=== PATIENT | male | born 1945 | race Caucasian/White ===

== ENCOUNTER 2017-07-04 10:14 | Outpatient (CLI) | payer MEDICARE, OTHER | END 2017-07-04 10:15 | disposition home or self-care (01) | LOC: SC 10:14 | PROVIDERS: ATTEND Internal Medicine Pulmonary Disease | DX: G47.33 Obstructive sleep apnea (adult) (pediatric) (principal) | CPT/HCPCS: 99213; G0463; 99212 ==

== ENCOUNTER 2018-06-18 09:43 | Outpatient (CLI) | payer MEDICARE, OTHER | END 2018-06-18 09:44 | disposition home or self-care (01) | LOC: SC 09:43 | PROVIDERS: ATTEND Nurse Practitioner Family | DX: G47.33 Obstructive sleep apnea (adult) (pediatric) (principal) | CPT/HCPCS: 99214; G0463; 99212 ==

== ENCOUNTER 2019-07-18 09:18 | Outpatient (CLI) | payer MEDICARE, OTHER ==
[2019-07-18 10:35] VITALS: BP 132/76
--- NOTE | 2019-07-18 10:35 | SLEEP CARE CONSULTATION ---
Information from patient questionnaire entered by Taylor Rodríguez. I have reviewed and concur with the information entered by Taylor Rodríguez. This document represents the service I personally performed and the decisions made by me, Sophie Bull, RN, MSN, SUPPLIER SPECIALIST. History of Present Illness Previous diagnosis: Severe, Obstructive Sleep Apnea-Hypopnea Syndrome AHI: 63.5 Reason for CPAP/BiPAP follow up: annual Equipment type: CPAP Equipment obtained from: [facility] (having difficulty getting supplies and would like to have a reminder system -) Mask style: Nasal (Wisp) Mask brand: Respironics Backup mask available: Yes Last cushion change: a month ago CPAP Compliance Data - Data Reviewed with Patient Average duration of nightly device use: 8.1 Compliance rate %: 100 (180 days) Current pressure setting (cmH2O): 8-16 Humidity settin Heated hose settin Average residual AHI: 3.1 Subjective Patient concerns: denies: aerophagia, mask discomfort, air blowing in eyes, mask leak noise, condensation in mask/hose, nasal congestion, dry mouth, nose, throat, epistaxis Observed to snore while using device: No Current pressure setting perceived as: comfortable On therapy, patient: reports: sleeping better, awakening more refreshed, being more awake and alert during the day, more rested overall. denies: drowsiness while driving Initial [place] Sleepiness Scale score: 6 Current [place] Sleepiness Scale score: 5 Allergies and Home Medications Known drug allergies: Yes Home medication list reviewed: Yes Allergy and home medication list: Aspirin EC 81mg tab one daily Losartan Potassium 100mg tab one daily in the morning Vitamin D 1000unit tab one daily Pravastatin Sodium 10mg tab one daily Bupropion 300mg tab one daily in the morning Mature Vitamin Tab one daily Review of Systems Review of systems same as previous: Yes Physical Exam Blood Pressure: 132/76 Cuff size: long Heart Rate: 67 O2 Saturation: 98 Height: 5 ft 9 in Weight: 282 lb 9.6 oz Weight change since last visit: lost 14 pounds Body Mass Index: 41.7 BMI Classification: Obesity Class 3 Impression and Plan 1. Obstructive Sleep Apnea-Hypopnea Syndrome, very severe, with good treatment compliance and good apnea control. On CPAP therapy, the patient has better sleep quality and is more rested overall. For supply concerns, he would like to have notification for when supplies come as before. Thus he was advised to contact [email or web address] to see what reminder system is available. I also gave him a supply replacement list and discussed rationale for replacement and answered questions. He asked about replacement of his device and it was determined it would be the end of next June. If continued supply problems he was notified that he could transfer to another DME. He had a lot questions about cleaning his equipment and cleaning devices. I gave him a handout about CPAP cleaning suggestions and discussed rationale. He was advised to do his research on cleaning devices to what he wants. I informed him that the device Rep stated there was no problem with using it. He has started to lose weight. I showed him how his blood pressure is lower than in past 2 visits and how his weight loss will reduce his blood pressure. His current weight is still morbidly obese which increases apnea risk and overal health risks. He is advised to continue to lose weight. If significant weight loss, his CPAP pressure requirements may need to be reduced so symptoms to report discusse. Patient's apnea severity and rationale for treatment to reduce apnea, improve sleep quality and reduce cardiovascular and cerebrovascular events was reviewed. I also reviewed the benefit of consistent device use of CPAP for his hypertension, depression/anxiety. * Continue autoCPAP pressure at 8-16 cmH2O * Contact [email or web address] re supply concerns * Notify me if snoring with mask or feeling that the pressure is too much or too little * Continue to lose weight * Return for follow up in 1 year , or sooner if concerns arise I spent 100% of this 35 minute visit face to face with the patient with greater than 50% of this was spent time counseling the patient and coordination of care.
== END 2019-07-18 09:19 | disposition home or self-care (01) ==
LOC: SC 09:18
PROVIDERS: ATTEND Nurse Practitioner Family
DX: G47.33 Obstructive sleep apnea (adult) (pediatric) (principal)
CPT/HCPCS: 99212; 99214

== ENCOUNTER 2020-07-30 10:32 | Outpatient (CLI) | payer MEDICARE, OTHER ==
--- NOTE | 2020-07-30 11:10 | SLEEP CARE CONSULTATION ---
Information from patient questionnaire entered by Romina Partida. I have reviewed and concur with the information entered by Romina Partida. This document represents the service I personally performed and the decisions made by , Julia Maravilla ARNP. History of Present Illness Service Date and Time: 07/30/2020 1032 Previous diagnosis: Severe, Obstructive Sleep Apnea-Hypopnea Syndrome AHI: 63.5 (in 2002) Reason for follow up: annual (last seen 06/2019) Equipment type: CPAP Equipment obtained from: [facility] (they are no longer able to provide supplies) Mask style: Nasal (Wisp) Mask brand: [employer] Backup mask available: Yes (old mask) Last cushion change: over a month Prior sleep studies: Yes Year and Where: 2002 [facility] and 2008 [facility] Sleep Care titration HPI additional information: BENNY WERNER was diagnosed to have severe, AHI 63.5, obstructive sleep apnea- hypopnea syndrome and returned today for CPAP therapy annual follow-up. CPAP Compliance Data - Data Reviewed with Patient Average duration of nightly device use: 8 h 18 min Compliance rate %: 100 Current pressure setting (cmH2O): 8-16 Humidity settin Heated hose settin Average residual AHI: 2.9 Average large leak: 1 min 7 sec Subjective Patient concerns: denies: aerophagia, mask discomfort, air blowing in eyes, mask leak noise, condensation in mask/hose, nasal congestion, dry mouth, nose, throat, epistaxis, other Observed to snore while using device: No Current pressure setting perceived as: comfortable On therapy, patient: reports: sleeping better, awakening more refreshed, being more awake and alert during the day, more rested overall. denies: drowsiness while driving Initial [place] Sleepiness Scale score: 6 (in 2008) Current [place] Sleepiness Scale score: 4 Allergies and Home Medications Drug allergies reviewed: Yes (NKDA) Home medication list reviewed: Yes (adding a HTN med (doesn't know name)) Review of Systems Review of systems same as previous: Yes (no changes) Physical Exam Heart Rate: 74 O2 Saturation: 97 Height: 5 ft 9 in Weight: 294 lb Body Mass Index: 43.4 BMI Classification: Morbidly Obese Impression and Plan 1. Obstructive Sleep Apnea-Hypopnea Syndrome, severe, with excellent treatment compliance and good apnea control. On CPAP therapy, the patient has better sleep quality and is more rested overall. Currently patients BMI is 43.4. Obesity increases the risk of apnea, CPAP pressure requirements and overall health risks especially cardiovascular and diabetes. Thus patient is advised to try to lose weight. Weight loss can be done with reducing portion size, reducing refined foods and balancing content with vegetables, fruit and whole grain foods. Patient was getting supplies at local DME but they no longer provide supplies for CPAP. Patient was informed that another DME can be used. I will have my financial aid coordinator inform of DME options. A DWO prescription will then be made. Patient advised to contact this office if further supply problems. He is also eligible for a new machine but would like to wait and consider options before ordering a new machine. Patient encouraged to discuss their weight loss goals with their PCP and consider a referral to a rotor pilot. Patient's apnea severity and rationale for treatment to reduce apnea, improve sleep quality and reduce cardiovascular and cerebrovascular events was reviewed. I also reviewed the benefit of consistent device use of CPAP for hypertension, depression and anxiety. * Continue auto CPAP pressure at 8-16 cmH2O * Transfer DME * Notify me if snoring with mask or feeling that the pressure is too much or too little * Attempt to lose weight * Call this office if any problems using CPAP * Return for follow up in 1-year, or sooner if concerns arise Counseling Topics: Spare mask, Weight loss health impact Visit Type: In Office Time Spent with Patient (minutes): 23 Provider Statement: I spent 100% of the Face to Face Visit with the patient with greater than 50% spent counseling the patient and coordination of care.
== END 2020-07-30 10:33 | disposition home or self-care (01) ==
LOC: SC 10:32
PROVIDERS: ATTEND Nurse Practitioner Family
DX: G47.33 Obstructive sleep apnea (adult) (pediatric) (principal); E66.01 Morbid (severe) obesity due to excess calories; Z68.41 Body mass index [BMI] 40.0-44.9, adult
CPT/HCPCS: 99213; G0463; 99212

== ENCOUNTER 2021-09-02 09:44 | Outpatient (CLI) | payer MEDICARE, OTHER ==
--- NOTE | 2021-09-02 10:34 | SLEEP CARE CONSULTATION ---
Information from patient questionnaire entered by Blanca Bronson MA. I have reviewed and concur with the information entered by Blanca Bronson MA. This document represents the service I personally performed and the decisions made by , Julia Maravilla ARNP. History of Present Illness Service Date and Time: 09/02/2021 0944 Previous diagnosis: Severe, Obstructive Sleep Apnea-Hypopnea Syndrome AHI: 63.5 (in 2002) Reason for follow up: annual Equipment type: CPAP Equipment obtained from: Other ([facility]; getting supplies) Mask style: Nasal (Eson 2) Backup mask available: Yes (old mask) Last cushion change: don't remember Prior sleep studies: Yes Year and Where: 2002 [place] [address] 2008 [facility] Sleep Care titration HPI additional information: BENNY WERNER was diagnosed to have severe, AHI 63.5, obstructive sleep apnea- hypopnea syndrome and returned today for CPAP therapy annual follow-up. Sleep Study - Results Prior sleep studies: Yes Year and Where: 2002 [place] [address] 2008 [facility] Sleep Care titration CPAP Compliance Data - Data Reviewed with Patient Average duration of nightly device use: 8 HOURS 18 MINUTES Compliance rate %: 100 Current pressure setting (cmH2O): 8-16 Humidity settin Heated hose settin Average residual AHI: 2.9 Average large leak: 1 MINUTE 7 SECONDS Subjective Patient concerns: denies: aerophagia, mask discomfort, air blowing in eyes, mask leak noise, condensation in mask/hose, nasal congestion, dry mouth, nose, throat, epistaxis, other Observed to snore while using device: No Current pressure setting perceived as: comfortable On therapy, patient: reports: sleeping better, awakening more refreshed, being more awake and alert during the day, more rested overall, other (can't sleep without it). denies: drowsiness while driving Initial [place] Sleepiness Scale score: 6 (in 2008) Current [place] Sleepiness Scale score: 8 (2020) Allergies and Home Medications Home medication list reviewed: Yes (Amlodipine 5 mg) Review of Systems Review of systems same as previous: No (carpal tunnel surgery; basal cell growth removed from face) Physical Exam Vital signs obtained and entered by: SHEEBA DE LEON Blood Pressure: 138/72 (RIGHT) Cuff size: wrist Heart Rate: 72 O2 Saturation: 96 (WITH MASK) Height: 5 ft 9 in Weight: 280 lb (WITH CLOTHES) Body Mass Index: 41.3 BMI Classification: Morbidly Obese Impression and Plan 1. Obstructive Sleep Apnea-Hypopnea Syndrome, severe, with excellent treatment compliance and good apnea control. On CPAP therapy, the patient has better sleep quality and is more rested overall. Patient has a REMstar from [employer] that he received in 2014. I informed the patient that [employer] has a recall on several devices like the patients machine. Patient denies any black particles seen in machine or hoses, any unusual odors coming from device. Patient has not experienced any physical symptoms such as upper airway irritation, headache, skin or eye irritation, asthma, nausea/vomiting, difficulty breathing or chest pain. If patient is not able to sleep due to waking up choking, gasping for air or other respiratory distress that they may decide to continue using it until it is either replaced or repaired. Since the patients current machine is at least 5 years old the patient is opting to update their device with a device that is not on the recall. Thus, the CPAP will be updated. A DWO prescription will be made. Compliance guidelines for new device and follow up discussed. Patient voiced understanding and agreement with plan. Patient's apnea severity and rationale for treatment to reduce apnea, improve sleep quality and reduce cardiovascular and cerebrovascular events was reviewed. I also reviewed the benefit of consistent device use of CPAP for hypertension, depression and anxiety. * Continue auto CPAP pressure at 8-16 cmH2O * Update device * Update supplies as needed * Notify me if snoring with mask or feeling that the pressure is too much or too little * Attempt to lose weight * Call this office if any problems using CPAP * Return for follow up one month after obtaining new device, or sooner if concerns arise Counseling Topics: Spare mask, Weight loss health impact Visit Type: In Office Time Spent with Patient (minutes): 24 Provider Statement: I spent 100% of the Face to Face Visit with the patient with greater than 50% spent counseling the patient and coordination of care.
[2021-09-02 10:35] VITALS: BP 138/72
== END 2021-09-02 09:45 | disposition home or self-care (01) ==
LOC: SC 09:44
PROVIDERS: ATTEND Nurse Practitioner Family
DX: G47.33 Obstructive sleep apnea (adult) (pediatric) (principal); E66.01 Morbid (severe) obesity due to excess calories; Z68.41 Body mass index [BMI] 40.0-44.9, adult
CPT/HCPCS: 99213; G0463; 99212

== ENCOUNTER 2021-12-07 09:18 | Outpatient (CLI) | payer MEDICARE, OTHER ==
--- NOTE | 2021-12-07 10:08 | SLEEP CARE CONSULTATION ---
Information from patient questionnaire entered by Blanca Bronson MA. I have reviewed and concur with the information entered by Blanca Bronson MA. This document represents the service I personally performed and the decisions made by , Julia Maravilla ARNP. History of Present Illness Service Date and Time: 12/07/2021 0918 Previous diagnosis: Severe, Obstructive Sleep Apnea-Hypopnea Syndrome AHI: 63.5 (in 2002) Reason for follow up: first compliance (JULIO CESAR MILLER, ), first compliance after device update Equipment type: CPAP Equipment obtained from: Other ([facility]; getting supplies) Mask style: Nasal (Eson 2) Backup mask available: Yes (old mask) Last cushion change: 1 month Prior sleep studies: Yes Year and Where: [place] and 2008 [facility] Sleep Care titration HPI additional information: BENNY WERNER was diagnosed to have severe, AHI 63.5, obstructive sleep apnea- hypopnea syndrome and returned today for CPAP therapy first compliance after device updated follow-up. Sleep Study - Results Prior sleep studies: Yes Year and Where: 2002 and 2008 [facility] Sleep Care titration CPAP Compliance Data - Data Reviewed with Patient Average duration of nightly device use: 8 hours 22 minutes Compliance rate %: 100 Current pressure setting (cmH2O): 8-16 Average residual AHI: 1.9 Central apnea: 0.1 Average large leak: 8.9 Subjective Patient concerns: denies: aerophagia, mask discomfort, air blowing in eyes, mask leak noise, condensation in mask/hose, nasal congestion, dry mouth, nose, throat, epistaxis Observed to snore while using device: No Current pressure setting perceived as: comfortable On therapy, patient: reports: sleeping better, awakening more refreshed, being more awake and alert during the day, more rested overall. denies: drowsiness while driving Initial [place] Sleepiness Scale score: 6 (in 2008) Current [place] Sleepiness Scale score: 8 (11/2021) Allergies and Home Medications Home medication list reviewed: Yes (no changes) Review of Systems Review of systems same as previous: Yes (no changes) Physical Exam Vital signs obtained and entered by: SHEEBA DE LEON Blood Pressure: 139/76 (right, pulse 73, resp 16, ) Cuff size: wrist Heart Rate: 71 O2 Saturation: 97 (cloth) Height: 5 ft 9 in Weight: 290 lb Body Mass Index: 42.8 BMI Classification: Morbidly Obese Impression and Plan 1. Obstructive Sleep Apnea-Hypopnea Syndrome, severe, with excellent treatment compliance and good apnea control. On CPAP therapy, the patient has better sleep quality and is more rested overall. Patient states that his new machine is working fine. He states when he turns it up sometimes it would continue to run like it is winding down for period of time. Other than that there is no other issues. Patient has significant improvement of his sleep apnea with current CPAP therapy. Patient's apnea severity and rationale for treatment to reduce apnea, improve sleep quality and reduce cardiovascular and cerebrovascular events was reviewed. I also reviewed the benefit of consistent device use of CPAP for hypertension, depression and anxiety. 2. Obesity, unspecified. Currently patients BMI is 42.8. Obesity increases the risk of apnea, CPAP pressure requirements and overall health risks especially cardiovascular and diabetes. Thus patient is advised to lose weight. Weight loss can be done with reducing portion size, reducing refined foods and balancing c ontent with vegetables, fruit and whole grain foods. In addition, patient encouraged to get regular exercise. Patient is trying to get his 10,000 steps in every day. He will even watch TV standing up in order to get his steps in. The patient's CPAP pressure range should accommodate some weight loss. Symptoms to report for additional pressure adjustment discussed. * Continue auto CPAP pressure at 8-16 cmH2O * Notify me if snoring with mask or feeling that the pressure is too much or too little * Attempt to lose weight * Call this office if any problems using CPAP * Return for follow up in 1 year, or sooner if concerns arise Counseling Topics: Spare mask, Weight loss health impact Visit Type: In Office Time Spent with Patient (minutes): 21 Provider Statement: I spent 100% of the Face to Face Visit with the patient with greater than 50% spent counseling the patient and coordination of care.
[2021-12-07 10:09] VITALS: BP 139/76
== END 2021-12-07 09:19 | disposition home or self-care (01) ==
LOC: SC 09:18
PROVIDERS: ATTEND Nurse Practitioner Family
DX: G47.33 Obstructive sleep apnea (adult) (pediatric) (principal); E66.01 Morbid (severe) obesity due to excess calories; Z68.41 Body mass index [BMI] 40.0-44.9, adult
CPT/HCPCS: 99213; G0463; 99212

== ENCOUNTER 2022-07-27 11:39 | Outpatient (CLI) | payer MEDICARE, OTHER ==
[2022-07-27 11:58] LABS: BASOPHILS % (AUTO) 0.7 %; EOSINOPHILS # (AUTO) 0.1 10^3/uL (0.0-0.7); EOSINOPHILS % (AUTO) 1.5 %; HGB - HEMOGLOBIN 13.1 g/dL (14.0-18.0); LYMPHOCYTES # (AUTO) 1.3 10^3/uL (1.5-3.5); LYMPHOCYTES % (AUTO) 32.3 %; MEAN CORPUSCULAR HEMOGLOBIN 31.1 pg (27.0-31.0); MEAN CORPUSCULAR HGB CONC 33.6 g/dL (32.0-36.0); MEAN CORPUSCULAR VOLUME 92.6 fL (80.0-94.0); MEAN PLATELET VOLUME 9.8 fL (7.4-11.4); MONOCYTES # (AUTO) 0.4 10^3/uL (0.0-1.0); MONOCYTES % (AUTO) 10.1 %; NEUTROPHILS # (AUTO) 2.2 10^3/uL (1.5-6.6); NEUTROPHILS % (AUTO) 55.2 %; PLT - PLATELET COUNT 177 10^3/uL (130-450); RED BLOOD COUNT 4.21 10^6/uL (4.70-6.10); RED CELL DISTRIBUTION WIDTH 12.9 % (12.0-15.0); WHITE BLOOD COUNT 4.1 x10^3/uL (4.8-10.8)
[2022-07-27 12:11] LABS: CREATININE,URINE 71.6 mg/dL; MICROALBUM/CREATININE RATIO,UR 4.2 ug/mg (<30.0); MICROALBUMIN,URINE 0.3 mg/dL (0-300.0)
[2022-07-27 12:15] LABS: ALBUMIN 4.3 g/dL (3.2-5.5); ALBUMIN/GLOBULIN RATIO 1.3 (1.0-2.2); ALKALINE PHOSPHATASE 68 IU/L (42-121); ALT ALANINE AMINOTRANSFERASE 39 IU/L (10-60); AST ASPARTATE AMINOTRANSFERASE 31 IU/L (10-42); BILIRUBIN,TOTAL 0.9 mg/dL (0.2-1.0); BUN - BLOOD UREA NITROGEN 20 mg/dL (6-20); CALCIUM 9.5 mg/dL (8.5-10.3); CARBON DIOXIDE - CO2 25 mmol/L (21-32); CHLORIDE 105 mmol/L (101-111); CHOL/HDL RATIO 4.8 (<5.0); CHOLESTEROL 237 mg/dL; GFR - MDRD 73 (>89); GLUCOSE 116 mg/dL (70-100); HDL CHOLESTEROL 49 mg/dL; LDL CHOLESTEROL,CALCULATED 139 mg/dL; LDL/HDL RATIO 2.8 (<3.6); POTASSIUM 3.9 mmol/L (3.5-5.0); SODIUM 140 mmol/L (135-145); TOTAL PROTEIN 7.6 g/dL (6.7-8.2); TRIGLYCERIDES 245 mg/dL; VLDL CHOLESTEROL 49 mg/dL
[2022-07-27 12:25] LABS: THYROID STIMULATING HORMONE 2.15 uIU/mL (0.34-5.60)
[2022-07-27 13:44] LABS: ESTIMATED AVERAGE GLUCOSE 140 mg/dL (70-100); HEMOGLOBIN A1c% 6.5 % (4.27-6.07)
== END 2022-07-27 11:40 | disposition home or self-care (01) ==
LOC: LAB 11:39
PROVIDERS: ATTEND Internal Medicine
DX: I10 Essential (primary) hypertension (principal); E78.5 Hyperlipidemia, unspecified; R73.01 Impaired fasting glucose; Z13.29 Encounter for screening for other suspected endocrine disorder; Z12.5 Encounter for screening for malignant neoplasm of prostate
CPT/HCPCS: 36415; 80053; 80061; 82043; 82570; 83036; 84443; 85025; G0103; 83721; 84153

== ENCOUNTER 2022-10-13 10:52 | Outpatient (CLI) | payer MEDICARE, OTHER ==
[2022-10-13 11:18] LABS: BASOPHILS % (AUTO) 0.9 %; EOSINOPHILS # (AUTO) 0.1 10^3/uL (0.0-0.7); EOSINOPHILS % (AUTO) 2.7 %; HCT - HEMATOCRIT 38.8 % (42.0-52.0); HGB - HEMOGLOBIN 13.1 g/dL (14.0-18.0); LYMPHOCYTES # (AUTO) 1.5 10^3/uL (1.5-3.5); LYMPHOCYTES % (AUTO) 34.7 %; MEAN CORPUSCULAR HEMOGLOBIN 31.3 pg (27.0-31.0); MEAN CORPUSCULAR HGB CONC 33.8 g/dL (32.0-36.0); MEAN CORPUSCULAR VOLUME 92.6 fL (80.0-94.0); MONOCYTES # (AUTO) 0.4 10^3/uL (0.0-1.0); MONOCYTES % (AUTO) 9.1 %; NEUTROPHILS # (AUTO) 2.3 10^3/uL (1.5-6.6); NEUTROPHILS % (AUTO) 52.4 %; PLT - PLATELET COUNT 177 10^3/uL (130-450); RED BLOOD COUNT 4.19 10^6/uL (4.70-6.10); RED CELL DISTRIBUTION WIDTH 13.1 % (12.0-15.0); WHITE BLOOD COUNT 4.4 x10^3/uL (4.8-10.8)
[2022-10-13 11:40] LABS: ALBUMIN 4.5 g/dL (3.2-5.5); ALBUMIN/GLOBULIN RATIO 1.3 (1.0-2.2); ALKALINE PHOSPHATASE 77 IU/L (42-121); ALT ALANINE AMINOTRANSFERASE 32 IU/L (10-60); AST ASPARTATE AMINOTRANSFERASE 27 IU/L (10-42); BUN - BLOOD UREA NITROGEN 31 mg/dL (6-20); CALCIUM 9.9 mg/dL (8.5-10.3); CARBON DIOXIDE - CO2 27 mmol/L (21-32); CHLORIDE 103 mmol/L (101-111); CHOLESTEROL 143 mg/dL; CREATININE 1.1 mg/dL (0.6-1.2); GFR - MDRD 65 (>89); GLUCOSE 113 mg/dL (70-100); HDL CHOLESTEROL 48 mg/dL; LDL CHOLESTEROL,CALCULATED 61 mg/dL; LDL/HDL RATIO 1.3 (<3.6); POTASSIUM 3.8 mmol/L (3.5-5.0); SODIUM 139 mmol/L (135-145); TRIGLYCERIDES 172 mg/dL; VLDL CHOLESTEROL 34 mg/dL
[2022-10-13 12:00] LABS: CRP - C-REACTIVE PROTEIN < 1.0 mg/dL (0-1.0); URIC ACID 5.4 mg/dL (2.6-7.2)
[2022-10-13 13:00] LABS: ESTIMATED AVERAGE GLUCOSE 134 mg/dL (70-100); HEMOGLOBIN A1c% 6.3 % (4.27-6.07)
== END 2022-10-13 10:53 | disposition home or self-care (01) ==
LOC: LAB 10:52
PROVIDERS: ATTEND Orthopaedic Surgery
DX: E11.9 Type 2 diabetes mellitus without complications (principal); E78.5 Hyperlipidemia, unspecified; M25.562 Pain in left knee
CPT/HCPCS: 36415; 80053; 80061; 83036; 83721; 84550; 85025; 85651; 86140

== ENCOUNTER 2023-01-11 11:18 | Outpatient (CLI) | payer MEDICARE, OTHER ==
[2023-01-11 11:52] VITALS: BP 122/60
--- NOTE | 2023-01-11 11:52 | SLEEP CARE CONSULTATION ---
Information from patient questionnaire entered by Elizabeth Hinds. I have reviewed and concur with the information entered by Elizabeth Hinds. This document represents the service I personally performed and the decisions made by me, Julia Maravilla ARNP. History of Present Illness Service Date and Time: 01/11/2023 1118 Previous diagnosis: Very Severe, Obstructive Sleep Apnea-Hypopnea Syndrome AHI: 63.5 (in 2002) Reason for follow up: annual (LAST SEEN 11/2021) Equipment type: CPAP (Suzan 3B; ICODE SD CARD NEEDED FOR DOWNLOAD AND PRESSURE CHANGES) Equipment obtained from: Other ([facility]; getting supplies) Mask style: Nasal (Eson 2) Backup mask available: Yes (old mask) Last cushion change: last week Prior sleep studies: Yes Year and Where: [place] and 2008 [facility] Sleep Care titration HPI additional information: BENNY WERNER was diagnosed to have very severe, AHI 63.5, obstructive sleep apnea- hypopnea syndrome and returned today for CPAP therapy annual follow-up. Sleep Study - Results Prior sleep studies: Yes Year and Where: [place] and 2008 [facility] Sleep Care titration CPAP Compliance Data - Data Reviewed with Patient Average duration of nightly device use: 8 hours 15 minutes Compliance rate %: 100 Current pressure setting (cmH2O): 8-16 Average residual AHI: 2.2 Central apnea: 0.1 Average large leak: 8.3 lpm Subjective Patient concerns: denies: aerophagia, mask discomfort, air blowing in eyes, mask leak noise, condensation in mask/hose, nasal congestion, dry mouth, nose, throat, epistaxis Observed to snore while using device: No Current pressure setting perceived as: comfortable On therapy, patient: reports: sleeping better, awakening more refreshed, being more awake and alert during the day, more rested overall. denies: drowsiness while driving Initial [place] Sleepiness Scale score: 6 (in 2008) Current [place] Sleepiness Scale score: 8 (01/11/23) Allergies and Home Medications Known drug allergies: No Drug allergies reviewed: Yes Home medication list reviewed: Yes (Trulicity) Review of Systems Review of systems same as previous: Yes (borderline diabetes) Physical Exam Vital signs obtained and entered by: ELIZABETH Cox MA Blood Pressure: 122/60 (LEFT ARM) Cuff size: regular Heart Rate: 81 O2 Saturation: 97 Height: 5 ft 9 in Weight: 295 lb 12.8 oz Body Mass Index: 43.7 BMI Classification: Morbidly Obese Impression and Plan 1. Obstructive Sleep Apnea-Hypopnea Syndrome, very severe, with good treatment compliance and good apnea control. On CPAP therapy, the patient has better sleep quality and is more rested overall. Patient has significant improvement of their sleep apnea and is satisfied with current CPAP therapy. He states he cannot sleep without his CPAP and intends to continue using it regularly. Patient denies problems with oral dryness, nasal congestion, epistaxis, skin irritation or aerophagia. Patient's apnea severity and rationale for treatment to reduce apnea, improve sleep quality and reduce cardiovascular and cerebrovascular events was reviewed. I also reviewed the benefit of consistent device use of CPAP for hypertension, depression and anxiety. 2. Overweight, unspecified. Currently patients BMI is 43.7. He states he did lose some weight when he was on vacation but then he gained it back. He cannot remember what he was doing to lose weight but is mindful that he needs to start trying to lose weight again. Obesity increases the risk of apnea, CPAP pressure requirements and overall health risks especially cardiovascular and diabetes. Thus patient is advised to lose weight. * Continue auto CPAP pressure at 8-16 cmH2O * Update supplies * Notify me if snoring with mask or feeling that the pressure is too much or too little * Attempt to lose weight * Call this office if any problems using CPAP * Return for follow up in 1 year, or sooner if concerns arise Counseling Topics: Spare mask, Weight loss health impact Visit Type: In Office Time Spent with Patient (minutes): 20 Provider Statement: I spent 100% of the Face to Face Visit with the patient with greater than 50% spent counseling the patient and coordination of care.
== END 2023-01-11 11:19 | disposition home or self-care (01) ==
LOC: SC 11:18
PROVIDERS: ATTEND Nurse Practitioner Family
DX: G47.33 Obstructive sleep apnea (adult) (pediatric) (principal); E66.01 Morbid (severe) obesity due to excess calories; Z68.41 Body mass index [BMI] 40.0-44.9, adult
CPT/HCPCS: 99213; G0463; 99212

== ENCOUNTER 2023-03-08 12:03 | Outpatient (CLI) | payer MEDICARE, OTHER ==
[2023-03-08 12:28] LABS: ALBUMIN 4.5 g/dL (3.2-5.5); ALBUMIN/GLOBULIN RATIO 1.3 (1.0-2.2); BILIRUBIN,TOTAL 0.7 mg/dL (0.2-1.0); CALCIUM 9.7 mg/dL (8.5-10.3); CREATININE 1.1 mg/dL (0.6-1.2); POTASSIUM 3.9 mmol/L (3.5-5.0); TOTAL PROTEIN 8.1 g/dL (6.7-8.2)
[2023-03-08 12:37] LABS: ESTIMATED AVERAGE GLUCOSE 131 mg/dL (70-100); HEMOGLOBIN A1c% 6.2 % (4.27-6.07)
== END 2023-03-08 12:04 | disposition home or self-care (01) ==
LOC: LAB 12:03
PROVIDERS: ATTEND Internal Medicine
DX: E11.9 Type 2 diabetes mellitus without complications (principal)
CPT/HCPCS: 36415; 80053; 83036

== ENCOUNTER 2023-07-26 11:20 | Outpatient (CLI) | payer MEDICARE, OTHER ==
[2023-07-26 11:38] LABS: BASOPHILS % (AUTO) 0.9 %; EOSINOPHILS # (AUTO) 0.1 10^3/uL (0.0-0.7); EOSINOPHILS % (AUTO) 2.6 %; HCT - HEMATOCRIT 38.7 % (42.0-52.0); HGB - HEMOGLOBIN 12.9 g/dL (14.0-18.0); LYMPHOCYTES # (AUTO) 1.5 10^3/uL (1.5-3.5); LYMPHOCYTES % (AUTO) 32.3 %; MEAN CORPUSCULAR HEMOGLOBIN 30.5 pg (27.0-31.0); MEAN CORPUSCULAR HGB CONC 33.3 g/dL (32.0-36.0); MEAN CORPUSCULAR VOLUME 91.5 fL (80.0-94.0); MEAN PLATELET VOLUME 9.7 fL (7.4-11.4); MONOCYTES # (AUTO) 0.5 10^3/uL (0.0-1.0); MONOCYTES % (AUTO) 9.6 %; NEUTROPHILS # (AUTO) 2.6 10^3/uL (1.5-6.6); NEUTROPHILS % (AUTO) 54.4 %; PLT - PLATELET COUNT 182 10^3/uL (130-450); RED BLOOD COUNT 4.23 10^6/uL (4.70-6.10); RED CELL DISTRIBUTION WIDTH 13.2 % (12.0-15.0); WHITE BLOOD COUNT 4.7 x10^3/uL (4.8-10.8)
[2023-07-26 11:55] LABS: ALBUMIN 4.7 g/dL (3.2-5.5); ALBUMIN/GLOBULIN RATIO 1.6 (1.0-2.2); ALKALINE PHOSPHATASE 81 IU/L (42-121); ALT ALANINE AMINOTRANSFERASE 31 IU/L (10-60); AST ASPARTATE AMINOTRANSFERASE 26 IU/L (10-42); BILIRUBIN,TOTAL 0.7 mg/dL (0.2-1.0); BUN - BLOOD UREA NITROGEN 17 mg/dL (6-20); CALCIUM 10.1 mg/dL (8.5-10.3); CARBON DIOXIDE - CO2 29 mmol/L (21-32); CHLORIDE 103 mmol/L (101-111); CHOL/HDL RATIO 2.8 (<5.0); CHOLESTEROL 128 mg/dL; CREATININE 1.1 mg/dL (0.6-1.3); GFR - MDRD 65 (>89); GLUCOSE 108 mg/dL (74-104); HDL CHOLESTEROL 46 mg/dL; LDL CHOLESTEROL,CALCULATED 50 mg/dL; LDL/HDL RATIO 1.1 (<3.6); POTASSIUM 3.8 mmol/L (3.5-4.5); SODIUM 138 mmol/L (135-145); TOTAL PROTEIN 7.7 g/dL (6.4-8.9); TRIGLYCERIDES 159 mg/dL (48-352); VLDL CHOLESTEROL 32 mg/dL
[2023-07-26 12:07] LABS: ESTIMATED AVERAGE GLUCOSE 137 mg/dL (70-100); HEMOGLOBIN A1c% 6.4 % (4.27-6.07)
[2023-07-26 13:47] LABS: CREATININE,URINE 103.6 mg/dL; MICROALBUM/CREATININE RATIO,UR 7.7 ug/mg (<30.0); MICROALBUMIN,URINE 0.8 mg/dL
== END 2023-07-26 11:21 | disposition home or self-care (01) ==
LOC: LAB 11:20
PROVIDERS: ATTEND Internal Medicine
DX: E11.9 Type 2 diabetes mellitus without complications (principal); E78.5 Hyperlipidemia, unspecified; N40.1 Benign prostatic hyperplasia with lower urinary tract symptoms
CPT/HCPCS: 36415; 80053; 80061; 82043; 82570; 83036; 83721; 84153; 85025

== ENCOUNTER 2023-07-27 10:03 | Outpatient (CLI) | payer MEDICARE, OTHER ==
[2023-07-27 10:21] LABS: BILIRUBIN,URINE NEGATIVE (NEGATIVE); GLUCOSE, URINE (UA) NEGATIVE (NEGATIVE); KETONES,URINE (UA) NEGATIVE (NEGATIVE); LEUKOCYTE ESTERASE, URINE NEGATIVE (NEGATIVE); NITRITE,URINE NEGATIVE (NEGATIVE); OCCULT BLOOD,URINE TRACE-INTA (NEGATIVE); PROTEIN,URINE NEGATIVE (NEGATIVE); UROBILINOGEN,URINE 0.2 (NORMAL) E.U./dL (NORMAL)
[2023-07-27 10:28] LABS: BACTERIA,URINE None Seen /HPF (None Seen); CLARITY,URINE c (CLEAR); RBC,URINE None Seen /HPF (0-5); SQUAMOUS EPITHELIAL CELL,UR NONE SEEN (<= Few); WBC,URINE 0-3 /HPF (0-3)
== END 2023-07-27 10:04 | disposition home or self-care (01) ==
LOC: LAB 10:03
PROVIDERS: ATTEND Internal Medicine
DX: R97.20 Elevated prostate specific antigen [PSA] (principal)
CPT/HCPCS: 36415; 81001; 84153; 84154; 87086

== ENCOUNTER 2023-09-13 10:47 | Outpatient (CLI) | payer MEDICARE, OTHER ==
[2023-09-13 11:15] LABS: CREATININE 1.1 mg/dL (0.6-1.3)
== END 2023-09-13 10:48 | disposition home or self-care (01) ==
LOC: LAB 10:47
PROVIDERS: ATTEND Urology
DX: R97.20 Elevated prostate specific antigen [PSA] (principal)
CPT/HCPCS: 36415; 82565

== ENCOUNTER 2023-09-13 10:59 | Outpatient (CLI) | payer MEDICARE, OTHER ==
--- NOTE | 2023-09-13 18:20 | XRAY Report ---
PROCEDURE: Ankle 3+V RT INDICATIONS: RIGHT ANKLE PAIN TECHNIQUE: 3 views of the ankle were acquired. COMPARISON: None. FINDINGS: Bones: No fracture or dislocation. Degenerative changes with incongruent mortise and lateral joint s pace narrowing Soft tissues: No tibiotalar joint effusion. Achilles tendon appears normal. IMPRESSION: Osteoarthritis of the right ankle with near complete loss of the joint space laterally. Reviewed by: Fuentes Brooks MD on 09/13/2023 6:19 PM PST Approved by: Fuetnes Brooks MD on 09/13/2023 6:19 PM PST Station ID: [id number]
== END 2023-09-13 11:00 | disposition home or self-care (01) ==
LOC: DI 10:59
PROVIDERS: ATTEND Internal Medicine
DX: M19.071 Primary osteoarthritis, right ankle and foot (principal); R97.20 Elevated prostate specific antigen [PSA]
CPT/HCPCS: 36415; 82565

== ENCOUNTER 2023-09-15 07:57 | Outpatient (CLI) | payer MEDICARE, OTHER ==
[~2023-09-15 07:57] MED LIST: GADOTERATE MEGLUMINE 10 MMOL/20 ML VIAL ONE; GADOTERATE MEGLUMINE 5 MMOL/10 ML VIAL ONE
[2023-09-15] MEDS ORDERED: GADOTERATE MEGLUMINE 10 MMOL/20 ML VIAL IVP ONE ×2 (09:32→10:00)
--- NOTE | 2023-09-15 13:16 | MRI Report ---
PROCEDURE: PELVIS W/WO INDICATIONS: ELEVATED PSA CONTRAST: CLARISCAN 29.8 ML TECHNIQUE: Coronal ultra fast SE, axial T1 FSE with fat saturation, 3-plane nonbreath-hold T2 FSE. After the ad ministration of contrast, dynamic axial, delayed axial and coronal ultra fast GE or 2-D spoiled GE wi th fat saturation through the pelvis. Optional diffusion weighted imaging and ADC may be performed. COMPARISON: None. FINDINGS: Image quality: Diffusion weighted and dynamic contrast enhanced images are diagnostic. Prostate: The gland measures roughly 5.1 x 5.8 x 5.0 cm for a volume of 77 cc. Gland morphology is ma rkedly abnormal. The signal is diffusely moderately T2 hypointense. The margins are irregular, indist inct, with a lobulated hyperintense material extending posterior left lateral into the fat planes and cranial into the base of the seminal vesicles bilaterally. The left neurovascular bundle is not seen , likely incorporated into mass. The right neurovascular bundle is closely associated with the prosta te mass at the gland apex. The left obturator muscle is atrophied, likely result of left hip arthroplasty. Abnormal tissue exten ding left lateral nearly contacts the remaining fibers of the left obturator, see series 5 image 16. Closer to the gland apex, there is definite contact with anterior bilateral pelvic sidewalls. Posteri wendy at the mid gland to base, there is microlobulated abnormal soft tissue which extends into the an terior perirectal fat and likely contacts the anterior rectal serosal surface., See series 5 image 15 . Enlarged left obturator nodes measure 0.8 cm and 1.1 cm, series 5 image 5 and 10 respectively. Left i nguinal lymph nodes are borderline. There is an enhancing bone lesion affecting the entire right pubic bone, one in the left posterior ac etabulum, and right superior acetabulum. There has been a left hip arthroplasty. The urinary bladder demonstrates fairly normal wall thickness. Distal ureters are nondistended. The v isible loops of bowel are otherwise normal. No free fluid in the pelvis. IMPRESSION: 1. Markedly abnormal prostate gland highly suggestive of locally advanced prostate carcinoma with lef t pelvic adenopathy and osseous metastases. Reviewed by: Lynda Carrillo MD on 09/15/2023 1:15 PM PST Approved by: Lynda Carrillo MD on 09/15/2023 1:15 PM PST Station ID: [id number]
== END 2023-09-15 07:58 | disposition home or self-care (01) ==
LOC: DI 07:57
PROVIDERS: ATTEND Urology
DX: R93.89 Abnormal findings on diagnostic imaging of other specified body structures (principal); R97.20 Elevated prostate specific antigen [PSA]; M89.9 Disorder of bone, unspecified; R59.0 Localized enlarged lymph nodes
CPT/HCPCS: 72197; A9575

== ENCOUNTER 2023-09-20 10:51 | Outpatient (CLI) | payer MEDICARE, OTHER | END 2023-09-20 10:52 | disposition home or self-care (01) | LOC: LAB 10:51 | PROVIDERS: ATTEND Urology | DX: R97.20 Elevated prostate specific antigen [PSA] (principal) | CPT/HCPCS: 36415; 84153 ==

== ENCOUNTER 2023-09-22 08:00 | Outpatient (CLI) | payer MEDICARE, OTHER | END 2023-09-22 23:59 | disposition home or self-care (01) | LOC: LAB 08:00 | PROVIDERS: ATTEND Urology | DX: R97.20 Elevated prostate specific antigen [PSA] (principal); R31.9 Hematuria, unspecified | CPT/HCPCS: 87086 ==

== ENCOUNTER 2023-11-02 12:43 | Outpatient (CLI) | payer MEDICARE, OTHER ==
--- NOTE | 2023-11-02 15:31 | XRAY Report ---
PROCEDURE: Chest 2V INDICATIONS: PERSISTENT COUGH TECHNIQUE: 2 views of the chest were acquired. COMPARISON: None. FINDINGS: Surgical changes and devices: None. Lungs and pleura: No pleural effusions or pneumothorax. Lungs are clear. Mediastinum: Mediastinal contours appear normal. Heart size is normal. Bones and chest wall: No suspicious bony lesions. Overlying soft tissues appear unremarkable. IMPRESSION: No acute cardiopulmonary process. Reviewed by: Myrna Malik MD on 11/02/2023 3:29 PM PST Approved by: Myrna Malik MD on 11/02/2023 3:29 PM [facility] Station ID: [id number]
== END 2023-11-02 12:44 | disposition home or self-care (01) ==
LOC: DI 12:43
PROVIDERS: ATTEND Internal Medicine
DX: R05.3 Chronic cough (principal); R04.2 Hemoptysis; Z85.46 Personal history of malignant neoplasm of prostate

== ENCOUNTER 2024-01-12 09:07 | Outpatient (CLI) | payer MEDICARE, OTHER ==
--- NOTE | 2024-01-12 09:44 | Sleep Patient Instructions ---
Sleep Center Visit Summary - Patient Visit Information Reason for Visit: Annual follow-up - Patient Instructions Additional Instructions: You will continue with CPAP therapy with pressure set at 8-16 cmH2O. A supply prescription will be updated with your DME. We encourage you to continue to try to lose weight. Please follow up with the sleep care office in 1 year. - Clinic Information Contact: [facility] [address] [place] [address] [email or web address] T: [phone]
--- NOTE | 2024-01-12 09:50 | SLEEP CARE CONSULTATION ---
Information from patient questionnaire entered by Elizabeth Hinds. I have reviewed and concur with the information entered by Elizabeth Hinds. This document represents the service I personally performed and the decisions made by , Julia Maravilla ARNP. History of Present Illness Service Date and Time: 01/12/2024 0907 Previous diagnosis: Very Severe, Obstructive Sleep Apnea-Hypopnea Syndrome AHI: 63.5 (in 2002) Reason for follow up: annual (LAST SEEN 12/2022) Equipment type: CPAP (Suzan II; ICODE SD CARD NEEDED FOR DOWNLOAD AND PRESSURE CHANGES) Equipment obtained from: Other ([facility]; getting supplies) Mask style: Nasal (Eson 2) Backup mask available: Yes Last cushion change: 1 month Prior sleep studies: Yes Year and Where: [address] [facility] titration HPI additional information: BENNY WERNER was diagnosed to have very severe, AHI 63.5, obstructive sleep apnea- hypopnea syndrome and returned today for CPAP therapy annual follow-up. Sleep Study - Results Prior sleep studies: Yes Year and Where: [address] [facility] titration CPAP Compliance Data - Data Reviewed with Patient Average duration of nightly device use: 8 hours 37 minutes Compliance rate %: 100 (184/184 days used) Current pressure setting (cmH2O): 8-16 Average residual AHI: 1.9 Central apnea: 0.1 Average large leak: 1 minute Subjective Patient concerns: denies: aerophagia, mask discomfort, air blowing in eyes, mask leak noise, condensation in mask/hose, nasal congestion, dry mouth, nose, throat, epistaxis Observed to snore while using device: No Current pressure setting perceived as: comfortable On therapy, patient: reports: sleeping better, awakening more refreshed, being more awake and alert during the day, more rested overall. denies: drowsiness while driving Initial [place] Sleepiness Scale score: 6 (in 2008) Current [place] Sleepiness Scale score: 8 Allergies and Home Medications Known drug allergies: No Drug allergies reviewed: Yes Home medication list reviewed: Yes (see list) Allergy and home medication list: Medications: abiraterone albuterol inhaler amlodipine amoxicillin, prn cholecalciferol flonase HCTZ Loratadine Ocuvite Lutein and zeaxanthin, prn Rosuvastatin Prednisone with abiraterone tamsulosin Jose Calcium MVT Fish oil Oxycodone, prn Tylenol Ex Strength, prn Review of Systems Review of systems same as previous: No (Stage IV Metastatic Prostate CA) Physical Exam Vital signs obtained and entered by: JULIA BHATTI Blood Pressure: 103/61 Cuff size: wrist (103/61) Heart Rate: 72 O2 Saturation: 98 Height: 5 ft 9 in Weight: 281 lb 9.6 oz Body Mass Index: 41.5 BMI Classification: Morbidly Obese Impression and Plan 1. Obstructive Sleep Apnea-Hypopnea Syndrome, very severe, with good treatment compliance and good apnea control. On CPAP therapy, the patient has better sleep quality and is more rested overall. Patient has been diagnosed with stage IV metastatic prostate cancer and just had his first round of chemotherapy. Patient has significant improvement of their sleep apnea and is satisfied with current CPAP therapy. Patient denies problems with oral dryness, nasal congestion, epistaxis, skin irritation or aerophagia. Patient's apnea severity and rationale for treatment to reduce apnea, improve sleep quality and reduce ca rdiovascular and cerebrovascular events was reviewed. I also reviewed the benefit of consistent device use of CPAP for hypertension, depression/anxiety. 2. Obesity, unspecified. Currently patients BMI is 41.5. Obesity increases the risk of apnea, CPAP pressure requirements and overall health risks especially cardiovascular and diabetes. Thus patient is advised to lose weight. * Continue auto CPAP pressure at 8-16 cmH2O * Update supply prescription * Notify me if snoring with mask or feeling that the pressure is too much or too little * Attempt to lose weight * Call this office if any problems using CPAP * Return for follow up in 12 months, or sooner if concerns arise Counseling Topics: Spare mask, Weight loss health impact Prescriptions: Device supplies Follow up with Sleep Care in: 1 year Visit Type: In Office Time Spent with Patient (minutes): 22 Provider Statement: I spent 100% of the Face to Face Visit with the patient with greater than 50% spent counseling the patient and coordination of care.
[2024-01-12 09:59] VITALS: BP 103/61; O2SAT 98
== END 2024-01-12 09:08 | disposition home or self-care (01) ==
LOC: SC 09:07
PROVIDERS: ATTEND Nurse Practitioner Family
DX: G47.33 Obstructive sleep apnea (adult) (pediatric) (principal); Z68.41 Body mass index [BMI] 40.0-44.9, adult; E66.01 Morbid (severe) obesity due to excess calories
CPT/HCPCS: 99213; G0463; 99212

== ENCOUNTER 2024-01-16 11:46 | Outpatient (CLI) | payer MEDICARE, OTHER ==
--- NOTE | 2024-01-16 12:15 | DEXA Report ---
PROCEDURE: Dexa Spine and/or Hip INDICATIONS: LNG TRM (CRNT)USE OF AGNT AFF ESTROG RECP ESTR TECHNIQUE: Dual energy x-ray absorptiometry (DXA) was performed on a [employer] System. Regions measur ed are the AP Spine, femoral neck, and if needed forearm. COMPARISON: None FINDINGS: Lumbar Spine: Bone Mineral Density: 1.84 g/cm/cm,T score: 5.1. Left Femoral Neck: Bone Mineral Density: 1.1 g/cm/cm, T score: 0.2. Left Hip: Bone Mineral Density: 1.15 g/cm/cm,T score: 0.3. (T score greater or equal to -1.0: NORMAL) (T score from -1.1 to -2.4: OSTEOPENIA) (T score less than or equal to -2.5 to: OSTEOPOROSIS) Impression: By WHO criteria, this patient has normal bone density. Patients with diagnosis of osteoporosis or osteopenia should have regular bone mineral density assess ment. For those eligible for Medicare, routine testing is allowed once every 2 years. Testing frequ ency can be increased for patients who have rapidly progressing disease or for those who are receivin g medical therapy to restore bone mass. Reviewed by: Codey Layne MD on 01/16/2024 12:13 PM PDT Approved by: Codey Layne MD on 01/16/2024 12:13 PM PDT Station ID: [id number]
== END 2024-01-16 11:47 | disposition home or self-care (01) ==
LOC: DI 11:46
PROVIDERS: ATTEND Urology
DX: C61 Malignant neoplasm of prostate (principal); Z79.818 Long term (current) use of other agents affecting estrogen receptors and estrogen levels

== ENCOUNTER 2024-11-16 10:04 | Inpatient (IN) ==
--- NOTE | 2024-11-16 10:46 | ED Physician Documentation ---
PD HPI MALE Stated complaint Stated Complaint: GEN WEAKNESS Chief complaint Chief Complaint: Fever History of Present Illness Timing - onset: Today and Last night Timing - duration: Days (1) Timing - details: Abrupt onset (The fevered weakness and nausea started just yesterday and increased overnight.) and Still present Associated symptoms: Abdominal pain; No Hematuria, Discharge or Indwelling cath eter (had maurer for a week post operatively, removed 2 days ago. 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.) Meds/Allgy Home Medications Ambulatory Orders Medication Instructions Recorded Confirmed albuterol sulfate 2.5 mg/3 mL See Rx Instructions .Route .COMPLEX 01/12/24 11/15/24 (0.083 %) solution for nebulization multivitamin See Rx Instructions .Route .COMPLEX 01/12/24 11/15/24 omega 7-vls-hyx-fish oil 300 See Rx Instructions .Route .COMPLEX 01/12/24 11/15/24 mg-1,000 mg capsule (Fish Oil) dulaglutide 3 mg/0.5 mL 3 mg (0.5 mL) subcut QWEEK #6.5 mL 07/09/24 11/15/24 subcutaneous pen injector (Trulicity) amlodipine 5 mg tablet 5 mg PO QDAY #90 tabs 08/13/24 11/15/24 hydrochlorothiazide 25 mg tablet 25 mg PO QAM #90 tabs 08/13/24 11/15/24 loratadine 10 mg tablet 10 mg PO QDAY #90 tabs 08/13/24 11/15/24 rosuvastatin 20 mg tablet 20 mg PO QDAY #90 tabs 08/13/24 11/15/24 sulfamethoxazole 800 1 tab PO BID #10 tabs 10/10/24 11/15/24 mg-trimethoprim 160 mg tablet abiraterone 250 mg tablet 250 mg PO QAM 10/11/24 11/15/24 albuterol sulfate 90 mcg/actuation 2 puff inhalation QID 10/11/24 11/15/24 aerosol inhaler (Ventolin HFA) fluorouracil 5 % topical cream 1 applic topical BID 10/11/24 11/15/24 fluticasone propionate 50 1 spray intranasal BID 10/11/24 11/15/24 mcg/actuation nasal spray,suspension leuprolide (3 month) 22.5 mg (3 22.5 mg subcut [id number] 10/11/24 11/15/24 month) subcutaneous syringe calcium carbonate 600 mg PO QDAY 10/14/24 11/15/24 cholecalciferol (vitamin D3) 25 25 mcg PO QDAY 10/14/24 11/15/24 mcg (1,000 unit) capsule metoprolol succinate 50 mg 50 mg PO DAILY #30 tabs 10/14/24 11/15/24 tablet,extended release 24 hr (Toprol XL) tamsulosin 0.4 mg capsule 0.4 mg PO HS 10/14/24 11/15/24 losartan 100 mg tablet 50 mg (1/2 x 100 mg) PO QDAY #90 10/16/24 11/15/24 tabs prednisone 5 mg tablet 5 mg PO BID #60 tabs 10/16/24 11/15/24 cephalexin 500 mg capsule 500 mg PO ONCE #1 cap 11/04/24 11/15/24 hydrocodone 5 mg-acetaminophen 325 1 tab PO Q4H PRN Pain #15 tabs 11/04/24 11/15/24 mg tablet phenazopyridine 200 mg tablet 200 mg PO TID PRN bladder 11/15/24 11/15/24 (Pyridium) irritation 5 days #15 tabs Allergies Allergies Allergy/AdvReac Type Severity Reaction Status Date / Time No Known Drug Allergies Allergy Verified 11/16/24 10:21 PFSH Active Problems All Active Problems (Updated 11/16/24 @ 14:26 by Jc Miller DNP) Septic shock (Acute) Status post transurethral resection of prostate (Acute) Transient hypotension (Acute) Generalized weakness (Acute) Fever (Acute) Sepsis (Acute) Small cell carcinoma (Acute) Ureteral obstruction, left (Acute) Type 2 diabetes mellitus (Acute) Prostate cancer metastatic to bone (Acute) Cancer, metastatic to lung (Acute) Androgen deprivation therapy (Acute) BPH w urinary obs/LUTS (Acute) Acute on chronic urinary retention (Acute) Paroxysmal supraventricular tachycardia (Acute) Essential hypertension (Acute) Severe obstructive sleep apnea (Acute) Coccyx contusion (Acute) Hyperuricemia (Acute) Morbid obesity (Acute) Allergic rhinitis (Acute) Pancolonic diverticulosis (Acute) Sun-damaged skin (Acute) Chronic rhinitis (Acute) Arthritis of right ankle (Acute) Metatarsalgia of both feet (Acute) Erectile dysfunction due to arterial insufficiency (Acute) Medical History Medical History (Updated 11/16/24 @ 14:26 by Jc Miller DNP) Metastatic malignant neoplasm to prostate History of PSVT (paroxysmal supraventricular tachycardia) Hx of diabetes mellitus Hx of sleep apnea History of high cholesterol Hx of essential hypertension Entrapment of right ulnar nerve Acquired spondylolisthesis L4-L5 Non-melanoma skin cancer Surgical History Surgical History (Updated 11/16/24 @ 12:35 by Curtis Stallings MD) Port-A-Cath in place 11/2023, right IJ Abnormal TRUS (transrectal ultrasound), prostate 09/2023, + adenocarcinoma H/O colonoscopy 11/2022, diverticulosis S/P carpal tunnel release 10/2020, right History of total left hip replacement 08/2016 H/O colonoscopy 11/2015, poor preparation, diverticulosis History of total bilateral knee replacement Right-10/2009 + Left-01/2010, left hardware is loose, Orthopedics recommending observation H/O vasectomy Family History Family History Father CAD (coronary artery disease) Congestive heart failure Mother Malignant neoplasm of throat Brother Bladder cancer COVID-19 virus infection Social History Social History Smoking Status: Never smoker Second hand tobacco smoke exposure: No Do you dip or chew tobacco?: No Do you vape?: No Living arrangement: At home Marital Status: Living Condition: With spouse/s.o. 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: Yes Service: Yes POLST Patient has POLST: No Exam Constitutional normal general appearance and average body habitus Neck/C-Spine supple and no meningeal signs Lymph no lymphadenopathy noted Respiratory breath sounds equal bilaterally and normal respiratory effort Cardiovascular normal heart rate noted and regular rhythm noted Gastrointestinal abdomen soft to palpation, tender to palpation (moderate), (LLQ) and (suprapubic) and nondistended Genitourinary no CVA tenderness (some to left flank) Extremities no tenderness and full ROM Psychiatry mental status grossly normal, orientation abnormal (disoriented to time), thought process normal, affect normal and psychomotor abnormality noted (slow) Skin skin color abnormal (pale) Results Vitals Vitals: Vital Signs - 24 hr 11/16/24 10:14 11/16/24 10:51 11/16/24 11:21 Temperature 39.6 C H Temperature Source Oral Pulse Rate 84 83 77 Respiratory Rate 20 20 21 Blood Pressure 92/44 L 101/53 L 107/52 L O2 Saturation 95 96 94 O2 Source Room air Room air Room air Pain Intensity 4 0 11/16/24 11:26 11/16/24 12:00 11/16/24 12:16 Temperature 39.9 C H Temperature Source Core Pulse Rate 87 Respiratory Rate 30 H Blood Pressure 90/59 L O2 Saturation 94 O2 Source Room air Pain Intensity 5 0 2 11/16/24 12:52 11/16/24 13:30 11/16/24 13:56 Temperature 38.8 C H 37.9 C Temperature Source Core Core Pulse Rate 79 75 Respiratory Rate 21 25 H Blood Pressure 89/46 L 105/47 L 88/36 L O2 Saturation 95 96 O2 Source Room air Room air Pain Intensity 11/16/24 13:59 Temperature 37.8 C Temperature Source Core Pulse Rate 72 Respiratory Rate 27 H Blood Pressure 94/27 L O2 Saturation 97 O2 Source Pain Intensity Oxygen O2 Source Room air Labs Labs: Laboratory Tests 11/16/24 11/16/24 11/16/24 10:48 11:54 11:54 WBC 11.6 H RBC 3.10 L Hgb 9.7 L Hct 29.1 L MCV 93.9 MCH 31.3 H MCHC 33.3 RDW 14.6 Plt Count 158 MPV 8.9 Neut # (Auto) 9.5 H Lymph # (Auto) 0.9 L [place] # (Auto) 0.8 Eos # (Auto) 0.1 Baso # (Auto) 0.1 Absolute Nucleated RBC 0.00 Nucleated RBC % 0.0 PT 16.8 H INR 1.6 H APTT 26.1 Sodium 134 L Potassium 2.6 L Chloride 99 L Carbon Dioxide 26 Anion Gap 9.0 BUN 24 H Creatinine 1.7 H Estimated GFR (MDRD) 39 L Glucose 163 H Lactic Acid 0.9 Calcium 9.0 Magnesium 2.0 Total Bilirubin 1.0 AST 34 ALT 15 Alkaline Phosphatase 79 Total Protein 5.7 L Albumin 3.6 Globulin 2.1 Albumin/Globulin Ratio 1.7 Lipase 25 Urine Color YELLOW Urine Clarity CLOUDY Urine pH 6.0 Ur Specific [place] 1.025 Urine Protein 100 H Urine Glucose (UA) NEGATIVE Urine Ketones NEGATIVE Urine Occult Blood LARGE H Urine Nitrite NEGATIVE Urine Bilirubin NEGATIVE Urine Urobilinogen 0.2 (NORMAL) Ur Leukocyte Esterase MODERATE H Urine RBC 11-25 H Urine WBC >25 H Ur Squamous Epith Cells NONE SEEN Urine Bacteria Rare Urine Casts 0-2 WBC Casts 11-25 Granular Casts Urine Mucus Few Strands Ur Microscopic Review INDICATED Urine Culture Comments INDICATED Nasal Adenovirus (PCR) Nasal B. parapertussis DNA (PCR) Nasal Coronavir 229E PCR Nasal Coronavir HKU1 PCR Nasal Coronavir NL63 PCR Nasal Coronavir OC43 PCR Nasal Enterovir/Rhinovir PCR Nasal Influenza B PCR Nasal Influenza A PCR Nasal Parainfluen 1 PCR Nasal Parainfluen 2 PCR Nasal Parainfluen 3 PCR Nasal Parainfluen 4 PCR Nasal RSV (PCR) Nasal B.pertussis DNA PCR Nasal C.pneumoniae (PCR) Ernie Human Metapneumo PCR Nasal M.pneumoniae (PCR) Nasal SARS-CoV-2 (PCR) 11/16/24 11:58 WBC RBC Hgb Hct MCV MCH MCHC RDW Plt Count MPV Neut # (Auto) Lymph # (Auto) [place] # (Auto) Eos # (Auto) Baso # (Auto) Absolute Nucleated RBC Nucleated RBC % PT INR APTT Sodium Potassium Chloride Carbon Dioxide Anion Gap BUN Creatinine Estimated GFR (MDRD) Glucose Lactic Acid Calcium Magnesium Total Bilirubin AST ALT Alkaline Phosphatase Total Protein Albumin Globulin Albumin/Globulin Ratio Lipase Urine Color Urine Clarity Urine pH Ur Specific [place] Urine Protein Urine Glucose (UA) Urine Ketones Urine Occult Blood Urine Nitrite Urine Bilirubin Urine Urobilinogen Ur Leukocyte Esterase Urine RBC Urine WBC Ur Squamous Epith Cells Urine Bacteria Urine Casts Urine Mucus Ur Microscopic Review Urine Culture Comments Nasal Adenovirus (PCR) NOT DETECTED Nasal B. parapertussis DNA (PCR) NOT DETECTED Nasal Coronavir 229E PCR NOT DETECTED Nasal Coronavir HKU1 PCR NOT DETECTED Nasal Coronavir NL63 PCR NOT DETECTED Nasal Coronavir OC43 PCR NOT DETECTED Nasal Enterovir/Rhinovir PCR NOT DETECTED Nasal Influenza B PCR NOT DETECTED Nasal Influenza A PCR NOT DETECTED Nasal Parainfluen 1 PCR NOT DETECTED Nasal Parainfluen 2 PCR NOT DETECTED Nasal Parainfluen 3 PCR NOT DETECTED Nasal Parainfluen 4 PCR NOT DETECTED Nasal RSV (PCR) NOT DETECTED Nasal B.pertussis DNA PCR NOT DETECTED Nasal C.pneumoniae (PCR) NOT DETECTED Ernie Human Metapneumo PCR NOT DETECTED Nasal M.pneumoniae (PCR) NOT DETECTED Nasal SARS-CoV-2 (PCR) NOT DETECTED PD Medical Decision Making ED course Complexity details: reviewed results, considered differential (Patient with fever, general weakness, moderately low blood pressure initially which responded to fluid boluses. Recent TURP and stent. Consideration of UTI, pyelo-, pneumonia, other abdominal process or simply flu.), d/w patient, d/w retail wireless sales consultant (I did talk with [place] Hameed neurologist. The stent appears to be draining well without any hydro nephrosis. The urinalysis actually does show some signs of infection but not significantly could be just reactive to the recent surgery. Lactate is negative. White count is elevated. ) and other (Discussed with the hospitalist who will see the patient for admission.) Reviewed Lab Results: The patient does have an elevated white count. He is somewhat anemic at 9.7 with a recent 10.4 perioperatively. His lactate is in the normal range. Respiratory viral panel is negative. Chest x-ray does not show any pneumonia. Urinalysis shows white cells and leukocytes but negative for nitrites. There is some bacteria. This may be recent active or responsive to the recent TURP stent and catheter and may not represent true infection but would still want to cover for it as no other obvious likely source. CT of this abdomen and pelvis was done and it showed the stent in place on the left side with no hydronephrosis so it appears to be draining appropriately. No signs of abscess or free fluid. No other acute infectious process noted. The patient was given IV fluids and had a initial response of his blood pressure to above 100 systolic. However it did go down into the 90s systolic again. Given her repeat 30 L normal saline and his blood pressures now 94/27. He is awake and conversant. The hospitalist is down to evaluate the patient and I defer judgment for pressors or not to their judgment. The patient to be given 2 g of Rocephin IV soon after initial assessment and blood cultures were obtained for most likely source being urinary tract. The patient is critically sick with relative hypotension somewhat responsive to fluids and sepsis markers of fever, leukocytosis, hypotension. Critical Care Time(min): 40 Comments: sepsis with hypotension. Monitor vitals. FLuid boluses. Time Includes: Direct patient care, Reassess patient, Document care and Coordinate care Data interpretation: Labs, Pulse ox and CXR Discharge Plan Discharge Patient Disposition: 66 [facility] DC/Xfer Condition: Stable Clinical Impression: Sepsis, Fever, Generalized weakness, Transient hypotension, Status post t ransurethral resection of prostate
[2024-11-16 10:57] LABS: BASOPHILS # (AUTO) 0.1 10^3/uL (0.0-0.1); BASOPHILS % (AUTO) 0.4 %; EOSINOPHILS # (AUTO) 0.1 10^3/uL (0.0-0.7); EOSINOPHILS % (AUTO) 1.1 %; HCT - HEMATOCRIT 29.1 % (42.0-52.0); HGB - HEMOGLOBIN 9.7 g/dL (14.0-18.0); LYMPHOCYTES # (AUTO) 0.9 10^3/uL (1.5-3.5); MEAN CORPUSCULAR HEMOGLOBIN 31.3 pg (27.0-31.0); MEAN CORPUSCULAR HGB CONC 33.3 g/dL (32.0-36.0); MEAN CORPUSCULAR VOLUME 93.9 fL (80.0-94.0); MEAN PLATELET VOLUME 8.9 fL (7.4-11.4); MONOCYTES # (AUTO) 0.8 10^3/uL (0.0-1.0); MONOCYTES % (AUTO) 7.2 %; NEUTROPHILS # (AUTO) 9.5 10^3/uL (1.5-6.6); NEUTROPHILS % (AUTO) 82.5 %; PLT - PLATELET COUNT 158 10^3/uL (130-450); RED CELL DISTRIBUTION WIDTH 14.6 % (12.0-15.0); WHITE BLOOD COUNT 11.6 x10^3/uL (4.8-10.8)
[2024-11-16 11:05] LABS: PARTIAL THROMBOPLASTIN TIME 26.1 secs (24.9-33.3)
[2024-11-16 11:09] LABS: INR 1.6 (0.8-1.2); PT - PROTHROMBIN TIME 16.8 secs (9.9-12.6)
--- NOTE | 2024-11-16 11:11 | XRAY Report ---
PROCEDURE: XR Chest 1V INDICATIONS: fever TECHNIQUE: One view of the chest was acquired. COMPARISON: 10/14/2023 FINDINGS: Surgical changes and devices: Right-sided Port-A-Cath Lungs and pleura: No pleural effusions or pneumothorax. Lungs are clear. Mediastinum: Mediastinal contours appear normal. Heart size is normal. Bones and chest wall: No suspicious bony lesions. Overlying soft tissues appear unremarkable. IMPRESSION: No acute cardiopulmonary findings Reviewed by: Román Chávez MD on 11/16/2024 10:09 AM [facility] Approved by: Román Chávez MD on 11/16/2024 10:09 AM [facility] Station ID: [id number]
[2024-11-16 11:16] LABS: ALBUMIN 3.6 g/dL (3.2-5.5); ALBUMIN/GLOBULIN RATIO 1.7 (1.0-2.2); CREATININE 1.7 mg/dL (0.6-1.3); POTASSIUM 2.6 mmol/L (3.5-4.5); TOTAL PROTEIN 5.7 g/dL (6.4-8.9)
[2024-11-16] MEDS: ACETAMINOPHEN 1,000 MG/100 ML 1,000 MG/100 ML BAG IV ONE ×2 (11:25→15:08)
[2024-11-16] MEDS: cefTRIAXone 2 GM VIAL IVP STA (11:26)
[2024-11-16] MEDS: KETOROLAC 15 MG/ML VIAL IVP STA ×2 (11:26→15:52)
[2024-11-16] MEDS: SODIUM CHLORIDE 0.9% 1,000 ML IV STA ×3 (11:27→13:20)
[2024-11-16 12:07] LABS: BILIRUBIN,URINE NEGATIVE (NEGATIVE); GLUCOSE, URINE (UA) NEGATIVE (NEGATIVE); KETONES,URINE (UA) NEGATIVE (NEGATIVE); LEUKOCYTE ESTERASE, URINE MODERATE (NEGATIVE); NITRITE,URINE NEGATIVE (NEGATIVE); OCCULT BLOOD,URINE LARGE (NEGATIVE); PROTEIN,URINE 100 mg/dL (NEGATIVE); UROBILINOGEN,URINE 0.2 (NORMAL) E.U./dL (NORMAL)
[2024-11-16 12:08] LABS: CLARITY,URINE CLOUDY (CLEAR)
[2024-11-16] MEDS: POTASSIUM CHLOR 10 MEQ/100 ML 10 MEQ/100 ML BAG IV SCH (12:18)
[2024-11-16] MEDS ORDERED: iohexoL-300 100 ML VIAL ONE (12:23)
[2024-11-16 12:25] LABS: WBC,URINE >25 /HPF (0-3)
[2024-11-16 12:26] LABS: BACTERIA,URINE Rare /HPF (None Seen); MUCUS,URINE Few Strands; SQUAMOUS EPITHELIAL CELL,UR NONE SEEN (<= Few)
[2024-11-16 12:53] LABS: B. PARAPERTUSSIS- RESP PCR PAN NOT DETECTED; B. PERTUSSIS- RESP PCR PANEL NOT DETECTED; C. PNEUMONIAE- RESP PCR PANEL NOT DETECTED; CORONAVIRUS 229E-RESP PCR NOT DETECTED; CORONAVIRUS HKU1-RESP PCR NOT DETECTED; CORONAVIRUS NL63-RESP PCR NOT DETECTED; CORONAVIRUS OC43-RESP PCR NOT DETECTED; HUMAN METAPNEUMOVIRUS NOT DETECTED; INFLUENZA A- RESP PCR PANEL NOT DETECTED; INFLUENZA B - RESP PCR PANEL NOT DETECTED; M. PNEUMONIAE- RESP PCR PANEL NOT DETECTED; PARAINFLUENZA VIRUS 1 NOT DETECTED; PARAINFLUENZA VIRUS 2 NOT DETECTED; PARAINFLUENZA VIRUS 4 NOT DETECTED; RHINOVIRUS/ENTEROVIRUS NOT DETECTED; RSV- RESP PCR PANEL NOT DETECTED; SARS-CoV-2 -RESP PCR PANEL NOT DETECTED
--- NOTE | 2024-11-16 13:57 | CT Report ---
PROCEDURE: CT Abdomen/Pelvis W INDICATIONS: fever, recent stent/TURP CONTRAST: Omni 300 100ml TECHNIQUE: After the administration of intravenous contrast, a CT scan of the abdomen and pelvis was performed. Images were recorded and evaluated at appropriate window settings. Reformats: coronal and sagittal. F or radiation dose reduction, the following was used: automated exposure control, adjustment of mA and /or kV according to patient size. COMPARISON: 09/21/2024 FINDINGS: Image quality: Diagnostic. Lower chest: Unremarkable. Liver: Multifocal hypodense mass lesions in the liver are new from prior exam consistent with metasta tic disease. Gallbladder: Biliary tree: No intrahepatic or extrahepatic dilation, accounting for age. Spleen: No splenomegaly. Pancreas: No pancreatic ductal dilation. Adrenals: No adrenal nodule. Kidneys and ureters: Left-sided ureteral stent. No hydronephrosis. Stomach, bowel and peritoneum: No gastric or small bowel dilation. No abnormal wall thickening. No pa thologic free fluid. Lymph nodes: No central or retroperitoneal adenopathy. Vessels: No infrarenal aortic aneurysm. Patent portal vein. PELVIS Reproductive organs: Unremarkable. Bladder: Taylor catheter. Decompressed bladder Pelvic lymph nodes: No pelvic adenopathy by size criteria. Bones: Multifocal sclerotic density is noted in the iliac wings, left sacrum, L3 spinous process, rig ht pubis and possible left rib Multilevel degenerative disc disease and arthropathy associated with s evere central stenosis L4-5. Left total hip arthroplasty Other: Bilateral inguinal hernias containing fat without bowel involvement IMPRESSION: Multifocal hypodense hepatic mass lesions probably reflect metastatic disease. Multifocal sclerotic osseous lesions appear stable from 01/06/2024. Consider follow-up bone scan. Left ureteral stent and Taylor catheter in place. Persistent left-sided perinephric stranding probably postoperative Reviewed by: Román Chávez MD on 11/16/2024 12:55 PM [place] Approved by: Román Chávez MD on 11/16/2024 12:55 PM AKST Station ID: [id number]
[2024-11-16] MEDS: iohexoL-300 100 ML VIAL IVP ONE (14:19)
--- NOTE | 2024-11-16 14:20 | HISTORY & PHYSICAL EXAMINATION ---
Chief Complaint Chief Complaint Chief Complaint: Generalized weakness and fall History of Present Illness Admitted From Admitted From:: Home with History Obtained From History obtained from: Patient interview History of Present Illness HPI Comment/Other: 79-year-old male with PMH significant for Skin cancer, metastatic malignant neoplasm of prostate, diabetes not on long-term insulin, sleep apnea, hypertension who presents to the ER after falling at home. A neighbor called EMS, and they helped him up and brought him into the ER. He had a visit with Dr. Hameed with urology on 11/15/2024, where he reported urinary frequency and concern for retention. His ureteral stent was still patent, and his bladder scan did not show significant retention. In the ER, CT abdomen/pelvis was performed which showed metastatic disease, stable bone lesions, probable postoperative perinephric stranding and left ureteral stent. He was noted to have a temperature as high as 39.9 in the ED as well as low blood pressure and a white blood cell count of 11.6, so hospitalist was contacted for admission. He also has a creatinine of 1.7, up from 1, Indicating a severe sepsis with endorgan damage Meds/Allgy Home Medications Ambulatory Orders Medication Instructions Recorded Confirmed albuterol sulfate 2.5 mg/3 mL See Rx Instructions .Route .COMPLEX 01/12/24 11/15/24 (0.083 %) solution for nebulization multivitamin See Rx Instructions .Route .COMPLEX 01/12/24 11/15/24 omega 6-[id number]-fish oil 300 See Rx Instructions .Route .COMPLEX 01/12/24 11/15/24 mg-1,000 mg capsule (Fish Oil) dulaglutide 3 mg/0.5 mL 3 mg (0.5 mL) subcut QWEEK #6.5 mL 07/09/24 11/15/24 [facility] amlodipine 5 mg tablet 5 mg PO QDAY #90 tabs 08/13/24 11/15/24 hydrochlorothiazide 25 mg tablet 25 mg PO QAM #90 tabs 08/13/24 11/15/24 loratadine 10 mg tablet 10 mg PO QDAY #90 tabs 08/13/24 11/15/24 rosuvastatin 20 mg tablet 20 mg PO QDAY #90 tabs 08/13/24 11/15/24 sulfamethoxazole 800 1 tab PO BID #10 tabs 01/23/25 02/28/25 mg-trimethoprim 160 mg tablet abiraterone 250 mg tablet 250 mg PO QAM 10/11/24 11/15/24 albuterol sulfate 90 mcg/actuation 2 puff inhalation QID 10/11/24 11/15/24 aerosol inhaler (Ventolin HFA) fluorouracil 5 % topical cream 1 applic topical BID 10/11/24 11/15/24 fluticasone propionate 50 1 spray intranasal BID 10/11/24 11/15/24 mcg/actuation nasal spray,suspension leuprolide (3 month) 22.5 mg (3 22.5 mg subcut [id number] 10/11/24 11/15/24 month) subcutaneous syringe calcium carbonate 600 mg PO QDAY 10/14/24 11/15/24 cholecalciferol (vitamin D3) 25 25 mcg PO QDAY 10/14/24 11/15/24 mcg (1,000 unit) capsule metoprolol succinate 50 mg 50 mg PO DAILY #30 tabs 10/14/24 11/15/24 tablet,extended release 24 hr (Toprol XL) tamsulosin 0.4 mg capsule 0.4 mg PO HS 10/14/24 11/15/24 losartan 100 mg tablet 50 mg (1/2 x 100 mg) PO QDAY #90 10/16/24 11/15/24 tabs prednisone 5 mg tablet 5 mg PO BID #60 tabs 10/16/24 11/15/24 cephalexin 500 mg capsule 500 mg PO ONCE #1 cap 11/04/24 11/15/24 hydrocodone 5 mg-acetaminophen 325 1 tab PO Q4H PRN Pain #15 tabs 11/04/24 11/15/24 mg tablet phenazopyridine 200 mg tablet 200 mg PO TID PRN bladder 11/15/24 11/15/24 (Pyridium) irritation 5 days #15 tabs Allergies Allergies Allergy/AdvReac Type Severity Reaction Status Date / Time No Known Drug Allergies Allergy Verified 11/16/24 10:21 PFSH Active Problems All Active Problems (Updated 11/16/24 @ 14:26 by Jc Miller DNP) Septic shock (Acute) Status post transurethral resection of prostate (Acute) Transient hypotension (Acute) Generalized weakness (Acute) Fever (Acute) Sepsis (Acute) Small cell carcinoma (Acute) Ureteral obstruction, left (Acute) Type 2 diabetes mellitus (Acute) Prostate cancer metastatic to bone (Acute) Cancer, metastatic to lung (Acute) Androgen deprivation therapy (Acute) BPH w urinary obs/LUTS (Acute) Acute on chronic urinary retention (Acute) Paroxysmal supraventricular tachycardia (Acute) Essential hypertension (Acute) Severe obstructive sleep apnea (Acute) Coccyx contusion (Acute) Hyperuricemia (Acute) Morbid obesity (Acute) Allergic rhinitis (Acute) Pancolonic diverticulosis (Acute) Sun-damaged skin (Acute) Chronic rhinitis (Acute) Arthritis of right ankle (Acute) Metatarsalgia of both feet (Acute) Erectile dysfunction due to arterial insufficiency (Acute) Medical History Medical History (Updated 11/16/24 @ 14:26 by Jc Miller DNP) Metastatic malignant neoplasm to prostate History of PSVT (paroxysmal supraventricular tachycardia) Hx of diabetes mellitus Hx of sleep apnea History of high cholesterol Hx of essential hypertension Entrapment of right ulnar nerve Acquired spondylolisthesis L4-L5 Non-melanoma skin cancer Surgical History Surgical History (Updated 11/16/24 @ 12:35 by Curtis Stallings MD) Port-A-Cath in place 11/2023, right IJ Abnormal TRUS (transrectal ultrasound), prostate 09/2023, + adenocarcinoma H/O colonoscopy 11/2022, diverticulosis S/P carpal tunnel release 10/2020, right History of total left hip replacement 08/2016 H/O colonoscopy 11/2015, poor preparation, diverticulosis History of total bilateral knee replacement Right-10/2009 + Left-01/2010, left hardware is loose, Orthopedics recommending observation H/O vasectomy Family History Family History Father CAD (coronary artery disease) Congestive heart failure Mother Malignant neoplasm of throat Brother Bladder cancer COVID-19 virus infection Social History Social History Smoking Status: Never smoker Second hand tobacco smoke exposure: No Do you dip or chew tobacco?: No Do you vape?: No Living arrangement: At home Marital Status: Living Condition: With spouse/s.o. 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: Yes Service: Yes POLST Patient has POLST: No Review of Systems Status of ROS: 10 or more systems reviewed and unremarkable except as noted in history and below Constitutional Reports: Fever and Chills Genitourinary Reports: Urinary frequency and Decreased urine ouput Neurological Reports: General weakness Exam Constitutional normal general appearance and no apparent distress HENMT normocephalic and head/scalp atraumatic Eyes PERRL Neck/C-Spine visual inspection normal Lymph no lymphadenopathy noted Chest inspection of chest normal Respiratory breath sounds equal bilaterally and normal respiratory effort Cardiovascular normal heart rate noted, regular rhythm noted and edema noted Gastrointestinal abdomen normal to inspection and tender to palpation (mild) Extremities normal to inspection Neurology GCS 15 Psychiatry oriented x3 Skin skin color normal Conclusion/Plan Problem List (1) Septic shock: Plan: Likely due to urinary source Urine culture from 10/06/2024 shows pansensitive Enterococcus Received 2 g Rocephin in the ER Given his continued fevers and low blood pressures, will empirically broaden coverage to include cefepime and vancomycin Received 3 L fluid bolus in the ER Ordered additional 500 cc LR bolus Blood pressure is still low refractory to these fluid boluses, indicating septic shock Sepsis is caused acute kidney injury, BMP daily I have ordered Levophed to keep MAP above 60 (2) Status post transurethral resection of prostate: Plan: Followed by Dr. [place] Hameed Taylor in place Also status post Ureteral stent, No CT evidence of blockage (3) Hx of diabetes mellitus: Plan: Does not appear to take insulin at home Home med list includes Trulicity SSI while inpatient Plan Admit inpatient ICU Full code He names his friend Jay is his surrogate decision maker as his has dementia Will follow-up with POLST form when he is more stable Lab Results Lab results reviewed: Yes 11/16/24 10:48 11/16/24 10:48 Core Measures Anticipated LOS I expect patient to be DC'd or transferred within 96 hours.: Yes DVT/VTE - Prophylaxis VTE/DVT Prophylaxis med ordered at admit?: Yes
[2024-11-16] MEDS: LACTATED RINGERS 500 ML IV ONE (14:37)
[2024-11-16] MEDS: NOREPINEPHRINE/0.9 % NS 8 MG/250 ML BAG IV SCH (14:40)
[2024-11-16] MEDS: POTASSIUM CHLORIDE 20 MEQ TABLET PO STA ×2 (14:59→15:08)
[2024-11-16] MEDS ORDERED: NOREPINEPHRINE IV SCH (15:00)
[2024-11-16] MEDS ORDERED: NS IV SCH (15:00)
[2024-11-16] MEDS ORDERED: ONDANSETRON ODT 4 MG TABLET TL PRN (15:06)
[2024-11-16] MEDS ORDERED: ONDANSETRON 4 MG/2 ML VIAL IVP PRN (15:06)
[2024-11-16] MEDS: CEFEPIME 2 GM in SODIUM CHLORIDE 0.9% MINIBAG 100 ML IV SCH (15:51)
[2024-11-16] MEDS: NS W/20 MEQ KCL 1,000 ML IV SCH (15:51)
[2024-11-16] MEDS: IBUPROFEN 600 MG TABLET PO PRN (15:54)
[2024-11-16] MEDS: FAMOTIDINE 20 MG/2 ML VIAL IVP SCH (16:39)
[2024-11-16] MEDS: HYDROCORTISONE SUCCINATE 100 MG/2 ML VIAL IVP SCH (16:39)
[2024-11-16] MEDS: VANCOMYCIN INJ 2 GM in SODIUM CHLORIDE 0.9% 500 ML IV ONE (16:40)
[2024-11-16] MEDS: SODIUM CHLORIDE FLUSH 0.9% 10 ML SYRINGE IVP SCH (16:40)
[2024-11-16 17:46] LABS: CALCIUM 7.3 mg/dL (8.5-10.3); CREATININE 1.6 mg/dL (0.6-1.3); MAGNESIUM 1.6 mg/dL (1.7-2.3); POTASSIUM 2.6 mmol/L (3.5-4.5)
[2024-11-16] MEDS: MAGNESIUM OXIDE 400 MG TABLET PO SCH (19:39)
[2024-11-16] MEDS: POTASSIUM CHLOR 20 MEQ/100 ML 20 MEQ/100 ML BAG IV SCH (20:34)
[2024-11-16] MEDS: MAGNESIUM SULFATE 2 GRAM 2 GM/50 ML BAG IV ONE (20:36)
[2024-11-17 02:08] LABS: MAGNESIUM 2.4 mg/dL (1.7-2.3); POTASSIUM 3.7 mmol/L (3.5-4.5)
[2024-11-17 04:38] LABS: BASOPHILS # (AUTO) 0.1 10^3/uL (0.0-0.1); BASOPHILS % (AUTO) 0.4 %; CALCIUM, IONIZED 1.16 mmol/L (1.09-1.30); EOSINOPHILS # (AUTO) 0.3 10^3/uL (0.0-0.7); EOSINOPHILS % (AUTO) 1.8 %; HGB - HEMOGLOBIN 9.6 g/dL (14.0-18.0); LYMPHOCYTES # (AUTO) 0.4 10^3/uL (1.5-3.5); LYMPHOCYTES % (AUTO) 2.6 %; MEAN CORPUSCULAR HEMOGLOBIN 30.4 pg (27.0-31.0); MEAN CORPUSCULAR VOLUME 94.9 fL (80.0-94.0); MEAN PLATELET VOLUME 9.2 fL (7.4-11.4); MONOCYTES # (AUTO) 0.4 10^3/uL (0.0-1.0); MONOCYTES % (AUTO) 3.1 %; NEUTROPHILS # (AUTO) 12.9 10^3/uL (1.5-6.6); NEUTROPHILS % (AUTO) 90.5 %; PLT - PLATELET COUNT 189 10^3/uL (130-450); RED BLOOD COUNT 3.16 10^6/uL (4.70-6.10); RED CELL DISTRIBUTION WIDTH 14.7 % (12.0-15.0); WHITE BLOOD COUNT 14.2 x10^3/uL (4.8-10.8)
[2024-11-17 04:52] LABS: CALCIUM 7.7 mg/dL (8.5-10.3); CREATININE 1.4 mg/dL (0.6-1.3); PHOSPHORUS 1.6 mg/dL (2.5-5.0); POTASSIUM 3.6 mmol/L (3.5-4.5)
[2024-11-17] MEDS: POTASSIUM PHOSPHATE 15 MMOL in SODIUM CHLORIDE 0.9% 250 ML IV ONE ×2 (07:59→17:18)
[2024-11-17] MEDS ORDERED: VANCOMYCIN INJ 1 GM, VANCOMYCIN INJ 250 MG in SODIUM CHLORIDE 0.9% 250 ML IV SCH (08:00)
[2024-11-17] MEDS: ENOXAPARIN 40 MG/0.4 ML SYRINGE SUBQ SCH (08:53)
--- NOTE | 2024-11-17 09:00 | CONSULTATION NOTE ---
Chief Complaint Chief Complaint Chief Complaint: fever History of Present Illness Admitted From Admitted From:: ER to ICU History Obtained From Records Reviewed: Hospital History obtained from: patient and hospital Exam Limitations: none History of Present Illness HPI Comment/Other: Jc is a 79-year-old male well-known to me with a history of widely metastatic prostate cancer I diagnosed about a year and a half ago this was adenocarcinoma. He has been followed with medical oncology since that time with excellent results with his most recent PSA being less than 0.1. However, more recently he has developed urinary issues including urinary retention. This prompted multiple void trials which failed. He ultimately underwent a TURP about 10 days ago. He is passed a voiding trial in the office however his pathology returned as small cell carcinoma. This in fact was also invading through his left ureteral orifice and I did resect this and unblock his kidney and placed a left ureteral stent. He was seen in the office on November 15 as a follow-up. He was emptying well with a PVR of 130 cc. Except for frequency and urgency of urination which was expected he otherwise was feeling okay Yesterday morning he felt much more weak and fatigued. He had a high fever at home at 39 C. He had difficulty standing up. An ambulance was called and he was sent to the ER. There he was found to have hypotension with a systolic of 92/44 with a temperature of 39.9. Urinalysis was grossly infected. Respiratory panel was negative. A catheter was replaced and he was started on broad-spectrum antibiotics. He was admitted to the ICU for further management. Since then he has done extremely well. He is Levophed medication has been slowly weaned down. He has been afebrile since 5 PM yesterday. He feels much better. He has been on empiric cefepime and vancomycin. He denies flank pain or irritation. Thankfully he does not mind the catheter right now He had a CT scan yesterday which I directly interpreted myself showing some inflammation of his left kidney with a left ureteral stent in excellent position. His CT scan also shows hepatic metastatic disease PFSH Active Problems All Active Problems Septic shock (Acute) Status post transurethral resection of prostate (Acute) Transient hypotension (Acute) Generalized weakness (Acute) Fever (Acute) Sepsis (Acute) Small cell carcinoma (Acute) Ureteral obstruction, left (Acute) Type 2 diabetes mellitus (Acute) Prostate cancer metastatic to bone (Acute) Cancer, metastatic to lung (Acute) Androgen deprivation therapy (Acute) BPH w urinary obs/LUTS (Acute) Acute on chronic urinary retention (Acute) Paroxysmal supraventricular tachycardia (Acute) Essential hypertension (Acute) Severe obstructive sleep apnea (Acute) Coccyx contusion (Acute) Hyperuricemia (Acute) Morbid obesity (Acute) Allergic rhinitis (Acute) Pancolonic diverticulosis (Acute) Sun-damaged skin (Acute) Chronic rhinitis (Acute) Arthritis of right ankle (Acute) Metatarsalgia of both feet (Acute) Erectile dysfunction due to arterial insufficiency (Acute) Medical History Medical History Metastatic malignant neoplasm to prostate History of PSVT (paroxysmal supraventricular tachycardia) Hx of diabetes mellitus Hx of sleep apnea History of high cholesterol Hx of essential hypertension Entrapment of right ulnar nerve Acquired spondylolisthesis L4-L5 Non-melanoma skin cancer Surgical History Surgical History Port-A-Cath in place 11/2023, right IJ Abnormal TRUS (transrectal ultrasound), prostate 09/2023, + adenocarcinoma H/O colonoscopy 11/2022, diverticulosis S/P carpal tunnel release 10/2020, right History of total left hip replacement 08/2016 H/O colonoscopy 11/2015, poor preparation, diverticulosis History of total bilateral knee replacement Right-10/2009 + Left-01/2010, left hardware is loose, Orthopedics recommending observation H/O vasectomy Family History Family History Father CAD (coronary artery disease) Congestive heart failure Mother Malignant neoplasm of throat Brother Bladder cancer COVID-19 virus infection Social History Social History Smoking Status: Never smoker Second hand tobacco smoke exposure: No Do you dip or chew tobacco?: No Do you vape?: No Living arrangement: At home Marital Status: Living Condition: With spouse/s.o. 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 [place] Retired: Yes Service: Yes POLST Patient has POLST: No Meds/Allgy Home Medications Ambulatory Orders Medication Instructions Recorded Confirmed albuterol sulfate 2.5 mg/3 mL See Rx Instructions .Route .COMPLEX 01/12/24 11/15/24 (0.083 %) solution for nebulization multivitamin See Rx Instructions .Route .COMPLEX 01/12/24 11/15/24 omega 9-eox-iwr-fish oil 300 See Rx Instructions .Route .COMPLEX 01/12/24 11/15/24 mg-1,000 mg capsule (Fish Oil) dulaglutide 3 mg/0.5 mL 3 mg (0.5 mL) subcut QWEEK #6.5 mL 07/09/24 11/15/24 subcutaneous pen injector (Trulicity) amlodipine 5 mg tablet 5 mg PO QDAY #90 tabs 08/13/24 11/15/24 hydrochlorothiazide 25 mg tablet 25 mg PO QAM #90 tabs 08/13/24 11/15/24 loratadine 10 mg tablet 10 mg PO QDAY #90 tabs 08/13/24 11/15/24 rosuvastatin 20 mg tablet 20 mg PO QDAY #90 tabs 08/13/24 11/15/24 sulfamethoxazole 800 1 tab PO BID #10 tabs 10/10/24 11/15/24 mg-trimethoprim 160 mg tablet abiraterone 250 mg tablet 250 mg PO QAM 10/11/24 11/15/24 albuterol sulfate 90 mcg/actuation 2 puff inhalation QID 10/11/24 11/15/24 aerosol inhaler (Ventolin HFA) fluorouracil 5 % topical cream 1 applic topical BID 10/11/24 11/15/24 fluticasone propionate 50 1 spray intranasal BID 10/11/24 11/15/24 mcg/actuation nasal spray,suspension leuprolide (3 month) 22.5 mg (3 22.5 mg subcut [id number] 10/11/24 11/15/24 month) subcutaneous syringe calcium carbonate 600 mg PO QDAY 10/14/24 11/15/24 cholecalciferol (vitamin D3) 25 25 mcg PO QDAY 10/14/24 11/15/24 mcg (1,000 unit) capsule metoprolol succinate 50 mg 50 mg PO DAILY #30 tabs 10/14/24 11/15/24 tablet,extended release 24 hr (Toprol XL) tamsulosin 0.4 mg capsule 0.4 mg PO HS 10/14/24 11/15/24 losartan 100 mg tablet 50 mg (1/2 x 100 mg) PO QDAY #90 10/16/24 11/15/24 tabs prednisone 5 mg tablet 5 mg PO BID #60 tabs 10/16/24 11/15/24 cephalexin 500 mg capsule 500 mg PO ONCE #1 cap 11/04/24 11/15/24 hydrocodone 5 mg-acetaminophen 325 1 tab PO Q4H PRN Pain #15 tabs 11/04/24 11/15/24 mg tablet phenazopyridine 200 mg tablet 200 mg PO TID PRN bladder 11/15/24 11/15/24 (Pyridium) irritation 5 days #15 tabs Allergies Allergies Allergy/AdvReac Type Severity Reaction Status Date / Time No Known Drug Allergies Allergy Verified 11/16/24 10:21 Results Lab Results 11/17/24 04:29 11/17/24 04:29 Other Lab Results: Lab Results x24hrs 11/17/24 11/17/24 11/16/24 Range/Units 04:29 01:53 17:25 WBC 14.2 H (4.8-10.8) x10^3/uL RBC 3.16 L (4.70-6.10) 10^6/uL Hgb 9.6 L (14.0-18.0) g/dL Hct 30.0 L (42.0-52.0) % MCV 94.9 H (80.0-94.0) fL MCH 30.4 (27.0-31.0) pg MCHC 32.0 (32.0-36.0) g/dL RDW 14.7 (12.0-15.0) % Plt Count 189 (130-450) 10^3/uL MPV 9.2 (7.4-11.4) fL Neut # (Auto) 12.9 H (1.5-6.6) 10^3/uL Lymph # (Auto) 0.4 L (1.5-3.5) 10^3/uL [place] # (Auto) 0.4 (0.0-1.0) 10^3/uL Eos # (Auto) 0.3 (0.0-0.7) 10^3/uL Baso # (Auto) 0.1 (0.0-0.1) 10^3/uL Absolute Nucleated RBC 0.00 x10^3/uL Nucleated RBC % 0.0 /100WBC PT (9.9-12.6) secs INR (0.8-1.2) APTT (24.9-33.3) secs VBG pH 7.400 (7.31-7.41) Ionized Calcium 1.16 (1.09-1.30) mmol/L Sodium 138 132 L (135-145) mmol/L Potassium 3.6 3.7 2.6 L (3.5-4.5) mmol/L Chloride 114 H 103 (101-111) mmol/L Carbon Dioxide 19 L 20 L (21-32) mmol/L Anion Gap 5.0 L 9.0 (6-13) BUN 20 24 H (6-20) mg/dL Creatinine 1.4 H 1.6 H (0.6-1.3) mg/dL Estimated GFR (MDRD) 49 L 42 L (>89) Glucose 309 H 138 H (74-104) mg/dL Lactic Acid (0.5-2.2) mmol/L Calcium 7.7 L 7.3 L (8.5-10.3) mg/dL Phosphorus 1.6 L (2.5-5.0) mg/dL Magnesium 2.4 H 1.6 L (1.7-2.3) mg/dL Total Bilirubin (0.2-1.0) mg/dL AST (10-42) IU/L ALT (10-60) IU/L Alkaline Phosphatase (42-121) IU/L Total Protein (6.4-8.9) g/dL Albumin (3.2-5.5) g/dL Globulin (2.1-4.2) g/dL Albumin/Globulin Ratio (1.0-2.2) Lipase (11-82) U/L Urine Color Urine Clarity (CLEAR) Urine pH (5.0-7.5) PH Ur Specific [place] (1.002-1.030) Urine Protein (NEGATIVE) mg/dL Urine Glucose (UA) (NEGATIVE) mg/dL Urine Ketones (NEGATIVE) mg/dL Urine Occult Blood (NEGATIVE) Urine Nitrite (NEGATIVE) Urine Bilirubin (NEGATIVE) Urine Urobilinogen (NORMAL) E.U./dL Ur Leukocyte Esterase (NEGATIVE) Urine RBC (0-5) /HPF Urine WBC (0-3) /HPF Ur Squamous Epith Cells (<= Few) Urine Bacteria (None Seen) /HPF Urine Casts /LPF Urine Mucus Ur Microscopic Review Urine Culture Comments Nasal Adenovirus (PCR) Nasal B. parapertussis DNA (PCR) Nasal Coronavir 229E PCR Nasal Coronavir HKU1 PCR Nasal Coronavir NL63 PCR Nasal Coronavir OC43 PCR Nasal Enterovir/Rhinovir PCR Nasal Influenza B PCR Nasal Influenza A PCR Nasal Parainfluen 1 PCR Nasal Parainfluen 2 PCR Nasal Parainfluen 3 PCR Nasal Parainfluen 4 PCR Nasal RSV (PCR) Nasal Screen MRSA (PCR) (NEGATIVE) Nasal B.pertussis DNA PCR Nasal C.pneumoniae (PCR) Ernie Human Metapneumo PCR Nasal M.pneumoniae (PCR) Nasal SARS-CoV-2 (PCR) 11/16/24 11/16/24 11/16/24 Range/Units 15:30 11:58 11:54 WBC (4.8-10.8) x10^3/uL RBC (4.70-6.10) 10^6/uL Hgb (14.0-18.0) g/dL Hct (42.0-52.0) % MCV (80.0-94.0) fL MCH (27.0-31.0) pg MCHC (32.0-36.0) g/dL RDW (12.0-15.0) % Plt Count (130-450) 10^3/uL MPV (7.4-11.4) fL Neut # (Auto) (1.5-6.6) 10^3/uL Lymph # (Auto) (1.5-3.5) 10^3/uL [place] # (Auto) (0.0-1.0) 10^3/uL Eos # (Auto) (0.0-0.7) 10^3/uL Baso # (Auto) (0.0-0.1) 10^3/uL Absolute Nucleated RBC x10^3/uL Nucleated RBC % /100WBC PT (9.9-12.6) secs INR (0.8-1.2) APTT (24.9-33.3) secs VBG pH (7.31-7.41) Ionized Calcium (1.09-1.30) mmol/L Sodium (135-145) mmol/L Potassium (3.5-4.5) mmol/L Chloride (101-111) mmol/L Carbon Dioxide (21-32) mmol/L Anion Gap (6-13) BUN (6-20) mg/dL Creatinine (0.6-1.3) mg/dL Estimated GFR (MDRD) (>89) Glucose (74-104) mg/dL Lactic Acid (0.5-2.2) mmol/L Calcium (8.5-10.3) mg/dL Phosphorus (2.5-5.0) mg/dL Magnesium (1.7-2.3) mg/dL Total Bilirubin (0.2-1.0) mg/dL AST (10-42) IU/L ALT (10-60) IU/L Alkaline Phosphatase (42-121) IU/L Total Protein (6.4-8.9) g/dL Albumin (3.2-5.5) g/dL Globulin (2.1-4.2) g/dL Albumin/Globulin Ratio (1.0-2.2) Lipase (11-82) U/L Urine Color Urine Clarity (CLEAR) Urine pH (5.0-7.5) PH Ur Specific [place] (1.002-1.030) Urine Protein (NEGATIVE) mg/dL Urine Glucose (UA) (NEGATIVE) mg/dL Urine Ketones (NEGATIVE) mg/dL Urine Occult Blood (NEGATIVE) Urine Nitrite (NEGATIVE) Urine Bilirubin (NEGATIVE) Urine Urobilinogen (NORMAL) E.U./dL Ur Leukocyte Esterase (NEGATIVE) Urine RBC (0-5) /HPF Urine WBC (0-3) /HPF Ur Squamous Epith Cells (<= Few) Urine Bacteria (None Seen) /HPF Urine Casts 11-25 Granular Casts /LPF Urine Mucus Few Strands Ur Microscopic Review INDICATED Urine Culture Comments INDICATED Nasal Adenovirus (PCR) NOT DETECTED Nasal B. parapertussis DNA (PCR) NOT DETECTED Nasal Coronavir 229E PCR NOT DETECTED Nasal Coronavir HKU1 PCR NOT DETECTED Nasal Coronavir NL63 PCR NOT DETECTED Nasal Coronavir OC43 PCR NOT DETECTED Nasal Enterovir/Rhinovir PCR NOT DETECTED Nasal Influenza B PCR NOT DETECTED Nasal Influenza A PCR NOT DETECTED Nasal Parainfluen 1 PCR NOT DETECTED Nasal Parainfluen 2 PCR NOT DETECTED Nasal Parainfluen 3 PCR NOT DETECTED Nasal Parainfluen 4 PCR NOT DETECTED Nasal RSV (PCR) NOT DETECTED Nasal Screen MRSA (PCR) NEGATIVE (NEGATIVE) Nasal B.pertussis DNA PCR NOT DETECTED Nasal C.pneumoniae (PCR) NOT DETECTED Ernie Human Metapneumo PCR NOT DETECTED Nasal M.pneumoniae (PCR) NOT DETECTED Nasal SARS-CoV-2 (PCR) NOT DETECTED 11/16/24 11/16/24 Range/Units 11:54 10:48 WBC 11.6 H (4.8-10.8) x10^3/uL RBC 3.10 L (4.70-6.10) 10^6/uL Hgb 9.7 L (14.0-18.0) g/dL Hct 29.1 L (42.0-52.0) % MCV 93.9 (80.0-94.0) fL MCH 31.3 H (27.0-31.0) pg MCHC 33.3 (32.0-36.0) g/dL RDW 14.6 (12.0-15.0) % Plt Count 158 (130-450) 10^3/uL MPV 8.9 (7.4-11.4) fL Neut # (Auto) 9.5 H (1.5-6.6) 10^3/uL Lymph # (Auto) 0.9 L (1.5-3.5) 10^3/uL Barry # (Auto) 0.8 (0.0-1.0) 10^3/uL Eos # (Auto) 0.1 (0.0-0.7) 10^3/uL Baso # (Auto) 0.1 (0.0-0.1) 10^3/uL Absolute Nucleated RBC 0.00 x10^3/uL Nucleated RBC % 0.0 /100WBC PT 16.8 H (9.9-12.6) secs INR 1.6 H (0.8-1.2) APTT 26.1 (24.9-33.3) secs VBG pH (7.31-7.41) Ionized Calcium (1.09-1.30) mmol/L Sodium 134 L (135-145) mmol/L Potassium 2.6 L (3.5-4.5) mmol/L Chloride 99 L (101-111) mmol/L Carbon Dioxide 26 (21-32) mmol/L Anion Gap 9.0 (6-13) BUN 24 H (6-20) mg/dL Creatinine 1.7 H (0.6-1.3) mg/dL Estimated GFR (MDRD) 39 L (>89) Glucose 163 H (74-104) mg/dL Lactic Acid 0.9 (0.5-2.2) mmol/L Calcium 9.0 (8.5-10.3) mg/dL Phosphorus (2.5-5.0) mg/dL Magnesium 2.0 (1.7-2.3) mg/dL Total Bilirubin 1.0 (0.2-1.0) mg/dL AST 34 (10-42) IU/L ALT 15 (10-60) IU/L Alkaline Phosphatase 79 (42-121) IU/L Total Protein 5.7 L (6.4-8.9) g/dL Albumin 3.6 (3.2-5.5) g/dL Globulin 2.1 (2.1-4.2) g/dL Albumin/Globulin Ratio 1.7 (1.0-2.2) Lipase 25 (11-82) U/L Urine Color YELLOW Urine Clarity CLOUDY (CLEAR) Urine pH 6.0 (5.0-7.5) PH Ur Specific [place] 1.025 (1.002-1.030) Urine Protein 100 H (NEGATIVE) mg/dL Urine Glucose (UA) NEGATIVE (NEGATIVE) mg/dL Urine Ketones NEGATIVE (NEGATIVE) mg/dL Urine Occult Blood LARGE H (NEGATIVE) Urine Nitrite NEGATIVE (NEGATIVE) Urine Bilirubin NEGATIVE (NEGATIVE) Urine Urobilinogen 0.2 (NORMAL) (NORMAL) E.U./dL Ur Leukocyte Esterase MODERATE H (NEGATIVE) Urine RBC 11-25 H (0-5) /HPF Urine WBC >25 H (0-3) /HPF Ur Squamous Epith Cells NONE SEEN (<= Few) Urine Bacteria Rare (None Seen) /HPF Urine Casts 0-2 WBC Casts /LPF Urine Mucus Ur Microscopic Review Urine Culture Comments Nasal Adenovirus (PCR) Nasal B. parapertussis DNA (PCR) Nasal Coronavir 229E PCR Nasal Coronavir HKU1 PCR Nasal Coronavir NL63 PCR Nasal Coronavir OC43 PCR Nasal Enterovir/Rhinovir PCR Nasal Influenza B PCR Nasal Influenza A PCR Nasal Parainfluen 1 PCR Nasal Parainfluen 2 PCR Nasal Parainfluen 3 PCR Nasal Parainfluen 4 PCR Nasal RSV (PCR) Nasal Screen MRSA (PCR) (NEGATIVE) Nasal B.pertussis DNA PCR Nasal C.pneumoniae (PCR) Ernie Human Metapneumo PCR Nasal M.pneumoniae (PCR) Nasal SARS-CoV-2 (PCR) Conclusion and Plan Diagnosis Diagnosis: Septic shock and bacteremia secondary likely to urinary source Plan Plan: We discussed his septic shock. This is likely related to a urinary source. He is doing very well in the ICU. I am very happy with his excellent care. I think his Maurer catheter should remain in place for now. Once he is up and ambulating a voiding trial can be performed. If he wants to keep the catheter in place this is also perfectly okay. As he is improving rapidly I do not think he will need further intervention from urology. However I will continue to monitor closely. He and I did discuss the possibility of a cystoscopy and stent exchange in the coming days to remove this as a nidus for infection He will likely require antibiotics at least through stent removal which is in 3 weeks time Patient states understanding and consents to the above plan Exam Exam NAD lying in bed maurer in place [facility]
[2024-11-17] MEDS: LACTATED RINGERS 1,000 ML IV SCH (12:12)
[2024-11-17] MEDS: INSULIN LISPRO 300 UNIT/3 ML PEN SUBQ SCH (12:13)
--- NOTE | 2024-11-17 12:26 | PHARMACY PROGRESS NOTE ---
Best Possible Medication History Admit Date and Time: 11/16/24 127883 Home Medications Medication Instructions Recorded Confirmed Type albuterol sulfate 2.5 mg/3 mL 2.5 mg inhalation Q4H PRN 01/12/24 11/17/24 History (0.083 %) solution for nebulization shortness of breath or wheezing multivitamin See Rx Instructions .Route .COMPLEX 01/12/24 11/17/24 History omega 2-wbh-gay-fish oil 300 See Rx Instructions .Route .COMPLEX 01/12/24 11/17/24 History mg-1,000 mg capsule (Fish Oil) dulaglutide 3 mg/0.5 mL 3 mg (0.5 mL) subcut QWEEK #6.5 mL 07/09/24 11/17/24 Rx subcutaneous pen injector (Trulicity) amlodipine 5 mg tablet 5 mg PO QDAY #90 tabs 08/13/24 11/17/24 Rx hydrochlorothiazide 25 mg tablet 25 mg PO QAM #90 tabs 08/13/24 11/17/24 Rx loratadine 10 mg tablet 10 mg PO QDAY #90 tabs 08/13/24 11/17/24 Rx rosuvastatin 20 mg tablet 20 mg PO QDAY #90 tabs 08/13/24 11/17/24 Rx abiraterone 250 mg tablet 250 mg PO QAM 10/11/24 11/17/24 History albuterol sulfate 90 mcg/actuation 2 puff inhalation QID PRN 10/11/24 11/17/24 History aerosol inhaler (Ventolin HFA) shortness of breath or wheezing fluticasone propionate 50 1 spray intranasal BID PRN allergy 10/11/24 11/17/24 History mcg/actuation nasal symptoms spray,suspension leuprolide (3 month) 22.5 mg (3 22.5 mg subcut [id number] 10/11/24 11/17/24 History month) subcutaneous syringe calcium carbonate 600 mg PO QDAY 10/14/24 11/17/24 History cholecalciferol (vitamin D3) 25 50 mcg PO QDAY 10/14/24 11/17/24 History mcg (1,000 unit) capsule metoprolol succinate 50 mg 50 mg PO DAILY #30 tabs 10/14/24 11/17/24 Rx tablet,extended release 24 hr (Toprol XL) tamsulosin 0.4 mg capsule 0.4 mg PO HS 10/14/24 11/17/24 History losartan 100 mg tablet 50 mg (1/2 x 100 mg) PO QDAY #90 10/16/24 11/17/24 Rx tabs prednisone 5 mg tablet 5 mg PO BID #60 tabs 10/16/24 11/17/24 Rx Processed by: Pharmacy Medications reviewed in ED?: No Medication History completed: Yes Patient Interview: Completed Secondary Source(s): Previous admit records [facility] Statement: As the person ultimately responsible for medication therapy, providers are able to order a medication from an existing home medication list in [facility] via the "Reconcile Routine" prior to Confirmation of that medication by manager decision support. Such practice is discouraged except when the physician, in their clinical judgment, deems that a medical need exists for a medication without regard to previous use.
--- NOTE | 2024-11-17 13:17 | PROVIDER PROGRESS NOTE ---
Subjective Prog Note Date Prog Note Date: 11/17/24 Subjective Pt reports feeling: Improved Current Medications Current Medications Current Medications: Current Medications Generic Name Dose Route Start Last Admin Trade Name Freq PRN Reason Stop Dose Admin Acetaminophen 650 mg 11/16/24 15:06 Acetaminophen 325 Mg Tablet PO Q4HR PRN Pain 1 to 4, or Fever Enoxaparin Sodium 40 mg 11/17/24 09:00 11/17/24 08:53 Enoxaparin 40 Mg/0.4 Ml Syringe SUBQ 40 mg DAILY MARY Administration Famotidine 20 mg 11/16/24 15:50 11/17/24 08:53 Famotidine 20 Mg/2 Ml Vial IVP 20 mg BID MARY Administration Norepinephrine/Sodium Chloride 8 mg in 250 mls @ 15 mls/hr 11/16/24 15:00 11/17/24 12:13 Levophed 8 Mg/250-0.9% Nacl IV 0 mcg/min .[id number] MARY 0 mls/hr Titration Protocol 8 MCG/MIN Cefepime HCl 2 gm/ Sodium 100 mls @ 200 mls/hr 11/16/24 14:50 11/17/24 09:40 Chloride IV Infused BID MARY Infusion Vancomycin HCl 1 gm/ 500 mls @ 250 mls/hr 11/17/24 17:00 Vancomycin HCl 500 mg/ Sodium IV Chloride Q24H MARY Lactated Ringer's 1,000 mls @ 125 mls/hr 11/17/24 11:00 11/17/24 12:12 Lr IV 11/18/24 02:59 125 mls/hr .Q8H MARY Administration Ibuprofen 600 mg 11/16/24 15:06 11/16/24 15:54 Ibuprofen 600 Mg Tablet PO 600 mg Q6HR PRN Administration Pain 1 to 4 Insulin Human Lispro 1 - 5 unit 11/17/24 12:00 11/17/24 12:13 Insulin Lispro 300 Unit/3 Ml Pen SUBQ 3 unit 0800,1200,1700,2100 MARY Administration Protocol Ondansetron HCl 4 mg 11/16/24 15:06 Ondansetron Odt 4 Mg Tablet TL Q6HR PRN Nausea / Vomiting Ondansetron HCl 4 mg 11/16/24 15:06 Ondansetron 4 Mg/2 Ml Vial IVP Q6HR PRN Nausea / Vomiting Sodium Chloride 10 ml 11/16/24 17:00 11/17/24 08:54 Sodium Chloride Flush 0.9% 10 Ml Syringe IVP 10 ml 0100,0900,1700 MARY Administration Sodium Chloride 10 ml 11/16/24 15:06 Sodium Chloride Flush 0.9% 10 Ml Syringe IVP PRN PRN NEEDED PER PROVIDER ORDERS Objective Vital Signs/Intake & Output Reviewed Vital Signs: Yes Vital Signs: Vital Signs x48h Temp Pulse Resp BP Pulse Ox 11/17/24 12:00 37.1 C 80 25 H 111/61 95 11/17/24 11:00 37.1 C 80 22 105/59 L 98 11/17/24 10:00 37.1 C 78 16 111/67 96 11/17/24 09:00 37 C 76 20 97/56 L 96 11/17/24 08:00 36.4 C L 79 22 112/74 98 11/17/24 07:00 36.2 C L 69 20 104/67 97 11/17/24 06:00 36.2 C L 66 18 121/70 95 Intake & Output: Intake & Output 11/14/24 11/15/24 11/16/24 11/17/24 23:59 23:59 23:59 23:59 Intake Total 6217 / 6217 1222 / 1222 Output Total 2135 / 2135 1910 / 1910 Balance 4082 / 4082 -688 / -688 Weight (kg) 116.5 kg 117 kg Objective General Appearance: positive No acute distress and Alert Eyes Bilateral: positive Normal inspection and PERRL ENT: positive ENT inspection nml Neck: positive Nml inspection Respiratory: positive Chest non-tender Cardiovascular: positive Regular rate & rhythm Abdomen: positive Non-tender Rectal: positive Non-tender Skin: positive Color nml Extremities: positive Non-tender Neurologic/Psychiatric: positive Oriented x3 Lab Results 11/17/24 04:29 11/17/24 13:53 Other Labs: Lab Results x24hrs 11/17/24 11/17/24 11/16/24 Range/Units 04:29 01:53 17:25 WBC 14.2 H (4.8-10.8) x10^3/uL RBC 3.16 L (4.70-6.10) 10^6/uL Hgb 9.6 L (14.0-18.0) g/dL Hct 30.0 L (42.0-52.0) % MCV 94.9 H (80.0-94.0) fL MCH 30.4 (27.0-31.0) pg MCHC 32.0 (32.0-36.0) g/dL RDW 14.7 (12.0-15.0) % Plt Count 189 (130-450) 10^3/uL MPV 9.2 (7.4-11.4) fL Neut # (Auto) 12.9 H (1.5-6.6) 10^3/uL Lymph # (Auto) 0.4 L (1.5-3.5) 10^3/uL [place] # (Auto) 0.4 (0.0-1.0) 10^3/uL Eos # (Auto) 0.3 (0.0-0.7) 10^3/uL Baso # (Auto) 0.1 (0.0-0.1) 10^3/uL Absolute Nucleated RBC 0.00 x10^3/uL Nucleated RBC % 0.0 /100WBC VBG pH 7.400 (7.31-7.41) Ionized Calcium 1.16 (1.09-1.30) mmol/L Sodium 138 132 L (135-145) mmol/L Potassium 3.6 3.7 2.6 L (3.5-4.5) mmol/L Chloride 114 H 103 (101-111) mmol/L Carbon Dioxide 19 L 20 L (21-32) mmol/L Anion Gap 5.0 L 9.0 (6-13) BUN 20 24 H (6-20) mg/dL Creatinine 1.4 H 1.6 H (0.6-1.3) mg/dL Estimated GFR (MDRD) 49 L 42 L (>89) Glucose 309 H 138 H (74-104) mg/dL Calcium 7.7 L 7.3 L (8.5-10.3) mg/dL Phosphorus 1.6 L (2.5-5.0) mg/dL Magnesium 2.4 H 1.6 L (1.7-2.3) mg/dL Nasal Screen MRSA (PCR) (NEGATIVE) 11/16/24 Range/Units 15:30 WBC (4.8-10.8) x10^3/uL RBC (4.70-6.10) 10^6/uL Hgb (14.0-18.0) g/dL Hct (42.0-52.0) % MCV (80.0-94.0) fL MCH (27.0-31.0) pg MCHC (32.0-36.0) g/dL RDW (12.0-15.0) % Plt Count (130-450) 10^3/uL MPV (7.4-11.4) fL Neut # (Auto) (1.5-6.6) 10^3/uL Lymph # (Auto) (1.5-3.5) 10^3/uL [place] # (Auto) (0.0-1.0) 10^3/uL Eos # (Auto) (0.0-0.7) 10^3/uL Baso # (Auto) (0.0-0.1) 10^3/uL Absolute Nucleated RBC x10^3/uL Nucleated RBC % /100WBC VBG pH (7.31-7.41) Ionized Calcium (1.09-1.30) mmol/L Sodium (135-145) mmol/L Potassium (3.5-4.5) mmol/L Chloride (101-111) mmol/L Carbon Dioxide (21-32) mmol/L Anion Gap (6-13) BUN (6-20) mg/dL Creatinine (0.6-1.3) mg/dL Estimated GFR (MDRD) (>89) Glucose (74-104) mg/dL Calcium (8.5-10.3) mg/dL Phosphorus (2.5-5.0) mg/dL Magnesium (1.7-2.3) mg/dL Nasal Screen MRSA (PCR) NEGATIVE (NEGATIVE) Assessment/Plan Problem List (1) Septic shock: Impression: Tmax yesterday was 40.7 His fevers have resolved Weaning down Levophed, Maintain MAP of 60 Given overall clinical improvement, discontinuing Solu-Cortef His WBC is elevated today from yesterday, continue to trend daily When his WBC begins to trend downward, will de-escalate antibiotics Continue cefepime, vancomycin while monitoring renal function for toxicity He presented with a port, will need repeat blood cultures in 48 hours to ensure that there is no colonization on his port Anticipate 7-day total course of antibiotics Blood cultures are positive for Enterococcus LR at 125 for 2 more liters Likely out of ICU tomorrow (2) Status post transurethral resection of prostate: Impression: Taylor in place Already established with Dr. Dayton Hameed (3) Hx of diabetes mellitus: Impression: Added SSI Will likely see improvement with discontinuation of IV steroid
[2024-11-17 14:03] LABS: CALCIUM, IONIZED 1.13 mmol/L (1.09-1.30); VBG PH 7.396 (7.31-7.41)
[2024-11-17 14:20] LABS: MAGNESIUM 2.1 mg/dL (1.7-2.3); PHOSPHORUS 1.6 mg/dL (2.5-5.0); POTASSIUM 3.5 mmol/L (3.5-4.5)
[2024-11-17] MEDS: POTASSIUM CHLORIDE 20 MEQ TABLET PO SCH (15:38)
--- NOTE | 2024-11-17 16:16 | MISCELLANEOUS PROVIDER NOTE ---
Miscellaneous Provider Note - Note: 11/16/24 PM: Frequent reassessment of patient with fever as high as 105 Fahrenheit in an ICU setting, Ordering labs, multiple antipyretics, broad-spectrum antibiotics well exceeded 90 minutes in total Care time
[2024-11-17] MEDS: VANCOMYCIN INJ 1 GM, VANCOMYCIN INJ 500 MG in SODIUM CHLORIDE 0.9% 500 ML IV SCH (17:18)
--- NOTE | 2024-11-17 17:35 | PT Plan of Care ---
PT Inpatient Plan of Care DIAGNOSIS Diagnosis: sepsis Diagnosis: GLF at home Referring Provider: Jc Miller Patient Status: Inpatient CHIEF COMPLAINT Chief Complaint: weakness and fatigue Onset of Chief Complaint: SHIRT BANDER on 11/16/24 MEDICAL/SURGICAL HISTORY Medical History Metastatic malignant neoplasm to prostate History of PSVT (paroxysmal supraventricular tachycardia) Hx of diabetes mellitus Hx of sleep apnea History of high cholesterol Hx of essential hypertension Entrapment of right ulnar nerve Acquired spondylolisthesis L4-L5 Non-melanoma skin cancer Surgical History Port-A-Cath in place 11/2023, right IJ Abnormal TRUS (transrectal ultrasound), prostate 09/2023, + adenocarcinoma H/O colonoscopy 11/2022, diverticulosis S/P carpal tunnel release 10/2020, right History of total left hip replacement 08/2016 H/O colonoscopy 11/2015, poor preparation, diverticulosis History of total bilateral knee replacement Right-10/2009 + Left-01/2010, left hardware is loose, Orthopedics recommending observation H/O vasectomy BALANCE/FUNCTIONAL RESULTS Sitting Balance: Good Standing Balance: Fair Tinetti Composite Score (Balance + Gait): 21 Tinetti Assessment Interpretation: Moderate Fall Risk ASSESSMENT Assessment: The pt is a 79 y/o M who was arrived to the ED via EMS on 11/16/24 due to progressively worsening weakness and fatigue with a high fever, he was hospitalized with sepsis. He has recently been receiving tx for prostate CA, please see chart for medical hx. The pt was received resting comfortably supine in bed and presented today with decreased B UE and LE strength, decreased activity tolerance, and mild standing balance impairments which limited his tolerance with functional mobility. His overall tolerance throughout this assessment was limited by weakness and fatigue. At this time recommend continued skilled PT intervention while in the acute setting and DC home without therapy needs once pt medically stable. This plan was discussed with the pt and he was in agreement with this. At the end of the session the pt was sitting on a BSC with all needs met and RN in the room. DNP updated on pt's status and DC rec. PATIENT/FAMILY GOALS Patient/Family Goals: To be strong enough to go back home GOALS Improve supine to sit to:: Independent Improve sit to stand to:: Modified Independent Improve pivot transfer ability to:: Modified Independent Improve sit to supine to:: Independent Other transfer goal:: STS and transfers with SPC Improve gait ability to:: Ind Advance Assistive Device to:: Single Point Cane Increase distance walked to (in feet):: 50 PLAN Frequency: 1-2x/day Duration: Until discharge DISCHARGE RECOMMENDATIONS Discharge Location: Previous Living Situation Support/Services Needed: No needs Other Discharge Equipment: pt owns all recommended DME Transport Needs at Discharge: Personal vehicle
[2024-11-17] MEDS ORDERED: FLUTICASONE NASAL SPRAY NAS PRN (17:59)
[2024-11-17] MEDS ORDERED: ABIRATERONE 250 MG PO SCH (18:00)
[2024-11-17] MEDS: ACETAMINOPHEN 325 MG TABLET PO PRN (19:55)
[2024-11-17] MEDS: ATORVASTATIN 40 MG TABLET PO SCH (20:44)
[2024-11-17] MEDS: TAMSULOSIN 0.4 MG CAPSULE PO SCH (20:44)
[2024-11-18] MEDS: MELATONIN 3 MG TABLET PO PRN (00:38)
[2024-11-18] MEDS ORDERED: POTASSIUM CHLOR 10 MEQ/100 ML 10 MEQ/100 ML BAG IV SCH (01:00)
[2024-11-18] MEDS: NEUTRA-PHOS 250 MG TABLET PO SCH ×2 (01:31→08:21)
[2024-11-18] MEDS: POTASSIUM CHLORIDE 20 MEQ TABLET PO SCH (01:32)
[2024-11-18] MEDS: SODIUM CHLORIDE FLUSH 0.9% 10 ML SYRINGE IVP PRN (04:23)
[2024-11-18 05:04] LABS: BASOPHILS % (AUTO) 0.2 %; EOSINOPHILS % (AUTO) 0.3 %; HCT - HEMATOCRIT 24.7 % (42.0-52.0); HGB - HEMOGLOBIN 8.1 g/dL (14.0-18.0); LYMPHOCYTES # (AUTO) 0.8 10^3/uL (1.5-3.5); LYMPHOCYTES % (AUTO) 8.3 %; MEAN CORPUSCULAR HEMOGLOBIN 31.3 pg (27.0-31.0); MEAN CORPUSCULAR HGB CONC 32.8 g/dL (32.0-36.0); MEAN CORPUSCULAR VOLUME 95.4 fL (80.0-94.0); MEAN PLATELET VOLUME 9.7 fL (7.4-11.4); MONOCYTES # (AUTO) 0.6 10^3/uL (0.0-1.0); MONOCYTES % (AUTO) 5.9 %; NEUTROPHILS # (AUTO) 8.3 10^3/uL (1.5-6.6); PLT - PLATELET COUNT 159 10^3/uL (130-450); RED BLOOD COUNT 2.59 10^6/uL (4.70-6.10); WHITE BLOOD COUNT 9.8 x10^3/uL (4.8-10.8)
[2024-11-18 05:14] LABS: CALCIUM 7.5 mg/dL (8.5-10.3); CREATININE 1.1 mg/dL (0.6-1.3); MAGNESIUM 2.1 mg/dL (1.7-2.3); PHOSPHORUS 2.4 mg/dL (2.5-5.0); POTASSIUM 3.6 mmol/L (3.5-4.5)
[2024-11-18] MEDS: ABIRATERONE 250 MG PO SCH (08:17)
[2024-11-18] MEDS: DOCUSATE SODIUM 250 MG CAPSULE PO SCH (08:20)
[2024-11-18] MEDS: predniSONE 5 MG TABLET PO SCH (08:20)
[2024-11-18] MEDS: CALCIUM CARB (OYSTER SHELL) 500 MG TABLET PO SCH (08:21)
[2024-11-18] MEDS: CHOLECALCIFEROL 25 MCG TABLET PO SCH (08:21)
[2024-11-18] MEDS: LORATADINE 10 MG TABLET PO SCH (08:21)
[2024-11-18] MEDS: MULTIVITAMIN TABLET PO SCH (08:21)
[2024-11-18] MEDS: POTASSIUM CHLORIDE 20 MEQ TABLET PO ONE (08:21)
[2024-11-18] MEDS: polyethylene glycoL 3350 17 GM PACKET PO SCH (08:23)
[2024-11-18 08:40] LABS: ESTIMATED AVERAGE GLUCOSE 143 mg/dL (70-100); HEMOGLOBIN A1c% 6.6 % (4.27-6.07)
[2024-11-18] MEDS: METOPROLOL SUCCINATE 50 MG TABLET PO SCH (11:29)
--- NOTE | 2024-11-18 11:37 | PROVIDER PROGRESS NOTE ---
Subjective Prog Note Date Prog Note Date: 11/18/24 Subjective Pt reports feeling: No change Current Medications Current Medications Current Medications: Current Medications Generic Name Dose Route Start Last Admin Trade Name Freq PRN Reason Stop Dose Admin Acetaminophen 650 mg 11/16/24 15:06 11/17/24 19:55 Acetaminophen 325 Mg Tablet PO 650 mg Q4HR PRN Administration Pain 1 to 4, or Fever Atorvastatin Calcium 40 mg 11/17/24 21:00 11/17/24 20:44 Atorvastatin 40 Mg Tablet PO 40 mg QPM MARY Administration Calcium Carbonate/Glycine 500 mg 11/18/24 09:00 11/18/24 08:21 Calcium Carb (Oyster Shell) 500 Mg Tablet PO 500 mg DAILY MARY Administration Cholecalciferol 50 mcg 11/18/24 09:00 11/18/24 08:21 Cholecalciferol 25 Mcg Tablet PO 50 mcg DAILY MARY Administration Docusate Sodium 250 - 500 mg 11/18/24 09:00 11/18/24 08:20 Docusate Sodium 250 Mg Capsule PO 250 mg DAILY MARY Administration Enoxaparin Sodium 40 mg 11/17/24 09:00 11/18/24 08:19 Enoxaparin 40 Mg/0.4 Ml Syringe SUBQ 40 mg DAILY MARY Administration Famotidine 20 mg 11/16/24 15:50 11/18/24 08:20 Famotidine 20 Mg/2 Ml Vial IVP 20 mg BID MARY Administration Fluticasone Propionate 1 sprays 11/17/24 17:59 Fluticasone Nasal [place] FERMÍN BID PRN allergy symptoms Ampicillin Sodium 2 gm/ Sodium 100 mls @ 100 mls/hr 11/18/24 18:00 Chloride IV Q6HR MARY Ibuprofen 600 mg 11/16/24 15:06 11/16/24 15:54 Ibuprofen 600 Mg Tablet PO 600 mg Q6HR PRN Administration Pain 1 to 4 Insulin Human Lispro 1 - 5 unit 11/17/24 12:00 11/18/24 08:18 Insulin Lispro 300 Unit/3 Ml Pen SUBQ 1 unit 0800,1200,1700,2100 MARY Administration Protocol Loratadine 10 mg 11/18/24 09:00 11/18/24 08:21 Loratadine 10 Mg Tablet PO 10 mg DAILY MARY Administration Melatonin 3 mg 11/18/24 00:26 11/18/24 00:38 Melatonin 3 Mg Tablet PO 3 mg QPM PRN Administration Insomnia Metoprolol Succinate 50 mg 11/18/24 09:00 11/18/24 11:29 Metoprolol Succinate 50 Mg Tablet PO 50 mg DAILY MARY Administration Multivitamins 1 tab 11/18/24 08:00 11/18/24 08:21 Multivitamin Tablet PO 1 tab DAILYWM MARY Administration Ondansetron HCl 4 mg 11/16/24 15:06 Ondansetron Odt 4 Mg Tablet TL Q6HR PRN Nausea / Vomiting Ondansetron HCl 4 mg 11/16/24 15:06 Ondansetron 4 Mg/2 Ml Vial IVP Q6HR PRN Nausea / Vomiting Abiraterone 250 Mg 1 each 11/18/24 07:30 11/18/24 08:17 PO 1 each QDAC MARY Administration Polyethylene Glycol 17 gm 11/18/24 09:00 11/18/24 08:23 Polyethylene Glycol 3350 17 Gm Packet PO 17 gm DAILY MARY Administration Prednisone 5 mg 11/18/24 09:00 11/18/24 08:20 Prednisone 5 Mg Tablet PO 5 mg BID MARY Administration Sodium Chloride 10 ml 11/16/24 17:00 11/18/24 08:23 Sodium Chloride Flush 0.9% 10 Ml Syringe IVP 10 ml 0100,0900,1700 MARY Administration Sodium Chloride 10 ml 11/16/24 15:06 11/18/24 04:23 Sodium Chloride Flush 0.9% 10 Ml Syringe IVP 10 ml PRN PRN Administration NEEDED PER PROVIDER ORDERS Tamsulosin HCl 0.4 mg 11/17/24 21:00 11/17/24 20:44 Tamsulosin 0.4 Mg Capsule PO 0.4 mg HS MARY Administration Objective Vital Signs/Intake & Output Reviewed Vital Signs: Yes Vital Signs: Vital Signs x48h Temp Pulse Resp BP Pulse Ox 11/18/24 11:00 72 24 133/77 H 98 11/18/24 10:00 80 23 126/78 97 11/18/24 09:00 37 C 78 20 132/77 H 95 11/18/24 08:00 37.1 C 80 22 135/82 H 97 11/18/24 07:00 37.0 C 76 20 128/71 96 11/18/24 06:00 37.0 C 73 21 121/65 96 11/18/24 05:00 36.7 C 62 17 114/67 98 11/18/24 04:00 36.7 C 69 16 116/64 94 Intake & Output: Intake & Output 11/15/24 11/16/24 11/17/24 11/18/24 23:59 23:59 23:59 23:59 Intake Total 6217 / 6217 3817 / 3817 2920 / 2920 Output Total 2135 / 2135 2442 / 2442 700 / 700 Balance 4082 / 4082 1375 / 1375 2220 / 2220 Weight (kg) 116.5 kg 117 kg 121 kg Objective General Appearance: positive No acute distress and Alert Eyes Bilateral: positive Normal inspection and PERRL ENT: positive ENT inspection nml Neck: positive Nml inspection Respiratory: positive Chest non-tender Cardiovascular: positive Regular rate & rhythm Abdomen: positive Non-tender Rectal: positive Non-tender Skin: positive Color nml Extremities: positive Non-tender Neurologic/Psychiatric: positive Oriented x3 Lab Results 11/18/24 04:30 11/18/24 04:30 Other Labs: Lab Results x24hrs 11/18/24 11/18/24 11/17/24 Range/Units 04:30 00:15 20:44 WBC 9.8 (4.8-10.8) x10^3/uL RBC 2.59 L (4.70-6.10) 10^6/uL Hgb 8.1 L (14.0-18.0) g/dL Hct 24.7 L (42.0-52.0) % MCV 95.4 H (80.0-94.0) fL MCH 31.3 H (27.0-31.0) pg MCHC 32.8 (32.0-36.0) g/dL RDW 15.0 (12.0-15.0) % Plt Count 159 (130-450) 10^3/uL MPV 9.7 (7.4-11.4) fL Neut # (Auto) 8.3 H (1.5-6.6) 10^3/uL Lymph # (Auto) 0.8 L (1.5-3.5) 10^3/uL [place] # (Auto) 0.6 (0.0-1.0) 10^3/uL Eos # (Auto) 0.0 (0.0-0.7) 10^3/uL Baso # (Auto) 0.0 (0.0-0.1) 10^3/uL Absolute Nucleated RBC 0.00 x10^3/uL Nucleated RBC % 0.0 /100WBC VBG pH (7.31-7.41) Ionized Calcium (1.09-1.30) mmol/L Sodium 142 (135-145) mmol/L Potassium 3.6 3.4 L (3.5-4.5) mmol/L Chloride 116 H (101-111) mmol/L Carbon Dioxide 20 L (21-32) mmol/L Anion Gap 6.0 (6-13) BUN 17 (6-20) mg/dL Creatinine 1.1 (0.6-1.3) mg/dL Estimated GFR (MDRD) 65 L (>89) Glucose 147 H (74-104) mg/dL POC Whole Bld Glucose 205 (70-100) mg/dL Estimat Average Glucose 143 H (70-100) mg/dL Hemoglobin A1c % 6.6 H (4.27-6.07) % Calcium 7.5 L (8.5-10.3) mg/dL Phosphorus 2.4 L 2.3 L (2.5-5.0) mg/dL Magnesium 2.1 (1.7-2.3) mg/dL 11/17/24 11/17/24 11/17/24 Range/Units 18:12 13:53 11:51 WBC (4.8-10.8) x10^3/uL RBC (4.70-6.10) 10^6/uL Hgb (14.0-18.0) g/dL Hct (42.0-52.0) % MCV (80.0-94.0) fL MCH (27.0-31.0) pg MCHC (32.0-36.0) g/dL RDW (12.0-15.0) % Plt Count (130-450) 10^3/uL MPV (7.4-11.4) fL Neut # (Auto) (1.5-6.6) 10^3/uL Lymph # (Auto) (1.5-3.5) 10^3/uL [place] # (Auto) (0.0-1.0) 10^3/uL Eos # (Auto) (0.0-0.7) 10^3/uL Baso # (Auto) (0.0-0.1) 10^3/uL Absolute Nucleated RBC x10^3/uL Nucleated RBC % /100WBC VBG pH 7.396 (7.31-7.41) Ionized Calcium 1.13 (1.09-1.30) mmol/L Sodium (135-145) mmol/L Potassium 3.5 (3.5-4.5) mmol/L Chloride (101-111) mmol/L Carbon Dioxide (21-32) mmol/L Anion Gap (6-13) BUN (6-20) mg/dL Creatinine (0.6-1.3) mg/dL Estimated GFR (MDRD) (>89) Glucose (74-104) mg/dL POC Whole Bld Glucose 215 245 (70-100) mg/dL Estimat Average Glucose (70-100) mg/dL Hemoglobin A1c % (4.27-6.07) % Calcium (8.5-10.3) mg/dL Phosphorus 1.6 L (2.5-5.0) mg/dL Magnesium 2.1 (1.7-2.3) mg/dL Assessment/Plan Problem List (1) Septic shock: Impression: Blood pressure much improved today, likely will need to restart home blood pressure regimen in the morning I have de-escalated his antibiotics to ampicillin to cover for his Enterococcus bacteremia Repeat blood cultures today, 1 set from line and 1 peripheral to rule out central line infection And to determine effectiveness of antibiotic regimen Anticipate 7-day total course of Ampicillin. After this he will continues to need antibiotics for urinary source control until he can have his ureteral stent exchanged. Will likely need an extended course of amoxicillin Out of ICU today WBC down to 9.8 today, continue to trend daily (2) Status post transurethral resection of prostate: Impression: Taylor in place Already established with Dr. [place] Hameed (3) Hx of diabetes mellitus: Impression: A1c 6.6 Glucose 147 with daily labs Continue SSI, will adjust regimen based on input from diabetes management team
[2024-11-18] MEDS: ALTEPLASE 2 MG VIAL IR ONE (13:42)
[2024-11-18] MEDS: AMPICILLIN 2 GM in SODIUM CHLORIDE 0.9% MINIBAG 100 ML IV SCH (18:21)
[2024-11-19 05:14] LABS: BASOPHILS # (AUTO) 0.1 10^3/uL (0.0-0.1); BASOPHILS % (AUTO) 0.7 %; EOSINOPHILS # (AUTO) 0.1 10^3/uL (0.0-0.7); EOSINOPHILS % (AUTO) 0.7 %; HCT - HEMATOCRIT 24.4 % (42.0-52.0); HGB - HEMOGLOBIN 7.7 g/dL (14.0-18.0); LYMPHOCYTES # (AUTO) 0.8 10^3/uL (1.5-3.5); LYMPHOCYTES % (AUTO) 10.7 %; MEAN CORPUSCULAR HEMOGLOBIN 30.4 pg (27.0-31.0); MEAN CORPUSCULAR HGB CONC 31.6 g/dL (32.0-36.0); MEAN CORPUSCULAR VOLUME 96.4 fL (80.0-94.0); MEAN PLATELET VOLUME 9.6 fL (7.4-11.4); MONOCYTES # (AUTO) 0.4 10^3/uL (0.0-1.0); MONOCYTES % (AUTO) 5.7 %; NEUTROPHILS # (AUTO) 6.1 10^3/uL (1.5-6.6); NEUTROPHILS % (AUTO) 78.9 %; PLT - PLATELET COUNT 129 10^3/uL (130-450); RED BLOOD COUNT 2.53 10^6/uL (4.70-6.10); RED CELL DISTRIBUTION WIDTH 14.9 % (12.0-15.0); WHITE BLOOD COUNT 7.7 x10^3/uL (4.8-10.8)
[2024-11-19 05:31] LABS: PHOSPHORUS 2.1 mg/dL (2.5-5.0)
[2024-11-19 05:35] LABS: CALCIUM 7.7 mg/dL (8.5-10.3); POTASSIUM 3.6 mmol/L (3.5-4.5)
[2024-11-19 05:50] LABS: FERRITIN 763.5 ng/mL (23.9-336.2)
--- NOTE | 2024-11-19 09:05 | PROVIDER PROGRESS NOTE ---
Subjective Prog Note Date Prog Note Date: 11/18/24 Prog Note Time: 09:05 Subjective Pt reports feeling: Improved Subjective: feeling much better, actually liking the catheter to improve sleep quality Current Medications Current Medications Current Medications: Current Medications Generic Name Dose Route Start Last Admin Trade Name Freq PRN Reason Stop Dose Admin Acetaminophen 650 mg 11/16/24 15:06 11/17/24 19:55 Acetaminophen 325 Mg Tablet PO 650 mg Q4HR PRN Administration Pain 1 to 4, or Fever Atorvastatin Calcium 40 mg 11/17/24 21:00 11/18/24 20:54 Atorvastatin 40 Mg Tablet PO 40 mg QPM MARY Administration Calcium Carbonate/Glycine 500 mg 11/18/24 09:00 11/19/24 08:26 Calcium Carb (Oyster Shell) 500 Mg Tablet PO 500 mg DAILY MARY Administration Cholecalciferol 50 mcg 11/18/24 09:00 11/19/24 08:26 Cholecalciferol 25 Mcg Tablet PO 50 mcg DAILY MARY Administration Docusate Sodium 250 - 500 mg 11/18/24 09:00 11/19/24 08:27 Docusate Sodium 250 Mg Capsule PO Not Given DAILY [facility] Enoxaparin Sodium 40 mg 11/17/24 09:00 11/19/24 08:26 Enoxaparin 40 Mg/0.4 Ml Syringe SUBQ 40 mg DAILY MARY Administration Famotidine 20 mg 11/16/24 15:50 11/19/24 08:26 Famotidine 20 Mg/2 Ml Vial IVP 20 mg BID MARY Administration Fluticasone Propionate 1 sprays 11/17/24 17:59 Fluticasone Nasal [place] FERMÍN BID PRN allergy symptoms Ampicillin Sodium 2 gm/ Sodium 100 mls @ 100 mls/hr 11/18/24 18:00 11/19/24 07:00 Chloride IV Infused Q6HR MARY Infusion Ibuprofen 600 mg 11/16/24 15:06 11/16/24 15:54 Ibuprofen 600 Mg Tablet PO 600 mg Q6HR PRN Administration Pain 1 to 4 Insulin Human Lispro 1 - 5 unit 11/17/24 12:00 11/19/24 08:35 Insulin Lispro 300 Unit/3 Ml Pen SUBQ Not Given 0800,1200,1700,2100 [facility] Protocol Loratadine 10 mg 11/18/24 09:00 11/19/24 08:27 Loratadine 10 Mg Tablet PO 10 mg DAILY MARY Administration Melatonin 3 mg 11/18/24 00:26 11/18/24 22:30 Melatonin 3 Mg Tablet PO 3 mg QPM PRN Administration Insomnia Metoprolol Succinate 50 mg 11/18/24 09:00 11/19/24 08:26 Metoprolol Succinate 50 Mg Tablet PO 50 mg DAILY MARY Administration Multivitamins 1 tab 11/18/24 08:00 11/19/24 08:26 Multivitamin Tablet PO 1 tab DAILYWM MARY Administration Ondansetron HCl 4 mg 11/16/24 15:06 Ondansetron Odt 4 Mg Tablet TL Q6HR PRN Nausea / Vomiting Ondansetron HCl 4 mg 11/16/24 15:06 Ondansetron 4 Mg/2 Ml Vial IVP Q6HR PRN Nausea / Vomiting Abiraterone 250 Mg 1 each 11/18/24 07:30 11/19/24 07:04 PO 1 each QDAC MARY Administration Polyethylene Glycol 17 gm 11/18/24 09:00 11/19/24 08:27 Polyethylene Glycol 3350 17 Gm Packet PO Not Given DAILY MARY Prednisone 5 mg 11/18/24 09:00 11/19/24 08:27 Prednisone 5 Mg Tablet PO 5 mg BID AMRY Administration Sodium Chloride 10 ml 11/16/24 17:00 11/19/24 08:27 Sodium Chloride Flush 0.9% 10 Ml Syringe IVP 10 ml 0100,0900,1700 MARY Administration Sodium Chloride 10 ml 11/16/24 15:06 11/18/24 04:23 Sodium Chloride Flush 0.9% 10 Ml Syringe IVP 10 ml PRN PRN Administration NEEDED PER PROVIDER ORDERS Tamsulosin HCl 0.4 mg 11/17/24 21:00 11/18/24 20:54 Tamsulosin 0.4 Mg Capsule PO 0.4 mg HS MARY Administration Objective Vital Signs/Intake & Output Reviewed Vital Signs: Yes Vital Signs: Vital Signs x48h Temp Pulse Resp BP Pulse Ox 11/19/24 08:00 36.8 C 65 14 120/69 99 Intake & Output: Intake & Output 11/16/24 11/17/24 11/18/24 11/19/24 23:59 23:59 23:59 23:59 Intake Total 6217 / 6217 3817 / 3817 3480 / 3480 200 / 200 Output Total 2135 / 2135 2442 / 2442 1100 / 1100 800 / 800 Balance 4082 / 4082 1375 / 1375 2380 / 2380 -600 / -600 Weight (kg) 116.5 kg 117 kg 121 kg 121 kg Objective General Appearance: positive No acute distress (NAD, sitting in chair, appears well) Lab Results 11/19/24 05:05 11/19/24 05:05 Other Labs: Lab Results x24hrs 11/19/24 11/19/24 11/18/24 Range/Units 08:35 05:05 07:53 WBC 7.7 (4.8-10.8) x10^3/uL RBC 2.53 L (4.70-6.10) 10^6/uL Hgb 7.7 L (14.0-18.0) g/dL Hct 24.4 L (42.0-52.0) % MCV 96.4 H (80.0-94.0) fL MCH 30.4 (27.0-31.0) pg MCHC 31.6 L (32.0-36.0) g/dL RDW 14.9 (12.0-15.0) % Plt Count 129 L (130-450) 10^3/uL MPV 9.6 (7.4-11.4) fL Neut # (Auto) 6.1 (1.5-6.6) 10^3/uL Lymph # (Auto) 0.8 L (1.5-3.5) 10^3/uL [place] # (Auto) 0.4 (0.0-1.0) 10^3/uL Eos # (Auto) 0.1 (0.0-0.7) 10^3/uL Baso # (Auto) 0.1 (0.0-0.1) 10^3/uL Absolute Nucleated RBC 0.00 x10^3/uL Nucleated RBC % 0.0 /100WBC Sodium 139 (135-145) mmol/L Potassium 3.6 (3.5-4.5) mmol/L Chloride 113 H (101-111) mmol/L Carbon Dioxide 21 (21-32) mmol/L Anion Gap 5.0 L (6-13) BUN 14 (6-20) mg/dL Creatinine 1.0 (0.6-1.3) mg/dL Estimated GFR (MDRD) 72 L (>89) Glucose 148 H (74-104) mg/dL POC Whole Bld Glucose 111 174 (70-100) mg/dL Calcium 7.7 L (8.5-10.3) mg/dL Phosphorus 2.1 L (2.5-5.0) mg/dL Magnesium 2.0 (1.7-2.3) mg/dL Iron 39 L (50-212) ug/dL TIBC 169 L (250-450) ug/dL % Saturation 23 (20-50) % Transferrin 121 L (203-362) mg/dL Ferritin 763.5 H (23.9-336.2) ng/mL Lactate Dehydrogenase 201 (140-271) IU/L Vitamin B12 377 (180-914) pg/mL ABX Reporting Has patient been on IV antibiotics over the past 48 hours?: Yes Assessment/Plan Problem List (1) Septic shock: Impression: Septic shock from a urinary source. Enterococcus bacteremia. Currently on ampicillin. Plan to transition to oral amoxicillin soon. Management per primary team. Recommend stay on antibiotics for course to cover at least until December 12, 2024 (2) Status post transurethral resection of prostate: Impression: Frequency and urgency of urination postoperatively not directly related to urinary retention. Has a Taylor catheter in place I do recommend a voiding trial before he discharges however, if patient is happy with a catheter in place likely for palliative reasons it is okay for him to go home with the catheter. 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 Hopefully he can be discharged before then He needs an urgent follow-up with me his medical oncologist at [facility]. He is already talked with these people. He unfortunately has a grim prognosis. He and I have discussed I suspect even with aggressive management he has less than 4 months to live Urology signing off
[2024-11-19] MEDS: FERROUS SULFATE 325 MG TABLET PO SCH (11:27)
[2024-11-19] MEDS: hydroCHLOROthiazide 25 MG TABLET PO SCH (11:27)
--- NOTE | 2024-11-19 12:24 | PROVIDER PROGRESS NOTE ---
Subjective Prog Note Date Prog Note Date: 11/19/24 Subjective Pt reports feeling: No change Current Medications Current Medications Current Medications: Current Medications Generic Name Dose Route Start Last Admin Trade Name Raghu PRN Reason Stop Dose Admin Acetaminophen 650 mg 11/16/24 15:06 11/17/24 19:55 Acetaminophen 325 Mg Tablet PO 650 mg Q4HR PRN Administration Pain 1 to 4, or Fever Atorvastatin Calcium 40 mg 11/17/24 21:00 11/18/24 20:54 Atorvastatin 40 Mg Tablet PO 40 mg QPM MARY Administration Calcium Carbonate/Glycine 500 mg 11/18/24 09:00 11/19/24 08:26 Calcium Carb ([place]yster [place]) 500 Mg Tablet PO 500 mg DAILY MARY Administration Cholecalciferol 50 mcg 11/18/24 09:00 11/19/24 08:26 Cholecalciferol 25 Mcg Tablet PO 50 mcg DAILY MARY Administration Docusate Sodium 250 - 500 mg 11/18/24 09:00 11/19/24 08:27 Docusate Sodium 250 Mg Capsule PO Not Given DAILY MARY Enoxaparin Sodium 40 mg 11/17/24 09:00 11/19/24 08:26 Enoxaparin 40 Mg/0.4 Ml Syringe SUBQ 40 mg DAILY MARY Administration Famotidine 20 mg 11/16/24 15:50 11/19/24 08:26 Famotidine 20 Mg/2 Ml Vial IVP 20 mg BID MARY Administration Ferrous Sulfate 325 mg 11/19/24 11:00 11/19/24 11:27 Ferrous Sulfate 325 Mg Tablet PO 325 mg DAILYWM MARY Administration Fluticasone Propionate 1 sprays 11/17/24 17:59 Fluticasone Nasal [place] FERMÍN BID PRN allergy symptoms Hydrochlorothiazide 25 mg 11/19/24 11:00 11/19/24 11:27 Hydrochlorothiazide 25 Mg Tablet PO 25 mg DAILY MARY Administration Ampicillin Sodium 2 gm/ Sodium 100 mls @ 100 mls/hr 11/18/24 18:00 11/19/24 11:27 Chloride IV 100 mls/hr Q6HR MARY Administration Ibuprofen 600 mg 11/16/24 15:06 11/16/24 15:54 Ibuprofen 600 Mg Tablet PO 600 mg Q6HR PRN Administration Pain 1 to 4 Insulin Human Lispro 1 - 5 unit 11/17/24 12:00 11/19/24 11:35 Insulin Lispro 300 Unit/3 Ml Pen SUBQ 1 unit 0800,1200,1700,2100 MARY Administration Protocol Loratadine 10 mg 11/18/24 09:00 11/19/24 08:27 Loratadine 10 Mg Tablet PO 10 mg DAILY MARY Administration Losartan Potassium 50 mg 11/19/24 11:00 Losartan 50 Mg Tablet PO DAILY MARY Melatonin 3 mg 11/18/24 00:26 11/18/24 22:30 Melatonin 3 Mg Tablet PO 3 mg QPM PRN Administration Insomnia Metoprolol Succinate 50 mg 11/18/24 09:00 11/19/24 08:26 Metoprolol Succinate 50 Mg Tablet PO 50 mg DAILY MARY Administration Multivitamins 1 tab 11/18/24 08:00 11/19/24 08:26 Multivitamin Tablet PO 1 tab DAILYWM MARY Administration Ondansetron HCl 4 mg 11/16/24 15:06 Ondansetron Odt 4 Mg Tablet TL Q6HR PRN Nausea / Vomiting Ondansetron HCl 4 mg 11/16/24 15:06 Ondansetron 4 Mg/2 Ml Vial IVP Q6HR PRN Nausea / Vomiting Abiraterone 250 Mg 1 each 11/18/24 07:30 11/19/24 07:04 PO 1 each QDAC MARY Administration Polyethylene Glycol 17 gm 11/18/24 09:00 11/19/24 11:42 Polyethylene Glycol 3350 17 Gm Packet PO 17 gm DAILY MARY Administration Prednisone 5 mg 11/18/24 09:00 11/19/24 08:27 Prednisone 5 Mg Tablet PO 5 mg BID MARY Administration Sodium Chloride 10 ml 11/16/24 17:00 11/19/24 08:27 Sodium Chloride Flush 0.9% 10 Ml Syringe IVP 10 ml 0100,0900,1700 MARY Administration Sodium Chloride 10 ml 11/16/24 15:06 11/18/24 04:23 Sodium Chloride Flush 0.9% 10 Ml Syringe IVP 10 ml PRN PRN Administration NEEDED PER PROVIDER ORDERS Tamsulosin HCl 0.4 mg 11/17/24 21:00 11/18/24 20:54 Tamsulosin 0.4 Mg Capsule PO 0.4 mg HS MARY Administration Objective Vital Signs/Intake & Output Reviewed Vital Signs: Yes Vital Signs: Vital Signs x48h Temp Pulse Resp BP Pulse Ox 11/19/24 08:00 36.8 C 65 14 120/69 99 Intake & Output: Intake & Output 11/16/24 11/17/24 11/18/24 11/19/24 23:59 23:59 23:59 23:59 Intake Total 6217 / 6217 3817 / 3817 3480 / 3480 320 / 320 Output Total 2135 / 2135 2442 / 2442 1100 / 1100 1125 / 1125 Balance 4082 / 4082 1375 / 1375 2380 / 2380 -805 / -805 Weight (kg) 116.5 kg 117 kg 121 kg 121 kg Objective General Appearance: positive No acute distress (NAD, sitting in chair, appears well) Eyes Bilateral: positive Normal inspection ENT: positive ENT inspection nml Neck: positive Nml inspection Respiratory: positive Chest non-tender Cardiovascular: positive Regular rate & rhythm and No murmur Abdomen: positive Non-tender Skin: positive Color nml Extremities: positive Non-tender Neurologic/Psychiatric: positive Oriented x3 Lab Results 11/19/24 05:05 11/19/24 05:05 Other Labs: Lab Results x24hrs 11/19/24 11/19/24 11/19/24 Range/Units 11:34 08:35 05:05 WBC 7.7 (4.8-10.8) x10^3/uL RBC 2.53 L (4.70-6.10) 10^6/uL Hgb 7.7 L (14.0-18.0) g/dL Hct 24.4 L (42.0-52.0) % MCV 96.4 H (80.0-94.0) fL MCH 30.4 (27.0-31.0) pg MCHC 31.6 L (32.0-36.0) g/dL RDW 14.9 (12.0-15.0) % Plt Count 129 L (130-450) 10^3/uL MPV 9.6 (7.4-11.4) fL Neut # (Auto) 6.1 (1.5-6.6) 10^3/uL Lymph # (Auto) 0.8 L (1.5-3.5) 10^3/uL [place] # (Auto) 0.4 (0.0-1.0) 10^3/uL Eos # (Auto) 0.1 (0.0-0.7) 10^3/uL Baso # (Auto) 0.1 (0.0-0.1) 10^3/uL Absolute Nucleated RBC 0.00 x10^3/uL Nucleated RBC % 0.0 /100WBC Sodium 139 (135-145) mmol/L Potassium 3.6 (3.5-4.5) mmol/L Chloride 113 H (101-111) mmol/L Carbon Dioxide 21 (21-32) mmol/L Anion Gap 5.0 L (6-13) BUN 14 (6-20) mg/dL Creatinine 1.0 (0.6-1.3) mg/dL Estimated GFR (MDRD) 72 L (>89) Glucose 148 H (74-104) mg/dL POC Whole Bld Glucose 154 111 (70-100) mg/dL Calcium 7.7 L (8.5-10.3) mg/dL Phosphorus 2.1 L (2.5-5.0) mg/dL Magnesium 2.0 (1.7-2.3) mg/dL Iron 39 L (50-212) ug/dL TIBC 169 L (250-450) ug/dL % Saturation 23 (20-50) % Transferrin 121 L (203-362) mg/dL Ferritin 763.5 H (23.9-336.2) ng/mL Lactate Dehydrogenase 201 (140-271) IU/L Vitamin B12 377 (180-914) pg/mL ABX Reporting Has patient been on IV antibiotics over the past 48 hours?: Yes Assessment/Plan Problem List (1) Septic shock: Impression: Shock has resolved, has a Enterococcus faecalis bacteremia currently being managed on ampicillin. He will need a course of 7 days total IV ampicillin. Follow-up blood cultures pending. Echocardiogram with no apparent vegetation. Overall clinically improved. 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
[2024-11-19] MEDS: LOSARTAN 50 MG TABLET PO SCH (13:11)
[2024-11-20 06:19] LABS: BASOPHILS # (AUTO) 0.1 10^3/uL (0.0-0.1); BASOPHILS % (AUTO) 0.8 %; EOSINOPHILS # (AUTO) 0.1 10^3/uL (0.0-0.7); EOSINOPHILS % (AUTO) 1.1 %; HCT - HEMATOCRIT 23.5 % (42.0-52.0); HGB - HEMOGLOBIN 7.4 g/dL (14.0-18.0); LYMPHOCYTES # (AUTO) 0.9 10^3/uL (1.5-3.5); LYMPHOCYTES % (AUTO) 12.2 %; MEAN CORPUSCULAR HEMOGLOBIN 30.3 pg (27.0-31.0); MEAN CORPUSCULAR HGB CONC 31.5 g/dL (32.0-36.0); MEAN CORPUSCULAR VOLUME 96.3 fL (80.0-94.0); MEAN PLATELET VOLUME 9.8 fL (7.4-11.4); MONOCYTES # (AUTO) 0.8 10^3/uL (0.0-1.0); NEUTROPHILS # (AUTO) 5.6 10^3/uL (1.5-6.6); NEUTROPHILS % (AUTO) 74.7 %; PLT - PLATELET COUNT 126 10^3/uL (130-450); RED BLOOD COUNT 2.44 10^6/uL (4.70-6.10); RED CELL DISTRIBUTION WIDTH 14.8 % (12.0-15.0); WHITE BLOOD COUNT 7.5 x10^3/uL (4.8-10.8)
[2024-11-20 06:24] LABS: ABSOLUTE RETICS # AUTO 0.017 10^6/uL (0.020-0.110); RED BLOOD COUNT 2.41 10^6/uL (4.70-6.10); RETICULOCYTE COUNT % (AUTO) 0.69 % (0.5-2.3)
[2024-11-20 06:33] LABS: BUN - BLOOD UREA NITROGEN 15 mg/dL (6-20); CALCIUM 7.9 mg/dL (8.5-10.3); CARBON DIOXIDE - CO2 25 mmol/L (21-32); CHLORIDE 110 mmol/L (101-111); CREATININE 1.1 mg/dL (0.6-1.3); GFR - MDRD 65 (>89); GLUCOSE 140 mg/dL (74-104); IRON < 10 ug/dL (50-212); POTASSIUM 3.5 mmol/L (3.5-4.5); SODIUM 140 mmol/L (135-145); TRANSFERRIN 127 mg/dL (203-362)
[2024-11-20 07:51] VITALS: BP 129/65; TEMP 99.1; O2SAT 97
--- NOTE | 2024-11-20 12:24 | Discharge Summary ---
"Discharge Summary Admit Date: 11/16/24 Discharge Date: 11/20/24 Discharging Provider: Dinora Renee PA-C Primary Care Provider: MAYRA Spicer Code Status: Attempt Resuscitation DIAGNOSES Discharge Diagnoses with Status of Each Condition: Septic shock, resolved Enterococcus bacteremia, treatment in progress to continue with home infusion antibiotics, then to transition to p.o. antibiotics as there is a ureteral stent in place Status post transurethral resection of the prostate, follow-up with urology as planned Prostate cancer metastatic to bone, medical oncology follow-up as scheduled History of diabetes mellitus chronic and controlled HPI History of Present Illness: 79-year-old male with PMH significant for Skin cancer, metastatic malignant neoplasm of prostate, diabetes not on long-term insulin, sleep apnea, hypertension who presents to the ER after falling at home. A neighbor called EMS, and they helped him up and brought him into the ER. He had a visit with Dr. Hameed with urology on 11/15/2024, where he reported urinary frequency and concern for retention. His ureteral stent was still patent, and his bladder scan did not show significant retention. In the ER, CT abdomen/pelvis was performed which showed metastatic disease, stable bone lesions, probable postoperative perinephric stranding and left ureteral stent. He was noted to have a temperature as high as 39.9 in the ED as well as low blood pressure and a white blood cell count of 11.6, so hospitalist was contacted for admission. He also has a creatinine of 1.7, up from 1, Indicating a severe sepsis with endorgan damage CONSULTS | PROCEDURES Procedures: CT abdomen pelvis: Multifocal hypodense hepatic mass lesions client service representative of metastatic disease Multifocal sclerotic osseous lesions stable from December 2023 consider follow-up bone scan Left ureteral stent and Maurer catheter in place. Persistent left-sided perinephric stranding which is probably postoperative. Chest x-ray: No acute cardiopulmonary findings HOSPITAL COURSE Hospital Course: (1) Septic shock: Shock has resolved, has a Enterococcus faecalis bacteremia currently being managed on ampicillin. He will need a course of 7 days total IV ampicillin. Follow-up blood cultures pending. Echocardiogram with no apparent vegetation. Overall clinically improved. 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 ALLERGIES Allergies Allergy/AdvReac Type Severity Reaction Status Date / Time No Known Drug Allergies Allergy Verified 11/16/24 10:21 MEDICATIONS Ambulatory Orders Medication Instructions Recorded Confirmed albuterol sulfate 2.5 mg/3 mL 2.5 mg inhalation Q4H PRN 01/12/24 11/22/24 (0.083 %) solution for nebulization shortness of breath or wheezing multivitamin See Rx Instructions .Route .COMPLEX 01/12/24 11/22/24 omega 1-fhj-tvm-fish oil 300 See Rx Instructions .Route .COMPLEX 01/12/24 11/22/24 mg-1,000 mg capsule (Fish Oil) dulaglutide 3 mg/0.5 mL 3 mg (0.5 mL) subcut QWEEK #6.5 mL 07/09/24 11/22/24 subcutaneous pen injector (Trulicity) abiraterone 250 mg tablet 250 mg PO QAM 10/11/24 11/22/24 albuterol sulfate 90 mcg/actuation 2 puff inhalation QID PRN 10/11/24 11/22/24 aerosol inhaler (Ventolin HFA) shortness of breath or wheezing fluticasone propionate 50 1 spray intranasal BID PRN allergy 10/11/24 11/22/24 mcg/actuation nasal symptoms spray,suspension leuprolide (3 month) 22.5 mg (3 22.5 mg subcut [id number] 10/11/24 11/22/24 month) subcutaneous syringe calcium carbonate 600 mg PO QDAY 10/14/24 11/22/24 cholecalciferol (vitamin D3) 25 50 mcg PO QDAY 10/14/24 11/22/24 mcg (1,000 unit) capsule metoprolol succinate 50 mg 50 mg PO DAILY #30 tabs 10/14/24 11/22/24 tablet,extended release 24 hr (Toprol XL) tamsulosin 0.4 mg capsule 0.4 mg PO HS 10/14/24 11/22/24 losartan 100 mg tablet 50 mg (1/2 x 100 mg) PO QDAY #90 10/16/24 11/22/24 tabs prednisone 5 mg tablet 5 mg PO BID #60 tabs 10/16/24 11/22/24 amlodipine 5 mg tablet 5 mg PO QDAY #90 tabs 11/18/24 11/22/24 hydrochlorothiazide 25 mg tablet 25 mg PO QAM #90 tabs 11/18/24 11/22/24 loratadine 10 mg tablet 10 mg PO QDAY #90 tabs 11/18/24 11/22/24 rosuvastatin 20 mg tablet 20 mg PO QDAY #90 tabs 11/18/24 11/22/24 amoxicillin 875 mg tablet 875 mg PO BID #60 tabs 11/19/24 11/22/24 ferrous sulfate 325 mg (65 mg 325 mg PO DAILYWM 30 days #30 tabs 11/19/24 11/22/24 iron) tablet ampicillin sodium 2 gram solution 2 g IV Q6HR #18 ea 11/20/24 11/22/24 for injection PHYSICAL EXAM AT DISCHARGE Physical Exam Other/Comments: General Appearance: positive No acute distress (NAD, sitting in chair, appears well) Eyes Bilateral: positive Normal inspection ENT: positive ENT inspection nml Neck: positive Nml inspection Respiratory: positive Chest non-tender Cardiovascular: positive Regular rate & rhythm and No murmur Abdomen: positive Non-tender Skin: positive Color nml Extremities: positive Non-tender Neurologic/Psychiatric: positive Oriented x3 LABS 11/20/24 06:05 11/20/24 06:05 SEPSIS Current Stage of Sepsis: Resolved Possible source of Sepsis: GI tract/intra-abdominal FOLLOW UP Follow Up: PCP MATTIE Spicer Urology Dr Hameed TIME SPENT Time Spent in Discharge (Minutes): 35 Discharge Plan Discharge Patient Disposition: Home, Self Care Condition: Stable Prescriptions: New ferrous sulfate 325 mg (65 mg iron) Tablet 325 mg PO DAILYWM 30 Days Qty: 30 0RF amoxicillin 875 mg tablet 875 mg PO BID Qty: 60 0RF ampicillin sodium 2 gram Recon Soln 2 g IV Q6HR Qty: 18 0RF Continued Trulicity 3 mg/0.5 mL pen injector 3 mg subcut QWEEK Qty: 6.5 3RF amlodipine 5 mg tablet 5 mg PO QDAY Qty: 90 0RF hydrochlorothiazide 25 mg tablet 25 mg PO QAM Qty: 90 0RF loratadine 10 mg tablet 10 mg PO QDAY Qty: 90 0RF rosuvastatin 20 mg tablet 20 mg PO QDAY Qty: 90 0RF multivitamin 1 EACH tablet See Rx Instructions .Route .COMPLEX Rx Instructions: QD albuterol sulfate 2.5 MG/3 ML solution for nebulization 2.5 mg inhalation Q4H PRN (Reason: shortness of breath or wheezing) Rx Instructions: PRN omega 4-jsm-xdm-fish oil [Fish Oil] 1 EACH capsule See Rx Instructions .Route .COMPLEX Rx Instructions: QD abiraterone 250 mg tablet 250 mg PO QAM fluticasone propionate 50 mcg/actuation spray,suspension 1 spray intranasal BID PRN (Reason: allergy symptoms) Rx Instructions: Use one spray into both nostrils twice a day calcium carbonate 600 mg calcium (1,500 mg) tablet 600 mg PO QDAY tamsulosin 0.4 mg capsule 0.4 mg PO HS metoprolol succinate [Toprol XL] 50 mg tablet extended release 24 hr 50 mg PO DAILY Qty: 30 2RF albuterol sulfate [Ventolin HFA] 90 mcg/actuation HFA aerosol inhaler 2 puff inhalation QID PRN (Reason: shortness of breath or wheezing) leuprolide (3 month) 22.5 mg syringe 22.5 mg subcut [id number] cholecalciferol (vitamin D3) 25 mcg (1,000 unit) capsule 50 mcg PO QDAY prednisone 5 mg tablet 5 mg PO BID Qty: 60 5RF losartan 100 mg tablet 50 mg PO QDAY Qty: 90 0RF Rx Instructions: dose reduced 10/14/24 with addition of metoprolol for PSVT Activity Restrictions: No Restrictions Diet: Diabetic Health Concerns: You came into the hospital with sepsis secondary to UTI. We did an echocardiogram which showed that there was no growth on your heart valves. Your blood cultures were positive for Enterococcus, so you need at least a week of IV antibiotics in total. We are waiting on results from a second set of blood cultures, if these show growth, your primary care provider will need to extend the duration of your IV antibiotics. Dr. Hameed recommends that after your course of IV antibiotics is done, you should still be on a oral antibiotic as he suspects that your stent could be an ongoing source for infection. When you are done with your ampicillin IV injection, you will be started on amoxicillin 875 mg p.o. twice daily until directed otherwise by Dr. Hameed. I am discharging you home with no activity restrictions, resume diet as before. I have also started you on an iron pill as you do appear to have an iron deficiency anemia. It is also an option to continue your multivitamin that has iron in it. Care Plan Goals: Complete 7 days of ampicillin IV: 2 grams four time a day. As soon as you finish the ampicillin, start taking Augmentin twice a day. Leave maurer catheter in place! Unfortunately the bladder spasms are difficult to control Primary care to followup on second set of blood cultures. If these are positive, will need longer IV ampicillin, and may need surgical removal of your port. We hope for the best for you! Print Language: [place] Patient Instructions: Home Infusion Therapy, Leg Bag Care Dc Stand Alone Forms: PCP List Follow-up Care: Cate Spicer PA-C [Primary Care Provider] -"
[2024-11-20] MEDS: LIDOCAINE 2% URO-JET 5 ML SYRINGE UR STA (12:35)
[2024-11-20] MEDS: LIDOCAINE 2% URO-JET 5 ML SYRINGE UR ONE (12:36)
== END 2024-11-20 13:30 | disposition home or self-care (01) | DRG 871 ==
LOC: ED 10:04 → ICU 14:44
PROVIDERS: ADMIT Nurse Practitioner Acute Care; ATTEND Nurse Practitioner Acute Care
DX: Z98.890 Other specified postprocedural states; R65.21 Severe sepsis with septic shock; N39.0 Urinary tract infection, site not specified; D64.9 Anemia, unspecified; Z79.85 Long-term (current) use of injectable non-insulin antidiabetic drugs; R39.15 Urgency of urination; Z91.81 History of falling; I10 Essential (primary) hypertension; R33.8 Other retention of urine; I95.89 Other hypotension; R35.0 Frequency of micturition; G47.30 Sleep apnea, unspecified; C67.9 Malignant neoplasm of bladder, unspecified; A41.9 Sepsis, unspecified organism; A41.81 Sepsis due to Enterococcus; C79.51 Secondary malignant neoplasm of bone; R53.1 Weakness; D50.9 Iron deficiency anemia, unspecified; E11.9 Type 2 diabetes mellitus without complications; C61 Malignant neoplasm of prostate; N40.1 Benign prostatic hyperplasia with lower urinary tract symptoms

== ENCOUNTER 2025-08-13 18:44 | Observation (INO) ==
--- NOTE | 2025-08-13 18:51 | ED Physician Documentation ---
PD HPI MALE Stated complaint Stated Complaint: CATH ISSUES, ABNORMAL LABS Chief complaint Chief Complaint: Abd Pain Additional information Additional information: 80-year-old male with history of prostate cancer with metastases to the bones lungs and liver was diagnosed with small cell carcinoma. He has had a long-term indwelling Taylor catheter as well as a right nephrostomy tube and he was told to come to the emergency department for further evaluation because he started having some dionte bloody urine from his Taylor catheter. Right nephrostomy tube is putting out clear urine. Patient is followed by palliative care who spoke with urologist Dr. Hameed who advised him to come to the emergency department for further evaluation given his history of anemia requiring blood transfusions Meds/Allgy Home Medications Ambulatory Orders Medication Instructions Recorded Confirmed multivitamin 1 tab PO DAILY 01/12/2407/20 omega 7-nnc-bqk-fish oil 300 1 cap PO DAILY 01/12/24 1 10/13/24 mg-1,000 mg capsule (Fish Oil) abiraterone 250 mg tablet 250 mg PO QAM 10/11/2408/13 albuterol sulfate 90 mcg/actuation 2 puff inhalation Q ID PRN 10/11/24 08/13/25 aerosol inhaler (Ventolin HFA) shortness of breath or wheezing fluticasone propionate 50 1 spray intranasal BID PRN a llergy 10/11/24 08/13/25 mcg/actuation nasal symptoms spray,suspension leuprolide acetate (3 month) 22.5 22.5 mg subcut Q3MON THS 10/11/24 08/13/25 mg (3 month) subcutaneous syringe calcium carbonate 600 mg PO QDAY 10/14/2407/20 cholecalciferol (vitamin D3) 25 100 mcg PO QDAY 08/13/25 mcg (1,000 unit) capsule rosuvastatin 20 mg tablet 20 mg PO QDAY #90 tabs 11/2508/13/25 bisacodyl 5 mg tablet,delayed 5 mg PO QDAY 01/15/25 release (Dulcolax (bisacodyl)) mirabegron 50 mg tablet,extended 50 mg PO QDAY #90 tab s 01/15/25 08/13/25 release 24 hr (Myrbetriq) prednisone 5 mg tablet 5 mg PO BID #60 tabs 06/02/2 5 08/13/25 loperamide 2 mg capsule (Imodium 2 mg PO QID PRN loose stool #60 02/25/25 08/13/25 A-D) caps polyethylene glycol 3350 17 17 g PO Q OTHER DAY PRN 08/13/25 gram/dose oral powder (Miralax) constipation hydrochlorothiazide 25 mg tablet 12.5 mg (1/2 x 25 mg) PO Q3-4D PRN 04/25/25 08/13/25 edema, weight gain #30 tabs oxybutynin chloride 5 mg tablet 5 mg PO QDAY bladder s pasms #90 04/25/25 08/13/25 tabs oxycodone 5 mg tablet 5 mg PO Q4H PRN Pain #10 tab s 04/28/25 08/13/25 dulaglutide 3 mg/0.5 mL 1.5 mg (0.25 mL) subcut QWEE K #4 ea 05/02/25 08/13/25 subcutaneous pen injector (Acquaintable) blood-glucose meter (Blood Glucose #1 ea 05/03/2507/19 Monitoring kit) blood sugar diagnostic (FreeStyle #100 ea 05/09/25 Test strips) losartan 25 mg tablet 25 mg PO QDAY #30 tabs 05/2008/13/25 metoprolol succinate 50 mg 25 mg (1/2 x 50 mg) PO SHAE Y #45 08/11/25 08/13/25 tablet,extended release 24 hr tabs (Toprol XL) Allergies Allergies Allergy/AdvReac Type Severity Reaction Status Date / Time No Known Drug Allergies Allergy Verified 07/23/25 12:25 PFSH Active Problems All Active Problems (Updated 08/13/25 @ 21:32 by [place] Hameed MD) Anemia (Chronic) Hematuria (Acute) Anemia (Chronic) Hematuria (Acute) UTI (urinary tract infection) (Acute) Thrombocytopenia (Acute) Status post chemotherapy (Acute) Prostate CA (Acute) Muscle weakness (generalized) (Acute) H/O insertion of nephrostomy tube (Acute) Caregiver burden (Acute) Nasal congestion (Acute) Cough (Acute) Viral URI (Acute) Nephrostomy present (Acute) Chronic kidney disease, stage 3a (Acute) Arthritis of right ankle (Acute) Bilateral ureteral obstruction (Acute) Bilateral impacted cerumen (Acute) Palliative care patient (Acute) Hydronephrosis (Acute) Type 2 diabetes mellitus with diabetic neuropathy (Chronic) Atrial fibrillation (Chronic) UTI (urinary tract infection) due to urinary indwelling Taylor catheter (Acute) Diuretic-induced hypokalemia (Acute) Bilateral lower extremity edema (Acute) Anemia of chronic disease (Chronic) Counseling regarding advanced directives and goals of care (Acute) Prostate cancer metastatic to lung (Acute) Constipation (Acute) Ureteral stent present (Acute) Acquired spondylolisthesis (Acute) Indwelling Taylor catheter present (Chronic) Sleep apnea with use of continuous positive airway pressure (CPAP) (Chronic) Small cell carcinoma (Chronic) Type 2 diabetes mellitus (Chronic) Prostate cancer metastatic to bone (Chronic) Androgen deprivation therapy (Chronic) BPH w urinary obs/LUTS (Chronic) Essential hypertension (Acute) Severe obstructive sleep apnea (Chronic) Morbid obesity (Chronic) Chronic rhinitis (Chronic) Metatarsalgia of both feet (Chronic) Medical History Medical History (Updated 08/13/25 @ 21:32 by [place] Hameed MD) History of COVID-19 History of kidney injury Hypokalemia Acute kidney injury Paroxysmal supraventricular tachycardia History of anemia History of urinary retention History of septic shock Hx of essential hypertension Hx of diabetes mellitus Hyperuricemia Pancolonic diverticulosis History of bacteremia Erectile dysfunction due to arterial insufficiency Sun-damaged skin Allergic rhinitis History of PSVT (paroxysmal supraventricular tachycardia) Hx of sleep apnea Entrapment of right ulnar nerve Non-melanoma skin cancer Surgical History Surgical History Status post transurethral resection of prostate Revision 10/2024 Port-A-Cath in place 11/2023, right IJ Abnormal TRUS (transrectal ultrasound), prostate 09/2023, + adenocarcinoma H/O colonoscopy 11/2022, diverticulosis S/P carpal tunnel release 10/2020, right History of total left hip replacement 08/2016 H/O colonoscopy 11/2015, poor preparation, diverticulosis History of total bilateral knee replacement Right-10/2009 + Left-01/2010, left hardware is loose, Orthopedics recommending observation H/O vasectomy Family History Family History Father CAD (coronary artery disease) Congestive heart failure Mother Malignant neoplasm of throat Brother Bladder cancer COVID-19 virus infection Social History Social History (Updated 08/01/25 @ 10:59 by JASON Hayden) Smoking Status: Never smoker Second hand tobacco smoke exposure: No Do you dip or chew tobacco?: No Do you vape?: No Living arrangement: At home Marital Status: Living Condition: With spouse/s.o. Support Person: Yes Relationship Notes: with mod dementia; he is her caregiver Living Situation Details: Newly moved to [facility] Has a Durable Power of Bulb Grower for Health Care?: Yes Name / Relationship: Jacinto Denis /brothvasiliy Physical Activity: Walking Level: Independent Home Mobility Equipment: Cane Physical - Functional Details: Uses a wheeled walker for longer distances but can be independent in the home Do you feel safe in your home environment?: Yes History of physical, verbal, emotional, or financial abuse?: No ETOH Use: Wine and Beer Frequency: Weekly Substance Use: denies use Are you sexually active?: No Occupation - Current: [employer] in [employer] Retired: Yes Service: Yes Dates of Service: [employer] Are you following a diet prescribed by a doctor: No Are you following a special diet: No POLST Patient has POLST: Yes POLST on file?: Yes POLST CPR Status: Do Not Attempt Resuscitation (DNAR) / Allow Natural Exam Exam Vital Signs: Vital Signs x48h Temp Pulse Resp BP Pulse Ox 08/13/25 19:05 77 18 136/74 H 97 08/13/25 18:56 36.1 C L 85 18 136/74 H 98 Constitutional normal general appearance, no apparent distress, average body habitus and no limitations [facility] normocephalic Eyes PERRL Chest inspection of chest normal Respiratory breath sounds equal bilaterally Cardiovascular normal heart rate noted Gastrointestinal abdomen normal to inspection and abdomen soft to palpation Right flank nephrostomy tube with clear urine output Genitourinary no CVA tenderness and bladder normal to palpation Dionte bloody urine in Taylor bag Results Vitals Vitals: Vital Signs - 24 hr 08/13/25 18:56 08/13/25 19:05 Temperature 36.1 C L Temperature Source Temporal Artery Scan Pulse Rate 85 77 Respiratory Rate 18 18 Blood Pressure 136/74 H 136/74 H O2 Saturation 98 97 O2 Source Room air Room air Pain Intensity 0 0 Oxygen O2 Source Room air Labs Labs: Laboratory Tests 08/13/25 08/13/25 10:45 19:37 WBC 4.1 L RBC 2.25 L Hgb 7.3 L Hct 23.5 L MCV 104.4 H MCH 32.4 H MCHC 31.1 L RDW 15.9 H Plt Count 98 L MPV 8.8 Neut # (Auto) 2.4 Lymph # (Auto) 1.1 L [place] # (Auto) 0.5 Eos # (Auto) 0.1 Baso # (Auto) 0.0 Absolute Nucleated RBC 0.00 Nucleated RBC % 0.0 PT 13.0 H INR 1.2 Sodium 138 Potassium 3.9 Chloride 105 Carbon Dioxide 26 Anion Gap 7.0 BUN 22 H Creatinine 2.2 H Estimated GFR (MDRD) 29 L Glucose 108 H Calcium 9.5 Total Bilirubin 0.3 AST 38 ALT 22 Alkaline Phosphatase 235 H Total Protein 7.6 Albumin 3.5 Globulin 4.1 Albumin/Globulin Ratio 0.9 L Lipase 43 Blood Type A NEGATIVE Antibody Screen NEGATIVE PD Medical Decision Making ED course Complexity details: d/w behavioral health consultant (Urology: Dr. Hameed) ED course: 80-year-old male presents emergency department for concerns of ongoing dionte hematuria. Dr. Hameed is aware and is consulting on the patient is recommending patient be admitted to the hospital n.p.o. after midnight for possible cystoscopy given how much blood the patient has lost. He is not on any blood thinners. Hemoglobin remains stable at 7.7 I spoke with hospitalist Dinora Renee who is agreeable to admit patient for possible cystoscopy and patient is agreeable to stay for further workup and evaluation. No dionte blood clots noted in Taylor catheter. According to Dr. Hameed no need for CBI at this point in time. Discharge Plan Discharge Patient Disposition: 66 [facility] DC/Xfer Clinical Impression: Anemia Hematuria Qualifiers: Hematuria type: gross Qualified Code(s): R31.0 - Gross hematuria Interventions: ED Admission Assessment Last Done: 08/13/25 20:35 Vitals documented within 30 minutes of discharge?: Yes
--- OUTSIDE RECORDS SUMMARY | 2025-08-13 18:54 | EXTERNAL MEDICAL SUMMARY RPT | Continuity of Care Document ---
Author Organization [facility] Address [address] [place] [address] [id number] Phone Problems date description facility 2025-05-21 07:04 Malignant neoplasm of prostate [facility] 2025-05-21 07:04 Secondary malignant neoplasm of unspecified lung [facility] 2025-05-21 07:04 Secondary malignant neoplasm of bone [facility] 2025-05-21 07:04 Type 2 diabetes ayush itus with diabetic neuropathy, unspecified [facility] 2025-05-21 07:04 Chronic kidney disease, stage 3 a [facility] 2025-05-21 09:28 Malignant neoplasm of prostate [facility] 2025-05-21 09:28 Secondary malignant neoplasm of bone [facility] 2025-05-21 09:28 Anemia in other chronic disease s classified elsewhere [facility] 2025-05-21 09:31 Malignant neoplasm of prostate [facility] 2025-05-21 09:31 Secondary malignant neoplasm of bone [facility] 2025-05-21 09:31 Anemia in other chronic disease s classified elsewhere [facility] 2025-05-21 09:39 Malignant neoplasm of prostate [facility] 2025-05-21 09:39 Secondary malignant neoplasm of unspecified lung [facility] 2025-05-21 09:39 Secondary malignant neoplasm of bone [facility] 2025-05-21 09:39 Anemia in other chronic disease s classified elsewhere [facility] 2025-05-21 12:02 Enterocolitis due to Clostridium difficile, not specified as recurrent [facility] 2025-05-21 12:02 Malignant neoplasm of prostate [facility] 2025-05-21 12:02 Secondary malignant neoplasm of unspecified lung [facility] 2025-05-21 12:02 Secondary malignant neoplasm of bone [facility] 2025-05-21 12:02 Anemia in other chronic disease s classified elsewhere [facility] 2025-05-21 12:02 Elevated white blood cell count , unspecified [facility] 2025-05-21 12:02 Type 2 diabetes ayush itus with diabetic neuropathy, unspecified [facility] 2025-05-21 12:02 Supraventricular tachycardia, u nspecified [facility] 2025-05-21 12:02 Chronic kidney disease, stage 3 a [facility] 2025-05-21 12:02 Urinary tract infection, site n ot specified [facility] 2025-05-21 12:02 Tachycardia, unspecified [facility] 2025-05-21 12:02 Palpitations [facility] 2025-05-21 12:02 Lower abdominal pain, unspecifi ed [facility] 2025-05-21 12:02 Unspecified abdominal pain [facility] 2025-05-21 12:02 Diarrhea, unspecified [facility] 2025-05-21 12:02 Gross hematuria [facility] 2025-05-21 12:02 Weakness [facility] 2025-05-21 12:02 [facility] 2025-05-21 12:02 Unspecified injury of head, ini tial encounter [facility] 2025-05-22 00:04 Malignant neoplasm of prostate [facility] 2025-05-22 00:04 Secondary malignant neoplasm of unspecified lung [facility] 2025-05-22 00:04 Secondary malignant neoplasm of bone [facility] 2025-05-22 00:04 Type 2 diabetes ayush itus with diabetic neuropathy, unspecified [facility] 2025-05-22 00:04 Chronic kidney disease, stage 3 a [facility] 2025-05-22 11:34 Malignant neoplasm of prostate [facility] 2025-05-22 11:34 Secondary malignant neoplasm of unspecified lung [facility] 2025-05-22 11:34 Secondary malignant neoplasm of bone [facility] 2025-05-22 11:34 Type 2 diabetes ayush itus with diabetic neuropathy, unspecified [facility] 2025-05-22 11:34 Chronic kidney disease, stage 3 a [facility] 2025-05-23 07:53 Acute upper respiratory infecti on, unspecified [facility] 2025-05-23 08:28 Malignant neoplasm of prostate [facility] 2025-05-23 08:28 Secondary malignant neoplasm of unspecified lung [facility] 2025-05-23 08:28 Acute upper respiratory infecti on, unspecified [facility] 2025-05-23 08:28 Cough, unspecified [facility] 2025-05-23 08:28 Nasal congestion [facility] 2025-05-24 00:03 Malignant neoplasm of prostate [facility] 2025-05-24 00:03 Secondary malignant neoplasm of unspecified lung [facility] 2025-05-24 00:03 Acute upper respiratory infecti on, unspecified [facility] 2025-05-24 00:03 Cough, unspecified [facility] 2025-05-24 00:03 Nasal congestion [facility] 2025-05-28 10:15 Acute upper respiratory infecti on, unspecified [facility] 2025-06-03 09:37 Anemia in other chronic disease s classified elsewhere [facility] 2025-06-03 09:53 Malignant neoplasm of prostate [facility] 2025-06-03 09:53 Secondary malignant neoplasm of unspecified lung [facility] 2025-06-03 09:53 Secondary malignant neoplasm of bone [facility] 2025-06-03 09:53 Anemia in other chronic disease s classified elsewhere [facility] 2025-06-03 09:53 Type 2 diabetes ayush itus with diabetic neuropathy, unspecified [facility] 2025-06-03 09:53 Essential (primary) hypertensio n [facility] 2025-06-03 09:53 Chronic kidney disease, stage 3 a [facility] 2025-06-03 09:53 [facility] 09:53 Other specified counseling [facility] 2025-06-03 09:53 Other artificial openings of ur inary tract status [facility] 2025-06-11 11:40 Enterocolitis due to Clostridium difficile, not specified as recurrent [facility] 2025-06-11 11:40 Malignant neoplasm of prostate [facility] 2025-06-11 11:40 Secondary malignant neoplasm of unspecified lung [facility] 2025-06-11 11:40 Secondary malignant [facility]oplasm [facility] bone [facility] 2025-06-11 11:40 Malignant (primary) neoplasm, u nspecified [facility] 2025-06-11 11:40 Anemia in other chronic disease s classified elsewhere [facility] 2025-06-11 11:40 Elevated white blood cell count , unspecified [facility] 2025-06-11 11:40 Essential (primary) hypertensio n [facility] 2025-06-11 11:40 Supraventricular tachycardia, u nspecified [facility] 2025-06-11 11:40 Spondylolisthesis, site unspeci fied [facility] 2025-06-11 11:40 Muscle weakness (generalized) [employer] [facility] 2025-06-11 11:40 Chronic kidney disease, stage 3 a [facility] 2025-06-11 11:40 Urinary tract infection, site n ot specified [facility] 2025-06-11 11:40 Tachycardia, unspecified [facility] 2025-06-11 11:40 Palpitations [facility] 2025-06-11 11:40 Lower abdominal pain, unspecifi ed [facility] 2025-06-11 11:40 Unspecified abdominal pain [facility] 2025-06-11 11:40 Diarrhea, unspecified [facility] 2025-06-11 11:40 Gross hematuria [facility] 2025-06-11 11:40 Weakness [facility] 2025-06-11 11:40 Syncope and collapse [facility] 2025-06-11 11:40 Unspecified injury of head, ini tial encounter [facility] 2025-06-11 11:40 Other specified counseling [facility] 2025-06-11 11:40 Personal history of COVID-19 [facility] 2025-06-11 11:40 Other specified postprocedural states [facility] 2025-06-18 12:48 Encounter for palliative care [facility] 2025-06-18 12:49 Malignant neoplasm of prostate [facility] 2025-06-18 12:49 Secondary malignant neoplasm of unspecified lung [facility] 2025-06-18 12:49 Secondary malignant neoplasm of bone [facility] 2025-06-18 12:49 Malignant (primary) neoplasm, u nspecified [facility] 2025-06-18 12:49 Anemia in other chronic disease s classified elsewhere [facility] 2025-06-18 12:49 Essential (primary) hypertensio n [facility] 2025-06-18 12:49 Spondylolisthesis, site unspeci fied [facility] 2025-06-18 12:49 Muscle weakness (generalized) [facility]18 12:49 Chronic kidney disease, stage 3 a [facility] 2025-06-18 12:49 Other specified counseling [facility] 2025-06-18 12:49 Personal history of COVID-19 [facility] 2025-06-18 12:49 Other specified postprocedural states [facility] 2025-06-19 09:31 Malignant neoplasm of prostate [facility] 2025-06-19 09:31 Secondary malignant neoplasm of bone [facility] 2025-06-19 09:31 Malignant (primary) neoplasm, [facility] 2025-06-19 09:31 Anemia in other chronic disease s classified elsewhere [facility] 2025-06-19 09:31 Chronic kidney disease, stage 3 a [facility] 2025-06-19 09:31 Encounter for screen ing for diseases of the blood and blood-forming organs and certain disorders involving the immune mechanism [facility] 2025-06-19 10:58 Malignant neoplasm of prostate [facility] 2025-06-19 10:58 Secondary malignant neoplasm of bone [facility] 2025-06-19 10:58 Malignant (primary) neoplasm, u [facility] 2025-06-19 10:58 Anemia in other chronic disease s classified elsewhere [facility] 2025-06-19 10:58 Chronic kidney disease, stage 3 a [facility] 2025-06-19 10:58 Encounter for screen ing for diseases of the blood and blood-forming organs and certain disorders involving the immune mechanism [facility] 2025-06-20 00:03 Malignant neoplasm of prostate [facility] 2025-06-20 00:03 Secondary malignant neoplasm of bone [facility] 2025-06-20 00:03 Malignant (primary) neoplasm, u nspecified [facility] 2025-06-20 00:03 Anemia in other chronic disease s classified elsewhere [facility] 2025-06-20 00:03 Chronic kidney disease, stage 3 a [facility] 2025-06-20 00:03 Encounter for screen ing for diseases of the blood and blood-forming organs and certain disorders involving the immune mechanism [facility] 2025-06-20 12:57 Malignant neoplasm of prostate [facility] 2025-06-23 06:20 Anemia, unspecified [facility] 2025-06-23 06:20 Dyspnea, unspecified [facility] 2025-06-23 06:20 Weakness [facility] 2025-06-27 00:04 Anemia in other chronic disease s classified elsewhere [facility] 2025-06-27 00:04 Anemia, unspecified [facility] 2025-06-30 12:55 Anemia, unspecified [facility] 2025-07-01 00:03 Anemia, unspecified [facility] 2025-07-03 10:42 Enterocolitis due to Clostridium difficile, not specified as recurrent [facility] 2025-07-03 10:42 Malignant neoplasm of prostate [facility] 2025-07-03 10:42 Secondary malignant neoplasm of unspecified lung [facility] 2025-07-03 10:42 Secondary malignant neoplasm of bone [facility] 2025-07-03 10:42 Anemia in other chronic disease s classified elsewhere [facility] 2025-07-03 10:42 Anemia, unspecified [facility] 2025-07-03 10:42 Elevated white blood cell count , [facility] 2025-07-03 10:42 Essential (primary) hypertensio n [facility] 2025-07-03 10:42 Supraventricular tachycardia, [facility] 2025-07-03 10:42 Chronic kidney disease, stage 3 a [facility] 2025-07-03 10:42 Urinary tract infection, site n ot specified [facility] 2025-07-03 10:42 Tachycardia, unspecified [facility] 2025-07-03 10:42 Palpitations [facility] 2025-07-03 10:42 Dyspnea, unspecified [facility] 2025-07-03 10:42 Lower abdominal pain, unspecifi ed [facility] 2025-07-03 10:42 Unspecified abdominal pain [facility] 2025-07-03 10:42 Diarrhea, unspecified [facility] 2025-07-03 10:42 Gross hematuria [facility] 2025-07-03 10:42 Weakness [facility] 2025-07-03 10:42 Syncope and collapse [facility] 2025-07-03 10:42 Unspecified injury of head, ini tial encounter [facility] 2025-07-03 10:42 Other specified counseling [facility] 2025-07-07 12:49 Malignant neoplasm of prostate [facility] 2025-07-07 12:49 Secondary malignant neoplasm of unspecified lung [facility] 2025-07-07 12:49 Secondary malignant neoplasm of bone [facility] 2025-07-07 12:49 Anemia in other chronic disease s classified elsewhere [facility] 2025-07-07 12:49 Essential (primary) hypertensio n [facility] 2025-07-07 12:49 Chronic kidney disease, stage 3 a [facility] 2025-07-07 12:49 [facility]25-[facility]-07 12:49 Other specified counseling [facility] 2025-07-08 00:03 Malignant neoplasm of prostate [facility] 2025-07-08 00:03 Secondary malignant neoplasm of bone [facility] 2025-07-08 00:03 Anemia in other chronic disease s classified elsewhere [facility] 2025-07-08 00:03 Chronic kidney disease, stage 3 a [facility] 2025-07-08 09:56 Malignant neoplasm of prostate [facility] 2025-07-08 09:56 Secondary malignant neoplasm of bone [facility] 2025-07-08 09:56 Anemia in other chronic disease s classified elsewhere [facility] 2025-07-08 09:56 Chronic kidney disease, stage 3 a [facility] 2025-07-08 12:22 Malignant neoplasm of prostate [facility] 2025-07-23 18:16 [facility]stitis with hemat[facility] 2025-07-23 18:16 Gross hematuria [facility] 2025-07-24 08:56 Acute [facility]stitis with hematuria [facility] 2025-07-24 08:56 Gross hematuria [facility] 2025-07-25 10:56 Acute cystitis with hematuria [facility] 2025-07-25 10:56 Gross hematuria [facility] 2025-07-25 10:56 Hematuria, unspecified [facility] 2025-07-29 00:04 Anemia in other chronic disease s classified elsewhere [facility] 2025-07-29 00:04 Essential (primary) hypertensio [facility] 2025-07-29 00:04 Encounter for genera l adult medical examination without abnormal findings [facility] 2025-07-29 16:03 Anemia in other chronic disease s classified elsewhere [facility] 2025-07-29 16:03 Essential (primary) hypertensio n [facility] 2025-07-29 16:03 Encounter for genera l adult medical examination without abnormal findings [facility] 2025-07-30 15:29 [facility] 2025-08-01 10:34 Malignant (primary) neoplasm, u nspecified [facility] 2025-08-01 10:34 Chronic kidney disease, stage 3 a [facility] 2025-08-01 10:34 Gross hematuria [facility] 2025-08-04 14:55 Malignant (primary) neoplasm, u nspecified [facility] 2025-08-04 14:55 Essential (primary) hypertensio n [facility] 2025-08-04 14:55 Supraventricular tachycardia, [facility] 2025-08-04 14:55 Chronic kidney disease, stage 3 a [facility] 2025-08-04 14:55 Urinary tract infection, site n ot specified [facility] 2025-08-04 14:55 Gross hematuria [facility] 2025-08-04 14:55 Infection and inflam matory reaction due to indwelling urethral catheter, initial encounter [facility] 2025-08-04 14:55 [facility] 2025-08-04 14:55 Other specified counseling [facility] 2025-08-04 14:55 Other artificial openings of ur inary tract status [facility] 2025-08-05 00:04 Malignant (primary) neoplasm, u nspecified [facility] 2025-08-05 00:04 Type 2 diabetes ayush itus with diabetic neuropathy, unspecified [facility] 2025-08-05 00:04 Essential (primary) hypertensio n [facility] 2025-08-05 00:04 Chronic kidney disease, stage 3 a [facility] 2025-08-05 00:04 Gross hematuria [facility] 2025-08-05 00:04 Encounter for genera l adult medical examination without abnormal findings [facility] 2025-08-06 08:52 Type 2 diabetes ayush itus with diabetic neuropathy, unspecified [facility] 2025-08-06 08:52 Encounter for genera l adult medical examination without abnormal findings [facility] 2025-08-06 16:39 Malignant neoplasm of prostate [facility] 2025-08-06 16:39 Secondary malignant neoplasm of unspecified lung [facility] 2025-08-06 16:39 Secondary malignant neoplasm of bone [facility] 2025-08-06 16:39 Anemia in other chronic disease s classified elsewhere [facility] 2025-08-07 08:23 Malignant neoplasm of prostate [facility] 2025-08-07 08:23 Secondary malignant neoplasm of unspecified lung [facility] 2025-08-07 08:23 Secondary malignant neoplasm of bone [facility] 2025-08-07 08:23 Anemia in other chronic disease s classified elsewhere [facility] 2025-08-07 12:54 Malignant neoplasm of prostate [facility] 2025-08-07 12:54 Secondary malignant neoplasm of unspecified lung [facility] 2025-08-07 12:54 Secondary malignant neoplasm of bone [facility] 2025-08-07 12:54 Malignant (primary) neoplasm, u nspecified [facility] 2025-08-07 12:54 Anemia in other chronic disease s classified elsewhere [facility] Results/Labs test date facility value unit notes Result panel 1 ABNORMAL LYMPHS % (MANUAL) 2025-05-21 07:13 [facility] 0 % (missing) BASOPHILS # (MANUAL) 2025-05-21 07:13 [facility] 0.0 10 3/ul (missing) EOSINOPHILS # (MANUAL) 2025-05-21 07:13 [facility] 0.0 10 3/ul (missing) BILIRUBIN,TOTAL 2025-05-21 07: [facility] 0.4 mg/dl As of March 2023 testing method has changed, this may include reference ranges. MONOCYTES # (MANUAL) 2025-05-21 07:13 [facility] 0.6 10 3/ul (missing) PROMYELOCYTES % (MANUAL) 2025-05-21 07:13 [facility] 1 % (missing) ALBUMIN/GLOBULIN RATIO 2025-05-21 07:13 [facility] (missing) MEAN PLATELET VOLUME 2025-05-21 07:13 [facility] 10.3 fl (missing) TOTAL CELLS COUNTED 2025-05-21 07:13 [facility] 100 ([facility]) (missing) CHLORIDE 2025-05-21 07:13 [facility] 105 mmol/l As of March 2023 testing method has changed, this may include reference ranges. WHITE BLOOD COUNT 2025-05-21 07: [facility] 12.9 x10 3/ul (missing) GLUCOSE 2025-05-21 07:13 [facility] 129 mg/dl As of March 2023 testing method has changed, this may include reference ranges. SODIUM 2025-05-21 07:13 [facility] 139 mmol/l (missing) RED CELL DISTRIBUTION WIDTH 2025-05-21 07:13 [facility] 16.6 % (missing) CREATININE 2025-05-21 07: [facility] 2.1 mg/dl As of March 2023 testing method has changed, this may include reference ranges. RED BLOOD COUNT 2025-05-21 07: [facility] 2.17 10 6/ul (missing) HCT - HEMATOCRIT 2025-05-21 07:13 [facility] 20.5 % (missing) AST ASPARTATE AMINOTRANSFERASE 2025-05-21 07: [facility] 22 iu/l As of March 2023 testing method has changed, this may include reference ranges. BUN - BLOOD UREA NITROGEN 2025-05-21 07: [facility] 22 mg/dl As of March 2023 testing method has changed, this may include reference ranges. ALT ALANINE AMINOTRANSFERASE 2025-05-21 07: [facility] 23 iu/l As of March 2023 testing method has changed, this may include reference ranges. CARBON DIOXIDE - CO2 2025-05-21 07: [facility] 27 mmol/l As of March 2023 testing method has changed, this may include reference ranges. POTASSIUM 2025-05-21 07:13 [facility] 3.3 mmol/l As of March 2023 testing method has changed, this may include reference ranges. GLOBULIN 2025-05-21 07:13 [facility] 3.5 g/dl (missing) ALBUMIN 2025-05-21 07:13 [facility] 3.7 g/dl As of March 2023 testing method has changed, this may include reference ranges. MEAN CORPUSCULAR HEMOGLOBIN 2025-05-21 07:13 [facility] 30.9 pg (missing) GFR - MDRD 2025-05-21 07: [facility] 31 ([facility]) The IDMS-traceable MDRD Study Equation has been validated extensively in and populations between the ages of 18 and 70 with impaired kidney function (eGFR < 60 mL/min/1.73m2) and has shown good performance for patients with all common causes of kidney disease. Although this equation has not been validated for patients older than 70, an MDRD-derived eGFR may still be a useful tool for providers caring for patients older than 70. References: http://www.nkde p.nih.gov/lab-e valuation/gfr/c reatinine-stand ardization, last updated November 2011. MEAN CORPUSCULAR HGB CONC 2025-05-21 07:13 [facility] 32.7 g/dl (missing) MYELOCYTES % (MANUAL) 2025-05-21 07:13 [facility] 4 % (missing) PLT - PLATELET COUNT 2025-05-21 07:13 [facility] 47 10 3/ul (missing) LYMPHOCYTES # (MANUAL) 2025-05-21 07:13 [facility] 5.3 10 3/ul (missing) NEUTROPHILS # (MANUAL) 2025-05-21 07:13 [facility] 5.5 10 3/ul (missing) BAND NEUTROPHILS % (MANUAL) 2025-05-21 07:13 [facility] 6 % (missing) METAMYELOCYTES % (MANUAL) 2025-05-21 07:13 [facility] 6 % (missing) HGB - HEMOGLOBIN 2025-05-21 07:13 [facility] 6.7 g/dl Called to JE Sims RN by Chapis Brown MLT(ASCP) at 0801 05/21/25. Read back(Y/N)? Y ANION GAP 2025-05-21 07:13 [facility] 7.0 ([facility]) (missing) TOTAL PROTEIN 2025-05-21 07:13 [facility] 7.2 g/dl As of March 2023 testing method has changed, this may include reference ranges. CALCIUM 2025-05-21 07:13 [facility] 9.0 mg/dl As of March 2023 testing method has changed, this may include reference ranges. MEAN CORPUSCULAR VOLUME 2025-05-21 07:13 [facility] 94.5 fl (missing) ALKALINE PHOSPHATASE 2025-05-21 07:13 [facility] 98 iu/l As of March 2023 testing method has changed, this may include reference ranges. PLATELET ESTIMATE, MANUAL 2025-05-21 07:13 [facility] DECREASED (<130,000) ([facility]) (missing) DIFFERENTIAL COMMENT 2025-05-21 07:13 [facility] MANUAL DIFFERENTIAL (ann ng) (missing) PLATELET MORPHOLOGY 2025-05-21 07:13 [facility] NORMAL APPEARANCE (ann ng) (missing) RBC MORPHOLOGY (MULTIPLE) 2025-05-21 07:13 [facility] NORMAL APPEARANCE (ann ng) (missing) WBC MORPHOLOGY (MULTIPLE) 2025-05-21 07:13 [facility] NORMAL APPEARANCE (ann ng) (missing) Result panel 2 SARS-CoV-2 -RESP PCR PANEL 2025-05-23 08:00 [facility] DETECTED (missing) Severe Acute Respiratory Syndrome Coronavirus 2 (SARS-CoV-2) detected by the BioFire RP2.1 Panel, a multiplexed nucleic acid test intended for the simultaneous qualitative detection and differentiation of nucleic acids from multiple viral and bacterial respiratory organisms. INFLUENZA A- RESP PCR PANEL 2025-05-23 08:00 [facility] NOT DETECTED (missing) Influenza A including subtypes H1, H3, and H1-2009 not detected by the BioFire RP2.1 Panel, a multiplexed nucleic acid test intended for the simultaneous qualitative detection and differentiation of nucleic acids from multiple viral and bacterial respiratory organisms. INFLUENZA B - RESP PCR PANEL 2025-05-23 08:00 [facility] NOT DETECTED (missing) Negative results in the setting ofa respiratory illness may be due to infection with pathogens not detected by this test, or lower respiratory tract infection that may not be detected by nasopharyngeal specimen. RSV- RESP PCR PANEL 2025-05-23 08:00 [facility] NOT DETECTED (missing) Negative results in the setting ofa respiratory illness may be due to infection with pathogens not detected by this test, or lower respiratory tract infection that may not be detected by nasopharyngeal specimen. Result panel 3 BASOPHILS # (MANUAL) 2025-06-19 07:13 [facility] 0.0 10 3/ul (missing) EOSINOPHILS # (MANUAL) 2025-06-19 07:13 [facility] 0.2 10 3/ul (missing) BILIRUBIN,TOTAL 2025-06-19 07:13 [facility] 0.4 mg/dl As of March 2023 testing method has changed, this may include reference ranges. MONOCYTES # (MANUAL) 2025-06-19 07:13 [facility] 0.5 10 3/ul (missing) REACTIVE LYMPHS % (MANUAL) 2025-06-19 07:13 [facility] 1 % (missing) RBC MORPHOLOGY (MULTIPLE) 2025-06-19 07:13 [facility] 1+ ANISOCYTOSIS (missing ) (missing) ALBUMIN/GLOBULIN RATIO 2025-06-19 07:13 [facility] 1.1 (missing ) (missing) CREATININE 2025-06-19 07:13 [facility] 1.7 mg/dl As of March 2023 testing method has changed, this may include reference ranges. MEAN PLATELET VOLUME 2025-06-19 07:13 [facility] 10.1 fl (missing) TOTAL CELLS COUNTED 2025-06-19 07:13 [facility] 100 (missing ) (missing) CHLORIDE 2025-06-19 07:13 [facility] 107 mmol/l As of March 2023 testing method has changed, this may include reference ranges. ALKALINE PHOSPHATASE 2025-06-19 07:13 [facility] 109 iu/l As of March 2023 testing method has changed, this may include reference ranges. GLUCOSE 2025-06-19 07:13 [facility] 109 mg/dl As of March 2023 testing method has changed, this may include reference ranges. SODIUM 2025-06-19 07:13 [facility] 140 mmol/l Unknown TRANSFERRIN 2025-06-19:13 [facility] 141 mg/dl As of March 2023 testing method has changed, this may include reference ranges. WHITE BLOOD COUNT 2025-06-19 07:13 [facility] 16.0 x10 3/ul (missing) BUN - BLOOD UREA NITROGEN 2025-06-19 07:13 [facility] 17 mg/dl As of March 2023 testing method has changed, this may include reference ranges. RED CELL DISTRIBUTION WIDTH 2025-06-19 07:13 [facility] 18.4 % (missing) TOTAL IRON BINDING CAPACITY 2025-06-19 07: [facility] 197 ug/dl (missing) PROMYELOCYTES % (MANUAL) 2025-06-19 07:13 [facility] 2 % (missing) RED BLOOD COUNT 2025-06-19 07:13 [facility] 2.16 10 6/ul (missing) AST ASPARTATE AMINOTRANSFERASE 2025-06-19 07:13 [facility] 20 iu/l As of March 2023 testing method has changed, this may include reference ranges. HCT - HEMATOCRIT 2025-06-19 07:13 [facility] 20.9 % (missing) CARBON DIOXIDE - CO2 2025-06-19 07:13 [facility] 26 mmol/l As of March 2023 testing method has changed, this may include reference ranges. ALT ALANINE AMINOTRANSFERASE 2025-06-19 07:13 [facility] 29 iu/l As of March 2023 testing method has changed, this may include reference ranges. ABNORMAL LYMPHS % (MANUAL) 2025-06-19 07:13 [facility] 3 % (missing) LYMPHOCYTES # (MANUAL) 2025-06-19 07:13 [facility] 3.2 10 3/ul (missing) GLOBULIN 2025-06-19 07:13 [facility] 3.6 g/dl (missing) POTASSIUM 2025-06-19 07:13 [facility] 3.6 mmol/l As of March 2023 testing method has changed, this may include reference ranges. ALBUMIN 2025-06-19 07:13 [facility] 3.9 g/dl As of March 2023 testing method has changed, this may include reference ranges. MEAN CORPUSCULAR HEMOGLOBIN 2025-06-19 07:13 [facility] 31.0 pg (missing) FERRITIN 2025-06-19 07:13 [facility] 3157.2 ng/ml (missing) MEAN CORPUSCULAR HGB CONC 2025-06-19 07:13 [facility] 32.1 g/dl (missing) GFR - MDRD 2025-06-19 07:13 [facility] 39 (missing ) The IDMS-traceable MDRD Study Equation has been validated extensively in and populations between the ages of 18 and 70 with impaired kidney function (eGFR < 60 mL/min/1.73m2) and has shown good performance for patients with all common causes of kidney disease. Although this equation has not been validated for patients older than 70, an MDRD-derived eGFR may still be a useful tool for providers caring for patients older than 70. References: http://www.nkde p.nih.gov/lab-e valuation/gfr/c esteban ardization, last updated November 2011. % IRON SATURATION 2025-06-19 07:13 [facility] 47 % (missing) MYELOCYTES % (MANUAL) 2025-06-19 07:13 [facility] 6 % (missing) HGB - HEMOGLOBIN 2025-06-19 07:13 [facility] 6.7 g/dl Called to [place] [facility] RN by Chapis Brown MLT([facility]) at 0802 06/19/25. Read back(Y/N)? Y PLT - PLATELET COUNT 2025-06-19 07:13 [facility] 60 10 3/ul (missing) METAMYELOCYTES % (MANUAL) 2025-06-19 07:13 [facility] 7 % (missing) ANION GAP 2025-06-19 07:13 [facility] 7.0 (missing ) (missing) TOTAL PROTEIN 2025-06-19 07:13 [facility] 7.5 g/dl As of March 2023 testing method has changed, this may include reference ranges. BAND NEUTROPHILS % (MANUAL) 2025-06-19 07:13 [facility] 9 % (missing) CALCIUM 2025-06-19 07:13 [facility] 9.5 mg/dl As of March 2023 testing method has changed, this may include reference ranges. NEUTROPHILS # (MANUAL) 2025-06-19 07:13 [facility] 9.8 10 3/ul (missing) IRON 2025-06-19 07:13 [facility] 92 ug/dl As of March 2023 testing method has changed, this may include reference ranges. MEAN CORPUSCULAR VOLUME 2025-06-19 07:13 [facility] 96.8 fl (missing) PLATELET ESTIMATE, MANUAL 2025-06-19 07:13 [facility] DECREASED (<130,000) (missing ) (missing) DIFFERENTIAL COMMENT 2025-06-19 07:13 [facility] MANUAL DIFFERENTIAL (missing ) (missing) PLATELET MORPHOLOGY 2025-06-19 07:13 [facility] NORMAL APPEARANCE (missing ) (missing) WBC MORPHOLOGY (MULTIPLE) 2025-06-19 07:13 [facility] NORMAL APPEARANCE (missing ) (missing) Result panel 4 HCT - HEMATOCRIT 2025-06-19 14:45 [facility] 23.5 % (missing) HGB - HEMOGLOBIN 2025-06-19 14:45 [facility] 7.4 g /dl (missing) Result panel 5 EOSINOPHILS # (AUTO) 2025-06-26 13:37 [facility] 0.0 10 3/ul (missing) NRBC ABSOLUTE COUNT (AUTO) 2025-06-26 13:37 [facility] 0.08 x10 3/ul (missing) BASOPHILS # (AUTO) 2025-06-26 13:37 [facility] 0.1 10 3/ul (missing) NUCLEATED RED BLOOD CELLS AUTO 2025-06-26 13:37 [facility] 0.6 /100wbc (missing) RBC MORPHOLOGY (MULTIPLE) 2025-06-26 13:37 [facility] 1+ HYPOCHROMASIA (missing) (missing) PLATELET MORPHOLOGY 2025-06-26 13:37 [facility] 1+ LARGE PLATELETS (missing) (missing) RBC MORPHOLOGY (MULTIPLE) 2025-06-26 13:37 [facility] 1+ MACROCYTOSIS (missing) (missing) RBC MORPHOLOGY (MULTIPLE) 2025-06-26 13:37 [facility] 1+ MICROCYTOSIS (missing) (missing) RBC MORPHOLOGY (MULTIPLE) 2025-06-26 13:37 [facility] 1+ POLYCHROMASIA (missing) (missing) WBC MORPHOLOGY (MULTIPLE) 2025-06-26 13:37 [facility] 1+ SMUDGE CELLS (missing) (missing) MONOCYTES # (AUTO) 2025-06-26 13:37 [facility] 1.6 10 3/ul (missing) MEAN CORPUSCULAR VOLUME 2025-06-26 13:37 [facility] 100.4 fl (missing) WHITE BLOOD COUNT 2025-06-26 13:37 [facility] 12.7 x10 3/ul (missing) PLT - PLATELET COUNT 2025-06-26 13:37 [facility] 186 10 3/ul (missing) RBC MORPHOLOGY (MULTIPLE) 2025-06-26 13:37 [facility] 2+ ANISOCYTOSIS (missing) (missing) LYMPHOCYTES # (AUTO) 2025-06-26 13:37 [facility] 2.1 10 3/ul (missing) RED BLOOD COUNT 2025-06-26 13:37 [facility] 2.31 10 6/ul (missing) RED CELL DISTRIBUTION WIDTH 2025-06-26 13:37 [facility] 20.0 % (missing) HCT - HEMATOCRIT 2025-06-26 13:37 [facility] 23.2 % (missing) MEAN CORPUSCULAR HGB CONC 2025-06-26 13:37 [facility] 31.5 g/dl (missing) MEAN CORPUSCULAR HEMOGLOBIN 2025-06-26 13:37 [facility] 31.6 pg (missing) HGB - HEMOGLOBIN 2025-06-26 13:37 [facility] 7.3 g/dl (missing) NEUTROPHILS # (AUTO) 2025-06-26 13:37 [facility] 7.9 10 3/ul (missing) MEAN PLATELET VOLUME 2025-06-26 13:37 [facility] 9.0 fl (missing) SLIDE REVIEW? 2025-06-26 13:37 [facility] Indicated (missing) (missing) PLATELET ESTIMATE, MANUAL 2025-06-26 13:37 [facility] NORMAL (130-450,000) (missing) (missing) Result panel 6 EOSINOPHILS # (AUTO) 2025-06-30 07:07 [facility] 0.0 10 3/ul (missing) NRBC ABSOLUTE COUNT (AUTO) 2025-06-30 07:07 [facility] 0.02 x10 3/ul (missing) BASOPHILS # (AUTO) 2025-06-30 07:07 [facility] 0.1 10 3/ul (missing) NUCLEATED RED BLOOD CELLS AUTO 2025-06-30 07:07 [facility] 0.2 /100wbc (missing) MONOCYTES # (AUTO) 2025-06-30 07:07 [facility] 1.1 10 3/ul (missing) MEAN CORPUSCULAR VOLUME 2025-06-30 07:07 [facility] 102.5 fl (missing) PLT - PLATELET COUNT 2025-06-30 07:07 [facility] 184 10 3/ul (missing) LYMPHOCYTES # (AUTO) 2025-06-30 07:07 [facility] 2.0 10 3/ul (missing) RED BLOOD COUNT 2025-06-30 07:07 [facility] 2.36 10 6/ul (missing) RED CELL DISTRIBUTION WIDTH 2025-06-30 07:07 [facility] 21.4 % (missing) HCT - HEMATOCRIT 2025-06-30 07:07 [facility] 24.2 % (missing) MEAN CORPUSCULAR HGB CONC 2025-06-30 07:07 [facility] 31.4 g/dl (missing) MEAN CORPUSCULAR HEMOGLOBIN 2025-06-30 07:07 [facility] 32.2 pg (missing) RBC MORPHOLOGY (MULTIPLE) 2025-06-30 07:07 [facility] 4+ ANISOCYTOSIS (missing) (missing) NEUTROPHILS # (AUTO) 2025-06-30 07:07 [facility] 4.8 10 3/ul (missing) HGB - HEMOGLOBIN 2025-06-30 07:07 [facility] 7.6 g/dl (missing) WHITE BLOOD COUNT 2025-06-30 07:07 [facility] 8.2 x10 3/ul (missing) MEAN PLATELET VOLUME 2025-06-30 07:07 [facility] 8.8 fl (missing) SLIDE REVIEW? 2025-06-30 07:07 [facility] Indicated (missing) (missing) Result panel 7 NUCLEATED RED BLOOD CELLS AUTO 2025-07-07 08:43 [facility] 0.0 /100wbc (missing) EOSINOPHILS # (AUTO) 2025-07-07 08:43 [facility] 0.0 10 3/ul (missing) NRBC ABSOLUTE COUNT (AUTO) 2025-07-07 08:43 [facility] 0.00 x10 3/ul (missing) BASOPHILS # (AUTO) 2025-07-07 08:43 [facility] 0.1 10 3/ul (missing) BILIRUBIN,TOTAL 2025-07-07 08:43 [facility] 0.5 mg/dl As of March 2023 testing method has changed, this may include reference ranges. MONOCYTES # (AUTO) 2025-07-07 08:43 [facility] 0.8 10 3/ul (missing) RBC MORPHOLOGY (MULTIPLE) 2025-07-07 08:43 [facility] 1+ POLYCHROMASIA (missing) (missing) ALBUMIN/GLOBULIN RATIO 2025-07-07 08:43 [facility] 1.1 (missing) (missing) CREATININE 2025-07-07 08:43 [facility] 1.4 mg/dl As of March 2023 testing method has changed, this may include reference ranges. LYMPHOCYTES # (AUTO) 2025-07-07 08:43 [facility] 1.6 10 3/ul (missing) ALT ALANINE AMINOTRANSFERASE 2025-07-07 08:43 [facility] 10 iu/l As of March 2023 testing method has changed, this may include reference ranges. MEAN CORPUSCULAR VOLUME 2025-07-07 08:43 [facility] 104.6 fl (missing) CHLORIDE 2025-07-07 08:43 [facility] 107 mmol/l As of March 2023 testing method has changed, this may include reference ranges. AST ASPARTATE AMINOTRANSFERASE 2025-07-07 08:43 [facility] 13 iu/l As of March 2023 testing method has changed, this may include reference ranges. PLT - PLATELET COUNT 2025-07-07 08:43 [facility] 139 10 3/ul (missing) SODIUM 2025-07-07 08:43 [facility] 141 mmol/l No GLUCOSE 2025-07-07 08:43 [facility] 155 mg/dl As of March 2023 testing method has changed, this may include reference ranges. RBC MORPHOLOGY (MULTIPLE) 2025-07-07 08:43 [facility] 2+ ANISOCYTOSIS (missing) (missing) RED BLOOD COUNT 2025-07-07 08:43 [facility] 2.40 10 6/ul (missing) BUN - BLOOD UREA NITROGEN 2025-07-07 08:43 [facility] 20 mg/dl As of March 2023 testing method has changed, this may include reference ranges. RED CELL DISTRIBUTION WIDTH 2025-07-07 08:43 [facility] 21.4 % (missing) HCT - HEMATOCRIT 2025-07-07 08:43 [facility] 25.1 % (missing) CARBON DIOXIDE - CO2 2025-07-07 08:43 [facility] 28 mmol/l As of March 2023 testing method has changed, this may include reference ranges. GLOBULIN 2025-07-07 08:43 [facility] 3.6 g/dl (missing) POTASSIUM 2025-07-07 08:43 [facility] 3.7 mmol/l As of March 2023 testing method has changed, this may include reference ranges. MEAN CORPUSCULAR HGB CONC 2025-07-07 08:43 [facility] 30.3 g/dl (missing) MEAN CORPUSCULAR HEMOGLOBIN 2025-07-07 08:43 [facility] 31.7 pg (missing) NEUTROPHILS # (AUTO) 2025-07-07 08:43 [facility] 4.0 10 3/ul (missing) ALBUMIN 2025-07-07 08:43 [facility] 4.0 g/dl As of March 2023 testing method has changed, this may include reference ranges. GFR - MDRD 2025-07-07 08:43 [facility] 49 (missing) The IDMS-traceable MDRD Study Equation has been validated extensively in and populations between the ages of 18 and 70 with impaired kidney function (eGFR < 60 mL/min/1.73m2) and has shown good performance for patients with all common causes of kidney disease. Although this equation has not been validated for patients older than 70, an MDRD-derived eGFR may still be a useful tool for providers caring for patients older than 70. References: http://www.nkd ep.nih.gov/lab -evaluation/gf r/creatinine-s tand ardization, last updated November 2011. ANION GAP 2025-07-07 08:43 [facility] 6.0 (missing) (missing) WHITE BLOOD COUNT 2025-07-07 08:43 [facility] 6.4 x10 3/ul (missing) HGB - HEMOGLOBIN 2025-07-07 08:43 [facility] 7.6 g/dl (missing) TOTAL PROTEIN 2025-07-07 08:43 [facility] 7.6 g/dl As of March 2023 testing method has changed, this may include reference ranges. ALKALINE PHOSPHATASE 2025-07-07 08:43 [facility] 80 iu/l As of March 2023 testing method has changed, this may include reference ranges. MEAN PLATELET VOLUME 2025-07-07 08:43 [facility] 9.1 fl (missing) CALCIUM 2025-07-07 08:43 [facility] 9.8 mg/dl As of March 2023 testing method has changed, this may include reference ranges. SLIDE REVIEW? 2025-07-07 08:43 [facility] Indicated (missing) (missing) PLATELET ESTIMATE, MANUAL 2025-07-07 08:43 [facility] NORMAL (130-450,000) (missing) (missing) PLATELET MORPHOLOGY 2025-07-07 08:43 [facility] NORMAL APPEARANCE (missing) (missing) Result panel 8 NUCLEATED RED BLOOD CELLS AUTO 2025-07-23 13:12 [facility] 0.0 /100wbc (missing) NRBC ABSOLUTE COUNT (AUTO) 2025-07-23 13:12 [facility] 0.00 x10 3/ul (missing) BASOPHILS # (AUTO) 2025-07-23 13:12 [facility] 0.1 10 3/ul (missing) EOSINOPHILS # (AUTO) 2025-07-23 13:12 [facility] 0.1 10 3/ul (missing) BILIRUBIN,TOTAL 2025-07-23 13:12 [facility] 0.5 mg/dl As of March 2023 testing method has changed, this may include reference ranges. MONOCYTES # (AUTO) 2025-07-23 13:12 [facility] 0.7 10 3/ul (missing) ALBUMIN/GLOBULIN RATIO 2025-07-23 13:12 [facility] 1.1 (missing) (missing) LYMPHOCYTES # (AUTO) 2025-07-23 13:12 [facility] 1.4 10 3/ul (missing) CREATININE 2025-07-23 13:12 [facility] 1.8 mg/dl As of March 2023 testing method has changed, this may include reference ranges. CALCIUM 2025-07-23 13:12 [facility] 10.2 mg/dl As of March 2023 testing method has changed, this may include reference ranges. MEAN CORPUSCULAR VOLUME 2025-07-23 13:12 [facility] 105.0 fl (missing) CHLORIDE 2025-07-23 13:12 [facility] 106 mmol/l As of March 2023 testing method has changed, this may include reference ranges. PLT - PLATELET COUNT 2025-07-23 13:12 [facility] 108 10 3/ul (missing) ALT ALANINE AMINOTRANSFERASE 2025-07-23 13:12 [facility] 11 iu/l As of March 2023 testing method has changed, this may include reference ranges. GLUCOSE 2025-07-23 13:12 [facility] 117 mg/dl As of March 2023 testing method has changed, this may include reference ranges. SODIUM 2025-07-23 13:12 [facility] 139 mmol/l (missing) RED CELL DISTRIBUTION WIDTH 2025-07-23 13:12 [facility] 17.5 % (missing) AST ASPARTATE AMINOTRANSFERASE 2025-07-23 13:12 [facility] 19 iu/l As of March 2023 testing method has changed, this may include reference ranges. RED BLOOD COUNT 2025-07-23 13:12 [facility] 2.39 10 6/ul (missing) BUN - BLOOD UREA NITROGEN 2025-07-23 13:12 [facility] 23 mg/dl As of March 2023 testing method has changed, this may include reference ranges. LIPASE 2025-07-23 13:12 [facility] 23 u/l As of March 2023 testing method has changed, this may include reference ranges. HCT - HEMATOCRIT 2025-07-23 13:12 [facility] 25.1 % (missing) CARBON DIOXIDE - CO2 2025-07-23 13:12 [facility] 27 mmol/l As of March 2023 testing method has changed, this may include reference ranges. GLOBULIN 2025-07-23 13:12 [facility] 3.9 g/dl (missing) MEAN CORPUSCULAR HGB CONC 2025-07-23 13:12 [facility] 31.5 g/dl (missing) MEAN CORPUSCULAR HEMOGLOBIN 2025-07-23 13:12 [facility] 33.1 pg (missing) GFR - MDRD 2025-07-23 13:12 [facility] 37 (missing) The IDMS-traceable MDRD Study Equation has been validated extensively in and populations between the ages of 18 and 70 with impaired kidney function (eGFR < 60 mL/min/1.73m2) and has shown good performance for patients with all common causes of kidney disease. Although this equation has not been validated for patients older than 70, an MDRD-derived eGFR may still be a useful tool for providers caring for patients older than 70. References: http://www.nkdep. nih.gov/lab-evalu ation/gfr/creatin ine-stand ardization, last updated November 2011. ALBUMIN 2025-07-23 13:12 [facility] 4.1 g/dl As of March 2023 testing method has changed, this may include reference ranges. POTASSIUM 2025-07-23 13:12 [facility] 4.1 mmol/l As of March 2023 testing method has changed, this may include reference ranges. NEUTROPHILS # (AUTO) 2025-07-23 13:12 [facility] 5.2 10 3/ul (missing) ANION GAP 2025-07-23 13:12 [facility] 6.0 (missing) (missing) WHITE BLOOD COUNT 2025-07-23 13:12 [facility] 7.4 x10 3/ul (missing) HGB - HEMOGLOBIN 2025-07-23 13:12 [facility] 7.9 g/dl (missing) TOTAL PROTEIN 2025-07-23 13:12 [facility] 8.0 g/dl As of March 2023 testing method has changed, this may include reference ranges. MEAN PLATELET VOLUME 2025-07-23 13:12 [facility] 8.7 fl (missing) ALKALINE PHOSPHATASE 2025-07-23 13:12 [facility] 91 iu/l As of March 2023 testing method has changed, this may include reference ranges. Result panel 9 WBC,URINE 2025-07-23 15:00 [facility] >25 /hpf (missing) UROBILINOGEN,URI NE 2025-07-23 15:00 [facility] 0.2 (NORMAL) e.u./dl (missing) SPECIFIC GRAVITY,URINE 2025-07-23 15:00 [facility] 1.010 (missing ) (missing) PROTEIN,URINE 2025-07-23 15:00 [facility] 100 mg/dl (missing) RBC,URINE 2025-07-23 15:00 [facility] 6-10 /hpf (missing) PH,URINE 2025-07-23 15:00 [facility] 6.5 ph (missing) CLARITY,URINE 2025-07-23 15:00 [facility] HAZY (missing ) (missing) UR CULTURE IF IND 2025-07-23 15:00 [facility] INDICATED (missing ) (missing) URINE MICROSCOPIC INDICATED? 2025-07-23 15:00 [facility] INDICATED (missing ) (missing) LEUKOCYTE ESTERASE, URINE 2025-07-23 15:00 [facility] LARGE (missing ) (missing) BACTERIA,URINE 2025-07-23 15:00 [facility] Many /hpf (missing) NITRITE,URINE 2025-07-23 15:00 [facility] NEGATIVE (missing ) (missing) BILIRUBIN,URINE 2025-07-23 15:00 [facility] NEGATIVE (missing ) Bilirubin can be influenced by color interference. Please correlate positive results with clinical presentation GLUCOSE, URINE (UA) 2025-07-23 15:00 [facility] NEGATIVE mg/dl (missing) KETONES,URINE (UA) 2025-07-23 15:00 [facility] NEGATIVE mg/dl (missing) SQUAMOUS EPITHELIAL CELL,UR 2025-07-23 15:00 [facility] NONE SEEN (missing ) (missing) CUL, URINE 2025-07-23:00 [facility] P100>100,000 COLONIES/ML Polymicrobial growth including (missing ) (missing) CUL, URINE 2025-07-23 15:00 [facility] [id number]. (missing ) (missing) CUL, URINE 2025-07-23 15:00 [facility] [id number] pathogens. This is suggestive of skin or other (missing ) (missing) WBC CLUMPS,URINE 2025-07-23 15:00 [facility] PRESENT (missing ) (missing) OCCULT BLOOD,URINE 2025-07-23 15:00 [facility] SMALL (missing ) (missing) COLOR,URINE 2025-07-23 15:00 [facility] YELLOW (missing ) URINE CLEAN CATCH Result panel 10 NUCLEATED RED BLOOD CELLS AUTO 2025-07-28 07:25 [facility] 0.0 /100wbc (missing) BASOPHILS # (AUTO) 2025-07-28 07:25 [facility] 0.0 10 3/ul (missing) NRBC ABSOLUTE COUNT (AUTO) 2025-07-28 07:25 [facility] 0.00 x10 3/ul (missing) EOSINOPHILS # (AUTO) 2025-07-28 07:25 [facility] 0.1 10 3/ul (missing) BILIRUBIN,TOTAL 2025-07-28 07:25 [facility] 0.4 mg/dl As of March 2023 testing method has changed, this may include reference ranges. MONOCYTES # (AUTO) 2025-07-28 07:25 [facility] 0.5 10 3/ul (missing) LDL/HDL RATIO 2025-07-28 07:25 [facility] 0.6 (missing) (missing) ALBUMIN/GLOBULIN RATIO 2025-07-28 07:25 [facility] 1.1 (missing) (missing) CREATININE 2025-07-28 07:25 [facility] 1.8 mg/dl As of March 2023 testing method has changed, this may include reference ranges. LYMPHOCYTES # (AUTO) 2025-07-28 07:25 [facility] 1.9 10 3/ul (missing) MEAN CORPUSCULAR VOLUME 2025-07-28 07:25 [facility] 104.7 fl (missing) PLT - PLATELET COUNT 2025-07-28 07:25 [facility] 108 10 3/ul (missing) CHLORIDE 2025-07-28 07:25 [facility] 109 mmol/l As of March 2023 testing method has changed, this may include reference ranges. CHOLESTEROL 2025-07-28 07:25 [facility] 136 mg/dl Total Cholesterol Risk Classification Cholesterol Level Risk Classification <200 mg/dL Desirable 200-239 mg/dL Borderline High >240 mg/dL High As of March 2023 testing method has changed, this may include reference ranges. ALT ALANINE AMINOTRANSFERASE 2025-07-28 07:25 [facility] 14 iu/l As of March 2023 testing method has changed, this may include reference ranges. SODIUM 2025-07-28 07:25 [facility] 141 mmol/l Yes RED CELL DISTRIBUTION WIDTH 2025-07-28 07:25 [facility] 17.1 % (missing) CHOL/HDL RATIO 2025-07-28 07:25 [facility] 2.3 (missing) NATIONAL CHOLESTEROL GUIDELINE [facility] ([facility]) guidelines for classificaton, testing and management of cholesterol levels in adults over 20 years of age. This new classification creates three categories of risk for coronary heart disease, regardless of age or sex, according to total amd LDL cholesterols levels: Based on total cholesterol level Desirable <200 mg/dl Borderline-high 200-239 mg/dl High >=240 mg/dl Based on cholesterol ratio CHD RISK CHOL/HDL RATIO --- MALE FEMALE 0.5 x Average 3.4 3.3 1.0 x Average 5.0 4.4 2.0 x Average 9.6 7.1 3.0 x Average 13.5 11.0 RED BLOOD COUNT 2025-07-28 07:25 [facility] 2.35 10 6/ul (missing) THYROID STIMULATING HORMONE 2025-07-28 07:25 [facility] 2.68 uiu/ml (missing) AST ASPARTATE AMINOTRANSFERASE 2025-07-28 07:25 [facility] 20 iu/l As of March 2023 testing method has changed, this may include reference ranges. TRIGLYCERIDES 2025-07-28 07:25 [facility] 206 mg/dl Yes Triglyceride Risk Classification <150 mg/dL Normal 150-199 mg/dL Borderline High 200-499 mg/dL High >500 mg/dL Very High As of March 2023 testing method has changed, this may include reference ranges. BUN - BLOOD UREA NITROGEN 2025-07-28 07:25 [facility] 22 mg/dl As of March 2023 testing method has changed, this may include reference ranges. HCT - HEMATOCRIT 2025-07-28 07:25 [facility] 24.6 % (missing) CARBON DIOXIDE - CO2 2025-07-28 07:25 [facility] 26 mmol/l As of March 2023 testing method has changed, this may include reference ranges. POTASSIUM 2025-07-28 07:25 [facility] 3.6 mmol/l As of March 2023 testing method has changed, this may include reference ranges. GLOBULIN 2025-07-28 07:25 [facility] 3.7 g/dl (missing) ALBUMIN 2025-07-28 07:25 [facility] 3.9 g/dl As of March 2023 testing method has changed, this may include reference ranges. MEAN CORPUSCULAR HGB CONC 2025-07-28 07:25 [facility] 30.9 g/dl (missing) MEAN CORPUSCULAR HEMOGLOBIN 2025-07-28 07:25 [facility] 32.3 pg (missing) LDL CHOLESTEROL,CALCULATED 2025-07-28 07:25 [facility] 36 mg/dl LDLD REFERENCE RANGE AND CARDIOVASCULAR RISK: <130 mg/dL Desirable 130-159 mg/dL Borderline High Risk >160 mg/dL High Risk GFR - MDRD 2025-07-28 07:25 [facility] 37 (missing) The IDMS-traceable MDRD Study Equation has been validated extensively in and populations between the ages of 18 and 70 with impaired kidney function (eGFR < 60 mL/min/1.73m2) and has shown good performance for patients with all common causes of kidney disease. Although this equation has not been validated for patients older than 70, an MDRD-derived eGFR may still be a useful tool for providers caring for patients older than 70. References: http://www.nkdep.ni h.gov/lab-evaluatio n/gfr/creatinine-st and ardization, last updated November 2011. NEUTROPHILS # (AUTO) 2025-07-28 07:25 [facility] 4.0 10 3/ul (missing) VLDL CHOLESTEROL 2025-07-28 07:25 [facility] 41 mg/dl (missing) HDL CHOLESTEROL 2025-07-28 07:25 [facility] 59 mg/dl Coronary Heart Disease Risk Classification HDL Level Risk factor < 40 mg/dL major risk > 60 mg/dL negative risk As of March 2023 testing method has changed, this may include reference ranges. ANION GAP 2025-07-28 07:25 [facility] 6.0 (missing) (missing) WHITE BLOOD COUNT 2025-07-28 07:25 [facility] 6.6 x10 3/ul (missing) HGB - HEMOGLOBIN 2025-07-28 07:25 [facility] 7.6 g/dl (missing) TOTAL PROTEIN 2025-07-28 07:25 [facility] 7.6 g/dl As of March 2023 testing method has changed, this may include reference ranges. MEAN PLATELET VOLUME 2025-07-28 07:25 [facility] 9.1 fl (missing) CALCIUM 2025-07-28 07:25 [facility] 9.9 mg/dl As of March 2023 testing method has changed, this may include reference ranges. GLUCOSE 2025-07-28 07:25 [facility] 94 mg/dl As of March 2023 testing method has changed, this may include reference ranges. ALKALINE PHOSPHATASE 2025-07-28 07:25 [facility] 95 iu/l As of March 2023 testing method has changed, this may include reference ranges. Result panel 11 NUCLEATED RED BLOOD CELLS AUTO 2025-08-04 09:31 [facility] 0.0 /100wbc (missing) BASOPHILS # (AUTO) 2025-08-04 09:31 [facility] 0.0 10 3/ul (missing) NRBC ABSOLUTE COUNT (AUTO) 2025-08-04 09:31 [facility] 0.00 x10 3/ul (missing) EOSINOPHILS # (AUTO) 2025-08-04 09:31 [facility] 0.1 10 3/ul (missing) MONOCYTES # (AUTO) 2025-08-04 09:31 [facility] 0.4 10 3/ul (missing) BILIRUBIN,TOTAL 2025-08-04 09:31 [facility] 0.4 mg/dl As of March 2023 testing method has changed, this may include reference ranges. ALBUMIN/GLOBULIN RATIO 2025-08-04 09:31 [facility] 1.1 (missing) (missing) LYMPHOCYTES # (AUTO) 2025-08-04 09:31 [facility] 1.4 10 3/ul (missing) CREATININE 2025-08-04 09:31 [facility] 1.8 mg/dl As of March 2023 testing method has changed, this may include reference ranges. CHLORIDE 2025-08-04 09:31 [facility] 106 mmol/l As of March 2023 testing method has changed, this may include reference ranges. MEAN CORPUSCULAR VOLUME 2025-08-04 09:31 [facility] 106.5 fl (missing) SODIUM 2025-08-04 09:31 [facility] 138 mmol/l Unknown ALKALINE PHOSPHATASE 2025-08-04 09:31 [facility] 146 iu/l As of March 2023 testing method has changed, this may include reference ranges. RED CELL DISTRIBUTION WIDTH 2025-08-04 09:31 [facility] 17.0 % (missing) RED BLOOD COUNT 2025-08-04 09:31 [facility] 2.31 10 6/ul (missing) ALT ALANINE AMINOTRANSFERASE 2025-08-04 09:31 [facility] 21 iu/l As of March 2023 testing method has changed, this may include reference ranges. GLUCOSE 2025-08-04 09:31 [facility] 237 mg/dl As of March 2023 testing method has changed, this may include reference ranges. BUN - BLOOD UREA NITROGEN 2025-08-04 09:31 [facility] 24 mg/dl As of March 2023 testing method has changed, this may include reference ranges. CARBON DIOXIDE - CO2 2025-08-04 09:31 [facility] 24 mmol/l As of March 2023 testing method has changed, this may include reference ranges. HCT - HEMATOCRIT 2025-08-04 09:31 [facility] 24.6 % (missing) GLOBULIN 2025-08-04 09:31 [facility] 3.4 g/dl (missing) POTASSIUM 2025-08-04 09:31 [facility] 3.4 mmol/l As of March 2023 testing method has changed, this may include reference ranges. ALBUMIN 2025-08-04 09:31 [facility] 3.8 g/dl As of March 2023 testing method has changed, this may include reference ranges. MEAN CORPUSCULAR HGB CONC 2025-08-04 09:31 [facility] 30.9 g/dl (missing) AST ASPARTATE AMINOTRANSFERASE 2025-08-04 09:31 [facility] 32 iu/l As of March 2023 testing method has changed, this may include reference ranges. MEAN CORPUSCULAR HEMOGLOBIN 2025-08-04 09:31 [facility] 32.9 pg (missing) GFR - MDRD 2025-08-04 09:31 [facility] 37 (missing) The IDMS-traceable MDRD Study Equation has been validated extensively in and populations between the ages of 18 and 70 with impaired kidney function (eGFR < 60 mL/min/1.73m2) and has shown good performance for patients with all common causes of kidney disease. Although this equation has not been validated for patients older than 70, an MDRD-derived eGFR may still be a useful tool for providers caring for patients older than 70. References: http://www.nkdep. nih.gov/lab-evalu ation/gfr/creatin ine-stand ardization, last updated November 2011. HEMOGLOBIN A1c% 2025-08-04 09: [facility] 5.0 % The [place] [employer] (ADA) has made the following recommendations: Monitoring HbA1c in Diabetic Patients: A1c (NGSP%) Goal <8 Less Stringent Goal <7 General Goal <6.5 More Stringent Goal Diagnosis of Diabetes: A1c (NGSP%) Goal >6.5 Diabetic 5.7-6.4 Pre-Diabetic <5.7 Non-Diabetic NEUTROPHILS # (AUTO) 2025-08-04 09:31 [facility] 6.3 10 3/ul (missing) TOTAL PROTEIN 2025-08-04 09:31 [facility] 7.2 g/dl As of March 2023 testing method has changed, this may include reference ranges. HGB - HEMOGLOBIN 2025-08-04 09:31 [facility] 7.6 g/dl (missing) ANION GAP 2025-08-04 09:31 [facility] 8.0 (missing) (missing) WHITE BLOOD COUNT 2025-08-04 09:31 [facility] 8.3 x10 3/ul (missing) MEAN PLATELET VOLUME 2025-08-04 09:31 [facility] 8.5 fl (missing) CALCIUM 2025-08-04 09[facility] 8.9 mg/dl As of March 2023 testing method has changed, this may include reference ranges. PLT - PLATELET COUNT 2025-08-04 09:31 [facility] 92 10 3/ul (missing) ESTIMATED AVERAGE GLUCOSE 2025-08-04 09:31 [facility] 97 mg/dl (missing) Result panel 12 NUCLEATED RED BLOOD CELLS AUTO 2025-08-07 08:30 [facility] 0.0 /100wbc (missing) BASOPHILS # (AUTO) 2025-08-07 08:30 [facility] 0.0 10 3/ul (missing) NRBC ABSOLUTE COUNT (AUTO) 2025-08-07 08:30 [facility] 0 .00 x10 3/ul (missing) EOSINOPHILS # (AUTO) 2025-08-07 08:30 [facility] 0.1 10 3/ul (missing) MONOCYTES # (AUTO) 2025-08-07 08:30 [facility] 0.6 10 3/ul (missing) LYMPHOCYTES # (AUTO) 2025-08-07 08:30 [facility] 1.7 10 3/ul (missing) PLT - PLATELET COUNT 2025-08-07 08:30 [facility] 101 10 3/ul (missing) MEAN CORPUSCULAR VOLUME 2025-08-07 08:30 [facility] 105. 9 fl (missing) RED CELL DISTRIBUTION WIDTH 2025-08-07 08:30 [facility] 16.5 % (missing) RED BLOOD COUNT 2025-08-07 08:30 [facility] 2.20 10 6/ul (missing) HCT - HEMATOCRIT 2025-08-07 08:30 [facility] 23.3 % (missing) MEAN CORPUSCULAR HGB CONC 2025-08-07 08:30 [facility] 30 .9 g/dl (missing) MEAN CORPUSCULAR HEMOGLOBIN 2025-08-07 08:30 [facility] 32.7 pg (missing) NEUTROPHILS # (AUTO) 2025-08-07 08:30 [facility] 5.8 10 3/ul (missing) HGB - HEMOGLOBIN 2025-08-07 08:30 [facility] 7.2 g /dl (missing) WHITE BLOOD COUNT 2025-08-07 08:30 [facility] 8.2 x10 3/ul (missing) MEAN PLATELET VOLUME 2025-08-07 08:30 [facility] 8.8 fl (missing) Result panel 13 NUCLEATED RED BLOOD CELLS AUTO 2025-08-13 10:45 [facility] 0.0 /100wbc (missing) BASOPHILS # (AUTO) 2025-08-13 10:45 [facility] 0.0 10 3/ul (missing) NRBC ABSOLUTE COUNT (AUTO) 2025-08-13 10:45 [facility] 0 .00 x10 3/ul (missing) EOSINOPHILS # (AUTO) 2025-08-13 10:45 [facility] 0.1 10 3/ul (missing) MONOCYTES # (AUTO) 2025-08-13 10:45 [facility] 0.6 10 3/ul (missing) LYMPHOCYTES # (AUTO) 2025-08-13 10:45 [facility] 1.4 10 3/ul (missing) MEAN CORPUSCULAR VOLUME 2025-08-13 10:45 [facility] 104. 6 fl (missing) PLT - PLATELET COUNT 2025-08-13 10:45 [facility] 108 10 3/ul (missing) RED CELL DISTRIBUTION WIDTH 2025-08-13 10:45 [facility] 15.8 % (missing) RED BLOOD COUNT 2025-08-13 10:45 [facility] 2.38 10 6/ul (missing) HCT - HEMATOCRIT 2025-08-13 10:45 [facility] 24.9 % (missing) NEUTROPHILS # (AUTO) 2025-08-13 10:45 [facility] 3.5 10 3/ul (missing) MEAN CORPUSCULAR HGB CONC 2025-08-13 10:45 [facility] 30 .9 g/dl (missing) MEAN CORPUSCULAR HEMOGLOBIN 2025-08-13 10:45 [facility] 32.4 pg (missing) WHITE BLOOD COUNT 2025-08-13 10:45 [facility] 5.7 x10 3/ul (missing) HGB - HEMOGLOBIN 2025-08-13 10:45 [facility] 7.7 g /dl (missing) MEAN PLATELET VOLUME 2025-08-13 10:45 [facility] 8.6 fl (missing) Social History date description facility 2025-06-11 11:40 (unavailable) [facility] 2025-06-18 12:49 (unavailable) [facility] 2025-07-03 10:42 (unavailable) [facility] 2025-07-07 12:49 (unavailable) [facility] 2025-08-04 14:55 (unavailable) [facility]
[2025-08-13 19:45] LABS: HCT - HEMATOCRIT 23.5 % (42.0-52.0); HGB - HEMOGLOBIN 7.3 g/dL (14.0-18.0); MEAN PLATELET VOLUME 8.8 fL (7.4-11.4); NRBC ABSOLUTE COUNT (AUTO) 0.00 x10^3/uL; NUCLEATED RED BLOOD CELLS AUTO 0.0 /100WBC; PLT - PLATELET COUNT 98 10^3/uL (130-450); RED CELL DISTRIBUTION WIDTH 15.9 % (12.0-15.0)
[2025-08-13 19:59] LABS: ALT ALANINE AMINOTRANSFERASE 22.0 IU/L (10-60); AST ASPARTATE AMINOTRANSFERASE 38.0 IU/L (10-42); BUN - BLOOD UREA NITROGEN 22.0 mg/dL (6-20); CARBON DIOXIDE - CO2 26.0 mmol/L (21-32); CREATININE 2.2 mg/dL (0.6-1.3); GFR - MDRD 29.0 (>89)
--- NOTE | 2025-08-13 20:04 | HISTORY & PHYSICAL EXAMINATION ---
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 this has been ongoing for several days. received blood transfusion about a week ago. Meds/Allgy Home Medications Ambulatory Orders Medication Instructions Recorded Confirmed multivitamin 1 tab PO DAILY 01/12/2407/20 omega 1-lob-ftk-fish oil 300 1 cap PO DAILY 01/12/24 1 10/13/24 mg-1,000 mg capsule (Fish Oil) abiraterone 250 mg tablet 250 mg PO QAM 10/11/2408/13 albuterol sulfate 90 mcg/actuation 2 puff inhalation Q ID PRN 10/11/24 08/13/25 aerosol inhaler (Ventolin HFA) shortness of breath or wheezing fluticasone propionate 50 1 spray intranasal BID PRN a llergy 10/11/24 08/13/25 mcg/actuation nasal symptoms spray,suspension leuprolide acetate (3 month) 22.5 22.5 mg subcut Q3MON THS 10/11/24 08/13/25 mg (3 month) subcutaneous syringe calcium carbonate 600 mg PO QDAY 10/14/2407/20 cholecalciferol (vitamin D3) 25 100 mcg PO QDAY 08/13/25 mcg (1,000 unit) capsule rosuvastatin 20 mg tablet 20 mg PO QDAY #90 tabs 11/2508/13/25 bisacodyl 5 mg tablet,delayed 5 mg PO QDAY 01/15/25 release (Dulcolax (bisacodyl)) mirabegron 50 mg tablet,extended 50 mg PO QDAY #90 tab s 01/15/25 08/13/25 release 24 hr (Myrbetriq) prednisone 5 mg tablet 5 mg PO BID #60 tabs 5 08/13/25 loperamide 2 mg capsule (Imodium 2 mg PO QID PRN loose stool #60 02/25/25 08/13/25 A-D) caps polyethylene glycol 3350 17 17 g PO Q OTHER DAY PRN 08/13/25 gram/dose oral powder (Miralax) constipation hydrochlorothiazide 25 mg tablet 12.5 mg (1/2 x 25 mg) PO Q3-4D PRN 04/25/25 08/13/25 edema, weight gain #30 tabs oxybutynin chloride 5 mg tablet 5 mg PO QDAY bladder s pasms #90 04/25/25 08/13/25 tabs oxycodone 5 mg tablet 5 mg PO Q4H PRN Pain #10 tab s 04/28/25 08/13/25 dulaglutide 3 mg/0.5 mL 1.5 mg (0.25 mL) subcut QWEE K #4 ea 05/02/25 08/13/25 subcutaneous pen injector (KartoonArt) blood-glucose meter (Blood Glucose #1 ea 05/03/2507/19 Monitoring kit) blood sugar diagnostic (FreeStyle #100 ea 05/09/25 Test strips) losartan 25 mg tablet 25 mg PO QDAY #30 tabs 05/2008/13/25 metoprolol succinate 50 mg 25 mg (1/2 x 50 mg) PO SHAE Y #45 08/11/25 08/13/25 tablet,extended release 24 hr tabs (Toprol XL) Allergies Allergies Allergy/AdvReac Type Severity Reaction Status Date / Time No Known Drug Allergies Allergy Verified 07/23/25 12:25 PFSH Active Problems All Active Problems (Updated 08/13/25 @ 21:32 by [place] Hameed MD) Anemia (Chronic) Hematuria (Acute) Anemia (Chronic) Hematuria (Acute) UTI (urinary tract infection) (Acute) Thrombocytopenia (Acute) Status post chemotherapy (Acute) Prostate CA (Acute) Muscle weakness (generalized) (Acute) H/O insertion of nephrostomy tube (Acute) Caregiver burden (Acute) Nasal congestion (Acute) Cough (Acute) Viral URI (Acute) Nephrostomy present (Acute) Chronic kidney disease, stage 3a (Acute) Arthritis of right ankle (Acute) Bilateral ureteral obstruction (Acute) Bilateral impacted cerumen (Acute) Palliative care patient (Acute) Hydronephrosis (Acute) Type 2 diabetes mellitus with diabetic neuropathy (Chronic) Atrial fibrillation (Chronic) UTI (urinary tract infection) due to urinary indwelling Maurer catheter (Acute) Diuretic-induced hypokalemia (Acute) Bilateral lower extremity edema (Acute) Anemia of chronic disease (Chronic) Counseling regarding advanced directives and goals of care (Acute) Prostate cancer metastatic to lung (Acute) Constipation (Acute) Ureteral stent present (Acute) Acquired spondylolisthesis (Acute) Indwelling Maurer catheter present (Chronic) Sleep apnea with use of continuous positive airway pressure (CPAP) (Chronic) Small cell carcinoma (Chronic) Type 2 diabetes mellitus (Chronic) Prostate cancer metastatic to bone (Chronic) Androgen deprivation therapy (Chronic) BPH w urinary obs/LUTS (Chronic) Essential hypertension (Acute) Severe obstructive sleep apnea (Chronic) Morbid obesity (Chronic) Chronic rhinitis (Chronic) Metatarsalgia of both feet (Chronic) Medical History Medical History (Updated 08/13/25 @ 21:32 by [place] Hameed MD) History of COVID-19 History of kidney injury Hypokalemia Acute kidney injury Paroxysmal supraventricular tachycardia History of anemia History of urinary retention History of septic shock Hx of essential hypertension Hx of diabetes mellitus Hyperuricemia Pancolonic diverticulosis History of bacteremia Erectile dysfunction due to arterial insufficiency Sun-damaged skin Allergic rhinitis History of PSVT (paroxysmal supraventricular tachycardia) Hx of sleep apnea Entrapment of right ulnar nerve Non-melanoma skin cancer Surgical History Surgical History Status post transurethral resection of prostate Revision 10/2024 Port-A-Cath in place 11/2023, right IJ Abnormal TRUS (transrectal ultrasound), prostate 09/2023, + adenocarcinoma H/O colonoscopy 11/2022, diverticulosis S/P carpal tunnel release 10/2020, right History of total left hip replacement 08/2016 H/O colonoscopy 11/2015, poor preparation, diverticulosis History of total bilateral knee replacement Right-10/2009 + Left-01/2010, left hardware is loose, Orthopedics recommending observation H/O vasectomy Family History Family History Father CAD (coronary artery disease) Congestive heart failure Mother Malignant neoplasm of throat Brother Bladder cancer COVID-19 virus infection Social History Social History (Updated 08/01/25 @ 10:59 by JASON Hayden) Smoking Status: Never smoker Second hand tobacco smoke exposure: No Do you dip or chew tobacco?: No Do you vape?: No Living arrangement: At home Marital Status: Living Condition: With spouse/s.o. Support Person: Yes Relationship Notes: with mod dementia; he is her caregiver Living Situation Details: Newly moved to [facility] Has a Durable Power of Covering Machine Tender for Health Care?: Yes Name / Relationship: Jacinto Denis /brother Physical Activity: Walking Level: Independent Physical - Functional Details: Uses a wheeled walker for longer distances but can be independent in the home Do you feel safe in your home environment?: Yes History of physical, verbal, emotional, or financial abuse?: No ETOH Use: Wine and Beer Frequency: Weekly Substance Use: denies use Are you sexually active?: No 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 Several days ago, the urine in his catheter only had a faint pink tinge. He got a blood transfusion about a week ago for symptomatic anemia. Urine from the right sided nephrostomy tube is draining clear. He has known metastatic prostate cancer that is likely invading the bladder. Discussed with JASON Alva in the ED, and will admit to OBS status to trend H/H, transfuse PRN, with urology consultation. Discussed with Dr Hameed, Urology. He will take the patient for cystoscopy in the AM. he is requesting a non contrast CT of the Abdomen and pelvis this evening. need to evaluate stent and assess for any obstructive process. (2) Thrombocytopenia: Plan: INR was 1.6 in November of this year. Platelets have been low most of this month. Prior to that, earlier this year, had platelet count that was low sporadically. INR 1.2 this evening. I have ordered one unit of platelets. discussed with blood bank. These should take about 6 hours to obtain. 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 (3) Anemia: Plan: Of chronic disease and likely related to this chronic waxing and waning hematuria. This patient is symtomatic with Hgb hovering around 7. it is reasonable to transfuse to Hgb of around 8 prior to dc. I am holding blood for now, unless he drops to <7. (4) Prostate CA: Plan: This is a small cell Ca which is metastatic to multiple sites. He is followed by Palliative care, his code status is DNR, and although he seems to deal with daily discomfort and inconvenience, his spirits are good. he is continuing with treatment via oncology at [facility]. Last PET scan 07/09 2025 shows increasing disease in liver and pulmonary nodules, variable response to treatment in pelvic lymph nodes, ans well as good treatment response of the bony mets. This is likely prostate cancer with local invasion of the bladder. (5) Type 2 diabetes mellitus: Plan: Last A1c = 5%, 08/04/25, I will place him on low dose SSI while admitted. Qualifiers: Diabetes mellitus complication status: without complication Diabetes mellitus intermediate insulin use: without intermodal owner operator truck driver use Qualified Code(s): E11.9 - Type 2 diabetes mellitus without complications (6) Chronic kidney disease, stage 3a: Plan: Laboratory Tests 07/07/25 08/04/25 08/13/25 08:43 09:31 19:37 Creatinine 1.4 H 1.8 H 2.2 H the trend of his Cr shows worsening in the last month. non contrast CT A/P is Resulted. He has left hydronephrosis with a ureteral vesicular stent present. There is diffuse bladder wall thickening with pericystic soft tissue nodularity. This is progressive. Metastatic disease is also commented upon.. he is eating and drinking well at home. This does not represent a picture of FTT. Hopefully Dr Hameed can releive any obstructive uropathy, stop bleeding to control anemia. . Plan I have spent 90 minutes in the care of this patient today. This includes time [id number], review and ordering of diagnostic imaging and laboratory studies and consultation with other providers. Monitoring the patient's signs symptoms, evaluation of medication effectiveness and patient's response to treatment. Lab Results Lab results reviewed: Yes 08/13/25 19:37 08/13/25 19:37 Diagnostic Imaging Results Diagnostic Imaging Results: positive Final report reviewed Core Measures Anticipated LOS I expect patient to be DC'd or transferred within 96 hours.: Yes DVT/VTE - Prophylaxis VTE/DVT Device ordered at admit?: Yes VTE/DVT Prophylaxis med ordered at admit?: No Not Ordered - Medical Reason: Contraindicated
[2025-08-13 20:52] LABS: INR 1.2 (0.8-1.2); PT - PROTHROMBIN TIME 13.0 secs (9.9-12.6)
--- NOTE | 2025-08-13 21:11 | HISTORY & PHYSICAL EXAMINATION ---
History of Present Illness Admitted From Admitted From:: ER History Obtained From Records Reviewed: EMR History of Present Illness HPI Comment/Other: Jc Denis is a 80yo M well known to [facility] patient with significant oncological issues. 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 He had a nephrostomy tube placed on the right and has a left ureteral stent placed by myself. He has a chronic maurer catheter despite TURP previously. Most of his urine comes from his right kidney. He has completed several rounds of etoposide/carboplatin but reportedly his malignancy has progressed into lungs and liver. He is having good BM but has noted hemorrhoids. He has been having worsening anemia requiring blood transfusions. He saw PERSONAL SERVICE REPRESENTATIVE Etelvina today who is concerned about his chronic gross hematuria and anemia and so recommended ER evaluation and evaluation by urology. Of note his renal functioning is worsened with his creatinine 2.2. Hemoglobin 7.3. Platelets 98. He denies pain Colonoscopy Questionnaire In the last 30 days have you experienced these symptoms? PFS Active Problems All Active Problems (Updated 08/13/25 @ 21:32 by Dayton Hameed MD) Anemia (Chronic) Hematuria (Acute) Anemia (Chronic) Hematuria (Acute) UTI (urinary tract infection) (Acute) Thrombocytopenia (Acute) Status post chemotherapy (Acute) Prostate CA (Acute) Muscle weakness (generalized) (Acute) H/O insertion of nephrostomy tube (Acute) Caregiver burden (Acute) Nasal congestion (Acute) Cough (Acute) Viral URI (Acute) Nephrostomy present (Acute) Chronic kidney disease, stage 3a (Acute) Arthritis of right ankle (Acute) Bilateral ureteral obstruction (Acute) Bilateral impacted cerumen (Acute) Palliative care patient (Acute) Hydronephrosis (Acute) Type 2 diabetes mellitus with diabetic neuropathy (Chronic) Atrial fibrillation (Chronic) UTI (urinary tract infection) due to urinary indwelling Maurer catheter (Acute) Diuretic-induced hypokalemia (Acute) Bilateral lower extremity edema (Acute) Anemia of chronic disease (Chronic) Counseling regarding advanced directives and goals of care (Acute) Prostate cancer metastatic to lung (Acute) Constipation (Acute) Ureteral stent present (Acute) Acquired spondylolisthesis (Acute) Indwelling Maurer catheter present (Chronic) Sleep apnea with use of continuous positive airway pressure (CPAP) (Chronic) Small cell carcinoma (Chronic) Type 2 diabetes mellitus (Chronic) Prostate cancer metastatic to bone (Chronic) Androgen deprivation therapy (Chronic) BPH w urinary obs/LUTS (Chronic) Essential hypertension (Acute) Severe obstructive sleep apnea (Chronic) Morbid obesity (Chronic) Chronic rhinitis (Chronic) Metatarsalgia of both feet (Chronic) Medical History Medical History (Updated 08/13/25 @ 21:32 by Dayton Hameed MD) History of COVID-19 History of kidney injury Hypokalemia Acute kidney injury Paroxysmal supraventricular tachycardia History of anemia History of urinary retention History of septic shock Hx of essential hypertension Hx of diabetes mellitus Hyperuricemia Pancolonic diverticulosis History of bacteremia Erectile dysfunction due to arterial insufficiency Sun-damaged skin Allergic rhinitis History of PSVT (paroxysmal supraventricular tachycardia) Hx of sleep apnea Entrapment of right ulnar nerve Non-melanoma skin cancer Surgical History Surgical History Status post transurethral resection of prostate Revision 10/2024 Port-A-Cath in place 11/2023, right IJ Abnormal TRUS (transrectal ultrasound), prostate 09/2023, + adenocarcinoma H/O colonoscopy 11/2022, diverticulosis S/P carpal tunnel release 10/2020, right History of total left hip replacement 08/2016 H/O colonoscopy 11/2015, poor preparation, diverticulosis History of total bilateral knee replacement Right-10/2009 + Left-01/2010, left hardware is loose, Orthopedics recommending observation H/O vasectomy Family History Family History Father CAD (coronary artery disease) Congestive heart failure Mother Malignant neoplasm of throat Brother Bladder cancer COVID-19 virus infection Social History Social History (Updated 08/01/25 @ 10:59 by JASON Hayden) Smoking Status: Never smoker Second hand tobacco smoke exposure: No Do you dip or chew tobacco?: No Do you vape?: No Living arrangement: At home Marital Status: Living Condition: With spouse/s.o. Support Person: Yes Relationship Notes: with mod dementia; he is her caregiver Living Situation Details: Newly moved to [facility] Has a Durable Power of Medical Technologist Generalist for Health Care?: Yes Name / Relationship: Jacinto Denis /brother Physical Activity: Walking Level: Independent Physical - Functional Details: Uses a wheeled walker for longer distances but can be independent in the home Do you feel safe in your home environment?: Yes History of physical, verbal, emotional, or financial abuse?: No ETOH Use: Wine and Beer Frequency: Weekly Substance Use: denies use Are you sexually active?: No 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 [employer] 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: Yes Service: Yes Dates of Service: [place] Are you following a diet prescribed by a doctor: No Are you following a special diet: No POLST Patient has POLST: Yes POLST on file?: Yes POLST CPR Status: Do Not Attempt Resuscitation (DNAR) / Allow Natural Meds/Allgy Home Medications Ambulatory Orders Medication Instructions Recorded Confirmed multivitamin 1 tab PO DAILY 01/12/2407/20 omega 2-xtj-lbk-fish oil 300 1 cap PO DAILY 01/12/24 1 10/13/24 mg-1,000 mg capsule (Fish Oil) abiraterone 250 mg tablet 250 mg PO QAM 10/11/2408/13 albuterol sulfate 90 mcg/actuation 2 puff inhalation Q ID PRN 10/11/24 08/13/25 aerosol inhaler (Ventolin HFA) shortness of breath or wheezing fluticasone propionate 50 1 spray intranasal BID PRN a llergy 10/11/24 08/13/25 mcg/actuation nasal symptoms spray,suspension leuprolide acetate (3 month) 22.5 22.5 mg subcut Q3MON THS 10/11/24 08/13/25 mg (3 month) subcutaneous syringe calcium carbonate 600 mg PO QDAY 10/14/2407/20 cholecalciferol (vitamin D3) 25 100 mcg PO QDAY 08/13/25 mcg (1,000 unit) capsule rosuvastatin 20 mg tablet 20 mg PO QDAY #90 tabs 11/2508/13/25 bisacodyl 5 mg tablet,delayed 5 mg PO QDAY 01/15/25 release (Dulcolax (bisacodyl)) mirabegron 50 mg tablet,extended 50 mg PO QDAY #90 tab s 01/15/25 08/13/25 release 24 hr (Myrbetriq) prednisone 5 mg tablet 5 mg PO BID #60 tabs 2 5 08/13/25 loperamide 2 mg capsule (Imodium 2 mg PO QID PRN loose stool #60 02/25/25 08/13/25 A-D) caps polyethylene glycol 3350 17 17 g PO Q OTHER DAY PRN 08/13/25 gram/dose oral powder (Miralax) constipation hydrochlorothiazide 25 mg tablet 12.5 mg (1/2 x 25 mg) PO Q3-4D PRN 04/25/25 08/13/25 edema, weight gain #30 tabs oxybutynin chloride 5 mg tablet 5 mg PO QDAY bladder s pasms #90 04/25/25 08/13/25 tabs oxycodone 5 mg tablet 5 mg PO Q4H PRN Pain #10 tab s 04/28/25 08/13/25 dulaglutide 3 mg/0.5 mL 1.5 mg (0.25 mL) subcut QWEE K #4 ea 05/02/25 08/13/25 subcutaneous pen injector ([employer]) blood-glucose meter (Blood Glucose #1 ea 05/03/2507/19 Monitoring kit) blood sugar diagnostic (FreeStyle #100 ea 05/09/25 Test strips) losartan 25 mg tablet 25 mg PO QDAY #30 tabs 05/2008/13/25 metoprolol succinate 50 mg 25 mg (1/2 x 50 mg) PO SHAE Y #45 08/11/25 08/13/25 tablet,extended release 24 hr tabs (Toprol XL) Allergies Allergies Allergy/AdvReac Type Severity Reaction Status Date / Time No Known Drug Allergies Allergy Verified 07/23/25 12:25 Results Lab Results Lab results reviewed: Yes 08/13/25 19:37 08/13/25 19:37 Other Lab Results: Lab Results x24hrs 08/13/25 Range/Units 19:37 WBC 4.1 L (4.8-10.8) x10^3/uL RBC 2.25 L (4.70-6.10) 10^6/uL Hgb 7.3 L (14.0-18.0) g/dL Hct 23.5 L (42.0-52.0) % MCV 104.4 H (80.0-94.0) fL MCH 32.4 H (27.0-31.0) pg MCHC 31.1 L (32.0-36.0) g/dL RDW 15.9 H (12.0-15.0) % Plt Count 98 L (130-450) 10^3/uL MPV 8.8 (7.4-11.4) fL Neut # (Auto) 2.4 (1.5-6.6) 10^3/uL Lymph # (Auto) 1.1 L (1.5-3.5) 10^3/uL [place] # (Auto) 0.5 (0.0-1.0) 10^3/uL Eos # (Auto) 0.1 (0.0-0.7) 10^3/uL Baso # (Auto) 0.0 (0.0-0.1) 10^3/uL Absolute Nucleated RBC 0.00 x10^3/uL Nucleated RBC % 0.0 /100WBC PT 13.0 H (9.9-12.6) secs INR 1.2 (0.8-1.2) Sodium 138 (135-145) mmol/L Potassium 3.9 (3.5-4.5) mmol/L Chloride 105 (101-111) mmol/L Carbon Dioxide 26 (21-32) mmol/L Anion Gap 7.0 (6-13) BUN 22 H (6-20) mg/dL Creatinine 2.2 H (0.6-1.3) mg/dL Estimated GFR (MDRD) 29 L (>89) Glucose 108 H (74-104) mg/dL Calcium 9.5 (8.5-10.3) mg/dL Total Bilirubin 0.3 (0.2-1.0) mg/dL AST 38 (10-42) IU/L ALT 22 (10-60) IU/L Alkaline Phosphatase 235 H (42-121) IU/L Total Protein 7.6 (6.4-8.9) g/dL Albumin 3.5 (3.2-5.5) g/dL Globulin 4.1 (2.1-4.2) g/dL Albumin/Globulin Ratio 0.9 L (1.0-2.2) Lipase 43 (11-82) U/L Exam Exam Vital Signs: Vital Signs x48h Temp Pulse Resp BP Pulse Ox O2 Flow Rate 08/13/25 20:35 17 2 08/13/25 20:10 76 17 143/79 H 99 08/13/25 19:05 77 18 136/74 H 97 08/13/25 18:56 36.1 C L 85 18 136/74 H 98 NAD alopecia right neph tube clear effluent Maurer with moderate red translucent hematuria, no clots Impression/Plan Problem List (1) Hematuria: Plan: Complex gross hematuria, moderate in nature. Anemia and thrombocytopenia. He is planned to be admitted to the medical service overnight. We will monitor his blood counts and likely transfuse him tomorrow to maintain hemoglobin over 8. Dinora from the hospitalist service and I have discussed platelet transfusion if possible. This may be difficult given blood bank limitations. N.p.o. with IV fluids at midnight. I will plan to take him to the OR tomorrow for cystoscopy and clot evacuation and fulguration of bleeding areas. This is palliative in nature. He has very minor bleeding overall. Appreciate hospitalist team assistance Qualifiers: Hematuria type: gross Qualified Code(s): R31.0 - Gross hematuria (2) Anemia: (3) Thrombocytopenia: Plan: platelet transfusion as above (4) Prostate CA: Plan: per med onc (5) Atrial fibrillation: Qualifiers: Atrial fibrillation type: unspecified Qualified Code(s): I48.91 - Unspecified atrial fibrillation (6) Type 2 diabetes mellitus: Qualifiers: Diabetes mellitus halfway insulin use: without truck terminal manager use Diabetes mellitus complication status: without complication Qualified Code(s): E11.9 - Type 2 diabetes mellitus without complications (7) Chronic kidney disease, stage 3a: Plan: CT KUB to assess further May consider left ureteral stent management tomorrow, will review and discuss accordingly
--- NOTE | 2025-08-13 21:28 | CT Report ---
PROCEDURE: CT Abdomen/Pelvis WO INDICATIONS: ureteral stent, hematuria TECHNIQUE: A CT scan of the abdomen and pelvis was performed without the use of intravenous contrast. Images were recorded and evaluated at appropriate window settings. Reformats: coronal and sagittal. For radiation dose reduction, the following was used: automated exposure control, adjustment of mA and/or kV according to patient size. COMPARISON: CT abdomen pelvis 04/07/2025 FINDINGS: Image quality: There is limited visualization of the pelvis secondary to artifact from hip arthroplasty. Lower chest: Medial right lower lobe nodule series 8 image 35 measuring 5 mm compared to 3 mm on prior exam. Additional nodules appear similar. Liver: Multifocal hepatic lesions which have increased in size and number compared to prior exam. The largest is in the anterior left lobe measuring 6.6 cm ^ 2 approximately 2.5 cm on prior exam. Is on series 2 image 32. Gallbladder: Luminal stone without wall thickening Biliary tree: No intrahepatic or extrahepatic dilation, accounting for age. Spleen: No splenomegaly. Pancreas: No pancreatic ductal dilation. Adrenals: No adrenal nodule. Kidneys and ureters: Right nephrostomy tube. No obstruction, resolved from prior exam. Left kidney demonstrates moderate hydronephrosis with ureterovesicular stent. This is less prominent when compared to prior exam. Stomach, bowel and peritoneum: No gastric or small bowel dilation. No abnormal wall thickening. No pathologic free fluid. Lymph nodes: Multiple scattered periaortic and aortocaval lymph nodes are present. While they are predominantly subcentimeter, a 1.5 cm left periaortic node is present series 2 image 57 compared to 0.4 cm on prior exam. Vessels: No infrarenal aortic aneurysm. Reproductive organs: Unremarkable. Bladder: Bladder demonstrates a diffusely thickened wall with multiple pericystic areas of soft tissue nodularity. This is progressive compared to prior exam. Pelvic lymph nodes: Pelvic adenopathy is present with enlarged iliac nodes with the largest in the right pelvic sidewall measuring 1.4 cm series 2 image 110 compared to 0.6 cm on prior exam. Bones: Multiple sclerotic foci with additional sclerotic lucencies overall increased in size and number compared to prior exam. Left hip arthroplasty. Other: No significant ventral or inguinal hernia. IMPRESSION: Left hydronephrosis with ureterovesicular stent. This is slightly less prominent when compared to prior exam. Diffuse bladder wall thickening with pericystic soft tissue nodularity. This is progressive compared to prior exam. Appearance raises concern for bladder malignancy. Interval increase in size and number of hepatic as well as osseous metastatic lesions. Interval increase in size and number of pulmonary nodules, highly suspicious for metastatic disease. Abdominal and pelvic adenopathy with interval worsening concerning for metastatic disease. Reviewed by: Myrna Malik MD on 08/13/2025 9:24 PM PST Approved by: Myrna Malik MD on 08/13/2025 9:24 PM PST Station ID: [id number]
[2025-08-13] MEDS ORDERED: FLUTICASONE NASAL SPRAY NAS PRN (21:30)
[2025-08-13] MEDS ORDERED: ONDANSETRON ODT 4 MG TABLET TL PRN (21:30)
[2025-08-13] MEDS ORDERED: SODIUM CHLORIDE FLUSH 0.9% 10 ML SYRINGE IVP PRN (21:30)
[2025-08-13] MEDS ORDERED: oxyCODONE 5 MG TABLET PO PRN (21:30)
[2025-08-13] MEDS ORDERED: HYDROmorphone 0.5 MG/0.5 ML SYRINGE IVP PRN (21:30)
[2025-08-13] MEDS ORDERED: ALBUTEROL NEB 2.5 MG/3 ML INH PRN (21:38)
[2025-08-13] MEDS: LACTATED RINGERS 1,000 ML IV SCH (22:27)
[2025-08-13] MEDS: LOSARTAN 50 MG TABLET PO SCH (22:34)
[2025-08-13 23:02] LABS: GLUCOSE, URINE (UA) NEGATIVE (NEGATIVE); KETONES,URINE (UA) NEGATIVE (NEGATIVE); OCCULT BLOOD,URINE LARGE (NEGATIVE)
[2025-08-13 23:10] LABS: WBC CLUMPS,URINE PRESENT
[2025-08-13 23:11] LABS: SQUAMOUS EPITHELIAL CELL,UR RARE Squamous (<= Few)
[2025-08-14] MEDS: SODIUM CHLORIDE FLUSH 0.9% 10 ML SYRINGE IVP SCH (00:13)
[2025-08-14] MEDS: INSULIN REGULAR, HUMAN 300 UNIT/3 ML PEN SUBQ SCH (00:14)
[2025-08-14] MEDS: ACETAMINOPHEN 325 MG TABLET PO PRN (03:13)
[2025-08-14 06:24] LABS: HCT - HEMATOCRIT 22.9 % (42.0-52.0); HGB - HEMOGLOBIN 7.1 g/dL (14.0-18.0); MEAN PLATELET VOLUME 9.2 fL (7.4-11.4); NRBC ABSOLUTE COUNT (AUTO) 0.00 x10^3/uL; NUCLEATED RED BLOOD CELLS AUTO 0.0 /100WBC; PLT - PLATELET COUNT 104 10^3/uL (130-450); RED CELL DISTRIBUTION WIDTH 15.7 % (12.0-15.0)
[2025-08-14 06:54] LABS: BUN - BLOOD UREA NITROGEN 19.0 mg/dL (6-20); CARBON DIOXIDE - CO2 23.0 mmol/L (21-32); CREATININE 2.0 mg/dL (0.6-1.3); GFR - MDRD 32.0 (>89)
--- NOTE | 2025-08-14 06:55 | PROVIDER PROGRESS NOTE ---
Subjective General Admit Date: 08/13/25 Other Other Information/Narrative: NAEON. Feels well. hematuria improving. CT scan with cystitis vs malignancy left stent in place right neph tube in place Malignancy worsening Exam Exam Vital Signs: Vital Signs x48h Temp Pulse Resp BP Pulse Ox 08/14/25 08:00 36.3 C L 62 18 136/70 H 97 08/14/25 03:13 36.6 C 71 20 133/71 H 97 NAD RRR CTA b/l maurer with mild hematuria, translucent ABX Reporting Has patient been on IV antibiotics over the past 48 hours?: No Impression/Plan Problem List (1) Hematuria: Plan: Complex gross hematuria, mild in nature. Anemia and thrombocytopenia. NPO/IVF Add on for cystoscopy, clot evacuation, fulguration of bleeding. Left ureteral stent exchange. The risks/benefits/alternatives discussed. Patient states understanding and consents to above plan. Likely home later today Qualifiers: Hematuria type: gross Qualified Code(s): R31.0 - Gross hematuria (2) Thrombocytopenia: Plan: platelet transfusion would be reasonable if possible (3) Anemia: Plan: I'd recommend 2u pRBC (4) Prostate CA: Plan: per med onc (5) Type 2 diabetes mellitus: Qualifiers: Diabetes mellitus complication status: without complication Diabetes mellitus long term care administrator insulin use: without correction use Qualified Code(s): E11.9 - Type 2 diabetes mellitus without complications (6) Chronic kidney disease, stage 3a:
[2025-08-14] MEDS: METOPROLOL SUCCINATE 25 MG TABLET PO SCH (08:14)
[2025-08-14] MEDS ORDERED: ROCURONIUM 50 MG/5 ML VIAL ONE (08:37)
[2025-08-14] MEDS ORDERED: PROPOFOL 200 MG/20 ML VIAL IVP ONE (08:37)
--- NOTE | 2025-08-14 08:44 | ANESTHESIA PROCEDURE NOTE ---
Pre-Anesthesia VS, & Labs Diagnosis Surgical Diagnosis:: hematuria Procedure Procedure: cysto, fulgaration of bladder, stent, treatment of hematuria Vitals Vital Signs: Temp Pulse Resp BP Pulse Ox O2 Flow Rate 36.3 C L 62 18 136/70 H 97 2 08/14/25 08:00 08/14/25 08:00 08/14/25 08:00 08/14/25 08:00 08/14/25 08:00 08/13/25 20:35 NPO NPO: >8 hours Lab Results Current Lab Results: Laboratory Tests 08/14/25 05:31: WBC 4.0 L, RBC 2.20 L, Hgb 7.1 L, Hct 22.9 L, MCV 104.1 H, MCH 32.3 H, MCHC 31.0 L, RDW 15.7 H, Plt Count 104 L, MPV 9.2, Neut # (Auto) 2.2, L ymph # (Auto) 1.2 L, Dodge # (Auto) 0.5, Eos # (Auto) 0.1, Baso # (Auto) 0.0, Absolute Nucleated RBC 0.00, Nucleated RBC % 0.0, Sodium 140, Potassium 3.9, Chloride 110, Carbon Dioxide 23, Anion Gap 7.0, BUN 19, Creatinine 2.0 H, E stimated GFR (MDRD) 32 L, Glucose 96, POC Whole Bld Glucose 94, Calcium 8.8 08/14/25 00:14: POC Whole Bld Glucose 104 08/13/25 21:22: POC Whole Bld Glucose 93 08/13/25 19:37: WBC 4.1 L, RBC 2.25 L, Hgb 7.3 L, Hct 23.5 L, MCV 104.4 H, MCH 32.4 H, MCHC 31.1 L, RDW 15.9 H, Plt Count 98 L, MPV 8.8, Neut # (Auto) 2.4, L ymph # (Auto) 1.1 L, Dodge # (Auto) 0.5, Eos # (Auto) 0.1, Baso # (Auto) 0.0, Absolute Nucleated RBC 0.00, Nucleated RBC % 0.0, PT 13.0 H, INR 1.2, Sodium 138, Potassium 3.9, Chloride 105, Carbon Dioxide 26, Anion Gap 7.0, BUN 22 H, C reatinine 2.2 H, Estimated GFR (MDRD) 29 L, Glucose 108 H, Calcium 9.5, Total Bilirubin 0.3, AST 38, ALT 22, Alkaline Phosphatase 235 H, Total Protein 7.6, Albumin 3.5, Globulin 4.1, Albumin/Globulin Ratio 0.9 L, Lipase 43 08/13/25 10:45: Blood Type A NEGATIVE, Antibody Screen NEGATIVE 08/14/25 05:31 08/14/25 05:31 Meds/Allgy Home Medications Ambulatory Orders Medication Instructions Recorded Confirmed multivitamin 1 tab PO DAILY 01/12/2407/20 omega 2-qjo-ajq-fish oil 300 1 cap PO DAILY 01/12/24 1 10/13/24 mg-1,000 mg capsule (Fish Oil) abiraterone 250 mg tablet 250 mg PO QAM 10/11/2408/14 Held on 08/14/25. Instructions: Per Patient albuterol sulfate 90 mcg/actuation 2 puff inhalation Q ID PRN 10/11/24 08/13/25 aerosol inhaler (Ventolin HFA) shortness of breath or wheezing fluticasone propionate 50 1 spray intranasal BID PRN a llergy 10/11/24 08/13/25 mcg/actuation nasal symptoms spray,suspension leuprolide acetate (3 month) 22.5 22.5 mg subcut Q3MON THS 10/11/24 08/13/25 mg (3 month) subcutaneous syringe calcium carbonate 600 mg PO QDAY 10/14/2407/20 cholecalciferol (vitamin D3) 25 100 mcg PO QDAY 08/13/25 mcg (1,000 unit) capsule rosuvastatin 20 mg tablet 20 mg PO QDAY #90 tabs 11/2508/13/25 bisacodyl 5 mg tablet,delayed 5 mg PO QDAY 01/15/25 release (Dulcolax (bisacodyl)) mirabegron 50 mg tablet,extended 50 mg PO QDAY #90 tab s 01/15/25 08/13/25 release 24 hr (Myrbetriq) prednisone 5 mg tablet 5 mg PO BID #60 tabs 5 08/13/25 loperamide 2 mg capsule (Imodium 2 mg PO QID PRN loose stool #60 02/25/25 08/13/25 A-D) caps polyethylene glycol 3350 17 17 g PO Q OTHER DAY PRN 08/13/25 gram/dose oral powder (Miralax) constipation hydrochlorothiazide 25 mg tablet 12.5 mg (1/2 x 25 mg) PO Q3-4D PRN 04/25/25 08/13/25 edema, weight gain #30 tabs oxybutynin chloride 5 mg tablet 5 mg PO QDAY bladder s pasms #90 04/25/25 08/13/25 tabs oxycodone 5 mg tablet 5 mg PO Q4H PRN Pain #10 tab s 04/28/25 08/13/25 dulaglutide 3 mg/0.5 mL 1.5 mg (0.25 mL) subcut QWEE K #4 ea 05/02/25 08/13/25 subcutaneous pen injector ([employer]) blood-glucose meter (Blood Glucose #1 ea 05/03/2507/19 Monitoring kit) blood sugar diagnostic (FreeStyle #100 ea 05/09/25 Test strips) losartan 25 mg tablet 25 mg PO QDAY #30 tabs 05/2008/13/25 metoprolol succinate 50 mg 25 mg (1/2 x 50 mg) PO SHAE Y #45 08/11/25 08/13/25 tablet,extended release 24 hr tabs (Toprol XL) Allergies Allergies Allergy/AdvReac Type Severity Reaction Status Date / Time No Known Drug Allergies Allergy Verified 07/23/25 12:25 PFSH Active Problems All Active Problems (Updated 08/13/25 @ 21:32 by Dayton Hameed MD) Anemia (Chronic) Hematuria (Acute) Anemia (Chronic) Hematuria (Acute) UTI (urinary tract infection) (Acute) Thrombocytopenia (Acute) Status post chemotherapy (Acute) Prostate CA (Acute) Muscle weakness (generalized) (Acute) H/O insertion of nephrostomy tube (Acute) Caregiver burden (Acute) Nasal congestion (Acute) Cough (Acute) Viral URI (Acute) Nephrostomy present (Acute) Chronic kidney disease, stage 3a (Acute) Arthritis of right ankle (Acute) Bilateral ureteral obstruction (Acute) Bilateral impacted cerumen (Acute) Palliative care patient (Acute) Hydronephrosis (Acute) Type 2 diabetes mellitus with diabetic neuropathy (Chronic) Atrial fibrillation (Chronic) UTI (urinary tract infection) due to urinary indwelling Taylor catheter (Acute) Diuretic-induced hypokalemia (Acute) Bilateral lower extremity edema (Acute) Anemia of chronic disease (Chronic) Counseling regarding advanced directives and goals of care (Acute) Prostate cancer metastatic to lung (Acute) Constipation (Acute) Ureteral stent present (Acute) Acquired spondylolisthesis (Acute) Indwelling Taylor catheter present (Chronic) Sleep apnea with use of continuous positive airway pressure (CPAP) (Chronic) Small cell carcinoma (Chronic) Type 2 diabetes mellitus (Chronic) Prostate cancer metastatic to bone (Chronic) Androgen deprivation therapy (Chronic) BPH w urinary obs/LUTS (Chronic) Essential hypertension (Acute) Severe obstructive sleep apnea (Chronic) Morbid obesity (Chronic) Chronic rhinitis (Chronic) Metatarsalgia of both feet (Chronic) Medical History Medical History (Updated 08/13/25 @ 21:32 by Dayton Hameed MD) History of COVID-19 History of kidney injury Hypokalemia Acute kidney injury Paroxysmal supraventricular tachycardia History of anemia History of urinary retention History of septic shock Hx of essential hypertension Hx of diabetes mellitus Hyperuricemia Pancolonic diverticulosis History of bacteremia Erectile dysfunction due to arterial insufficiency Sun-damaged skin Allergic rhinitis History of PSVT (paroxysmal supraventricular tachycardia) Hx of sleep apnea Entrapment of right ulnar nerve Non-melanoma skin cancer Surgical History Surgical History Status post transurethral resection of prostate Revision 10/2024 Port-A-Cath in place 11/2023, right IJ Abnormal TRUS (transrectal ultrasound), prostate 09/2023, + adenocarcinoma H/O colonoscopy 11/2022, diverticulosis S/P carpal tunnel release 10/2020, right History of total left hip replacement 08/2016 H/O colonoscopy 11/2015, poor preparation, diverticulosis History of total bilateral knee replacement Right-10/2009 + Left-01/2010, left hardware is loose, Orthopedics recommending observation H/O vasectomy Family History Family History Father CAD (coronary artery disease) Congestive heart failure Mother Malignant neoplasm of throat Brother Bladder cancer COVID-19 virus infection Social History Social History (Updated 08/01/25 @ 10:59 by JASON Hayden) Smoking Status: Never smoker Second hand tobacco smoke exposure: No Do you dip or chew tobacco?: No Do you vape?: No Living arrangement: At home Marital Status: Living Condition: With spouse/s.o. Support Person: Yes Relationship Notes: with mod dementia; he is her caregiver Living Situation Details: Newly moved to [facility] Has a Durable Power of Human Resources Project Manager for Health Care?: Yes Name / Relationship: Jacinto Denis /brothvasiliy Physical Activity: Walking Level: Independent Home Mobility Equipment: Cane Physical - Functional Details: Uses a wheeled walker for longer distances but can be independent in the home Do you feel safe in your home environment?: Yes History of physical, verbal, emotional, or financial abuse?: No ETOH Use: Wine and Beer Frequency: Weekly Substance Use: denies use Are you sexually active?: No 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 [employer] Retired: Yes Service: Yes Dates of Service: [employer] Are you following a diet prescribed by a doctor: No Are you following a special diet: No POLST Patient has POLST: Yes POLST on file?: Yes POLST CPR Status: Do Not Attempt Resuscitation (DNAR) / Allow Natural Anesthesia Exam (Expanded) Exam General: Alert, Oriented x3 and Cooperative Dental: WNL Mouth Openin Fingerbreadth Neck Mobility: Normal Mallampati classification: II Thyromental Distance: greater than 6 cm Respiratory: Lungs clear Cardiovascular: Regular rate Exam Exam Vital Signs: Vital Signs x48h Temp Pulse Resp BP Pulse Ox 08/14/25 08:00 36.3 C L 62 18 136/70 H 97 08/14/25 03:13 36.6 C 71 20 133/71 H 97 Plan Problem List (1) Hematuria: Plan: Complex gross hematuria, mild in nature. Anemia and thrombocytopenia. NPO/IVF Add on for cystoscopy, clot evacuation, fulguration of bleeding. Left ureteral stent exchange. The risks/benefits/alternatives discussed. Patient states understanding and consents to above plan. Likely home later today Qualifiers: Hematuria type: gross Qualified Code(s): R31.0 - Gross hematuria (2) Thrombocytopenia: Plan: platelet transfusion would be reasonable if possible (3) Anemia: Plan: I'd recommend 2u pRBC (4) Prostate CA: Plan: per med onc (5) Type 2 diabetes mellitus: Qualifiers: Diabetes mellitus complication status: without complication Diabetes mellitus longterm insulin use: without longterm use Qualified Code(s): E11.9 - Type 2 diabetes mellitus without complications (6) Chronic kidney disease, stage 3a: Plan Anesthesia Type: General Consent for Procedure(s) Verified and Reviewed: Yes Code Status: Attempt Resuscitation (he wishes DNR suspended for perioperative period, Dr. Hameed aware) ASA Classification ASA classification: 4-Incapacitating disease Is this case an emergency?: No
[2025-08-14] MEDS ORDERED: MIDAZOLAM 2 MG/2 ML VIAL ONE (08:45)
[2025-08-14] MEDS ORDERED: LIDOCAINE-PF 2% 10 ML AMP SUBQ ONE (08:45)
[2025-08-14] MEDS ORDERED: fentaNYL 100 MCG/2 ML VIAL ONE (08:45)
[2025-08-14] MEDS ORDERED: LIDOCAINE 2% URO-JET 5 ML SYRINGE UR ONE (08:50)
[2025-08-14] MEDS ORDERED: LACTATED RINGERS 1,000 ML IV PRN (08:52)
[2025-08-14] MEDS ORDERED: ONDANSETRON 4 MG/2 ML VIAL ONE (09:35)
[2025-08-14] MEDS ORDERED: NALOXONE 0.4 MG/ML VIAL IVP PRN (09:49)
[2025-08-14] MEDS ORDERED: ONDANSETRON 4 MG/2 ML VIAL IVP PRN (09:49)
[2025-08-14] MEDS ORDERED: fentaNYL 100 MCG/2 ML VIAL IVP PRN (09:49)
[2025-08-14] MEDS ORDERED: ATROPINE ABBOJECT 1 MG/10 ML SYRINGE IVP PRN (09:49)
[2025-08-14] MEDS ORDERED: ePHEDrine 50 MG/ML VIAL IVP PRN (09:49)
[2025-08-14] MEDS ORDERED: METOCLOPRAMIDE 10 MG/2 ML VIAL IVP PRN (09:49)
[2025-08-14] MEDS ORDERED: ACETAMINOPHEN 1,000 MG/100 ML 1,000 MG/100 ML BAG IV ONE (09:52)
[2025-08-14] MEDS ORDERED: MORPHINE 4 MG/ML VIAL IVP PRN (09:55)
--- NOTE | 2025-08-14 10:26 | Discharge Summary ---
"Discharge Summary Admit Date: 08/13/25 Discharge Date: 08/14/25 Discharging Provider: Dinora Renee PA-C Primary Care Provider: Nya Sagastume Code Status: Do Not Attempt Resuscitation DIAGNOSES Discharge Diagnoses with Status of Each Condition: Hematuria, currently resolved but will likely recur Thrombocytopenia, received 1 unit of platelets this admission Anemia, combined picture of chronic disease and due to blood loss Prostate cancer, widely metastatic, patient pursuing treatment but also enrolled with palliative care Type 2 diabetes mellitus, controlled Chronic kidney disease, chronic. 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 this has been ongoing for several days. received blood transfusion about a week ago. CONSULTS | PROCEDURES Procedures: Bladder clot evacuation and fulguration, transurethral resection of bladder tumor by urology, Dr. [place] Hameed. Date of procedure 08/14/2025. HOSPITAL COURSE Hospital Course: (1) Hematuria: Patient has had a waxing and waning course of hematuria. Several days ago, the urine in his catheter only had a faint pink tinge. 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 Urine from the right sided nephrostomy tube is draining clear. He has known metastatic prostate cancer that is likely invading the bladder. Cystoscopy performed. There is diffuse metastatic cancer in the bladder. Dr Hameed was not able to exchange or otherwise manipulate the left ureteral stent. Tumor invasion was too severe. There was no significant bleeding in the bladder at the time of procedure, and post procedure CBI ran clear. Dr Hameed is recommending post op abx for several days after instrumentation. Keflex 500mg TID x 6 doses. (2) Thrombocytopenia: Plan: INR was 1.6 in November of this year. Platelets have been low most of this month. Prior to that, earlier this year, had platelet count that was low sporadically. INR 1.2 on admit. He received one unit of platelets post procedure, as well as one unit of packed red cells. (3) Anemia: Of chronic disease and likely related to this chronic waxing and waning hematuria. This patient is symtomatic with Hgb hovering around 7. it is reasonable to transfuse to Hgb of around 8 prior to dc. He received one unit prior to discharge. (4) Prostate CA: This is a small cell Ca which is metastatic to multiple sites. He is followed by Palliative care, his code status is DNR, and although he seems to deal with daily discomfort and inconvenience, his spirits are good. he is continuing with treatment via oncology at [facility]. Last PET scan 07/09 2025 shows increasing disease in liver and pulmonary nodules, variable response to treatment in pelvic lymph nodes, as well as good treatment response of the bony mets. He is an active patient with palliative care. I asked him post operatively what his understanding of his disease was. He understands that there is nothing more that can be done from a surgical perspective, aside from more extreme measures. He wants to continue to pursue treatment of his disease via immunotherapy, and is awaiting insurance approval of that. He will continue to follow with oncology at [facility]. If he wanted to continue to pursue further surgical treatment, this would be consultation for pelvic embolization with nephrostomy tube placement on the left (he already has tube in place on the right). is a center for this treatment. His time of functional living may be limited, and he may choose not to pursue treatment. Should have close palliative care followup. (5) Type 2 diabetes mellitus: Last A1c = 5%, 08/04/25, continue home Trulicity. (6) Chronic kidney disease, stage 3a: 08/14/25 05:31 Creatinine 2.0 H 07/07/25 08/04/25 08/13/25 08:43 09:31 19:37 Creatinine 1.4 H 1.8 H 2.2 H the trend of his Cr shows worsening in the last month. non contrast CT A/P shows left hydronephrosis with a ureteral vesicular stent present. There is diffuse bladder wall thickening with pericystic soft tissue nodularity. he is eating and drinking well at home. This does not represent a picture of FTT. ALLERGIES Allergies Allergy/AdvReac Type Severity Reaction Status Date / Time No Known Drug Allergies Allergy Verified 07/23/25 12:25 MEDICATIONS Ambulatory Orders Medication Instructions Recorded Confirmed multivitamin 1 tab PO DAILY 01/12/2407/20 omega 1-rdt-rwt-fish oil 300 1 cap PO DAILY 01/12/24 1 10/13/24 mg-1,000 mg capsule (Fish Oil) albuterol sulfate 90 mcg/actuation 2 puff inhalation Q ID PRN 10/11/24 08/13/25 aerosol inhaler (Ventolin HFA) shortness of breath or wheezing fluticasone propionate 50 1 spray intranasal BID PRN a llergy 10/11/24 08/13/25 mcg/actuation nasal symptoms spray,suspension leuprolide acetate (3 month) 22.5 22.5 mg subcut Q3MON THS 10/11/24 08/13/25 mg (3 month) subcutaneous syringe calcium carbonate 600 mg PO QDAY 10/14/2407/20 cholecalciferol (vitamin D3) 25 100 mcg PO QDAY 08/13/25 mcg (1,000 unit) capsule rosuvastatin 20 mg tablet 20 mg PO QDAY #90 tabs 11/2508/13/25 bisacodyl 5 mg tablet,delayed 5 mg PO QDAY 01/15/25 release (Dulcolax (bisacodyl)) mirabegron 50 mg tablet,extended 50 mg PO QDAY #90 tab s 01/15/25 08/13/25 release 24 hr (Myrbetriq) loperamide 2 mg capsule (Imodium 2 mg PO QID PRN loose stool #60 02/25/25 08/13/25 A-D) caps polyethylene glycol 3350 17 17 g PO Q OTHER DAY PRN 08/13/25 gram/dose oral powder (Miralax) constipation hydrochlorothiazide 25 mg tablet 12.5 mg (1/2 x 25 mg) PO Q3-4D PRN 04/25/25 08/13/25 edema, weight gain #30 tabs oxybutynin chloride 5 mg tablet 5 mg PO QDAY bladder s pasms #90 04/25/25 08/13/25 tabs oxycodone 5 mg tablet 5 mg PO Q4H PRN Pain #10 tab s 04/28/25 08/13/25 dulaglutide 3 mg/0.5 mL 1.5 mg (0.25 mL) subcut QWEE K #4 ea 05/02/25 08/13/25 [facility] blood-glucose meter (Blood Glucose #1 ea 05/03/2507/19 Monitoring kit) blood sugar diagnostic (FreeStyle #100 ea 05/09/25 Test strips) losartan 25 mg tablet 25 mg PO QDAY #30 tabs 05/2008/13/25 metoprolol succinate 50 mg 25 mg (1/2 x 50 mg) PO SHAE Y #45 08/11/25 08/13/25 tablet,extended release 24 hr tabs (Toprol XL) cephalexin 500 mg capsule 500 mg PO TID 3 days #9 caps 08/14/25 PHYSICAL EXAM AT DISCHARGE Vital Signs: Vital Signs x48h Temp Pulse Pulse Resp BP BP BP 08/14/25 13:01 36.7 C 57 L 12 113/69 08/14/25 12:52 36.6 C 55 L 16 114/62 08/14/25 12:36 36.8 C 54 L 18 120/60 08/14/25 12:33 36.8 C 54 L 18 120/60 08/14/25 12:22 36.7 C 54 L 16 119/62 08/14/25 12:06 36.6 C 61 16 122/62 08/14/25 11:47 36.7 C 57 L 18 122/62 08/14/25 11:46 36.7 C 59 L 18 122/62 08/14/25 11:31 36.8 C 58 L 16 121/63 08/14/25 11:16 36.8 C 61 20 124/63 08/14/25 11:00 60 15 123/67 08/14/25 10:55 62 17 133/66 H 08/14/25 10:50 62 12 120/69 08/14/25 10:45 64 14 123/69 08/14/25 10:40 36.2 C L 63 17 122/67 08/14/25 10:35 64 16 117/61 08/14/25 10:30 62 19 124/72 08/14/25 10:25 61 16 132/72 H 08/14/25 10:19 36.1 C L 73 15 128/70 08/14/25 08:00 36.3 C L 62 18 136/70 H Pulse Ox 08/14/25 13:01 94 08/14/25 12:52 99 08/14/25 12:36 92 08/14/25 12:33 92 08/14/25 12:22 92 08/14/25 12:06 96 08/14/25 11:47 96 08/14/25 11:46 96 08/14/25 11:31 96 08/14/25 11:16 96 08/14/25 11:00 96 08/14/25 10:55 95 08/14/25 10:50 98 08/14/25 10:45 98 08/14/25 10:40 94 08/14/25 10:35 95 08/14/25 10:30 100 08/14/25 10:25 100 08/14/25 10:19 100 08/14/25 08:00 97 General Appearance: positive No acute distress Eyes Bilateral: positive Conjunctivae nml ENT: positive ENT inspection nml Neck: positive Nml inspection Respiratory: positive No respiratory distress and Breath sounds nml Cardiovascular: positive Regular rate & rhythm Abdomen: positive Non-tender and Other (maurer in place, draining clear urine post operatively, right nephrostomy tube with clear yellow urine ) Back: positive Nml inspection Skin: positive Color nml Extremities: positive No pedal edema Neurologic/Psychiatric: positive Oriented x3 LABS 08/14/25 05:31 08/14/25 05:31 DIAGNOSTIC IMAGING Diagnostic Imaging Results: Final report reviewed Discharge Plan Discharge Patient Disposition: Home, Self Care Prescriptions: New cephalexin 500 mg capsule 500 mg PO TID 3 Days Qty: 9 0RF Continued metoprolol succinate [Toprol XL] 50 mg tablet extended release 24 hr 25 mg PO DAILY Qty: 45 3RF multivitamin 1 EACH tablet 1 tab PO DAILY Rx Instructions: QD omega 8-qaw-avt-fish oil [Fish Oil] 1 EACH capsule 1 cap PO DAILY Rx Instructions: QD fluticasone propionate 50 mcg/actuation spray,suspension 1 spray intranasal BID PRN (Reason: allergy symptoms) Rx Instructions: Use one spray into both nostrils twice a day calcium carbonate 600 mg calcium (1,500 mg) tablet 600 mg PO QDAY oxycodone 5 mg tablet 5 mg PO Q4H PRN (Reason: Pain) Qty: 10 0RF Rx Instructions: Take with food. Do Not drive while taking medication. albuterol sulfate [Ventolin HFA] 90 mcg/actuation HFA aerosol inhaler 2 puff inhalation QID PRN (Reason: shortness of breath or wheezing) leuprolide acetate (3 month) 22.5 mg syringe 22.5 mg subcut [id number] cholecalciferol (vitamin D3) 25 mcg (1,000 unit) capsule 100 mcg PO QDAY loperamide [Imodium A-D] 2 mg capsule 2 mg PO QID PRN (Reason: loose stool) Qty: 60 0RF polyethylene glycol 3350 [Miralax] 17 gram/dose powder 17 g PO Q OTHER DAY PRN (Reason: constipation) Trulicity 3 mg/0.5 mL pen injector 1.5 mg subcut QWEEK Qty: 4 3RF rosuvastatin 20 mg tablet 20 mg PO QDAY Qty: 90 3RF mirabegron [Myrbetriq] 50 mg tablet extended release 24 hr 50 mg PO QDAY Qty: 90 3RF bisacodyl [Dulcolax (bisacodyl)] 5 mg tablet,delayed release (DR/EC) 5 mg PO QDAY oxybutynin chloride 5 mg tablet 5 mg PO QDAY Qty: 90 2RF Rx Instructions: May take 1-2 tabs PRN; use sparingly unless severe spasms hydrochlorothiazide 25 mg tablet 12.5 mg PO Q3-4D PRN (Reason: edema, weight gain) Qty: 30 6RF Rx Instructions: If weight > 5#, take 1 tablet losartan 25 mg tablet 25 mg PO QDAY Qty: 30 3RF No Action (DME) blood-glucose meter [Blood Glucose Monitoring] Kit See Rx Instructions .ROUTE .MEDSUPPLY Qty: 1 0RF Rx Instructions: As directed for daily bgl monitoring dx e11.65 (DME) FreeStyle Test Strip See Rx Instructions .Route Qty: 100 3RF Rx Instructions: use to test blood sugar daily Diet: Diabetic Health Concerns: You came into the hospital with an increase of bleeding in your bladder. Dr. Hameed took you to the operating room this morning and put a camera into your bladder. There is extensive invasion of your cancer into the wall of your bladder. It is blocking off where your left kidney drains into your bladder. There is still a stent in place and Dr. Hameed elected to leave that stent there as it is probably helping with the flow of urine somewhat. There are almost no surgical options left for treatment of your cancer. You should continue to follow-up with your oncologist as I know you are pursuing some immunotherapy for your cancer. I think the most important thing for you at this point is close follow-up with your palliative care team. Quality of life is very important. You are discharging from the hospital with essentially the same tubes that you came with. Continue to follow-up with urology at [facility] regarding your right nephrostomy tube. Leave this Maurer catheter in place. Understand that you will intermittently bleed from your bladder. This problem may require serial blood transfusions. As you know you can get these as an outpatient. Sometimes blood clots will clog up the catheter. If you become uncomfortable and do not have flow from your Maurer catheter it is important to seek care. Print Language: Yakut Patient Instructions: Surg Dc Follow-up Care: Alyssa Main ARNP [Provider Admit Priv/Credential, Palliative Care] Nya Sagastume ARNP [Primary Care Provider, Family Practice] Vitals documented within 30 minutes of discharge?: Yes"
--- NOTE | 2025-08-14 10:28 | OPERATIVE REPORT ---
Operative Report General Admit Date: 08/13/25 Procedure Data: Operation Date: 08/14/25 09:00 Proposed Procedures p Clot Evacuation and Fulguration(Not Applicable) - [place] Hameed MD s Cystoscopy with Ureteral Stent Exchange(Left) - [place] Hameed MD Actual Procedures p Clot Evacuation and Fulguration(Not Applicable) - [place] Hameed MD s Transurethral Resection Bladder Tumor(Not Applicable) - [place] Hameed MD Anesthesia Type General Case Staff Anesthesia Provider: Taylor Lofton Case Times Procedure Start: 08/14/25 09:30 Time out: 08/14/25 09:29 Pre-Op Diagnosis: hematuria, prostate cancer Post Op Diagnosis: same Procedure Note Estimated Blood Loss (ml): 50 Findings: massive tumor burden unable to safely keep left ureteral access, stent not exchanged Complications: unable to replace stent Other Other Information/Narrative: After informed consent was obtained the patient was brought to the OR and laid in the supine position. The patient was anesthetized per anesthesia protocols and prepped and draped in usual sterile fashion in the dorsolithotomy position. A formal timeout was performed reconfirming the patient and procedure and laterality. A 22 Macedonian cystoscope was advanced per urethra into the urinary bladder. He was noted to have significant urethral pathology with masses throughout his pendulous and bulbar urethra. His prostate was moderately enlarged with atypical nodular extensions medially. His bladder itself throughout the entire trigone and lower half of the bladder was a nodular mass of clearly malignant origin. The terminal end of his left ureteral stent was seen emanating from 1 of these masses. A small amount of blood clot in the bladder which was evacuated out. there was nothing significantly bleeding We switched out the cystoscope for a 26 Macedonian resectoscope and using loop electrocautery and the bipolar setting we attempted to resect the mass that the stent was emanating from in order to gain proximal access. After resecting down to the level of the orthotopic UO we switched back to the cystoscope but we are unable to place a wire next to the stent. We used an Jayne's retractor to also try and get better access but this again was unsuccessful. After 45 minutes of trialing to obtain proximal access elected to leave the stent in place in order to limit the need for a nephrostomy tube. His resectoscope was then replaced and we used spot cautery for hemostasis which was excellent. We elected not to send pathology. A 22 Macedonian three-way Taylor catheter was placed with 30 cc in the balloon. He was placed on gentle continuous bladder irrigation He will return to the medical floor today. He will likely have a minor transfusion. I think he can go home today with his nephrostomy tube on the right side in place and his Taylor catheter in place. I think his left ureteral stent cannot be exchanged in a retrograde fashion. He may need a left nephrostomy tube in the future. I think he has only a short amount of time to live perhaps 1-3 months
[2025-08-14] MEDS: ceFAZolin (2G) 2 GM in SODIUM CHLORIDE 0.9% MINIBAG 100 ML IV ONE (10:34)
[2025-08-14] MEDS ORDERED: HYDROmorphone 0.5 MG/0.5 ML SYRINGE ONE ×2 (10:35→10:51)
[2025-08-14] MEDS: HYDROmorphone 0.5 MG/0.5 ML SYRINGE IVP PRN (10:36)
[2025-08-14] MEDS: LACTATED RINGERS 1,000 ML IV SCH (10:38)
[2025-08-14] MEDS: INSULIN LISPRO 300 UNIT/3 ML PEN SUBQ SCH (11:53)
--- NOTE | 2025-08-14 12:54 | ANESTHESIA POST OP EVALUATION ---
Anesthesia Post Eval Post Anesthesia Eval Vitals: Last Vital Signs Temp 36.8 C 08/14/25 12:36 Pulse 54 L 08/14/25 12:36 Resp 18 08/14/25 12:36 BP 120/60 08/14/25 12:36 Pulse Ox 92 08/14/25 12:36 O2 Flow Rate 2 08/13/25 20:35 CV Function Including HR & BP: Stable Pain Control: Satisfactory Nausea & Vomiting: Negative Mental Status: Baseline Respiratory Status: Airway Patent Hydration Status: Satisfactory Anesthesia Complications: None
[2025-08-14 13:30] LABS: ESTIMATED AVERAGE GLUCOSE 103 mg/dL (70-100); HEMOGLOBIN A1c% 5.2 % (4.27-6.07)
[2025-08-14 15:16] LABS: HCT - HEMATOCRIT 24.6 % (42.0-52.0); HGB - HEMOGLOBIN 7.4 g/dL (14.0-18.0); MEAN PLATELET VOLUME 8.4 fL (7.4-11.4); NRBC ABSOLUTE COUNT (AUTO) 0.00 x10^3/uL; NUCLEATED RED BLOOD CELLS AUTO 0.0 /100WBC; PLT - PLATELET COUNT 114 10^3/uL (130-450); RED CELL DISTRIBUTION WIDTH 17.1 % (12.0-15.0)
[2025-08-14] MEDS: HEPARIN FLUSH 500 UNITS/5 ML SYRINGE IVP PRN (15:38)
[2025-08-14 16:12] VITALS: BP 108/73; TEMP 98.2; O2SAT 98
--- NOTE | 2025-08-15 10:33 | XRAY Report ---
INDICATIONS: Surgical Procedure TECHNIQUE: Interoperative fluoroscopic support COMPARISON: None. FINDINGS/IMPRESSION: Fluoroscopic and utilized for left-sided nephroureteral stent placement. Please see operative report for further details Reviewed by: Nick Cranes MD on 08/15/2025 10:30 AM [facility] Approved by: Nick Carnes MD on 08/15/2025 10:30 AM [facility] Station ID: [id number]
--- OUTSIDE RECORDS SUMMARY | 2025-08-23 05:53 | EXTERNAL MEDICAL SUMMARY RPT | Encounter Summary ---
Author Organization [facility] Address [address] [place] [address] Care Team Providers Care Butt Presser Name Role Phone Nya Sagastume NP Primary Care Provider [phone] Encounter Details Date Type Department Care Team (Late st Contact Info) Description 05/07/[address] [facility] Oncology Infusion [address], [address] [place], [place] [phone] Polly Bahena RN Social History Tobacco Use Types Packs/Day Years Used Date Smoking Tobacco: Never Smokeless Tobacco: Never Alcohol Use Standard Drinks/Week Comments Yes 0 (1 standard drink = 0.6 oz pure alcohol) beer/wine 2-3 weekly for 50 yrs. [facility] Utilities Answer Date Recorded In the past 12 months has e Rewarding Return, gas, oil, or water company threatened to shut off services in your home? No 04/15/2025 Humiliation, Afraid, Rape, and Kick questionnair e Answer Date Recorded Within the last year, have y ou been afraid of your partner or ex-partner? No 04/15/2025 Emotionally Abused Not on file 04/15/2025 Physically Abused Not on file 04/15/2025 Sexually Abused Not on file 04/15/2025 Overall Financial Resource Strain (CARDIA) Answe r Date Recorded How hard is it for you to pa y for the very basics like food, housing, medical care, and heating? Not hard at all 04/15/2025 Hunger Vital Sign Answer Date Recorded Within the past 12 months, y ou worried that your food would run out before you got the money to buy more. Never true 07/29/20 25 Ran Out of Food in the Last Year Not on file 04/15/2025 PRAPARE - Transportation Answer Date Re corded Lack of Transportation (Medical) Not on file 04/15/2025 In the past 12 months, has l ack of transportation kept you from meetings, work, or from getting things needed for daily living? No 04/15/2025 Housing Stability Vital Sign Answer Sajan e Recorded Unable to Pay for Housing in the Last Year Not o n file 04/15/2025 Number of Times Moved in the Last Year Not on fi le 04/15/2025 At any time in the past 12 m [facility], were you homeless or living in a assisted (including now)? No 04/15/2025 Sex and Gender Information Value Date Recorded Sex Assigned at Male 11/17/2023 5:44 PM PST Legal Sex Male 6:46 PM PDT Gender Identity Male 11/17/2023 5:44 PM PST Sexual Orientation Straight 11/17/2023 5: 44 PM PST documented as of this encounter Plan of Treatment Upcoming Encounters Date Type Department Care Team (Late st Contact Info) Description 08/27/2025 10:45 AM PST Office Visit [facility] Urology [address] [phone] 09/08/2025 11:00 AM PST Office Visit [facility] Oncology [address], [address] [phone] Maxim Schreiber MD [address] [place] [phone] 10/08/2025 12:20 PM PST [facility] [address] [place] [phone] 10/08/2025 1:00 PM PST Office Visit [facility] Oncology [address], [address] [phone] Maxim Schreiber MD [address] [place] [phone] 10/08/2025 1:[address] [facility] Oncology Infusion [place] [address], [address] [place] [address] Maxim Schreiber MD [address] [address] [place] [phone] documented as of this encounter Visit Diagnoses Not on filedocumented in this encounter Care Teams Butt Presser Relationship Specialty Start Date End Date Nya Sagastume NP [address], [address] [place] [address] PCP - General Nurse Practitioner Family 04/14/25 documented as of this encounter
--- OUTSIDE RECORDS SUMMARY | 2025-08-23 05:53 | EXTERNAL MEDICAL SUMMARY RPT | Encounter Summary ---
Author Organization [facility] Address [address] [place] [address] Care Team Providers Care Cloth Cutting Inspector Name Role Phone Nya Sagastume NP Primary Care Provider Encounter Details Date Type Department Care Team (Late Contact Info) Description 05/31/[address] 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 Sex and Gender Information Value Date Recorded Sex Assigned at Male 11/17/2023 5:44 PM PST Legal Sex Male 6:46 PM PDT Gender Identity Male 11/17/2023 5:44 PM PST Sexual Orientation Straight 11/17/2023 5: 44 PM PST documented as of this encounter Plan of Treatment Upcoming Encounters Date Type Department Care Team (Late Contact Info) Description 08/27/2025 10:45 AM PST Office Visit [facility] Urology [address] [phone] 09/08/2025 11:00 AM PST Office Visit [facility] Oncology [address], [address] [place] [address] Maxim Schreiber MD [address] [place] [address] [address] [place] [phone] 10/08/2025 12:20 PM PST Lab [facility] [address] [place] [address], [address] [place] [phone] 10/08/2025 1:00 PM PST Office Visit [facility] Oncology [address], [address] [place] [phone] Maxim Schreiber MD [address] [place] [address] [address] [place] [phone] 10/08/2025 1:[address] [facility] Oncology Infusion [address], [address] [place], [place] [phone] Maxim Schreiber MD [address] [place] [phone] documented as of this encounter Results * Prostate-Specific Ag (06/04/2024 2:43 PM PDT) Pathologist [facility] PSA, Serum/Plasma <0.06 <=4.00 ng/mL LAB CHEMISTRY METHOD 06/05/2024 10:26 AM PDT [facility] Comment:Patients taking Biot in supplements may have falsely decreased HCG, Ferritin, PSA, Troponin, or TSH test values. Blood Venous blood / Unknown Venipuncture / Unknown 06/04/2024 2:43 PM PDT 06/04/2024 3:14 PM PDT us Maxim Schreiber MD LAB BLOOD ORDERABLES Final Resul t [facility] [address] [place] [address], * (ABNORMAL) Comprehensive Metabolic Panel (06/04/2024 2:43 PM PDT) [facility] Sodium, Serum/Plasma 141 135 - 145 mmol/L LAB CHEMISTRY METHOD 06/04/2024 3:28 PM [facility] Potassium, Serum/Plasma 4.4 3.5 - 5.2 mmol/L LAB CHEMISTRY METHOD 06/04/2024 3:28 PM [facility] Chloride, Serum/Plasma 102 98 - 107 mmol/L LAB CHEMISTRY METHOD 06/04/2024 3:28 PM [facility] CO2, Serum/Plasma 30 22 - 30 mmol/L LAB CHEMISTRY METHOD 06/04/2024 3:28 PM [facility] Anion Gap, Serum/Plasma 9 3 - 11 mmol/L 06/04/2024 3:28 PM [facility] Urea Nitrogen, Serum/Plasma 19.6 8.0 - 27.0 mg/dL LAB CHEMISTRY METHOD 06/04/2024 3:28 PM [facility] Creatinine, Serum/Plasma 1.14 0.76 - 1.27 mg/dL LAB CHEMISTRY METHOD 06/04/2024 3:28 PM [facility] Glucose, Serum/Plasma 205(H) 65 - 99 mg/dL LAB CHEMISTRY METHOD 06/04/2024 3:28 PM [facility] Calcium, Serum/Plasma 9.9 8.5 - 10.1 mg/dL LAB CHEMISTRY METHOD 06/04/2024 3:28 PM [facility] AST, Serum/Plasma 47 17 - 59 U/L LAB CHEMISTRY METHOD 06/04/2024 3:28 PM [facility] ALT, Serum/Plasma 69(H) <50 U/L LAB CHEMISTRY METHOD 06/04/2024 3:28 PM [facility] Alkaline Phosphatase, Serum/Plasma 86 25 - 160 U/L LAB CHEMISTRY METHOD 06/04/2024 3:28 PM [facility] Total Protein, Serum/Plasma 7.6 6.3 - 8.2 g/dL LAB CHEMISTRY METHOD 06/04/2024 3:28 PM [facility] eGFR, Serum/Plasma (CKD-EPI 2020) 66 >60 (CKD-EPI 2020) mL/min/1. 73 m2 06/04/2024 3:28 PM [facility] Comment:eGFR calculation has been updated by recommendation of the National Kidney Foundation (NKF) without the race variable. This change was made on December 05, 2022 Albumin, Serum/Plasma 4.5 3.4 - 5.0 g/dL LAB CHEMISTRY METHOD 06/04/2024 3:28 PM PDT [facility] Bilirubin, Total, Serum/Plasma <0.9 0.2 - 1.3 mg/dL LAB CHEMISTRY METHOD 06/04/2024 3:28 PM PDT [facility] BUN/Creatinine Ratio, Serum/Plasma 17.2 6.0 - 24.0 06/04/2024 3:28 PM PDT [facility] Blood Venous blood / Unknown Venipuncture / Unknown 06/04/2024 2:43 PM PDT 06/04/2024 3:28 PM PDT us Maxim Scheriber MD LAB BLOOD ORDERABLES Final Resul t [facility] [address] [place] [address], documented in this encounter Visit Diagnoses Diagnosis Prostate cancer metastatic to multiple sites (CMS/HCC)- Primary Antineoplastic chemotherapy induced anemia documented in this encounter Care Teams Cloth Cutting Inspector Relationship Specialty Start Date End Date Nya Sagastume NP [address], [address] [place] [address] PCP - General Nurse Practitioner Family 04/14/25 documented as of this encounter
--- OUTSIDE RECORDS SUMMARY | 2025-08-23 05:53 | EXTERNAL MEDICAL SUMMARY RPT | Clinical Summary ---
Author Organization [facility] Address [address] [place] [address] Care Team Providers Care Over Short And Damage Clerk Name Role Phone Sonja Elizabeth DO Primary Care Provider [phone] Social History Tobacco Use Types Packs/Day Years Used Date Smoking Tobacco: Never Assessed Sex and Gender Information Value Date Recorded Sex Assigned at Not on file Legal Sex Male 10:39 AM PST Gender Identity Not on file Sexual Orientation Not on file Plan of Treatment Health Maintenance Due Date Last Done Comments Audit-C Screening 1965 Social Drivers of Health Scr eening (Neurology Stroke Physician- MP Primary C Only) 1965 DTaP/Tdap/Td (1 - Tdap) 1966 Pneumococcal Vaccine: 50+ Years (1 of 1 - PCV) 997 Zoster Vaccine (1 of 2) 1997 Advance Care Planning 2012 Falls Screening 2012 Covid-19 Immunization (1 - 2024- season) 2025 Influenza Vaccine (#1) 2025 Care Teams Over Short And Damage Clerk Relationship Specialty Start Date End Date Sonja Elizabeth DO [address] [place] [address] PCP - General Family Medicine 09/21/18
--- OUTSIDE RECORDS SUMMARY | 2025-08-23 05:53 | EXTERNAL MEDICAL SUMMARY RPT | Encounter Summary ---
Author Organization [facility] Address [address] [place] [address] Care Team Providers Care Electric Shipyard Operator Name Role Phone Nya Sagastume NP Primary Care Provider [phone] Encounter Details Date Type Department Care Team ([facility] Contact Info) Description 05/09/2024 Abstract [facility] Oncology Infusion [address], [facility] [address] [place], [place] [phone] Yves Pollard Provider [address] [place], [place] [phone] Social History Tobacco Use Types Packs/Day Years [...] Description 08/27/2025 10:45 AM PST Office Visit [facility] Urology [address] [phone] 09/08/2025 11:00 AM PST Office Visit [facility] Oncology [address], [address] [place] [phone] Maxim Schreiber MD [address] [place] [address] [address] [place] [phone] 10/08/2025 12:20 PM PST Lab [facility] [address] [place] [address], [address] [place] [address] 10/08/2025 1:00 PM PST Office Visit [facility] Oncology [address], [address] [place] [phone] Maxim Schreiber MD [address] [place] [address] [address] [place] [phone] 10/08/2025 1:30 PM PST Infusion [facility] Oncology Infusion [address], [address] [place], [place] [phone] Maxim Schreiber MD [address] [place] [phone] documented as of this encounter Visit Diagnoses Not on filedocumented in this encounter Care Teams Electric Shipyard Operator Relationship Specialty Start Date End Date Nya Sagastume NP [address], [address] [place], [place] [phone] PCP - General Nurse Practitioner Family 04/14/25 documented as of this encounter
--- OUTSIDE RECORDS SUMMARY | 2025-08-23 05:53 | EXTERNAL MEDICAL SUMMARY RPT | Encounter Summary ---
Author Organization [facility] Address [address] [place] [address] Care Team Providers Care Project Engineering Manager Name Role Phone Nya Sagastume NP Primary Care Provider [phone] Encounter Details Date Type Department Care Team (Late st Contact Info) Description 03/04/2025 Abstract [facility] Oncology [address], [address] [address] Maxim Schreiber MD [address] [place] [phone] Social History Tobacco Use Types Packs/Day Years [...] Description 08/27/2025 10:45 AM PST Office Visit [facility] Urology [place] [address] [place] [phone] 09/08/2025 11:00 AM PST Office Visit [facility] Oncology [address], [facility] [address] [place] [address] Maxim Schreiber MD [address] [place] [address] [address] [place] [phone] 10/08/2025 12:20 PM PST Lab [facility] [address] [place] [address], [address] [place] [phone] 10/08/2025 1:00 PM PST Office Visit [facility] Oncology [address], [address] [place] [phone] Maxim Schreiber MD [address] [place] [address] [address] [place] [phone] 10/08/2025 1:30 PM PST Infusion [facility] Oncology Infusion [address], [address] [place] [address] Maxim Schreiber MD [address] [place] [address] [address] [place] [phone] documented as of this encounter Visit Diagnoses Not on filedocumented in this encounter Care Teams Project Engineering Manager Relationship Specialty Start Date End Date Nya Sagastume NP [address], [address] [place] [address] PCP - General Nurse Practitioner Family 04/14/25 documented as of this encounter
--- OUTSIDE RECORDS SUMMARY | 2025-08-23 05:53 | EXTERNAL MEDICAL SUMMARY RPT | Encounter Summary ---
Author Organization [facility] Address [address] [place] [address] Care Team Providers Care Aerospace Control And Warning Systems Name Role Phone Nya Sagastume NP Primary Care Provider [phone] Encounter Details Date Type Department Care Team ([facility] Contact Info) Description 03/24/2024 Abstract [facility] Oncology Infusion [address], [facility] [address] [place], [place] [phone] Yves Pollard Provider [address] [place], [place] [phone] Social History Tobacco Use Types Packs/Day Years [...] Description 08/27/2025 10:45 AM PST Office Visit [facility] Urology [address] [phone] 09/08/2025 11:00 AM PST Office Visit [facility] Oncology [address], [address] [place] [phone] Maxim Schreiber MD [address] [place] [address] [address] [place] [phone] 10/08/2025 12:20 PM PST Lab [facility] [address] [place] [address], [address] [place] [address] 10/08/2025 1:00 PM PST Office Visit [facility] Oncology [address], [address] [place] [phone] Maxim Schreiber MD [address] [place] [address] [address] [place] [phone] 10/08/2025 1:30 PM PST Infusion [facility] Oncology Infusion [address], [address] [place], [place] [phone] Maxim Schreiber MD [address] [place] [phone] documented as of this encounter Visit Diagnoses Not on filedocumented in this encounter Care Teams Aerospace Control [employer] Warning Systems Relationship Specialty Start Date End Date Nya Sagastume NP [address], [address] [place], [place] [phone] PCP - General Nurse Practitioner Family 04/14/25 documented as of this encounter
--- OUTSIDE RECORDS SUMMARY | 2025-08-23 05:53 | EXTERNAL MEDICAL SUMMARY RPT | Encounter Summary ---
Author Organization [facility] Address [address] [place] [address] Care Team Providers Care Certified Genetic Counselor Name Role Phone Nya Sagastume NP Primary Care Provider [phone] Encounter Details Date Type Department Care Team (Late st Contact Info) Description 10/24/2024 Abstract [facility] Cardiology [address], [address] [place] [address] Dennis Pena MD [address] [place] [address] Social History Tobacco Use Types Packs/Day Years [...] Description 08/27/2025 10:45 AM PST Office Visit [facility] Urology [place] [address] [place] [phone] 09/08/2025 11:00 AM PST Office Visit [facility] Oncology [address], [address] [place] [address] Maxim Schreiber MD [address] [place] [address] [address] [place] [phone] 10/08/2025 12:20 PM PST Lab [facility] [address] [place] [address], [address] [place] [phone] 10/08/2025 1:00 PM PST Office Visit [facility] Oncology [address], [address] [place] [phone] Maxim Schreiber MD [address] [place] [address] [address] [place] [phone] 10/08/2025 1:30 PM PST Infusion [facility] Oncology Infusion [address], [address] [place] [address] Maxim Schreiber MD [address] [place] [address] [address] [place] [phone] documented as of this encounter Visit Diagnoses Not on filedocumented in this encounter Care Teams Certified Genetic Counselor Relationship Specialty Start Date End Date Nya Sagastume NP [address], [address] [place] [address] PCP - General Nurse Practitioner Family 04/14/25 documented as of this encounter
--- OUTSIDE RECORDS SUMMARY | 2025-08-23 05:53 | EXTERNAL MEDICAL SUMMARY RPT | Encounter Summary ---
Author Organization [facility] Address [address] [place] [address] Care Team Providers Care Semi Truck Driver Name Role Phone Nya Sagastume NP Primary Care Provider [phone] Encounter Details Date Type Department Care Team (Late st Contact Info) Description 04/28/2025 Orders Only [facility] Infusion [address], [address] [place], [place] [phone] Roland Medina, RN Prostate cancer metastatic to multiple sites (CMS/HCC) (Primary Dx) Social History Tobacco Use Types Packs/Day Years Used Date Smoking Tobacco: Never Smokeless Tobacco: Never Alcohol Use Standard Drinks/Week Comments Yes 0 (1 standard drink = 0.6 oz pure alcohol) beer/wine 2-3 weekly for 50 yrs. [facility] Utilities Answer Date Recorded In the past 12 months has th e electric, gas, oil, or water company threatened to [...] the money to buy more. Never true 04/15/20 25 Ran Out of Food in the [...] any time in the past 12 m [facility], were you homeless or living in a retirement (including now)? No 04/15/2025 Sex and Gender [...] Description 08/27/2025 10:45 AM PST Office Visit [facility] [address] [phone] 09/08/2025 11:00 AM PST Office Visit [facility] [address], [address] [phone] Maxim Schreiber MD [address] [place] [address] [phone] 10/08/2025 12:20 PM PST Lab [facility] [address] [place] [address] [phone] 10/08/2025 1:00 PM PST Office Visit [facility] [address], [address] [phone] Maxim Schreiber MD [address] [place] [address] [phone] 10/08/2025 1:30 PM PST Infusion [facility] Infusion [address], [address] [place], [place] [phone] Maxim Schreiber MD [address] [place] [phone] documented as of this encounter Results * Magnesium (05/07/2025 9:15 AM PDT) Pathologist [facility] Magnesium, Serum/Plasma 2.1 1.6 - 2.4 mg/dL LAB CHEMISTRY METHOD 05/07/2025 9:54 AM [facility] Blood Venous blood / Unknown Venipuncture / Unknown 05/07/2025 9:15 AM PDT 05/07/2025 9:15 AM PDT us Maxim Schreiber MD LAB BLOOD ORDERABLES Final Resul t [facility] [address] [place] [address], * (ABNORMAL) Comprehensive Metabolic Panel (05/07/2025 9:15 AM PDT) Pathologist [facility] Sodium, Serum/Plasma 140 135 - 145 mmol/L LAB CHEMISTRY METHOD 05/07/2025 9:59 AM [facility] Potassium, Serum/Plasma 4.1 3.5 - 5.2 mmol/L LAB CHEMISTRY METHOD 05/07/2025 9:59 AM [facility] Chloride, Serum/Plasma 106 98 - 107 mmol/L LAB CHEMISTRY METHOD 05/07/2025 9:59 AM [facility] CO2, Serum/Plasma 26 22 - 30 mmol/L LAB CHEMISTRY METHOD 05/07/2025 9:59 AM [facility] Anion Gap, Serum/Plasma 8 3 - 11 mmol/L 05/07/2025 9:59 AM [facility] Urea Nitrogen, Serum/Plasma 24.8 8.0 - 27.0 mg/dL LAB CHEMISTRY METHOD 05/07/2025 9:59 AM [facility] Creatinine, Serum/Plasma 1.41(H) 0.76 - 1.27 mg/dL LAB CHEMISTRY METHOD 05/07/2025 9:59 AM [facility] Glucose, Serum/Plasma 219(H) 65 - 99 mg/dL LAB CHEMISTRY METHOD 05/07/2025 9:59 AM [facility] Calcium, Serum/Plasma 9.7 8.5 - 10.1 mg/dL LAB CHEMISTRY METHOD 05/07/2025 9:59 AM [facility] AST, Serum/Plasma 36 17 - 59 U/L LAB CHEMISTRY METHOD 05/07/2025 9:59 AM [facility] ALT, Serum/Plasma 31 <50 U/L LAB CHEMISTRY METHOD 05/07/2025 9:59 AM [facility] Alkaline Phosphatase, Serum/Plasma 106 25 - 160 U/L LAB CHEMISTRY METHOD 05/07/2025 9:59 AM [facility] Total Protein, Serum/Plasma 7.4 6.3 - 8.2 g/dL LAB CHEMISTRY METHOD 05/07/2025 9:59 AM [facility] eGFR, Serum/Plasma (CKD-EPI 2020) 51(L) >60 (CKD-EPI 2020) mL/min/1. 73 m2 05/07/2025 9:59 AM [facility] Comment: eGFR calculation has been updated by recommendation of the National Kidney Foundation (NKF) without the race variable. This change was made on December 05, 2022 Interpretation for GFR in Chronic Kidney Disease can be viewed below. Albumin, Serum/Plasma 3.7 3.4 - 5.0 g/dL LAB CHEMISTRY METHOD 05/07/2025 9:59 AM [facility] Bilirubin, Total, Serum/Plasma <0.9 0.2 - 1.3 mg/dL LAB CHEMISTRY METHOD 05/07/2025 9:59 AM [facility] BUN/Creatinine Ratio, Serum/Plasma 17.6 6.0 - 24.0 05/07/2025 9:59 AM [facility] Blood Venous blood / Unknown Venipuncture / Unknown 05/07/2025 9:15 AM PDT 05/07/2025 9:15 AM PDT Narrative [facility] - 05/07/2025 9:59 AM PDT Interpretive Data The estimated glomerular filtration rate (eGFR) was calculated using the 2020 CKD-EPI eGFR creatinine equation, which does not include race as a factor. This equation is validated in individuals 18 years of age and older. Accurate estimation of GFR requires stable day-to-day creatinine. Creatinine-based eGFR is less accurate in patients with extremes of muscle mass, restriction of dietary protein, ingestion of creatine, extra-renal metabolism of creatinine, or treatment with medications that affect renal tubular creatinine secretion. The eGFR is normalized to a body surface area of 1.73 square meters. GFR Categories in Chronic Kidney Disease (CKD) GFR Category GFR (mL/min/1.73 square meters) Interpretation G1 90 or greater Normal to high* G2 60-89 Mild decrease* G3a 45-59 Mild to moderate decrease G3b 30-44 Moderate to severe decrease G4 15-29 Severe decrease G5 14 or less Kidney failure *In the absence of evidence of kidney damage, neither GFR category G1 nor G2 fulfill the criteria for CKD (Kidney Int Suppl 2013;3:1-150) us Maxim Schreiber MD LAB BLOOD ORDERABLES Final Resul t [facility] [address] [place] [address], documented in this encounter Visit Diagnoses Diagnosis Prostate cancer metastatic to multiple sites (CMS/HCC)- Primary documented in this encounter Care Teams Semi Truck Driver Relationship Specialty Start Date End Date Nya Sagastume NP [address], [address] [place] [address] PCP - General Nurse Practitioner Family 04/14/25 documented as of this encounter
--- OUTSIDE RECORDS SUMMARY | 2025-08-23 05:53 | EXTERNAL MEDICAL SUMMARY RPT | Encounter Summary ---
Author Organization [facility] Address [address] [place] [address] Care Team Providers Care Gambreler Name Role Phone Nya Sagastume NP Primary Care Provider [phone] Encounter Details Date Type Department Care Team (Late st Contact Info) Description 10/21/2024 Abstract [facility] On[facility] [address], [address] [address] Maxim Schreiber MD [address] [place] [address] [phone] Social History Tobacco Use Types Packs/Day Years [...] Description 08/27/2025 10:45 AM PST Office Visit Located [facility] [place] [address] [place] [phone] 09/08/2025 11:00 AM PST Office Visit [facility] Oncology [address], [facility] [address] [place] [address] Maxim Schreiber MD [address] [place] [address] [address] [place] [phone] 10/08/2025 12:20 PM PST Lab [facility] [address] [place] [address], [address] [place] [phone] 10/08/2025 1:00 PM PST Office Visit [facility]cology [address], [address] [place] [phone] Maxim Schreiber MD [address] [place] [address] [address] [place] [phone] 10/08/2025 1:30 PM PST Infusion [facility] Infusion [address], [address] [place] [address] Maxim Schreiber MD [address] [place] [address] [address] [place] [phone] documented as of this encounter Visit Diagnoses Not on filedocumented in this encounter Care Teams Gambreler Relationship Specialty Start Date End Date Nya Sagastume NP [address], [address] [place] [address] PCP - General Nurse Practitioner Family 04/14/25 documented as of this encounter
--- OUTSIDE RECORDS SUMMARY | 2025-08-23 05:53 | EXTERNAL MEDICAL SUMMARY RPT | Encounter Summary ---
Author Organization [facility] Address [address] [place] [address] Care Team Providers Care Sewer Pipe Press Operator Name Role Phone Nya Sagastume NP Primary Care Provider Encounter Details Date Type Department Care Team ([facility] Contact Info) Description 02/08/2024 Abstract [facility] Oncology Infusion [address], [facility] [address] [place], [place] [phone] Yves Pollard Provider [address] [place], [place] [phone] Social History Tobacco Use Types Packs/Day Years [...] Description 08/27/2025 10:45 AM PST Office Visit [facility] [address] [phone] 09/08/2025 11:00 AM PST Office Visit [facility] Oncology [address], [address] [place] [phone] Maxim Schreiber MD [address] [place] [address] [address] [place] [phone] 10/08/2025 12:20 PM PST Lab [facility] [address] [place] [address], [address] [place] [address] 10/08/2025 1:00 PM PST Office Visit [facility] Oncology [address], [address] [place] [phone] Maxim Schreiber MD [address] [place] [address] [address] [place] [address] 10/08/2025 1:30 PM PST Infusion [facility] Oncology Infusion [address], [address] [place], [place] [phone] Maxim Schreiber MD [address] [place] [phone] documented as of this encounter Visit Diagnoses Not on filedocumented in this encounter Care Teams Sewer Pipe Press Operator Relationship Specialty Start Date End Date Nya Sagastume NP [address], [address] [place], [place] [phone] PCP - General Nurse Practitioner Family 04/14/25 documented as of this encounter
--- OUTSIDE RECORDS SUMMARY | 2025-08-23 05:53 | EXTERNAL MEDICAL SUMMARY RPT | Encounter Summary ---
Author Organization [facility] Address [address] [place] [address] Care Team Providers Care Manufacturer Agent Name Role Phone Nya Sagastume NP Primary Care Provider [phone] Encounter Details Date Type Department Care Team (Late Contact Info) Description 08/01/2024 Abstract [facility] Oncology [address], [address] [phone] Pippa Stanford ARNP [address] [place] [address] Social History Tobacco Use Types Packs/Day [...] Description 08/27/2025 10:45 AM PST Office Visit [facility] [place] [address] [place] [phone] 09/08/2025 11:00 AM PST Office Visit [facility] Oncology [address], [address] [place] [address] Maxim Schreiber MD [address] [place] [address] [address] [place] [phone] 10/08/2025 12:20 PM PST Lab [facility] [address] [place] [address], [address] [place] [phone] 10/08/2025 1:00 PM PST Office Visit [facility] Oncology [address], [address] [place] [phone] Maxim Schreiber MD [address] [place] [address] [address] [place] [phone] 10/08/2025 1:30 PM PST Infusion [facility] Oncology Infusion [address], [address] [place] [address] Maxim Schreiber MD [address] [place] [phone] documented as of this encounter Visit Diagnoses Not on filedocumented in this encounter Care Teams Manufacturer Agent Relationship Specialty Start Date End Date Nya Sagastume NP [address], [address] [place] [address] PCP - General Nurse Practitioner Family 04/14/25 documented as of this encounter
--- OUTSIDE RECORDS SUMMARY | 2025-08-23 05:53 | EXTERNAL MEDICAL SUMMARY RPT | Encounter Summary ---
Author Organization [facility] Address [address] [place] [address] Care Team Providers Care Wringer Operator Name Role Phone Nya Sagastume NP Primary Care Provider [phone] Encounter Details Date Type Department Care Team ([facility] Contact Info) Description 03/19/2024 Orders Only [facility] Infusion [address], [address] [phone] Roland Medina, RN Prostate cancer metastatic to [...] Description 08/27/2025 10:45 AM PST Office Visit [facility] Urology [address] [phone] 09/08/2025 11:00 AM PST Office Visit [facility] Oncology [address], [address] [place] [phone] Maxim Schreiber MD [address] [place] [address] [address] [place] [address] 10/08/2025 12:20 PM PST Lab [facility] [address] [place] [address], [facility] [address] [place] [address] 10/08/2025 1:00 PM PST Office Visit [facility] [address], [facility] [address] [place] [address] Maxim Schreiber MD [address] [place] [address] [address] [place] [address] 10/08/2025 1:30 PM PST Infusion [facility] Infusion [address], [facility] [address] [place] [address] Maxim Schreiber MD [address] [place] [phone] documented as of this encounter Results * Blood Bank Hold Tube (03/26/2024 9:45 AM PDT) Extra Tube Hold for add-ons. 03/26/2024 10:01 PM PDT [facility] Comment:Auto resulted. Blood Venous blood / Unknown Venipuncture / Unknown 03/26/2024 9:45 AM PDT 03/26/2024 9:41 AM PDT [facility] BLOOD BANK TEST ORDERABL ES Final Result [facility] [address] [place] [address], [place] [phone] documented in this encounter Visit Diagnoses Diagnosis Prostate cancer metastatic to multiple sites (CMS/HCC)- Primary documented in this encounter Care Teams Wringer Operator Relationship Specialty Start Date End Date Nya Sagastume NP [address], [address] [place], [place] [phone] PCP - General Nurse Practitioner Family 04/14/25 documented as of this encounter
--- OUTSIDE RECORDS SUMMARY | 2025-08-23 05:53 | EXTERNAL MEDICAL SUMMARY RPT | Encounter Summary ---
Author Organization [facility] Address [address] [place] [address] Care Team Providers Care Probate Lawyer Name Role Phone Nya Sagastume NP Primary Care Provider [phone] Encounter Details Date Type Department Care Team (Late st Contact Info) Description 05/07/2025 Abstract [facility] Oncology Infusion [place] [address], [address] [place], [place] [phone] Mycryant, Generic Provider [address] [place], [place] [phone] Social History Tobacco Use Types Packs/Day Years Used Date Smoking Tobacco: Never Smokeless Tobacco: Never Alcohol Use Standard Drinks/Week Comments Yes 0 (1 standard drink = 0.6 oz pure alcohol) beer/wine 2-3 weekly for 50 yrs. [facility] Utilities Answer Date Recorded In the past 12 months has e electric, gas, oil, or water company [...] time in the past 12 m [facility], were you homeless or living in a halfway (including now)? No 04/15/2025 Sex and Gender [...] Description 08/27/2025 10:45 AM PST Office Visit [facility] Urology [address] [phone] 09/08/2025 11:00 AM PST Office Visit [facility] Oncology [address], [address] [phone] Maxim Schreiber MD [address] [place] [phone] 10/08/2025 12:20 PM PST Lab [facility] ONCOL[facility]Y [facility] [address] [place] [phone] 10/08/2025 1:00 PM PST Office Visit [facility] Oncology [address], [address] [phone] Maxim Schreiber MD [address] [place] [phone] 10/08/2025 1:30 PM PST Infusion [facility] Oncology Infusion [place] [address] [place] [address], [address] [place], [place] [phone] Maxim Schreiber MD [address] [place] [phone] documented as of this encounter Visit Diagnoses Not on filedocumented in this encounter Care Teams Probate Lawyer Relationship Specialty Start Date End Date Nya Sagastume NP [address], [address] [place] [address] PCP - General Nurse Practitioner Family 04/14/25 documented as of this encounter
--- OUTSIDE RECORDS SUMMARY | 2025-08-23 05:53 | EXTERNAL MEDICAL SUMMARY RPT | Encounter Summary ---
Author Organization [facility] Address [address] [place] [address] Care Team Providers Care Gas Engine Performance Engineer Name Role Phone Nya Sagastume NP Primary Care Provider [phone] Reason for Visit * Reason Onset Date Comments Med Refill 03/11/2024 Encounter Details Date Type Department Care Team (Late st Contact Info) Description 03/11/2024 Refill [facility] Oncology [address], [address] [place] [phone] Pippa Stanford ARNP [address] [place] [phone] [place] [phone] Prostate cancer metastatic to multiple sites (CMS/HCC) Social History Tobacco Use Types Packs/Day Years [...] 08/27/2025 10:45 AM PST Office Visit [facility] [place] [address] [place] [phone] 09/08/2025 11:00 AM PST Office Visit [facility] Oncology [place] [address] [place] [address], [address] [place] [phone] Maxim Schreiber MD [address] [place] [address] [address] [place] [address] 10/08/2025 12:20 PM PST Lab [facility] [address] [place] [address], [address] [place] [phone] 10/08/2025 1:00 PM PST Office Visit [facility] Oncology [address], [address] [place] [phone] Maxim Schreiber MD [address] [place] [address] [place] [phone] 10/08/2025 1:30 PM PST Infusion [facility] Oncology Infusion [address], [address] [place], [place] [phone] Maxim Schreiber MD [address] [place] [phone] documented as of this encounter Visit Diagnoses Diagnosis Prostate cancer metastatic to multiple sites (CMS/HCC) documented in this encounter Care Teams Gas Engine Performance Engineer Relationship Specialty Start Date End Date Nya Sagastume NP [address], [address] [place], [place] [phone] PCP - General Nurse Practitioner Family 04/14/25 documented as of this encounter
--- OUTSIDE RECORDS SUMMARY | 2025-08-23 05:53 | EXTERNAL MEDICAL SUMMARY RPT ---
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 PAC Access* Plan Start Date:12/11/2024 Plan Provider:Maxim Schreiber MD Linked Problems Prostate cancer metastatic t o multiple sites ([facility]/HCC) Treatment Medications No medications scheduled. [facility] Blood Therapy Plan* Plan Start Date:03/26/2024 Plan Provider:Maxim Schreiber MD Linked Problems Prostate cancer metastatic t o multiple sites (CMS/HCC) Treatment Medications No medications scheduled. tarlatamab-dlle + atezolizumab, 28 day cycles, small cell cancer* Plan Start Date:07/30/2025 Plan Provider:Maxim Schreiber MD Linked Problems Small cell neuroendocrine ma lignant neoplasm of prostate (CMS/HCC)Prostate cancer metastatic to multiple sites (CMS/HCC) Treatment Medications Current Day (Day 1 , Prescriptions - Planned for 07/30/2025) Next Day (Day 1, Cycle 1 - Planned for 07/31/2025) atezolizumab IVPB (840 mg)tarlatamab-dlle (IMDELLTRA) IVPB No medications scheduled. atezolizumab 1,680 mg in sodium chloride (NS) 0.9 % 278 mL IVPBtarlatamab-dlle (IMDELLTRA) 1 mg in sodium chloride (NS) 0.9 % 250 mL IVPB Past Treatment and Therapy Plans ONCOLOGY TREATMENT Plan Name Start Date Discontinue Date Treatment Medications Discontinue Reason Plan Provider Cycles Carboplatin/ Etoposide, 21 Day Cycle, Prostate, Small Cell 12/11/2024 07/16/2025 CARBOplatin (PARAPLATIN) chemo IVPB (by AUC)etoposide chemo 1000 mL IVPB Progressive Disease Maxim Schreiber MD 6 of 6 cycles started DOCEtaxel, 21 Day Cycles, Prostate 12/18/2023 11/27/2024 DOCEtaxel chemo IVPB Progressive Disease Maxim Schreiber MD 6 of 6 cycles started Oncology Flush Therapy Plan Plan Name Start Date Discontinue Date Treatment Medications Discontinue Reason Plan Provider Central Line Care: Port Maintenance 05/10/2024 12/02/2024 No medications scheduled. Change in Level of Care Shawanda Christine RN PAC Access 12/26/2023 04/10/2024 No medications scheduled. Change in Level of Care Polly Bahena RN Lifetime Dose Tracking * Chemical Lifetime Dose Automatic Entry Manual Entr y Radiation 33.65 mGy 33.65 mGy 0 mGy Fluoro Time 1 minutes 1 minutes 0 minutes
--- OUTSIDE RECORDS SUMMARY | 2025-08-23 05:53 | EXTERNAL MEDICAL SUMMARY RPT | Encounter Summary ---
Author Organization [facility] Address [address] [place] [address] Care Team Providers Care Major Gifts Officer Name Role Phone Nya Sagastume NP Primary Care Provider Encounter Details Date Type Department Care Team (Late st Contact Info) Description 08/19/2025 Telephone [facility] Oncology [address], [address] [place] [address] Leslie Al RN Social History Tobacco Use Types Packs/Day Years Used Date Smoking Tobacco: Never Smokeless Tobacco: Never Comments:Parents/brothers/so n are smokers but I - never Alcohol Use Standard Drinks/Week Comments Not Currently 1 (1 standard drink = 0.6 oz pure alcohol) beer/wine 2-3 weekly for 50 yrs. [facility] Utilities Answer Date Recorded In the past 12 months has [facility] [employer], gas, oil, or water [employer] threatened to shut off services in your [...] any time in the past 12 m [facility], were you homeless or living in a longterm (including now)? No 04/15/2025 AUDIT-C Answer Date Recorded Q1: How often do you have a drink containing alc ohol? 2-4 times a month 08/19/2025 Average Number of Drinks Not on file 025 Q3: How often do you have si x or more drinks on one occasion? Never 08/19/2025 Sex and Gender Information Value Date Recorded Sex Assigned at Male 11/17/2023 5:44 PM PST Legal Sex Male 6:46 PM PDT Gender Identity Male 11/17/2023 5:44 PM PST Sexual Orientation Straight 11/17/2023 5: 44 PM PST documented as of this encounter Miscellaneous Notes * Telephone Encounter - Leslie Al RN - 08/19/2025 10:56 AM PST Received 08/13/25 CT report. Copies forwarded to for scanning. documented in this encounter Plan of Treatment Upcoming Encounters Date Type Department Care Team (Late st Contact Info) Description 08/27/2025 10:45 AM PST Office Visit [facility] Urology [place] [address] [place] [phone] 09/08/2025 11:00 AM PST Office Visit [facility] Oncology [place] [address], [address] [place] [address] Maxim Schreiber MD [address] [place] [address] [address] [place] [phone] 10/08/2025 12:20 PM PST Lab [facility] [address] [place] [address], [facility] [address] [place] [phone] 10/08/2025 1:00 PM PST Office Visit [facility] Oncology [address], [facility] [address] [place] [phone] Maxim Schreiber MD [address] [place] [phone] 10/08/2025 1:30 PM PST Infusion [facility] Oncology Infusion [address], [address] [address] Maxim Schreiber MD [address] [place] [phone] documented as of this encounter Visit Diagnoses Not on filedocumented in this encounter Care Teams Major Gifts Officer Relationship Specialty Start Date End Date Nya Sagastume NP [address], [address] [place] [address] PCP - General Nurse Practitioner Family 04/14/25 documented as of this encounter
--- OUTSIDE RECORDS SUMMARY | 2025-08-23 05:53 | EXTERNAL MEDICAL SUMMARY RPT | Encounter Summary ---
Author Organization [facility] Address [address] [place] [address] Care Team Providers Care Mail Carrier Name Role Phone Nya Sagastume NP Primary Care Provider [phone] Reason for Referral * Diagnostic Imaging (Routine) - Closed Specialty Diagnoses / Procedures Referred By Contac t Referred To Contact Radiology Procedures DEXA COMPLETE [facility] Information Management [address] [place] [address] Phone: tel: fax: Referral ID Status Reason Start Date Expiration Date V isits Requested Visits Authorized [id number] Closed Specialty Services Required 01/18/2024 01/12/2025 1 1 Encounter Details Date Type Department Care Team (Late Contact Info) Description 01/18/2024 Abstract [facility] [address] [place] [address] [facility], Provider, Social History Tobacco Use Types Packs/Day Years [...] Office Visit [facility] Urology [place] [address] [place] [address] 09/08/2025 11:00 AM PST Office Visit [facility] Oncology [address], [address] [address] Maxim Schreiber MD [address] [place] [phone] 10/08/2025 12:20 PM PST Lab [facility] [address] [place] [phone] 10/08/2025 1:00 PM PST Office Visit [facility] Oncology [address], [address] [phone] Maxim Schreiber MD [address] [place] [phone] 10/08/2025 1:30 PM PST Infusion [facility] Oncology Infusion [address], [address] [address] Maxim Schreiber MD [address] [place] [phone] documented as of this encounter Procedures Procedure Name Priority Date/Time Associated Diagnosis Comments DEXA COMPLETE Routine 01/16/2024 documented in this encounter Results * DEXA COMPLETE (01/16/2024) [facility] Laterality Modality N/A Radiographic Radha ging us Ordering Provider RIS [facility] DXA PROCEDURES Final R esult documented in this encounter Visit Diagnoses Not on filedocumented in this encounter Care Teams Mail Carrier Relationship Specialty Start Date End Date Nya Sagastume NP [address], [address] [place] [address] PCP - General Nurse Practitioner Family 04/14/25 documented as of this encounter
--- OUTSIDE RECORDS SUMMARY | 2025-08-23 05:54 | EXTERNAL MEDICAL SUMMARY RPT | Encounter Summary ---
Author Organization [facility] Address [address] [place] [address] Care Team Providers Care Roustabout Head Name Role Phone Nya Sagastume NP Primary Care Provider [phone] Encounter Details Date Type Department Care Team ([facility] Contact Info) Description 01/20/[address] [facility] Oncology Infusion [address], [address] [phone] Roland Medina, RN Prostate cancer metastatic to [...] Description 08/27/2025 10:45 AM PST Office Visit [facility] Urology [address] [phone] 09/08/2025 11:00 AM PST Office Visit [facility] Oncology [address], [address] [place] [phone] Maxim Schreiber MD [address] [place] [address] [address] [place] [phone] 10/08/2025 12:20 PM PST Lab [facility] [address] [place] [address], [address] [place] [address] 10/08/2025 1:00 PM PST Office Visit [facility] Oncology [address], [address] [place] [phone] Maxim Schreiber MD [address] [place] [address] [address] [place] [address] 10/08/2025 1:[address] 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
--- OUTSIDE RECORDS SUMMARY | 2025-08-23 05:54 | EXTERNAL MEDICAL SUMMARY RPT | Encounter Summary ---
Author Organization [facility] Address [address] [place] [address] Care Team Providers Care Patient Consumer Marketer Name Role Phone Nya Sagastume NP Primary Care Provider [phone] Encounter Details Date Type Department Care Team (Late Contact Info) Description 02/20/[address] [facility] [place] [address] [place], [place] [phone] Mary Elizondo ARNP [address] [place], [place] [phone] Chronic kidney disease, stage IV (severe) (CMS/HCC) (Primary Dx); Anemia of chronic renal failure, unspecified CKD stage Social History Tobacco Use Types Packs/Day Years [...] Description 08/27/2025 10:45 AM PST Office Visit [facility] Urology [place] [address] [place] [address] 09/08/2025 11:00 AM PST Office Visit [facility] Oncology [address], [address] [place] [phone] Maxim Schreiber MD [address] [place] [address] [address] [place] [phone] 10/08/2025 12:20 PM PST Lab [facility] [address] [place] [address], [address] [phone] 10/08/2025 1:00 PM PST Office Visit [facility] Oncology [address], [facility] [address] [place] [phone] Maxim Schreiber MD [address] [place] [phone] 10/08/2025 1:[address] [facility] Oncology Infusion [address], [address] [address] Maxim Schreiber MD [address] [place] [phone] Scheduled Orders Name Type Priority Associated Diagnoses Orde r Schedule Methymalonic Acid, Serum or Plasma Lab Routine Chronic kidney disease, stage IV (severe) (CMS/HCC) Anemia of chronic renal failure, unspecified CKD stage Expected: 02/20/2025, Expires: 05/23/2026 Vitamin B12 Lab Routine Chronic kidney disease, stage IV (severe) (CMS/HCC) Anemia of chronic renal failure, unspecified CKD stage Expected: 02/20/2025, Expires: 05/23/2026 documented as of this encounter Visit Diagnoses Diagnosis Chronic kidney disease, stage IV (severe) (CMS/HCC)- Primary Chronic kidney disease, Stage IV (severe) Anemia of chronic renal failure, unspecified CKD stage documented in this encounter Care Teams Patient Consumer Marketer Relationship Specialty Start Date End Date Nya Sagastume NP [address], [address] [place], [place] [phone] PCP - General Nurse Practitioner Family 04/14/25 documented as of this encounter
--- OUTSIDE RECORDS SUMMARY | 2025-08-23 05:54 | EXTERNAL MEDICAL SUMMARY RPT | Encounter Summary ---
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 [facility] Utilities Answer Date Recorded In the past 12 months has e [employer], gas, oil, or water [employer] threatened to shut off services in your [...] any time in the past 12 m [facility], were you homeless or living in a skilled nursing (including now)? No 04/15/2025 Sex and Gender [...] Description 08/27/2025 10:45 AM PST Office Visit [facility] Urology [address] [phone] 09/08/2025 11:00 AM PST Office Visit [facility] Oncology [address], [address] [address] Maxim Schreiber MD [address] [place] [phone] 10/08/2025 12:20 PM PST Lab [facility] [address] [place] [phone] 10/08/2025 1:00 PM PST Office Visit [facility] Oncology [address], [address] [phone] Maxim Schreiber MD [address] [place] [phone] 10/08/2025 1:30 PM PST Infusion [facility] Oncology Infusion [place] [address], [address] [place], [place] [phone] Maxim Schreiber MD [address] [place] [phone] Scheduled Orders Name Type Priority Associated Diagnoses Orde r Schedule Comprehensive Metabolic Panel Lab STAT 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 (CMS/HCC) Expected: 07/31/2025, Expires: 07/31/2026 Complete blood count with diff Lab STAT 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 (CMS/HCC) Expected: 07/31/2025, Expires: 07/31/2026 Thyroid Stimulating Hormone, Reflex to Free T4 Lab Routine 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
--- OUTSIDE RECORDS SUMMARY | 2025-08-23 05:54 | EXTERNAL MEDICAL SUMMARY RPT | Encounter Summary ---
Author Organization [facility] Address [address] [place] [address] Care Team Providers Care Administrative Director Name Role Phone Nya Sagastume NP Primary Care Provider [phone] Reason for Referral * Diagnostic Imaging (Emergency) - Closed Specialty Diagnoses / Procedures Referred By Contac t Referred To Contact Radiology Diagnoses Hematuria, unspecified type Ureteral obstruction, right Procedures SI NEPHROSTOMY TUBE CHANGE RIGHT Satya Preston MD [address] [place] [address] Phone: tel: fax: Referral ID Status Reason Start Date Expiration Date V isits Requested Visits Authorized [id number] Closed Specialty Services Required 08/19/2025 08/14/2026 1 1 Reason for Visit * Reason Comments Blood in Urine Encounter Details Date Type Department Care Team (Late st Contact Info) Description 08/19/2025 8:45 AM PST Office Visit [facility] [place] [address] [place] [address] Satay Preston MD [address] [place] [address] Hematuria, unspecified type (Primary Dx); Ureteral obstruction, right Social History Tobacco Use Types Packs/Day Years Used Date Smoking Tobacco: Never Smokeless Tobacco: Never Comments:Parents/brothers/so n are smokers but I - never Alcohol Use Standard Drinks/Week Comments Not Currently 1 (1 standard drink = 0.6 oz pure alcohol) beer/wine 2-3 weekly for 50 yrs. [facility] Utilities Answer Date Recorded In the past 12 months has th e [employer], gas, oil, or water company threatened to [...] in the Last Year Not on fi sherron 04/15/2025 At any time in the past 12 m [facility], were you homeless or living in a usp (including now)? No 04/15/2025 AUDIT-C Answer Date [...] PM PST documented as of this encounter Last Filed Vital Signs Vital Sign Reading Time Taken Comments Blood Pressure 119/73 08/19/2025 8:38 AM PST Pulse 88 08/19/2025 8:38 AM PST Temperature - - Respiratory Rate - - Oxygen Saturation - - Inhaled Oxygen Concentration - - Weight - - Height - - Body Mass Index - - documented in this encounter Patient Instructions * Attachments The following attachments cannot be sent through Care Everywhere. * Nephrostomy, Percutaneous ([place]) documented in this encounter Progress Notes * Satya Preston MD - 08/19/2025 8:45 AM PST Urology Clinic Note Date of Visit: 08/19/25 History of Present Illness Benny Denis is a 80 year old with metastatic prostate cancer who presents with urinary issuesand follow-up on his nephrostomy tube. He has a significant history of metastatic prostate cancer, initially diagnosed with a PSA of 13 onJuly 26, 2023. A prostate MRI on September 15, 2023, revealed a 77 CC prostate concerning for malignancy, and a prostate biopsy on October 18, 2023, confirmed extensive [place] 9 adenocarcinoma. A PSMA PET scan on November 22, 2023, showed metastatic disease. He was treated with docetaxel and ADT, followed by abiraterone, with follow-up imaging on June 04, 2024, showing improvement. He developed urinary retention and underwent TURP/TURBT on November 04, 2024, revealing small cell carcinoma. 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 He presented to the ED on April 15, 2025, with acute worsening of renal function and gross hematuria. A CT scan showed bilateral hydronephrosis and extensive metastatic disease. A right nephrostomy tube was placed, and his creatinine improved. A PET CT scan on July 09, 2025, revealed progression of metastatic disease. He has had multiple transfusions and persistent gross hematuria. A CT scan onAugust 13, 2025, showed left hydronephrosis, diffuse bladder wall thickening, and worsening metastatic disease. He currently has a right nephrostomy tube and a left ureteral stent in place. He underwent a cystoscopy on August 14, [address] Hameed who was his original urologist after the patient presented to the ED, due to concerns of bleeding. The stent was not changed due to being 'wrapped up in cancer'. He did undergo a TURBT revealing worsening disease within the bladder and a clot evacuation at that time. Per Dr. Hameed's notes the stent was not exchanged given its involvement with cancer and patient's short expected life expectancy of 1 to 3 months. His urine has been 'crystal clear' recently, but he has experienced significant discomfort during travel due to hemorrhoids and the catheter. He has an appointment for a catheter exchange on 2024. The patient is otherwise without complaints and in their usual state of health. The following portions of the patient's history were reviewed and updated as appropriate: allergies, current medications, past family history, past medical history, past social history, past surgicalhistory and problem list. REVIEW OF SYSTEMS: Review of Systems Constitutional: Negative for chills and fever. Respiratory: Negative for chest tightness and shortness of breath. Cardiovascular: Negative for chest pain and palpitations. Gastrointestinal: Negative for nausea and vomiting. PHYSICAL EXAM Vitals: 08/19/25 0838 BP: 119/73 Pulse: 88 Physical Exam Constitutional: Appearance: He is not diaphoretic. HENT: Head: Normocephalic and atraumatic. Pulmonary: Effort: Pulmonary effort is normal. No respiratory distress. Neurological: General: No focal deficit present. Mental Status: He is alert and oriented to person, place, and time. Results LABS PSA: 13 (07/26/2023) Creatinine: 1.16 (03/05/2025) Creatinine: 3.6 (04/09/2025) Creatinine: 3.64 (04/14/2025) Hemoglobin: 6.8 (04/14/2025) Creatinine: 1.41 (04/19/2025) Hemoglobin: 7.4 (08/14/2025) RADIOLOGY Prostate MRI: 77 CC prostate, markedly abnormal, concerning for malignancy, locally advanced disease, possibly metastatic (09/15/2023) PSMA PET scan: Metastatic disease (11/22/2023) PSMA PET scan: Improvement in metastatic disease (06/04/2024) CT scan: Bilateral hydronephrosis, right greater than left, multiple metastatic lesions within the liver, extensive metastatic disease within the bony pelvis (04/12/2025) PET CT scan: Progression of metastatic disease (07/09/2025) CT scan: Left hydronephrosis with left ureteral stent in place, diffuse bladder wall thickening, worsening metastatic liver disease, pulmonary disease, abdominal lymphadenopathy (08/13/2025) DIAGNOSTIC Cystoscopy: No malignancy (10/06/2023) Cystoscopy: Bladder tumor, clot evacuation, fulguration, no stent exchange (08/14/2025) PATHOLOGY Prostate biopsy: Extensive [place] 9 adenocarcinoma of the prostate (10/18/2023) TURP/TURBT: 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 Left ureteral stent is wrapped in cancer, complicating exchange. Per Dr. Hameed the stent was not exchanged due to the patient's short life expectancy. No significant hydronephrosis seen on recent imaging. Will continue to observe. Right nephrostomy tube has not been changed since March. Urine is clear, indicating effective drainage. - Ordered stat nephrostomy tube change for today - Will coordinate with interventional radiology for nephrostomy tube change - Will ensure new nephrostomy tube bag is provided during procedure Urinary retention with indwelling Taylor catheter Urinary retention managed with indwelling Taylor catheter. Recent cystoscopy revealed bladder tumor and clot evacuation. Current catheter is larger than necessary, causing discomfort. - Will downsize Taylor catheter during scheduled change on August 27, 2025 Gross hematuria secondary to advanced urologic malignancy and indwelling devices Gross hematuria likely due to advanced urologic malignancy and irritation from indwelling devices. Recent cystoscopy showed bladder tumor and clot evacuation. Hematuria has improved over the last three days. - Continue to monitor hematuria and manage conservatively - Ensure follow-up with medical oncology for ongoing cancer management I discussed the use of audio recording for clinical note candy attendant with the patient, who gave verbal consent to proceed. (All or parts of this note may have been generated using a voice recognition program. There may be typographic, grammatic, or word substitution errors that have escaped my editorial review.) documented in this encounter Nursing Notes * Jaqueline Lorenz RN - 08/19/2025 8:45 AM PST Scheduled for Nephrostomy tube exchange today at 1:30 pm- is to be NPO- I gave the instructions to Benny and his ride. documented in this encounter Plan of Treatment Upcoming Encounters Date Type Department Care Team (Late st Contact Info) Description 08/27/2025 10:45 AM PST Office Visit [facility] [place] [address] [place] [address] 09/08/2025 11:00 AM PST Office Visit [facility] On[facility] [address] [phone] Maxim Schreiber MD [address] [place] [phone] 10/08/2025 12:20 PM PST Lab [facility] [address] [place] [phone] 10/08/2025 1:00 PM PST Office Visit [facility] [address], [address] [phone] Maxim Schreiber MD [address] [place] [phone] 10/08/2025 1:30 PM PST Infusion [facility] Infusion [address] [address] Maxim Schreiber MD [address] [place] [phone] documented as of this encounter Results * SI NEPHROSTOMY TUBE CHANGE RIGHT (08/19/2025 5:04 PM PST) Anatomical Region Laterality Modality N/A Catheterization/ Interventional Lab 08/20/2025 1:38 PM PST Narrative 08/20/2025 1:38 [place]. [address] PATIENT NAME: BENNY DENIS : 1945 GENDER: M EXAM DATE: 08/19/2025 16:52 ORDERED FROM: [facility] ORDERING PHYSICIAN: SATYA PRESTON CC: -- - - - CONTRAST: READING STATION ID: [id number] mGy: PROCEDURE: SI NEPHROSTOMY TUBE CHANGE INDICATIONS: NEEDS stat Exchange COMPARISON: Nephrostomy placement on 04/15/2025 CLINICAL HISTORY: Patient with chronic nephrostomy tube needs urgent exchange PHYSICIAN: Mike Pace SEDATION: Fentanyl 50 mcg IV, Versed 1 mg IV Conscious sedation was performed by the nursing staff under the supervision of the physician with continuous hemodynamic monitoring. Sedation time was 7 minutes. Contrast: 6 cc nonionic Fluoroscopy time: 0.3 minutes Fluoroscopy dose 1.7 mGy FINDINGS: After the risks, benefits and alternatives were explained, informed consent was obtained from the patient and/or family members. The patient was prepped and draped in sterile fashion. Local anesthesia administered with 1% lidocaine. Preliminary fluoroscopic spot image demonstrates right nephrostomy drain in satisfactory position. Contrast was administered via the existing right nephrostomy drain and nephrostogram was performed. The catheter is in satisfactory position within right renal pelvis. Over a guidewire, the existing nephrostomy was removed and exchanged for a new 8 Ukrainian drainage catheter which was advanced and coiled with the pigtail retention loop in the renal pelvis. Contrast was administered confirming its position. The catheter was secured to the patient's skin and left to gravity drainage. Patient tolerated the procedure well. No immediate complications. IMPRESSION: Exchange of 8 Ukrainian right nephrostomy drain as described. Reviewed by: Roberth Arrington M.D. on 08/20/2025 at 13:36 Approved by: Roberth Arrington M.D. on 08/20/2025 at 13:38 Procedure Note Paul Arrington-Roberth Loco MD - 08/20/2025 [place]. [address] PATIENT NAME: BENNY DENIS : 1945 GENDER: M EXAM DATE: 08/19/2025 16:52 ORDERED FROM: [facility] ORDERING PHYSICIAN: SATYA PRESTON CC: -- - - - CONTRAST: READING STATION ID: [id number] mGy: PROCEDURE: SI NEPHROSTOMY TUBE CHANGE INDICATIONS: NEEDS stat Exchange COMPARISON: Nephrostomy placement on 04/15/2025 CLINICAL HISTORY: Patient with chronic nephrostomy tube needs urgentexchange PHYSICIAN: Mike Pace SEDATION: Fentanyl 50 mcg IV, Versed 1 mg IV Conscious sedation wasperformed by the nursing staff under the supervision of the physician withcontinuous hemodynamic monitoring. Sedation time was 7 minutes. Contrast: 6 cc nonionic Fluoroscopy time: 0.3 minutes Fluoroscopy dose 1.7 mGy FINDINGS: After the risks, benefits and alternatives were explained,informed consent was obtained from the patient and/or family members. Thepatient was prepped and draped in sterile fashion. Local anesthesiaadministered with 1% lidocaine. Preliminary fluoroscopic spot image demonstrates right nephrostomy drainin satisfactory position. Contrast was administered via the existing right nephrostomy drain andnephrostogram was performed. The catheter is in satisfactory position within right renal pelvis. Over a guidewire, the existing nephrostomy was removed and exchanged for anew 8 Ukrainian drainage catheter which was advanced and coiled with thepigtail retention loop in the renal pelvis. Contrast was administeredconfirming its position. The catheter was secured to the patient's skin and left to gravitydrainage. Patient tolerated the procedure well. No immediate complications. IMPRESSION: Exchange of 8 Ukrainian right nephrostomy drain as described. Reviewed by: Roberth Arrington M.D. on 08/20/2025 at 13:36 Approved by: Roberth Arrington M.D. on 08/20/2025 at 13:38 Satya Preston MD [facility] SI PROCEDURES Final Res ult documented in this encounter Visit Diagnoses Diagnosis Hematuria, unspecified type- Primary Ureteral obstruction, right Other ureteric obstruction Hematuria, unspecified type Ureteral obstruction, right Other ureteric obstruction documented in this encounter Care Teams Administrative Director Relationship Specialty Start Date End Date Nya Sagastume NP [address], [address] [place] [address] PCP - General Nurse Practitioner Family 04/14/25 documented as of this encounter
--- OUTSIDE RECORDS SUMMARY | 2025-08-23 05:54 | EXTERNAL MEDICAL SUMMARY RPT | Encounter Summary ---
Author Organization [facility] Address [address] [place] [address] Care Team Providers Care Search Planner Name Role Phone Nya Sagastume NP Primary Care Provider [phone] Reason for Referral * Diagnostic Imaging (Emergency) - Closed Specialty Diagnoses / Procedures Referred By Jaziel bobo Referred To Contact Radiology Diagnoses Hematuria, unspecified type Ureteral obstruction, right Procedures SI NEPHROSTOMY TUBE CHANGE RIGHT Satya Preston MD [address] [place] [address] Phone: tel: fax: Referral ID Status Reason Start Date Expiration Date V isits Requested Visits Authorized [id number] Closed Specialty Services Required 08/19/2025 08/14/2026 1 1 Reason for Visit * Diagnostic Imaging (Emergency) - Closed Specialty Diagnoses / Procedures Referred By Jaziel bobo Referred To Contact Radiology Diagnoses Hematuria, unspecified type Ureteral obstruction, right Procedures SI NEPHROSTOMY TUBE CHANGE RIGHT Satya Preston MD [address] [place] [address] Phone: tel: fax: Referral ID Status Reason Start Date Expiration Date V isits Requested Visits Authorized [id number] Closed Specialty Services Required 08/19/2025 08/14/2026 1 1 Encounter Details Date Type Department Care Team (Latest Contact Info) Description 08/19/2025 12:44 PM PST - 08/19/2025 11:59 PM PST Hospital Encounter [facility] Special Imaging [address] [place] [address] Satya Preston MD [address] [place] [address] Jesus Arrington MD [address] [place] [address] Hematuria, unspecified type; Ureteral obstruction, right Discharge Disposition: Home/Self Care Social History Tobacco Use Types Packs/Day Years Used Date Smoking Tobacco: Never Smokeless Tobacco: Never Comments:Parents/brothers/so n are smokers but I - never Alcohol Use Standard Drinks/Week Comments Not Currently 1 (1 standard drink = 0.6 oz pure alcohol) beer/wine 2-3 weekly for 50 yrs. [facility] Utilities Answer Date Recorded In the past 12 months has th e [employer], gas, oil, or water [employer] threatened to shut off services in your [...] any time in the past 12 m [facility], were you homeless or living in a alf (including now)? No 04/15/2025 AUDIT-C Answer Date [...] Sign Reading Time Taken Comments Blood Pressure 135/76 08/19/2025 5:45 PM PST Pulse 71 08/19/2025 5:45 PM PST Temperature 37.2 C (98.9 F) 08/19/2025 5:20 PM PST Respiratory Rate 13 08/19/2025 5:45 PM PST Oxygen Saturation 98% 08/19/2025 5:45 PM PST Inhaled Oxygen Concentration - - Weight 97.5 kg (215 lb) 08/19/2025 2:16 PM PST Height 175.3 cm (5' 9") 08/19/2025 2:16 PM PST Body Mass Index 31.75 08/19/2025 2:16 PM PST documented in this encounter Functional Status * Question Answer Date of Assessment Author Q1: How often do you have a drink containing alcohol? 2-4 times a month 08/19/2025 2:17 PM Latanya Mendoza "Oskar" KALIN Howard Q3: How often do you have six or more drinks on one occasion? Never 08/19/2025 2:17 PM Latanya Mendoza" KALIN Howard * Question Answer Date of Assessment Author History of Falling 25 08/19/2025 2:11 PM Latanya Mendoza" KALIN Howard Secondary Diagnosis 15 08/19/2025 2:11 PM PS Latanya Ng" P, bottom stainer Aids 0 08/19/2025 2:11 PM PST Latanya Schmitz "Hope" Anita, RN Intravenous Therapy/Heparin/Saline Lock 20 08/19/2025 2:11 PM Grayson Mendoza "Oskar" Anita, RN Gait/Transferring 10 08/19/2025 2:11 PM Latanya Mendoza "Hope" Anita, RN Mental Status 0 08/19/2025 2:11 PM Latanya Acosta "Oskar" Anita RN Miller Fall Risk Score 70 08/19/2025 2:11 PM Latanya Mendoza "Oskar" Anita, RN * Modified Rita Question Answer Date of Assessment Author Activity 2 08/19/2025 5:12 PM Noni Cárdenas RN Respiration 2 08/19/2025 5:12 PM Noni Cárdenas RN Circulation 2 08/19/2025 5:12 PM Noni Cárdenas RN Consciousness 2 08/19/2025 5:12 PM PST Noni Meza RN Oxygen Saturation 2 08/19/2025 5:12 PM Noni Gauthier RN Modified Rita Score 10 08/19/2025 5:12 PM Noni Gauthier RN documented as of this encounter Mental Status * Nataliia Coma Scale Question Answer Entry Date Author Eye Opening 4 08/19/2025 2:20 PM Latanya Espitia "Oskar" Anita, RN Best Motor Response 6 08/19/2025 2:20 PM PS T Latanya Hall "Hope" Anita, RN Best Verbal Response 5 08/19/2025 2:20 PM P Latanya Garza "Oskar" Anita, RN Nataliia Coma Scale Score 15 08/19/2025 2:20 PM Latanya Mendoza "Oskar" Anita, RN * Question Answer Entry Date Author Becker Agitation Sedation Scale (RASS) 0 08/19/2025 2:20 PM Latanya Mendoza "Pe rrin" P, RN * 3. Altered Level of Consciousness Answer Entry Date Author Negative 08/19/2025 2:20 PM Grayson Mendoza "Hope" Anita RN documented in this encounter Discharge Instructions * Discharge Instructions* Latanya Hall RN (Perrin) - 08/19/2025 5:54 PM PST Rest today - do not drive, consume alcohol, take sedatives to help you sleep or make important decisions for the next 24 hours. Keep area around your tube clean and dry. No bathtubs, hot tubs, or swimming. Do not use powder, lotion, cream, or ointments in or around the tube area. Home care instructions: Sometimes sediment or clots can interrupt the drain flow. If your drain stops flowing and does not appear to be dislodged, flush to attempt to clear the end. Be sure to clean end caps with alcohol swabs prior to flushing. Keep bandage on for a week (up to 7 days), unless wet or soiled, then remove and replace with a clean dry dressing. Over the counter gauze pads and medical tape is recommended, cutting slits to travel around the tube. You may shower, using a protective barrier to keep area dry (face away from the shower and over the counter "Clingwrap" serves as a great protective barrier when showering). If your drain becomes dislodged or no longer flowing, after flushing to clear the line, please reach out to your provider as soon as possible. You may set an appointment for a nurse visit - evaluation and dressing change, if you are unable tomanage your tube or are having issues. Please note: if you develop a fever and/or chills, please reach out to your provider immediately. If unavailable please report to your nearest Urgent Care, Emergency Department or call 911. * Attachments The following attachments cannot be sent through Care Everywhere. * Nephrostomy, Percutaneous Discharge Instructions (Cypriot) documented in this encounter Medications at Time of Discharge abiraterone (ZYTIGA) 250 mg chemo tablet TAKE 1 TABLET IN THE MORNING 90 tablet 3 01/13/2025 albuterol HFA (ProAir/Ventolin /Proventil) 90 mcg/actuation inhaler Inhale 2 puffs every 6 (six) hours as needed for wheezing calcium carbonate (CALCIUM 600 ORAL) Take 1 tablet by mouth daily cholecalciferol 10 mcg (400 unit) tablet Take 1 tablet (400 Units total) by mouth 2 (two) times a day ciprofloxacin (CIPRO) 500 mg tablet 08/17/2025 FreeStyle Melville Lite kit 05/08/2025 losartan (COZAAR) 25 mg tablet 1 tablet (25 mg total) 06/25/2025 metoprolol succinate XL (TOPROL-XL) 50 mg 24 hr tablet Take 1 tablet (50 mg total) by mouth daily 90 tablet 3 10/28/2024 6 Myrbetriq 50 mg ER tablet Take 1 tablet (50 mg total) by mouth daily 01/16/2025 oxybutynin chloride extended release, ER, 5 mg 24 hr tablet Take 1 tablet (5 mg total) by mouth daily 90 tablet 3 07/15/2025 6 oxyCODONE (ROXICODONE) 5 mg immediate release tablet 04/29/2025 polyethylene glycol (GLYCOLAX) 17 gram/dose powder Take 17 g by mouth daily potassium chloride (KLOR-CON) 10 mEq CR tablet Take 2 tablets (20 mEq total) by mouth daily 02/28/2025 predniSONE (DELTASONE) 5 mg tabletIndication s:Prostate cancer metastatic to multiple sites (CMS/HCC) Take 1 tablet (5 mg total) by mouth 2 (two) times a day As part of your cancer treatment 60 tablet 3 05/08/2025 rosuvastatin (CRESTOR) 20 mg tablet Take 1 tablet (20 mg total) by mouth nightly 08/25/2023 Trulicity 1.5 mg/0.5 mL pen injector 06/22/2025 documented as of this encounter H&P Notes * Jesus Arrington MD - 08/19/2025 3:00 PM PST Images from the original note were not included. Preprocedure History and Physical Indication for procedure: Diagnoses of Hematuria, unspecified type and Ureteral obstruction, right were pertinent to this visit. Relevant past medical/surgical history: Past Surgical History: Procedure Laterality Date CARPAL TUNNEL RELEASE Right COLONOSCOPY 3 times - most recent in 2022 HIP SURGERY Left 2014 [place] INSJ TUNNELED CTR VAD W/SUBQ PORT AGE 5 YR/> Right 12/14/2023 Procedure: POWERPORT PLACEMENT; Surgeon: Bety Johnston MD; Location: [facility]; Service: General PROSTATE SURGERY TURP - late Oct 2024 REPLACEMENT TOTAL KNEE Bilateral 2009 . Past Medical History: Diagnosis Date Benign prostatic hyperplasia Diabetes (CMS/HCC) HLD (hyperlipidemia) Hypertension Metastatic cancer (CMS/HCC) 22 Sep 2023 JOSSELIN (obstructive sleep apnea) Prostate cancer (CMS/HCC) 22 Sep 2023 Skin cancer epic manager removed one spot on forehead in 2020? Syncope Current medications: Current Medications[1] Medications Ordered Prior to Encounter[2] Relevant family history: Non-contributory Relevant review of systems: Non-contributory Allergies: Patient has no known allergies. Relevant Labs: Lab Results Component Value Date CREATININE 1.73 (H) 08/19/2025 EGFR 40 (L) 08/19/2025 INR 1.2 04/14/2025 Directed physical examination: Alert/Oriented: Normal HEENT: Normal Chest/Lungs: Normal Heart: Normal Abdomen: Normal Mallampati: I (soft palate, uvula, fauces, and tonsillar pillars visible) ASA Score: ASA 2 - Patient with mild systemic disease with no functional limitations [1] Current Outpatient Medications: abiraterone (ZYTIGA) 250 mg chemo tablet, TAKE 1 TABLET IN THE MORNING, Disp: 90 tablet, Rfl: 3 calcium carbonate (CALCIUM 600 ORAL), Take 1 tablet by mouth daily, Disp: , Rfl: cholecalciferol 10 mcg (400 unit) tablet, Take 1 tablet (400 Units total) by mouth 2 (two) times a day, Disp: , Rfl: ciprofloxacin (CIPRO) 500 mg tablet, , Disp: , Rfl: losartan (COZAAR) 25 mg tablet, 1 tablet (25 mg total), Disp: , Rfl: metoprolol succinate XL (TOPROL-XL) 50 mg 24 hr tablet, Take 1 tablet (50 mg total) by mouth daily,Disp: 90 tablet, Rfl: 3 Myrbetriq 50 mg ER tablet, Take 1 tablet (50 mg total) by mouth daily, Disp: , Rfl: oxybutynin chloride extended release, ER, 5 mg 24 hr tablet, Take 1 tablet (5 mg total) by mouth daily, Disp: 90 tablet, Rfl: 3 predniSONE (DELTASONE) 5 mg tablet, Take 1 tablet (5 mg total) by mouth 2 (two) times a day As partof your cancer treatment, Disp: 60 tablet, Rfl: 3 rosuvastatin (CRESTOR) 20 mg tablet, Take 1 tablet (20 mg total) by mouth nightly, Disp: , Rfl: albuterol HFA (ProAir/Ventolin/Proventil) 90 mcg/actuation inhaler, Inhale 2 puffs every 6 (six) hours as needed for wheezing, Disp: , Rfl: FreeStyle Melville Lite kit, , Disp: , Rfl: oxyCODONE (ROXICODONE) 5 mg immediate release tablet, , Disp: , Rfl: polyethylene glycol (GLYCOLAX) 17 gram/dose powder, Take 17 g by mouth daily, Disp: , Rfl: potassium chloride (KLOR-CON) 10 mEq CR tablet, Take 2 tablets (20 mEq total) by mouth daily (Patient not taking: Reported on 05/12/2025), Disp: , Rfl: Trulicity 1.5 mg/0.5 mL pen injector, , Disp: , Rfl: [2] Current Outpatient Medications on File Prior to Encounter Medication Sig Dispense Refill abiraterone (ZYTIGA) 250 mg chemo tablet TAKE 1 TABLET IN THE MORNING 90 tablet 3 calcium carbonate (CALCIUM 600 ORAL) Take 1 tablet by mouth daily cholecalciferol 10 mcg (400 unit) tablet Take 1 tablet (400 Units total) by mouth 2 (two) times a day ciprofloxacin (CIPRO) 500 mg tablet losartan (COZAAR) 25 mg tablet 1 tablet (25 mg total) metoprolol succinate XL (TOPROL-XL) 50 mg 24 hr tablet Take 1 tablet (50 mg total) by mouth daily 90 tablet 3 Myrbetriq 50 mg ER tablet Take 1 tablet (50 mg total) by mouth daily oxybutynin chloride extended release, ER, 5 mg 24 hr tablet Take 1 tablet (5 mg total) by mouth daily 90 tablet 3 predniSONE (DELTASONE) 5 mg tablet Take 1 tablet (5 mg total) by mouth 2 (two) times a day As part of your cancer treatment 60 tablet 3 rosuvastatin (CRESTOR) 20 mg tablet Take 1 tablet (20 mg total) by mouth nightly albuterol HFA (ProAir/Ventolin/Proventil) 90 mcg/actuation inhaler Inhale 2 puffs every 6 (six) hours as needed for wheezing FreeStyle Melville Lite kit oxyCODONE (ROXICODONE) 5 mg immediate release tablet polyethylene glycol (GLYCOLAX) 17 gram/dose powder Take 17 g by mouth daily potassium chloride (KLOR-CON) 10 mEq CR tablet Take 2 tablets (20 mEq total) by mouth daily (Patient not taking: Reported on 05/12/2025) Trulicity 1.5 mg/0.5 mL pen injector No current facility-administered medications on file prior to encounter. documented in this encounter Nursing Notes * Lety Gomez RN - 08/19/2025 6:12 PM PST Pt ambulated in department without difficulty. Taking PO food and fluids well. D/C instructions reviewed and opportunity for questions provided. D/C IV with cath tip intact. Escorted to car w/o incident. All belongings and instructions with patient. * Caren Boggs RN - 08/19/2025 4:48 PM PST See Yonatan Documentation for intraprocedural vital signs. * Noni Briseno RN - 08/19/2025 4:00 PM PST Arrived to [facility] post procedure s/p R Nephrostomy tube exchange with Dr. Arrington. Pt reports no pain or discomfort. Site CDI POC, use and safety precautions reviewed. See flowsheet notes for recovery flow and site management. * Latanya Hall RN (Perrin) - 08/19/2025 2:15 PM PST Pt arrived to [facility] for nephrostomy tube exchange with Dr. Arrington. Discussed plan of care and safety precautions, reports NPO and medications as instructed. Pt reports friend, Nithin, being commercial trailer truck driver. See admit and flow sheet. documented in this encounter OR Notes * Pre-Sedation Documentation - Jesus Arrington MD - 08/19/2025 3:00 PM PST I attest that I have identified and re-evaluated the patient immediately before the start of moderate sedation. Assessment of heart and lungs, relevant medical history including anesthesia, drug and allergy history, laboratory and test results, sedation plan and potential problems, ASA classification of risk, airway and other pertinent physical findings, NPO status, and any additional applicable information documented on the patient record have been reviewed and updated as indicated. Risks, benefits and alternatives of the sedation plan have been discussed with the patient or their graphic art sales representative and all questions have been answered. Sedation plan communicated with care team. * Pre-Sedation Documentation - Jesus Arrington MD - 08/19/2025 3:00 PM PST I attest that I have identified and re-evaluated the patient immediately before the start of moderate sedation. Assessment of heart and lungs, relevant medical history including anesthesia, drug and allergy history, laboratory and test results, sedation plan and potential problems, ASA classification of risk, airway and other pertinent physical findings, NPO status, and any additional applicable information documented on the patient record have been reviewed and updated as indicated. Risks, benefits and alternatives of the sedation plan have been discussed with the patient or their graphic art sales representative and all questions have been answered. Sedation plan communicated with care team. * Post-Procedure Note - Jesus Arrington MD - 08/19/2025 3:00 PM PST Postprocedure Note Benny Denis Physician: Roberth Arrington MD Hospitality Team Member: None Diagnosis: Diagnoses of Hematuria, unspecified type and Ureteral obstruction, right were pertinent to this visit. Procedure: SI NEPHROSTOMY TUBE CHANGE Complications: None Stents/Grafts/Implant: no Blood Product Administration: no If yes, see "Blood Administration Record" Estimated Blood Loss: none Anesthesia: no Specimens Removed: no 08/19/2025 4:59 PM documented in this encounter Plan of Treatment Upcoming Encounters Date Type Department Care Team (Late st Contact Info) Description 08/27/2025 10:45 AM PST Office Visit [facility] [place] [address] [place] [address] 09/08/2025 11:00 AM PST Office Visit [facility] Oncology [address], [address] [address] Maxim Schreiber MD [address] [place] [phone] 10/08/2025 12:20 PM PST Lab [facility] [address] [place] [phone] 10/08/2025 1:00 PM PST Office Visit [facility] Oncology [address], [address] [phone] Maxim Schreiber MD [address] [place] [phone] 10/08/2025 1:30 PM PST Infusion [facility] Oncology Infusion [address] [address] Maxim Schreiber MD [address] [place] [phone] documented as of this encounter Procedures Procedure Name Priority Date/Time Associated Diagnosis Comments SI NEPHROSTOMY TUBE CHANGE STAT 08/19/2025 5:04 PM PST Hematuria, unspecified type Ureteral obstruction, right COMPLETE BLOOD COUNT WITH DIFF RESULT STAT 08/19/2025 2:07 PM PST COMPLETE BLOOD COUNT WITH DIFF STAT 08/19/2025 2:07 PM PST BASIC METABOLIC PANEL STAT 08/19/2025 2:07 PM PST documented in this encounter Results * SI NEPHROSTOMY TUBE CHANGE RIGHT (08/19/2025 5:04 PM PST) Anatomical Region Laterality Modality N/A Catheterization/ Interventional Lab 08/20/2025 1:38 PM PST Narrative 08/20/2025 1:38 [place]. [address] PATIENT NAME: BENNY DENIS : 1945 GENDER: M EXAM DATE: 08/19/2025 16:52 ORDERED FROM: [facility] ORDERING PHYSICIAN: SATYA PRESTON CC: -- - [...] removed and exchanged for a new 8 Qatari drainage catheter which was advanced and coiled with the pigtail retention loop in the renal pelvis. Contrast was administered confirming its position. The catheter was secured to the patient's skin and left to gravity drainage. Patient tolerated the procedure well. No immediate complications. IMPRESSION: Exchange of 8 Qatari right nephrostomy drain as described. Reviewed by: Roberth Arrington M.D. on 08/20/2025 at 13:36 Approved by: Roberth Arrington M.D. on 08/20/2025 at 13:38 Procedure Note Paul Arrington-Roberth Loco MD - 08/20/2025 [place]. [address] PATIENT NAME: BENNY DENIS : 1945 GENDER: M EXAM DATE: 08/19/2025 16:52 ORDERED FROM: [facility] ORDERING PHYSICIAN: SATYA PRESTON CC: -- - [...] was removed and exchanged for anew 8 Qatari drainage catheter which was advanced and coiled with thepigtail retention loop in the renal pelvis. Contrast was administeredconfirming its position. The catheter was secured to the patient's skin and left to gravitydrainage. Patient tolerated the procedure well. No immediate complications. IMPRESSION: Exchange of 8 Qatari right nephrostomy drain as described. Reviewed by: Roberth Arrington M.D. on 08/20/2025 at 13:36 Approved by: Roberth Arrington M.D. on 08/20/2025 at 13:38 us Satya Preston MD [facility] SI PROCEDURES Final Res ult * (ABNORMAL) Complete blood count with diff (08/19/2025 2:07 PM [facility]) WBC Auto 6.0 3.8 - 10.1 x10e3/uL 08/19/2025 2:15 PM [facility] RBC 3.00(L) 4.40 - 5.80 x10e6/uL 08/19/2025 2:15 PM [facility] Hemoglobin 9.5(L) 13.8 - 17.2 g/dL 08/19/2025 2:15 PM [facility] Hematocrit 29.0(L) 41.0 - 50.0 % 08/19/2025 2:15 PM [facility] MCV 97 81 - 100 fL 08/19/2025 2:15 PM [facility] MCH 31.7 27.0 - 35.0 pg 08/19/2025 2:15 PM [facility] MCHC 32.8 32.0 - 37.0 g/dL 08/19/2025 2:15 PM [facility] RDW 16.4(H) 12.3 - 15.4 % 08/19/2025 2:15 PM [facility] Platelets 121(L) 150 - 400 x10e3/uL 08/19/2025 2:15 PM [facility] MPV 8.8 7.4 - 10.4 fL 08/19/2025 2:15 PM [facility] NRBC % 0 0 /100 WBCs 08/19/2025 2:15 PM [facility] Abs. NRBC 0.0 x10e3/uL 08/19/2025 2:15 PM [facility] % Neutrophils 56 % 08/19/2025 2:15 PM [facility] % Lymphocytes 27 % 08/19/2025 2:15 PM [facility] % Monocytes 13 % 08/19/2025 2:15 PM [facility] % Eosinophils 2 % 08/19/2025 2:15 PM [facility] % Basophils 0 % 08/19/2025 2:15 PM [facility] Abs. Neutrophils 3.3 1.6 - 6.9 x10e3/uL 08/19/2025 2:15 PM [facility] Abs. Lymphocytes 1.6 1.1 - 4.8 x10e3/uL 08/19/2025 2:15 PM [facility] Abs. Monocytes 0.8 0.0 - 1.0 x10e3/uL 08/19/2025 2:15 PM [facility] Abs. Eosinophils 0.1 0.0 - 0.5 x10e3/uL 08/19/2025 2:15 PM [facility] Abs. Basophils 0.0 0.0 - 0.4 x10e3/uL 08/19/2025 2:15 PM [facility] Abs. Neutrophils (Auto) 3,300.0 1,600.0 - 6,900.0 /uL 08/19/2025 2:15 PM [facility] Blood Venous blood / Unknown Venipuncture / Unknown 08/19/2025 2:07 PM PST 08/19/2025 2:11 PM [facility] BLOOD ORDERABLES Andressa mena Result [facility] [address] [place] [address], * (ABNORMAL) Basic metabolic panel (08/19/2025 2:07 PM [facility]) Pathologist [facility] Sodium, Serum/Plasma 138 135 - 145 mmol/L LAB CHEMISTRY METHOD 08/19/2025 2:32 PM [facility] Potassium, Serum/Plasma 3.9 3.5 - 5.2 mmol/L LAB CHEMISTRY METHOD 08/19/2025 2:32 PM [facility] Chloride, Serum/Plasma 106 98 - 107 mmol/L LAB CHEMISTRY METHOD 08/19/2025 2:32 PM [facility] CO2, Serum/Plasma 22 22 - 30 mmol/L LAB CHEMISTRY METHOD 08/19/2025 2:32 PM [facility] Anion Gap, Serum/Plasma 10 3 - 11 mmol/L 08/19/2025 2:32 PM [facility] Urea Nitrogen, Serum/Plasma 17.8 8.0 - 27.0 mg/dL LAB CHEMISTRY METHOD 08/19/2025 2:32 PM [facility] Creatinine, Serum/Plasma 1.73(H) 0.76 - 1.27 mg/dL LAB CHEMISTRY METHOD 08/19/2025 2:32 PM [facility] Glucose, Serum/Plasma 114(H) 65 - 99 mg/dL LAB CHEMISTRY METHOD 08/19/2025 2:32 PM [facility] Calcium, Serum/Plasma 9.6 8.5 - 10.1 mg/dL LAB CHEMISTRY METHOD 08/19/2025 2:32 PM [facility] eGFR, Serum/Plasma (CKD-EPI 2020) 40(L) >60 (CKD-EPI 2020) mL/min/1. 73 m2 08/19/2025 2:32 PM [facility] Comment: eGFR calculation has been updated by recommendation of the National Kidney Foundation (NKF) without the race variable. This change was made on December 05, 2022 Interpretation for GFR in Chronic Kidney Disease can be viewed below. BUN/Creatinine Ratio, Serum/Plasma 10.3 6.0 - 24.0 08/19/2025 2:32 PM [facility] Blood Venous blood / Unknown Venipuncture / Unknown 08/19/2025 2:07 PM PST 08/19/2025 2:11 PM [facility] - 08/19/2025 2:32 PM [facility] Interpretive Data The estimated glomerular filtration rate [...] criteria for CKD (Kidney Int Suppl 2013;3:1-150) [facility]-Roberth Arrington MD LAB BLOOD ORDERABLES Andressa mena Result [facility] [address] [place] [address], documented in this encounter Visit Diagnoses Diagnosis Hematuria, unspecified type Ureteral obstruction, right Other ureteric obstruction documented in this encounter Administered Medications Inactive Administered Medications - up to 3 most recent administrations Medication Order MAR Action Action Date Dose Rate Site fentaNYL (SUBLIMAZE) injection intravenous, As needed, Starting on Mon08/19/25 at 1650, Intra-op Given 08/19/2025 4:50 PM PST 50 mcg iodixanoL (VISIPAQUE) 320 mg iodine/mL injection As needed, Starting on Mon08/19/25 at 1708, Intra-op Given 08/19/2025 4:46 PM PST 6 mL midazolam (VERSED) injection intravenous, As needed, Starting on Mon08/19/25 at 1651, Intra-op Given 08/19/2025 4:51 PM PST 1 mg documented in this encounter Care Teams Search Planner Relationship Specialty Start Date End Date Nya Sagastume NP [address], [address] [place] [address] PCP - General Nurse Practitioner Family 04/14/25 documented as of this encounter
--- OUTSIDE RECORDS SUMMARY | 2025-08-23 05:54 | EXTERNAL MEDICAL SUMMARY RPT | Encounter Summary ---
Author Organization [facility] Address [address] [place] [address] Care Team Providers Care Market Director Name Role Phone Nya Sagastume NP Primary Care Provider [phone] Encounter Details Date Type Department Care Team (Late st Contact Info) Description 01/01/2024 Abstract [facility] Oncology [address] [address] Alana Tuttle ARNP [address] [place] [address] Social History Tobacco Use Types Packs/Day [...] Description 08/27/2025 10:45 AM PST Office Visit [facility] Urology [place] [address] [place] [phone] 09/08/2025 11:00 AM PST Office Visit [facility] Oncology [address], [address] [address] Maxim Schreiber MD [address] [place] [address] [address] [place] [phone] 10/08/2025 12:20 PM PST Lab [facility] [address] [place] [address], [address] [place] [phone] 10/08/2025 1:00 PM PST Office Visit [facility] Oncology [address], [address] [place] [phone] Maxim Schreiber MD [address] [place] [address] [address] [place] [address] 10/08/2025 1:30 PM PST Infusion [facility] Oncology Infusion [address], [address] [place] [address] Maxim Schreiber MD [address] [place] [address] [address] [place] [phone] documented as of this encounter Visit Diagnoses Not on filedocumented in this encounter Care Teams Market Director Relationship Specialty Start Date End Date Nya Sagastume NP [address], [address] [place] [address] PCP - General Nurse Practitioner Family 04/14/25 documented as of this encounter
--- OUTSIDE RECORDS SUMMARY | 2025-08-23 05:54 | EXTERNAL MEDICAL SUMMARY RPT | Encounter Summary ---
Author Organization [facility] Address [address] [place] [address] Care Team Providers Care Bushing Press Operator Name Role Phone Nya Sagastume NP Primary Care Provider [phone] Encounter Details Date Type Department Care Team (Late Contact Info) Description 11/29/[address] [facility] Oncology Infusion [address], [facility] [address] [place], [place] [phone] Yves Pollard Provider [address] [place], [place] [phone] Social History Tobacco Use Types Packs/Day Years [...] Description 08/27/2025 10:45 AM PST Office Visit [facility] Urology [address] [phone] 09/08/2025 11:00 AM PST Office Visit [facility] Oncology [address], [address] [place] [phone] Maxim Schreiber MD [address] [place] [address] [address] [place] [phone] 10/08/2025 12:20 PM PST Lab [facility] [address] [place] [address], [address] [place] [address] 10/08/2025 1:00 PM PST Office Visit [facility] Oncology [address], [address] [place] [phone] Maxim Schreiber MD [address] [place] [address] [address] [place] [address] 10/08/2025 1:30 PM PST Infusion [facility] Oncology Infusion [address], [address] [place], [place] [phone] Maxim Schreiber MD [address] [place] [phone] documented as of this encounter Visit Diagnoses Not on filedocumented in this encounter Care Teams Bushing Press Operator Relationship Specialty Start Date End Date Nya Sagastume NP [address], [address] [place], [place] [phone] PCP - General Nurse Practitioner Family 04/14/25 documented as of this encounter
--- OUTSIDE RECORDS SUMMARY | 2025-08-23 05:54 | EXTERNAL MEDICAL SUMMARY RPT | Encounter Summary ---
Author Organization [facility] Address [address] [place] [address] Care Team Providers Care Small Kick Press Operator Name Role Phone Nya Sagastume NP Primary Care Provider [phone] Encounter Details Date Type Department Care Team (Late st Contact Info) Description 07/30/2025 Abstract [facility] Urology [place] [address] [place] [address] [place], [facility] Provider [facility] [place] [phone] Social History Tobacco Use Types Packs/Day Years Used Date Smoking Tobacco: Never Smokeless Tobacco: Never Comments:Parents/brothers/so n are smokers but I - never Alcohol Use Standard Drinks/Week Comments Not Currently 1 (1 standard drink = 0.6 oz pure alcohol) beer/wine 2-3 weekly for 50 yrs. [facility] Utilities Answer Date Recorded In the past 12 months has e [employer], gas, oil, or water [employer] threatened to shut off services in your [...] any time in the past 12 m [facility], were you homeless or living in a fpc (including now)? No 04/15/2025 Sex and Gender [...] Description 08/27/2025 10:45 AM PST Office Visit [facility] Urology [address] [phone] 09/08/2025 11:00 AM PST Office Visit [facility] Oncology [address] [address] Maxim Schreiber MD [address] [place] [phone] 10/08/2025 12:[address] [facility] [address] [place] [phone] 10/08/2025 1:00 PM PST Office Visit [facility] Oncology [address] [phone] Maxim Schreiber MD [address] [place] [address] [address] [place] [phone] 10/08/2025 1:30 PM PST Infusion [facility] Oncology Infusion [place] [address] [place] [address], [address] [place], [place] [phone] Maxim Schreiber MD [address] [place] [address] [address] [place] [address] documented as of this encounter Visit Diagnoses Not on filedocumented in this encounter Care Teams Small Kick Press Operator Relationship Specialty Start Date End Date Nya Sagastume NP [address], [address] [place] [address] PCP - General Nurse Practitioner Family 04/14/25 documented as of this encounter
--- OUTSIDE RECORDS SUMMARY | 2025-08-23 05:54 | EXTERNAL MEDICAL SUMMARY RPT | Clinical Summary ---
Author Organization [facility] Address [address] [place] [address] Care Team Providers Care Clerk Funeral Detail Name Role Phone Nya Sagastume NP Primary Care Provider [phone] Allergies No known active allergies Medications cholecalciferol 10 mcg (400 unit) tablet Take 1 tablet (400 Units total) by mouth 2 (two) times a day Active rosuvastatin (CRESTOR) 20 mg tablet Take 1 tablet (20 mg total) by mouth nightly 3 Active polyethylene glycol (GLYCOLAX) 17 gram/dose powder Take 17 g by mouth daily Active calcium carbonate (CALCIUM 600 ORAL) Take 1 tablet by mouth daily Active metoprolol succinate XL (TOPROL-XL) 50 mg 24 hr tablet Take 1 tablet (50 mg total) by mouth daily 90 tablet 3 5 10/28/19 26 Active abiraterone (ZYTIGA) 250 mg chemo tablet TAKE 1 TABLET IN THE MORNING 90 tablet 3 5 Active Myrbetriq 50 mg ER tablet Take 1 tablet (50 mg total) by mouth daily 5 Active potassium chloride (KLOR-CON) 10 mEq CR tablet Take 2 tablets (20 mEq total) by mouth daily 5 Active albuterol HFA (ProAir/Ventoli n/Proventil) 90 mcg/actuation inhaler Inhale 2 puffs every 6 (six) hours as needed for wheezing Active oxyCODONE (ROXICODONE) 5 mg immediate release tablet 5 Active predniSONE (DELTASONE) 5 mg tabletIndicatio ns:Prostate cancer metastatic to multiple sites (CMS/HCC) Take 1 tablet (5 mg total) by mouth 2 (two) times a day As part of your cancer treatment 60 tablet 3 5 Active FreeStyle [place] Lite kit 5 Active Trulicity 1.5 mg/0.5 mL pen injector Active losartan (COZAAR) 25 mg tablet 1 tablet (25 mg total) Active oxybutynin chloride extended release, ER, 5 mg 24 hr tablet Take 1 tablet (5 mg total) by mouth daily 90 tablet 3 5 07/15/20 Active ciprofloxacin (CIPRO) 500 mg tablet Active Hospital, Clinic, or Other Facility Administered Medication Ordered Dose Route Frequency Start Date End Date Status lidocaine (GLYDO) jelly in syringe 11 mL 11 mL TP Once 07/31/2025 07/31/2025 Ended Active Problems Problem Noted Date Diagnosed Date 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 Racing heart beat 10/28/2024 Essential hypertension 10/28/2024 Hyperlipidemia 10/28/2024 Diabetes mellitus type II, non insulin dependent 10/28/2024 Elevated serum creatinine 02/29/2024 Anemia of chronic disease 02/29/2024 Prostate cancer metastatic to multiple sites Encounters Date Type Department Care Team Description 08/19/2025 12:44 PM [facility] - 08/19/2025 11:59 PM [facility] Hospital Encounter [facility] [address] [place] [address] Satya Preston MD Le, Viet-Thomas Xuan, MD Hematuria, unspecified type; Ureteral obstruction, right Discharge Disposition: Home/Self Care 08/19/2025 8:45 AM [facility] Office Visit [facility] [place] [address] [place] [address] Satya Preston MD Hematuria, unspecified type (Primary Dx); Ureteral obstruction, right 08/19/2025 Telephone [facility] [address], [address] [place] [address] Leslie Al RN 08/13/2025 Telephone [facility] [place] [address] [place] [address] Satya Preston MD Bright Red Urine 08/08/2025 Telephone [facility] [address], [address] [place] [address] Yasmine Serna palliative update 08/08/2025 Telephone [facility] [address], [address] [place] [phone] Leslie Al RN 08/05/2025 Telephone [facility] [address], [address] [phone] Leslie Al, RN CBC results 08/04/2025 Telephone [facility] [place] [address] [place] [address] Satya Preston MD Blood in Urine 07/31/2025 10:15 AM PST Office Visit [facility] [place] [address] [place] [address] Malignant neoplasm of urinary bladder, unspecified site (CMS/HCC) (Primary Dx); Bladder outlet obstruction 07/31/2025 Telephone [facility] [place] [address] [place] [address] Satya Preston MD Catheter not draining in bag 07/30/2025 Abstract [facility] [place] [address] [place] [phone] Mychart, Generic Provider 07/17/2025 Telephone [facility] [address], [address] [place] [phone] Maxim Schreiber MD 07/17/2025 Orders Only [facility] [address], [address] [place] [phone] Roland Medina, RN 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 (CMS/HCC) (Primary Dx); Prostate cancer metastatic to multiple sites (CMS/HCC) 07/16/2025 10:30 AM PDT Infusion [facility] [address], [address] [place] [address] Maxim Schreiber MD Prostate cancer metastatic to multiple sites (CMS/HCC) (Primary Dx) 07/16/2025 9:20 AM PDT Office Visit [facility] [address], [address] [place] [phone] Polly Dick ARNP Wang, Junfeng, MD Prostate cancer metastatic to multiple sites (CMS/HCC) (Primary Dx) 07/14/2025 Telephone [facility] [place] [address] [place] [phone] Satya Preston MD Blood in Urine 07/09/2025 10:30 AM PDT - 07/09/2025 11:59 PM PDT Hospital Encounter [facility] [address] [place] [address], [address] [place] [phone] Polly Dick ARNP Discharge Disposition: Home/Self Care 07/09/2025 10:30 AM PDT - 07/09/2025 11:59 PM PDT Hospital Encounter [facility] [address] [place] [address], [address] [place] [phone] Polly Dick ARNP Prostate cancer metastatic to multiple sites (CMS/HCC) Discharge Disposition: Home/Self Care 07/03/2025 10:15 AM PDT Office Visit [facility] [place] [address] [place] [phone] Prostate cancer (CMS/HCC) (Primary Dx); Malignant neoplasm of urinary bladder, unspecified site (CMS/HCC); Bladder outlet obstruction 07/02/2025 Telephone [facility] [address], [address] [place] [phone] Yasmine Serna Next steps? 07/01/2025 Telephone [facility] [address], [address] [place] [phone] Leslie Al, RN patient called with several questions 07/01/2025 Telephone [facility] [address], [address] [place] [phone] Leslie Al, RN PET order 06/20/2025 Telephone [facility] [address], [address] [place] [phone] Yasmine Serna blood transfusion and next labs 06/07/2025 7:13 AM PDT - 06/07/2025 11:59 PM PDT Hospital Encounter [facility] [address] [place] [address] Maxim Schreiber MD Prostate cancer metastatic to multiple sites (CMS/HCC) (Primary Dx) Discharge Disposition: Home/Self Care 06/06/2025 1:00 PM PDT Infusion [facility] [address], [address] [place] [address] Maxim Schreiber MD Prostate cancer metastatic to multiple sites (CMS/HCC) (Primary Dx) 06/05/2025 10:00 AM PDT Infusion [facility] [address], [address] [place] [address] Maxim Schreiber MD Prostate cancer metastatic to multiple sites (CMS/HCC) (Primary Dx) 06/05/2025 9:00 AM PDT Office Visit [facility] [place] [address] [place] [phone] Prostate cancer (CMS/HCC) (Primary Dx) 06/04/2025 9:00 AM PDT Infusion [facility] [address], [address] [place] [address] Maxim Schreiber MD Prostate cancer metastatic to multiple sites (CMS/HCC) (Primary Dx); Anemia, unspecified type 06/04/2025 8:30 AM PDT Office Visit [facility] [place] [address] [place] [address], [address] [place] [phone] Polly Dick ARNP Anemia, unspecified type (Primary Dx); Prostate cancer metastatic to multiple sites (CMS/HCC) 06/04/2025 8:00 AM PDT [facility] [address] [place] [address], [address] [place] [address] Prostate cancer metastatic to multiple sites ([facility]/HCC) 06/03/2025 Telephone [facility] [address], [address] [place] [address] Leslie Al RN outstanding charge he's confused about 05/29/2025 Abstract [facility] [place] [address] [place] [phone] Mychart, Generic Provider from Last 3 Months Immunizations Immunization Administration Dates Next Due FLU High Dose 65+ Trivalent, PF (FLUZONE) 07/16/2018 FLU PF 6+Mos Trivalent 0.5ML (Fluzone, FluLaval, Fluarix) 05/24/2024,07/20/2023,08/16/2022,2020,06/09/2020,07/12/2019 Moderna Covid Vaccine, Bivalent (12+) 08/16/2022 Moderna Covid-19 Vaccine, (1 2+) Seasonal 05/24/2024,07/20/2023 Moderna SARS-CoV-2 Vaccine Monovalent ,07/16/2021,11/23/2020,2020 Recombinant Zoster (Shingrix) 02/12/2020, 019 Respiratory Syncytial Virus(RSV),(Arexvy) 08/15/2023 Family History Medical History Relation Comments Cancer Brother 1 Cancer Brother 2 Heart attack Father Cancer Mother Throat cancer Mother Relation Status Comments Brother 1 Alive Brother 2 Alive Father Alive Mother Social History Tobacco Use Types Packs/Day Years Used Date Smoking Tobacco: Never Smokeless Tobacco: Never Tobacco Cessation:Counseling Given: Not Answered Comments:Parents/brothers/son are smokers but I - never Alcohol Use Standard Drinks/Week Comments Not Currently 1 (1 standard drink = 0.6 oz pure alcohol) beer/wine 2-3 weekly for [address] [facility] Utilities Answer Date Recorded In the past 12 months has th e [employer], gas, oil, or water company threatened to [...] any time in the past 12 m [facility], were you homeless or living in a custodial (including now)? No 04/15/2025 AUDIT-C Answer Date [...] Orientation Straight 11/17/2023 5: 44 PM PST Last Filed Vital Signs Vital Sign Reading [...] Mass Index 31.75 08/19/2025 2:16 PM PST Plan of Treatment Upcoming Encounters Date Type Department Care Team (Late st Contact Info) Description 08/27/2025 10:45 AM PST Office Visit [facility] [address] [phone] 09/08/2025 11:00 AM PST Office Visit [facility] [address], [address] [phone] Maxim Schreiber MD [address] [place] [phone] 10/08/2025 12:20 PM PST [facility] [address] [place] [phone] 10/08/2025 1:00 PM PST Office Visit [facility] [address], [address] [phone] Maxim Schreiber MD [address] [place] [phone] 10/08/2025 1:30 PM PST Infusion [facility] [place] [address] [place] [address], [address] [place] [address] Maxim Schreiber MD [address] [place] [address] [address] [place] [phone] Health Maintenance Due Date Last Done Comments Diabetic Eye Exam 1945 Medicare Annual Wellness (AWV) 1945 Diabetes Urine Protein Screening 1957 Diabetic Foot Exam 1957 Depression Screening (PHQ-2) 1959 DTaP,Tdap,and Td Vaccines (1 - Tdap) 1966 HM Pneumococcal Adult 50+ (1 of 2 - PCV) 1966 Fall Risk Screening 2012 COVID-19 Vaccine ( season) 2025 05/24/2024, 07/20/2023, 08/16/2022, Additional history exists Hemoglobin A1C 10/16/2025 04/15/2025, 02/07/2024 Zoster Vaccines Completed 02/12/2020, 07/22/2019 RSV Patients Over 60 years OR qualifying ( Patients) Completed 08/15/2023 Influenza Vaccine Completed 07/11/2025, , 07/20/2023, Additional history exists HPV Vaccines Aged Out No longer eligi ble based on patient's age to complete this topic Hepatitis A Vaccines Aged Out No long er eligible based on patient's age to complete this topic Hepatitis B Vaccines Aged Out No long er eligible based on patient's age to complete this topic IPV Vaccines Aged Out No longer eligi ble based on patient's age to complete this topic MMR Vaccines Aged Out No longer eligi ble based on patient's age to complete this topic Medical Devices Implanted Type Area Stitch Wheeler Device Identifier Shelf Expiration Date Model / Serial / Lot Port Catheter Clearvue Implant - [id number] Implanted:Qty: 1 on 12/14/2023 by Bety Johnston MD at [facility] Right: Chest BARD P [id number] 05/18/2025 [id number] / / [id number] Procedures Procedure Name Priority Date/Time Associated Diagnosis Comments SI NEPHROSTOMY TUBE CHANGE STAT 08/19/2025 5:04 PM PST Hematuria, unspecified type Ureteral obstruction, right COMPLETE BLOOD COUNT WITH DIFF RESULT STAT 08/19/2025 2:07 PM PST BASIC METABOLIC PANEL STAT 08/19/2025 2:07 PM PST COMPLETE BLOOD COUNT WITH DIFF STAT 08/19/2025 2:[address] EXTERNAL RESULTS 08/13/2025 COMPLETE BLOOD COUNT WITH DIFF RESULT Routine 07/16/2025 8:23 AM PDT Prostate cancer metastatic to multiple sites (CMS/HCC) SLIDE REVIEW Routine 07/16/2025 8:23 AM PDT Prostate cancer metastatic to multiple sites (CMS/HCC) PROSTATE-SPECIFIC AG Routine 07/16/2025 8:23 AM PDT Prostate cancer metastatic to multiple sites (CMS/HCC) COMPLETE BLOOD COUNT WITH DIFF Routine 07/16/2025 8:23 AM PDT Prostate cancer metastatic to multiple sites (CMS/HCC) COMPREHENSIVE METABOLIC PANEL Routine 07/16/2025 8:23 AM PDT Prostate cancer metastatic to multiple sites (CMS/HCC) PET NECK TO MID THIGH Routine 07/09/2025 12:17 PM PDT Prostate cancer metastatic to multiple sites (CMS/HCC) POC GLUCOSE (PET - NO CHARGE) Routine 07/09/2025 10:49 AM PDT MISCELLANEOUS LAB TEST 06/30/2025 MISCELLANEOUS LAB TEST 06/30/2025 MISCELLANEOUS LAB TEST 06/26/2025 TRANSFUSE RED BLOOD CELLS Routine 06/05/2025 10:26 AM PDT Prostate cancer metastatic to multiple sites (CMS/HCC) HISTORICAL ABO/RH (LAB ONLY - [facility]) Routine 06/04/2025 10:21 AM PDT IRON PROFILE (IRON AND TIBC) WITH FERRITIN Routine 06/04/2025 9:16 AM PDT Anemia, unspecified type PREPARE/CROSSMATCH RBC Routine 9:09 AM PDT Prostate cancer metastatic to multiple sites (CMS/HCC) TYPE AND SCREEN Routine 06/04/2025 9:09 AM PDT Prostate cancer metastatic to multiple sites (CMS/HCC) COMPLETE BLOOD COUNT WITH DIFF RESULT STAT 06/04/2025 7:59 AM PDT Prostate cancer metastatic to multiple sites (CMS/HCC) MAGNESIUM STAT 06/04/2025 7:59 AM PDT Prostate cancer metastatic to multiple sites (CMS/HCC) COMPLETE BLOOD COUNT WITH DIFF STAT 06/04/2025 7:59 AM PDT Prostate cancer metastatic to multiple sites (CMS/HCC) COMPREHENSIVE METABOLIC PANEL STAT 06/04/2025 7:59 AM PDT Prostate cancer metastatic to multiple sites (CMS/HCC) HEMOGLOBIN A1C Add-On 04/15/2025 2:50 PM PDT from Last 3 Months or Most Recently Relevant to Health Maintenance Results * SI NEPHROSTOMY TUBE CHANGE RIGHT (08/19/2025 5:04 PM PST) Anatomical Region Laterality Modality N/A Catheterization/ Interventional Lab 08/20/2025 1:38 PM PST Narrative 08/20/2025 1:38 [place]. [address] PATIENT NAME: BENNY DENIS : 1945 GENDER: M EXAM DATE: 08/19/2025 16:52 ORDERED FROM: [facility] ORDERING PHYSICIAN: SATYA PRESTON CC: -- [...] removed and exchanged for a new 8 Albanian drainage catheter which was advanced and coiled with the pigtail retention loop in the renal pelvis. Contrast was administered confirming its position. The catheter was secured to the patient's skin and left to gravity drainage. Patient tolerated the procedure well. No immediate complications. IMPRESSION: Exchange of 8 Albanian right nephrostomy drain as described. Reviewed by: Roberth Arrington M.D. on 08/20/2025 at 13:36 Approved by: Roberth Arrington M.D. on 08/20/2025 at 13:38 Procedure Note Paul Arrington-Roberth Loco MD - 08/20/2025 [place]. [address] PATIENT NAME: BENNY DENIS : 1945 GENDER: M EXAM DATE: 08/19/2025 16:52 ORDERED FROM: [facility] ORDERING PHYSICIAN: SATYA PRESTON CC: -- [...] was removed and exchanged for anew 8 Albanian drainage catheter which was advanced and coiled with thepigtail retention loop in the renal pelvis. Contrast was administeredconfirming its position. The catheter was secured to the patient's skin and left to gravitydrainage. Patient tolerated the procedure well. No immediate complications. IMPRESSION: Exchange of 8 Albanian right nephrostomy drain as described. Reviewed by: Roberth Arrington M.D. on 08/20/2025 at 13:36 Approved by: Roberth Arrington M.D. on 08/20/2025 at 13:38 us Satya Preston MD [facility] SI PROCEDURES Final Res ult * (ABNORMAL) Complete blood count with diff (08/19/2025 2:07 PM [facility]) Only the most recent of3 resultswithin the time period is included. WBC Auto 6.0 3.8 - 10.1 x10e3/uL 08/19/2025 2:15 PM [facility] RBC 3.00(L) 4.40 - 5.80 x10e6/uL 08/19/2025 2:15 PM [facility] Hemoglobin 9.5(L) 13.8 - 17.2 g/dL 08/19/2025 2:15 PM [facility] Hematocrit 29.0(L) 41.0 - 50.0 % 08/19/2025 2:15 PM [facility] MCV 97 81 - 100 fL 08/19/2025 2:15 PM [facility] MCH 31.7 27.0 - 35.0 pg 08/19/2025 2:15 PM [facility] MCHC 32.8 32.0 - 37.0 g/dL 08/19/2025 2:15 PM [facility] RDW 16.4(H) 12.3 - 15.4 % 08/19/2025 2:15 PM [facility] Platelets 121(L) 150 - 400 x10e3/uL 08/19/2025 2:15 PM [facility] MPV 8.8 7.4 - 10.4 fL 08/19/2025 2:15 PM [facility] NRBC % 0 0 /100 WBCs 08/19/2025 2:15 PM [facility] Abs. NRBC 0.0 x10e3/uL 08/19/2025 2:15 PM [facility] % Neutrophils 56 % 08/19/2025 2:15 PM [facility] % Lymphocytes 27 % 08/19/2025 2:15 PM [facility] % Monocytes 13 % 08/19/2025 2:15 PM [facility] % Eosinophils 2 % 08/19/2025 2:15 PM [facility] % Basophils 0 % 08/19/2025 2:15 PM [facility] Abs. Neutrophils 3.3 1.6 - 6.9 x10e3/uL 08/19/2025 2:15 PM [facility] Abs. Lymphocytes 1.6 1.1 - 4.8 x10e3/uL 08/19/2025 2:15 PM [facility] Abs. Monocytes 0.8 0.0 - 1.0 x10e3/uL 08/19/2025 2:15 PM [facility] Abs. Eosinophils 0.1 0.0 - 0.5 x10e3/uL 08/19/2025 2:15 PM [facility] Abs. Basophils 0.0 0.0 - 0.4 x10e3/uL 08/19/2025 2:15 PM [facility] Abs. Neutrophils (Auto) 3,300.0 1,600.0 - 6,900.0 /uL 08/19/2025 2:15 PM [facility] Blood Venous blood / Unknown Venipuncture / Unknown 08/19/2025 2:07 PM PST 08/19/2025 2:11 PM [facility] Jesus Arrington MD LAB BLOOD ORDERABLES Andressa l Result [facility] [address] [place] [address], * (ABNORMAL) Basic metabolic panel (08/19/2025 2:07 PM [facility]) Sodium, Serum/Plasma 138 135 - 145 mmol/L LAB CHEMISTRY METHOD 08/19/2025 2:32 PM [facility] Potassium, Serum/Plasma 3.9 3.5 - 5.2 mmol/L LAB CHEMISTRY METHOD 08/19/2025 2:32 PM [facility] Chloride, Serum/Plasma 106 98 - 107 mmol/L LAB CHEMISTRY METHOD 08/19/2025 2:32 PM [facility] CO2, Serum/Plasma 22 22 - 30 mmol/L LAB CHEMISTRY METHOD 08/19/2025 2:32 PM [facility] Anion Gap, Serum/Plasma 10 3 - 11 mmol/L 08/19/2025 2:32 PM [facility] Urea Nitrogen, Serum/Plasma 17.8 8.0 - 27.0 mg/dL LAB CHEMISTRY METHOD 08/19/2025 2:32 PM [facility] Creatinine, Serum/Plasma 1.73(H) 0.76 - 1.27 mg/dL LAB CHEMISTRY METHOD 08/19/2025 2:32 PM [facility] Glucose, Serum/Plasma 114(H) 65 - 99 mg/dL LAB CHEMISTRY METHOD 08/19/2025 2:32 PM [facility] Calcium, Serum/Plasma 9.6 8.5 - 10.1 mg/dL LAB CHEMISTRY METHOD 08/19/2025 2:32 PM [facility] eGFR, Serum/Plasma (CKD-EPI 2020) 40(L) >60 (CKD-EPI 2020) mL/min/1. 73 m2 08/19/2025 2:32 PM [facility] Comment: eGFR calculation has been updated by recommendation of the National Kidney Foundation (NKF) without the race variable. This change was made on December 05, 2022 Interpretation for GFR in Chronic Kidney Disease can be viewed below. BUN/Creatinine Ratio, Serum/Plasma 10.3 6.0 - 24.0 08/19/2025 2:32 PM [facility] Blood Venous blood / Unknown Venipuncture / Unknown 08/19/2025 2:07 PM PST 08/19/2025 2:11 PM [facility] - 08/19/2025 2:32 PM [facility] Interpretive Data The estimated glomerular filtration [...] criteria for CKD (Kidney Int Suppl 2013;3:1-150) Jesus Arrington MD LAB BLOOD ORDERABLES Andressa l Result Performing Organization Address [facility] Co de Phone Number [facility] [address] [place] [address], * CT EXTERNAL RESULTS (08/13/2025) Narrative 08/13/2025 Ordered by an unspecified provider. Provider External MD [facility] CT PROCEDURES Final Result * (ABNORMAL) Slide review (07/16/2025 8:23 AM PDT) Pathologist [facility] WBC Morphology Normal 07/16/2025 9:[address] [facility] Anisocytosis 1+ 07/16/2025 9:[address] [facility] Dacryocytes 1+ 07/16/2025 9:[address] [facility] Macrocytes 1+ 07/16/2025 9:[address] [facility] Platelet Estimate Decreased( A) Adequate 07/16/2025 9:[address] [facility] Blood Venous blood / Unknown Venipuncture / Unknown 07/16/2025 8:23 AM PDT 07/16/2025 8:23 AM PDT Polly GOMEZ LAB BLOOD ORDERABLES Final R esult Performing Organization Address [facility] Co de Phone Number [facility] [address] [place] [address], * Prostate-Specific Ag (07/16/2025 8:23 AM PDT) Pathologist [facility] PSA, Serum/Plasma 0.95 <=4.00 ng/mL LAB CHEMISTRY METHOD 07/16/2025 1:32 PM PDT [facility] Comment:Patients taking Biot in supplements may have falsely decreased HCG, Ferritin, PSA, Troponin, or TSH test values. Blood Venous blood / Unknown Venipuncture / Unknown 07/16/2025 8:23 AM PDT 07/16/2025 8:23 AM PDT Polly Dick [facility] LAB BLOOD ORDERABLES Final R esult [facility] [address] [place] [address], [place] [phone] * (ABNORMAL) Comprehensive Metabolic Panel (07/16/2025 8:23 AM PDT) Only the most recent of2 resultswithin the time period is included. Sodium, Serum/Plasma 143 135 - 145 mmol/L LAB CHEMISTRY METHOD 07/16/2025 8:52 AM [facility] Potassium, Serum/Plasma 3.7 3.5 - 5.2 mmol/L LAB CHEMISTRY METHOD 07/16/2025 8:52 AM [facility] Chloride, Serum/Plasma 108(H) 98 - 107 mmol/L LAB CHEMISTRY METHOD 07/16/2025 8:52 AM [facility] CO2, Serum/Plasma 24 22 - 30 mmol/L LAB CHEMISTRY METHOD 07/16/2025 8:52 AM [facility] Anion Gap, Serum/Plasma 11 3 - 11 mmol/L 07/16/2025 8:52 AM [facility] Urea Nitrogen, Serum/Plasma 22.1 8.0 - 27.0 mg/dL LAB CHEMISTRY METHOD 07/16/2025 8:52 AM [facility] Creatinine, Serum/Plasma 1.19 0.76 - 1.27 mg/dL LAB CHEMISTRY METHOD 07/16/2025 8:52 AM [facility] Glucose, Serum/Plasma 127(H) 65 - 99 mg/dL LAB CHEMISTRY METHOD 07/16/2025 8:52 AM [facility] Calcium, Serum/Plasma 9.8 8.5 - 10.1 mg/dL LAB CHEMISTRY METHOD 07/16/2025 8:52 AM [facility] AST, Serum/Plasma 28 17 - 59 U/L LAB CHEMISTRY METHOD 07/16/2025 8:52 AM [facility] ALT, Serum/Plasma 14 <50 U/L LAB CHEMISTRY METHOD 07/16/2025 8:52 AM [facility] Alkaline Phosphatase, Serum/Plasma 82 25 - 160 U/L LAB CHEMISTRY METHOD 07/16/2025 8:52 AM [facility] Total Protein, Serum/Plasma 7.6 6.3 - 8.2 g/dL LAB CHEMISTRY METHOD 07/16/2025 8:52 AM [facility] eGFR, Serum/Plasma (CKD-EPI 2020) 63 >60 (CKD-EPI 2020) mL/min/1. 73 m2 07/16/2025 8:52 AM [facility] Comment: eGFR calculation has been updated by recommendation of the National Kidney Foundation (NKF) without the race variable. This change was made on December 05, 2022 Interpretation for GFR in Chronic Kidney Disease can be viewed below. Albumin, Serum/Plasma 4.0 3.4 - 5.0 g/dL LAB CHEMISTRY METHOD 07/16/2025 8:52 AM [facility] Bilirubin, Total, Serum/Plasma <0.90 0.2 - 1.3 mg/dL LAB CHEMISTRY METHOD 07/16/2025 8:52 AM [facility] BUN/Creatinine Ratio, Serum/Plasma 18.6 6.0 - 24.0 07/16/2025 8:52 AM [facility] Blood Venous blood / Unknown Venipuncture / Unknown 07/16/2025 8:23 AM PDT 07/16/2025 8:23 AM PDT [facility] - 07/16/2025 8:52 AM PDT Interpretive Data The estimated glomerular [...] criteria for CKD (Kidney Int Suppl 2013;3:1-150) Polly Dick [facility] BLOOD ORDERABLES Final R esult [facility] [address] [place] [address], * PET NECK TO MID THIGH (07/09/2025 12:17 PM PDT) Anatomical Region Laterality Modality N/A Nuclear Medicine 07/09/2025 2:33 PM PDT Addenda Addendum by Lisa Osorio MD on 07/09/2025 3:00 [place]. [address] PATIENT NAME: BENNY DENIS : 1945 GENDER: Levi EXAM DATE: 07/09/2025 11:13 [facility] POLLY DICK CC: -- - - - CONTRAST: READING STATION ID: [id number] mGy: Continued Report - Page 7 of 7 PATIENT NAME: BENNY DENIS : 1945 GENDER: Levi EXAM DATE: 07/09/2025 11:13 [facility] POLLY DICK CC: -- - - - CONTRAST: READING STATION ID: [id number] mG: [place]. [address] PATIENT NAME: BENNY DENIS : 1945 GENDER: M EXAM DATE: 07/09/2025 11:13 [facility] POLLY DICK CC: -- - - - CONTRAST: READING STATION ID: [id number] mGy: This report includes an Addendum and supersedes previous reports for this exam. PROCEDURE: PET NECK TO MID THIGH RADIOPHARMACEUTICAL: 12.79 mCi F-18 fluorodeoxyglucose IV. 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 A series of overlapping emission PET images was then obtained. The patient's pretest fasting blood glucose level as measured by glucometer was 104 mg/dl. The area imaged spanned from the skull base to the upper thighs. COMPARISON: [place], PET NECK TO MID THIGH, 12/10/2024, 7:19. [place], PET NECK TO MID THIGH, 04/09/2025, 10:02. FINDINGS: Mediastinum background uptake: maximum SUV 3.1. Liver background uptake: maximum SUV 3.8. Head and neck: Lymph nodes: No enlarged lymph nodes. No abnormal ayo tracer uptake. Brain: Unremarkable. MRI is more sensitive for detection of brain lesions. Neck spaces: Unremarkable. Vessels: unremarkable. Salivary glands and thyroid glands: Unremarkable. Sinuses and mastoids: Mucous retention cyst or polyp in the left maxillary sinus. Near complete opacification of the right maxillary sinus. Mucosal thickening noted in the remaining paranasal sinuses. Mastoids are clear. Thorax: Lymph nodes: FDG avid left hilar lymph node has an SUV maximum of 6.6/8 previous SUV maximum of 5.2. No new FDG avid thoracic lymphadenopathy. Chest wall: No abnormal uptake. Right port terminates in the lower SVC. Lungs and pleura: 1.2 x 0.8 cm medial left upper lobe subpleural nodule on image 7, 120 with an SUV maximum of 3.1. Previously measuring 1.1 x 0.6 cm with an SUV maximum of 2.8. Multiple additional pulmonary nodules without significant FDG uptake demonstrates slow enlargement. For example, there is a 0.9 x 0.8 cm medial left upper lobe nodule on image 89. Previously measuring 0.7 x 0.5 cm. No infiltrate, consolidation, effusion or pneumothorax. Heart and vessels: The aorta and pulmonary arteries demonstrate normal size. Calcifications are noted in the thoracic arch. Heart size is normal. No pericardial effusion. Coronary artery calcifications are noted. Esophagus: Unremarkable. Abdomen and pelvis: Lymph nodes: Seam Press Operator FDG avid lymph nodes include the following: * 1.4 cm left external iliac node on image 215 with an SUV maximum a 8.9. Previously measuring 1 cm. * 1.2 cm right external iliac node on image 234 with an SUV maximum of 5.1. Previously measuring 1 cm. * 7 mm right external iliac node on image 227 with an SUV maximum of 3.13 previously measuring 9 mm. Liver: Multiple hypo tends liver mass lesions are increasing in size, FDG uptake and number. Seam Press Operator lesions are as follows: * 3.8 x 3.3 cm right liver mass on image 141 with an SUV maximum of 13.9. Previously measuring 2.5 x 2.1 cm. * 3.3 x 3.9 cm segment 4 lesion on image 132 with an SUV maximum of 13.8. Previously measuring 2.1 x 2.2 cm. * 4 x 3.4 cm anterior right liver mass on image 133 with an SUV maximum of 14.4. Previously measuring 2.4 x 2.1 cm. Spleen: Mildly enlarged spleen measures 13.4 cm in AP diameter on image 138. Gallbladder: Possible sludge. No obvious stones or inflammation.. Pancreas: Unremarkable. Adrenals: Unremarkable. Kidneys: No hydronephrosis or hydroureter. Left-sided double-J ureteral stent with the proximal loop in his left renal pelvis and the distal loop in the left side of the urinary bladder. Percutaneous nephrostomy tube noted in the right renal pelvis. Bowel: Colonic diverticulosis. Normal appendix. Peritoneum: Unremarkable. Vessels: Aorta and inferior vena cava are normal in size. Mild to moderate atheromatous plaques are noted in the nonaneurysmal abdominal aorta. Pelvic organs: Unremarkable. Bladder: Taylor catheter is present in the contracted urinary bladder. FDG avid extensive bladder wall thickening worse on the right than on the left is noted. Compared to the prior study, bladder wall thickening as progressed. This is not well evaluated due to baseline FDG activity in the urinary bladder. Bones and extremities: Extensive osteoblastic metastases redemonstrated. Many of the lesions demonstrate mild FDG uptake gas before. Seam Press Operator lesions include the following: * Right scapular neck FDG avid lesion with an SUV maximum of 5.3. * Posterior right iliac sclerotic lesion with an SUV maximum of 3.3. * Left posterior iliac sclerotic lesion with an SUV maximum of 3.4. Compared to the prior study, the sclerotic portion of this lesion has increased in size. Other: Small fat containing bilateral inguinal and umbilical hernias. IMPRESSION: Progression of disease. Reviewed by: Lisa Osorio M.D. on 07/09/2025 at 13:30 Approved by: Lisa Osorio M.D. on 07/09/2025 at 14:34 ADDENDUM: An addendum was created on 07/09/2025, at 14:53 and the report is no longer valid. This report includes an Addendum and supersedes previous reports for this exam. Caution: Report not yet finalized and possibly incomplete! PROCEDURE: PET NECK TO MID THIGH RADIOPHARMACEUTICAL: 12.79 mCi F-18 fluorodeoxyglucose IV. 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 A series of overlapping emission PET images was then obtained. The patient's pretest fasting blood glucose level as measured by glucometer was 104 mg/dl. The area imaged spanned from the skull base to the upper thighs. COMPARISON: [place], PET NECK TO MID THIGH, 12/10/2024, 7:19. [place], PET NECK TO MID THIGH, 04/09/2025, 10:02. FINDINGS: Mediastinum background uptake: maximum SUV 3.1. Liver background uptake: maximum SUV 3.8. Head and neck: Lymph nodes: No enlarged lymph nodes. No abnormal ayo tracer uptake. Brain: Unremarkable. MRI is more sensitive for detection of brain lesions. Neck spaces: Unremarkable. Vessels: unremarkable. Salivary glands and thyroid glands: Unremarkable. Sinuses and mastoids: Mucous retention cyst or polyp in the left maxillary sinus. Near complete opacification of the right maxillary sinus. Mucosal thickening noted in the remaining paranasal sinuses. Mastoids are clear. Thorax: Lymph nodes: FDG avid left hilar lymph node has an SUV maximum of 6.6. Previous SUV maximum of 5.2. No new FDG avid thoracic lymphadenopathy. Chest wall: No abnormal uptake. Right port terminates in the lower SVC. Lungs and pleura: 1.2 x 0.8 cm medial left upper lobe subpleural nodule on image 7, 120 with an SUV maximum of 3.1. Previously measuring 1.1 x 0.6 cm with an SUV maximum of 2.8. Multiple additional pulmonary nodules without significant FDG uptake demonstrates slow enlargement. For example, there is a 0.9 x 0.8 cm medial left upper lobe nodule on image 89. Previously measuring 0.7 x 0.5 cm. No infiltrate, consolidation, effusion or pneumothorax. Heart and vessels: The aorta and pulmonary arteries demonstrate normal size. Calcifications are noted in the thoracic arch. Heart size is normal. No pericardial effusion. Coronary artery calcifications are noted. Esophagus: Unremarkable. Abdomen and pelvis: Lymph nodes: Multiple FDG avid lymph nodes are noted in the pelvis. These lymph nodes demonstrate a mixed response with some demonstrating increasing and some decreasing and overall FDG avidity. Seam Press Operator FDG avid lymph nodes include the following: * 1.4 cm left external iliac node on image 215 with an SUV maximum a 8.9. Previously measuring 1 cm with an SUV maximum of 3.8. * 1.2 cm right external iliac node on image 234 with an SUV maximum of 5.1. Previously measuring 1 cm with an SUV maximum of 7.0. * 7 mm right external iliac node on image 227 with an SUV maximum of 3.1. Previously measuring 9 mm with an SUV maximum of 12.4. Liver: Multiple hypoattenuating liver mass lesions are increasing in size, FDG uptake and number. Seam Press Operator lesions are as follows: * 3.8 x 3.3 cm right liver mass on image 141 with an SUV maximum of 13.9. Previously measuring 2.5 x 2.1 cm. * 3.3 x 3.9 cm segment 4 lesion on image 132 with an SUV maximum of 13.8. Previously measuring 2.1 x 2.2 cm. * 4 x 3.4 cm anterior right liver mass on image 133 with an SUV maximum of 14.4. Previously measuring 2.4 x 2.1 cm. Spleen: Mildly enlarged spleen measures 13.4 cm in AP diameter on image 138. Gallbladder: Possible sludge. No obvious stones or inflammation.. Pancreas: Unremarkable. Adrenals: Unremarkable. Kidneys: No hydronephrosis or hydroureter. Left-sided double-J ureteral stent with the proximal loop in his left renal pelvis and the distal loop in the left side of the urinary bladder. Percutaneous nephrostomy tube noted in the right renal pelvis. Bowel: Colonic diverticulosis. Normal appendix. Peritoneum: Unremarkable. Vessels: Aorta and inferior vena cava are normal in size. Mild to moderate atheromatous plaques are noted in the nonaneurysmal abdominal aorta. Pelvic organs: Unremarkable. Bladder: Taylor catheter is present in the contracted urinary bladder. FDG avid extensive bladder wall thickening worse on the right than on the left is noted. Compared to the prior study, bladder wall thickening as progressed. This is not well evaluated due to baseline FDG activity in the urinary bladder. Bones and extremities: Extensive osteoblastic metastases redemonstrated. These lesions demonstrate decreasing FDG avidity. No convincing new lesions. Seam Press Operator lesions include the following: * Right scapular neck FDG avid lesion with an SUV maximum of 5.3. Previous SUV maximum of 3.5. * Posterior right iliac sclerotic lesion with an SUV maximum of 3.3. Previous SUV maximum of 6.6. * Left posterior iliac sclerotic lesion with an SUV maximum of 3.4. Compared to the prior study, the sclerotic portion of this lesion has increased in size. Previous SUV maximum of 4.0. Other: Small fat containing bilateral inguinal and umbilical hernias. IMPRESSION: Mixed disease response as evidenced by: * Increasing FDG avidity, size and number of liver metastases. Increasing size and FDG avidity of pulmonary nodules. Mild increase in the left hilar FDG avid lymph node thought to represent metastatic disease. * Variable response to treatment with pelvic lymphadenopathy demonstrating increasing and decreasing FDG uptake since the prior study. * Multiple bone metastases redemonstrated with decreasing FDG uptake. No convincing new lesions. This is felt to be consistent with treatment response. Reviewed by: Lisa Osorio M.D. on 07/09/2025 at 14:53 Approved by: Lisa Osorio M.D. on 07/09/2025 at 15:00 Narrative 07/09/2025 2:33 [place]. [address] PATIENT NAME: BENNY DENIS : 1945 GENDER: M EXAM DATE: 07/09/2025 11:13 ORDERED FROM: [facility] ORDERING PHYSICIAN: POLLY DICK CC: -- - - - CONTRAST: READING STATION ID: [id number] mGy: PROCEDURE: PET NECK TO MID THIGH RADIOPHARMACEUTICAL: 12.79 mCi F-18 fluorodeoxyglucose IV. 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 A series of overlapping emission PET images was then obtained. The patient's pretest fasting blood glucose level as measured by glucometer was 104 mg/dl. The area imaged spanned from the skull base to the upper thighs. COMPARISON: [place], PET NECK TO MID THIGH, 12/10/2024, 7:19. [place], PET NECK TO MID THIGH, 04/09/2025, 10:02. FINDINGS: Mediastinum background uptake: maximum SUV 3.1. Liver background uptake: maximum SUV 3.8. Head and neck: Lymph nodes: No enlarged lymph nodes. No abnormal ayo tracer uptake. Brain: Unremarkable. MRI is more sensitive for detection of brain lesions. Neck spaces: Unremarkable. Vessels: unremarkable. Salivary glands and thyroid glands: Unremarkable. Sinuses and mastoids: Mucous retention cyst or polyp in the left maxillary sinus. Near complete opacification of the right maxillary sinus. Mucosal thickening noted in the remaining paranasal sinuses. Mastoids are clear. Thorax: Lymph nodes: FDG avid left hilar lymph node has an SUV maximum of 6.6/8 previous SUV maximum of 5.2. No new FDG avid thoracic lymphadenopathy. Chest wall: No abnormal uptake. Right port terminates in the lower SVC. Lungs and pleura: 1.2 x 0.8 cm medial left upper lobe subpleural nodule on image 7, 120 with an SUV maximum of 3.1. Previously measuring 1.1 x 0.6 cm with an SUV maximum of 2.8. Multiple additional pulmonary nodules without significant FDG uptake demonstrates slow enlargement. For example, there is a 0.9 x 0.8 cm medial left upper lobe nodule on image 89. Previously measuring 0.7 x 0.5 cm. No infiltrate, consolidation, effusion or pneumothorax. Heart and vessels: The aorta and pulmonary arteries demonstrate normal size. Calcifications are noted in the thoracic arch. Heart size is normal. No pericardial effusion. Coronary artery calcifications are noted. Esophagus: Unremarkable. Abdomen and pelvis: Lymph nodes: Seam Press Operator FDG avid lymph nodes include the following: * 1.4 cm left external iliac node on image 215 with an SUV maximum a 8.9. Previously measuring 1 cm. * 1.2 cm right external iliac node on image 234 with an SUV maximum of 5.1. Previously measuring 1 cm. * 7 mm right external iliac node on image 227 with an SUV maximum of 3.13 previously measuring 9 mm. Liver: Multiple hypo tends liver mass lesions are increasing in size, FDG uptake and number. Seam Press Operator lesions are as follows: * 3.8 x 3.3 cm right liver mass on image 141 with an SUV maximum of 13.9. Previously measuring 2.5 x 2.1 cm. * 3.3 x 3.9 cm segment 4 lesion on image 132 with an SUV maximum of 13.8. Previously measuring 2.1 x 2.2 cm. * 4 x 3.4 cm anterior right liver mass on image 133 with an SUV maximum of 14.4. Previously measuring 2.4 x 2.1 cm. Spleen: Mildly enlarged spleen measures 13.4 cm in AP diameter on image 138. Gallbladder: Possible sludge. No obvious stones or inflammation.. Pancreas: Unremarkable. Adrenals: Unremarkable. Kidneys: No hydronephrosis or hydroureter. Left-sided double-J ureteral stent with the proximal loop in his left renal pelvis and the distal loop in the left side of the urinary bladder. Percutaneous nephrostomy tube noted in the right renal pelvis. Bowel: Colonic diverticulosis. Normal appendix. Peritoneum: Unremarkable. Vessels: Aorta and inferior vena cava are normal in size. Mild to moderate atheromatous plaques are noted in the nonaneurysmal abdominal aorta. Pelvic organs: Unremarkable. Bladder: Taylor catheter is present in the contracted urinary bladder. FDG avid extensive bladder wall thickening worse on the right than on the left is noted. Compared to the prior study, bladder wall thickening as progressed. This is not well evaluated due to baseline FDG activity in the urinary bladder. Bones and extremities: Extensive osteoblastic metastases redemonstrated. Many of the lesions demonstrate mild FDG uptake gas before. Seam Press Operator lesions include the following: * Right scapular neck FDG avid lesion with an SUV maximum of 5.3. * Posterior right iliac sclerotic lesion with an SUV maximum of 3.3. * Left posterior iliac sclerotic lesion with an SUV maximum of 3.4. Compared to the prior study, the sclerotic portion of this lesion has increased in size. Other: Small fat containing bilateral inguinal and umbilical hernias. IMPRESSION: Progression of disease. Reviewed by: Lisa Osorio M.D. on 07/09/2025 at 13:30 Approved by: Lisa Osorio M.D. on 07/09/2025 at 14:34 Procedure Note Lisa Osorio MD - 07/09/2025 [place]. [address] PATIENT NAME: BENNY DENIS : 1945 GENDER: M EXAM DATE: 07/09/2025 11:13 ORDERED FROM: [facility] ORDERING PHYSICIAN: POLLY DICK CC: -- - - - CONTRAST: READING STATION ID: [id number] mGy: PROCEDURE: PET NECK TO MID THIGH RADIOPHARMACEUTICAL: 12.79 mCi F-18 fluorodeoxyglucose IV. 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 A series of overlapping emission PET images wasthen obtained. The patient's pretest fasting blood glucose level asmeasured by glucometer was 104 mg/dl. The area imaged spanned from theskull base to the upper thighs. COMPARISON: [place], PET NECK TO MID THIGH, 12/10/2024,7:19. [place], PET NECK TO MID THIGH, 04/09/2025,10:02. FINDINGS: Mediastinum background uptake: maximum SUV 3.1. Liver background uptake: maximum SUV 3.8. Head and neck: Lymph nodes: No enlarged lymph nodes. No abnormal ayo tracer uptake. Brain: Unremarkable. MRI is more sensitive for detection of brainlesions. Neck spaces: Unremarkable. Vessels: unremarkable. Salivary glands and thyroid glands: Unremarkable. Sinuses and mastoids: Mucous retention cyst or polyp in the leftmaxillary sinus. Near complete opacification of the right maxillarysinus. Mucosal thickening noted in the remaining paranasal sinuses.Mastoids are clear. Thorax: Lymph nodes: FDG avid left hilar lymph node has an SUV maximum of 6.6/8previous SUV maximum of 5.2. No new FDG avid thoracic lymphadenopathy. Chest wall: No abnormal uptake. Right port terminates in the lower SVC. Lungs and pleura: 1.2 x 0.8 cm medial left upper lobe subpleural noduleon image 7, 120 with an SUV maximum of 3.1. Previously measuring 1.1 x0.6 cm with an SUV maximum of 2.8. Multiple additional pulmonary noduleswithout significant FDG uptake demonstrates slow enlargement. Forexample, there is a 0.9 x 0.8 cm medial left upper lobe nodule on image89. Previously measuring 0.7 x 0.5 cm. No infiltrate, consolidation,effusion or pneumothorax. Heart and vessels: The aorta and pulmonary arteries demonstrate normalsize. Calcifications are noted in the thoracic arch. Heart size isnormal. No pericardial effusion. Coronary artery calcifications arenoted. Esophagus: Unremarkable. Abdomen and pelvis: Lymph nodes: Seam Press Operator FDG avid lymph nodes include the following: * 1.4 cm left external iliac node on image 215 with an SUV maximum a 8.9.Previously measuring 1 cm. * 1.2 cm right external iliac node on image 234 with an SUV maximum of5.1. Previously measuring 1 cm. * 7 mm right external iliac node on image 227 with an SUV maximum of 3.13previously measuring 9 mm. Liver: Multiple hypo tends liver mass lesions are increasing in size, FDGuptake and number. Seam Press Operator lesions are as follows: * 3.8 x 3.3 cm right liver mass on image 141 with an SUV maximum of 13.9.Previously measuring 2.5 x 2.1 cm. * 3.3 x 3.9 cm segment 4 lesion on image 132 with an SUV maximum of 13.8.Previously measuring 2.1 x 2.2 cm. * 4 x 3.4 cm anterior right liver mass on image 133 with an SUV maximum of14.4. Previously measuring 2.4 x 2.1 cm. Spleen: Mildly enlarged spleen measures 13.4 cm in AP diameter on [id number]. Gallbladder: Possible sludge. No obvious stones or inflammation.. Pancreas: Unremarkable. Adrenals: Unremarkable. Kidneys: No hydronephrosis or hydroureter. Left-sided double-J ureteralstent with the proximal loop in his left renal pelvis and the distal loopin the left side of the urinary bladder. Percutaneous nephrostomy tubenoted in the right renal pelvis. Bowel: Colonic diverticulosis. Normal appendix. Peritoneum: Unremarkable. Vessels: Aorta and inferior vena cava are normal in size. Mild tomoderate atheromatous plaques are noted in the nonaneurysmal abdominalaorta. Pelvic organs: Unremarkable. Bladder: Taylor catheter is present in the contracted urinary bladder.FDG avid extensive bladder wall thickening worse on the right than on theleft is noted. Compared to the prior study, bladder wall thickening asprogressed. This is not well evaluated due to baseline FDG activity inthe urinary bladder. Bones and extremities: Extensive osteoblastic metastases redemonstrated.Many of the lesions demonstrate mild FDG uptake gas before.Seam Press Operator lesions include the following: * Right scapular neck FDG avid lesion with an SUV maximum of 5.3. * Posterior right iliac sclerotic lesion with an SUV maximum of 3.3. * Left posterior iliac sclerotic lesion with an SUV maximum of 3.4.Compared to the prior study, the sclerotic portion of this lesion hasincreased in size. Other: Small fat containing bilateral inguinal and umbilical hernias. IMPRESSION: Progression of disease. Reviewed by: Lisa Osorio M.D. on 07/09/2025 at 13:30 Approved by: Lisa Osorio M.D. on 07/09/2025 at 14:34 Polly Dick [facility] [place] PROCEDURES Edited Result - Final * (ABNORMAL) POCT glucose (07/09/2025 10:49 AM PDT) POCT Glucose, Blood 104(A) 65 - 99 mg/dL [facility] POCT (CLIA [id number]) POCT Glucose Strip Lot#: [id number] [facility] POCT (CLIA [id number]) POCT Glucose Strip Lot Exp Date: 04/17/2026 [facility] POCT (CLIA [id number]) POCT Glucose Device s/n: [id number] [facility] POCT (CLIA [id number]) Blood Capillary blood / Unknown 07/09/2025 10:49 AM PDT Polly GOMEZ POINT OF CARE TEST ORDERABLE S Final Result Performing Organization Address City/[facility]/ZIP Co de Phone Number [facility] POCT (CLIA [id number]) [address] [place] [address], [place] [phone] * MISCELLANEOUS LAB TEST (06/30/2025) Only the most recent of3 resultswithin the time period is included. Narrative 06/30/2025 Ordered by an unspecified provider. Provider [facility] LAB BLOOD ORDERABLES Final Result * Transfuse RBC (06/05/2025 12:13 PM PDT) Maxim Schreiber MD BLOOD TRANSFUSION ORDERABLES Fin al Result * HISTORICAL ABO/RH (LAB ONLY - [facility]) (06/04/2025 10:21 AM PDT) Pathologist [facility] Extra Tube Hold for add-ons. 06/04/2025 12:01 PM [facility] Comment:Auto resulted. Blood Venous blood / Unknown Venipuncture / Unknown 06/04/2025 10:21 AM PDT 06/04/2025 10:21 AM PDT Maxim Schreiber MD LAB BLOOD BANK TEST ORDERABLES F inal Result Performing Organization Address City/[facility]/ZIP Co de Phone Number [facility] [address] [place] [address], [place] [phone] * (ABNORMAL) Iron Profile (Iron and TIBC) with Ferritin (06/04/2025 9:16 AM PDT) % Iron Saturation, Serum/Plasma 30 15 - 50 % 06/04/2025 2:34 PM [facility] Iron, Serum/Plasma 59 40 - 140 ug/dL LAB CHEMISTRY METHOD 06/04/2025 2:34 PM [facility] Total Iron Binding Capacity, Serum/Plasma 199(L) 250 - 400 ug/dL LAB CHEMISTRY METHOD 06/04/2025 2:[address] [facility] Ferritin, Serum/Plasma 1,130(H) 30 - 530 ng/mL LAB CHEMISTRY METHOD 06/04/2025 2:[address] [facility] Comment: Heparin plasma samples show approximately 15% negative bias when compared to matched serum samples Patients taking Biotin supplements may have falsely decreased HCG, Ferritin, PSA, Troponin, or TSH test values. Blood Venous blood / Unknown Venipuncture / Unknown 06/04/2025 9:16 AM PDT 06/04/2025 10:37 AM PDT Polly GOMEZ LAB BLOOD ORDERABLES Final R esult Performing Organization Address City/[facility] Co de Phone Number [facility] [address] [place] [address], * Prepare/Crossmatch RBC: 1 Units (06/04/2025 9:09 AM PDT) Unit Number [id number] [facility] Product Identification [id number] [facility] Product Blood Type (Readable) A NEG [facility] Dispense Status Transfused [facility] BLOOD [facility] Blood Product Unit Expiration Date [id number] [facility] Product Code [id number] [facility] Product Blood Type [address] [facility] Blood Venous blood / Unknown 06/04/2025 9:09 AM PDT Maxim Schreiber MD BLOOD BANK PRODUCT ORDERABLES Fi nal Result Performing Organization Address [facility] Co de Phone Number [facility] [address] [place] [address], * Type and screen (06/04/2025 9:09 AM PDT) ABORh A NEG 06/04/2025 11:[address] [facility] Antibody Screen NEG 11:[address] [facility] Reflex to ABO/Rh Type Confirmation NO 06/04/2025 11:[address] [facility] Type and Screen Expiration Date 23:59 06/04/2025 11:[address] [facility] Blood Venous blood / Unknown Venipuncture / Unknown 06/04/2025 9:09 AM PDT 06/04/2025 9:54 AM PDT us Maxim Schreiber MD LAB BLOOD BANK TEST ORDERABLES F inal Result Performing Organization Address [facility] Co de Phone Number [facility] [address] [place] [address], * Magnesium (06/04/2025 7:59 AM PDT) Magnesium, Serum/Plasma 2.2 1.6 - 2.4 mg/dL LAB CHEMISTRY METHOD 06/04/2025 8:[address] [facility] Blood Venous blood / Unknown Venipuncture / Unknown 06/04/2025 7:59 AM PDT 06/04/2025 7:59 AM PDT us Maxim Schreiber MD LAB BLOOD ORDERABLES Final Resul t Performing Organization Address [facility] de Phone Number [facility] [address] [place] [address], * Hemoglobin A1c (04/15/2025 2:50 PM PDT) Hemoglobin A1c 5.6 4.8 - 5.6 % LAB CHEMISTRY METHOD 04/15/2025 5:[address] [facility] Comment: Reference Ranges: Normal: 4.8% to 5.6% Prediabetes: 5.7% to 6.4% Diabetes: 6.5% or higher Estimated Average Glucose (eAG) 114 No Reference Range Established mg/dL 04/15/2025 5:[address] [facility] Blood Venous blood / Unknown Venipuncture / Unknown 04/15/2025 2:50 PM PDT 04/15/2025 3:13 PM PDT Narrative [facility] - 04/15/2025 5:35 PM PDT Specimens containing high amount of Hgb F (>7%) may result in lower than expected %A1c values. us Franklin Carroll MD LAB BLOOD ORDERABLES Final Re sult [facility] Organization Address City/State/ZIP Co de Phone Number 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
--- OUTSIDE RECORDS SUMMARY | 2025-08-23 05:54 | EXTERNAL MEDICAL SUMMARY RPT | Encounter Summary ---
Author Organization [facility] Address [address] [place] [address] Care Team Providers Care Firearms Expert Name Role Phone Nya Sagastume NP Primary Care Provider [phone] Encounter Details Date Type Department Care Team (Late st Contact Info) Description 12/14/2023 Orders Only [facility] Infusion [address], [address] [place], [place] [phone] Roland Medina, RN Social History Tobacco Use Types Packs/Day [...] PM PST documented as of this encounter Functional Status * Question Answer Date of Assessment Author Sensory Perceptions 4 12/14/2023 1:00 PM PD T Singleton, Mandie Moisture 3 12/14/2023 1:00 PM PDT Singleton, Mandie Activity 4 12/14/2023 1:00 PM PDT Singleton, Mandie Mobility 3 12/14/2023 1:00 PM PDT Singleton, Mandie Nutrition 3 12/14/2023 1:00 PM PDT Singleton, Mandie Friction and Shear 2 12/14/2023 1:00 PM PDT Singleton, Mandie Wesley Scale Score 19 12/14/2023 1:00 PM PDT Singleton, Mandie * Modified Rita Question Answer Date of Assessment Author Activity 2 12/14/2023 3:35 PM PDT Tito Ibarra Respiration 2 12/14/2023 3:35 PM PDT Tito Ibarra Circulation 2 12/14/2023 3:35 PM PDT Tito Ibarra Consciousness 2 12/14/2023 3:35 PM PDT Tiot Lema Oxygen Saturation 2 12/14/2023 3:35 PM PDT Tito Sanchez Modified Rita Score 10 12/14/2023 3:35 PM PDT Tito Sanchez documented as of this encounter Plan of Treatment Upcoming Encounters Date Type Department Care Team (Late st Contact Info) Description 08/27/2025 10:45 AM PST Office Visit [facility] Urology [place] [address] [place] [phone] 09/08/2025 11:00 AM PST Office Visit [facility] [address] [phone] Maxim Schreiber MD [address] [place] [phone] 10/08/2025 12:20 PM PST [facility] [address] [place] [phone] 10/08/2025 1:00 PM PST Office Visit [facility] [address] [phone] Maxim Schreiber MD [address] [place] [phone] 10/08/2025 1:30 PM PST Infusion [facility] Infusion [address] [phone] Maxim Schreiber MD [address] [place] [phone] documented as of this encounter Visit Diagnoses Not on filedocumented in this encounter Care Teams Firearms Expert Relationship Specialty Start Date End Date Nya Sagastume NP [address], [address] [place] [address] PCP - General Nurse Practitioner Family 04/14/25 documented as of this encounter
--- OUTSIDE RECORDS SUMMARY | 2025-08-23 05:55 | EXTERNAL MEDICAL SUMMARY RPT | Encounter Summary ---
Author Organization [facility] Address [address] [place] [address] Care Team Providers Care Combination Welder Name Role Phone Nya Sagastume NP Primary Care Provider [phone] Encounter Details Date Type Department Care Team (Late Contact Info) Description 01/10/2025 Abstract [facility] [address], [address] [phone] Pippa Stanford ARNP [address] [place] [address] Social History Tobacco Use Types Packs/Day [...] AM PST Office Visit [facility]rology [address] [place] [phone] 09/08/2025 11:00 AM PST Office Visit [facility] [address], [address] [place] [address] Maxim Schreiber MD [address] [place] [address] [address] [place] [phone] 10/08/2025 12:20 PM PST Lab [facility] [address] [place] [address], [address] [place] [phone] 10/08/2025 1:00 PM PST Office Visit [facility] [address], [address] [place] [phone] Maxim Schreiber MD [address] [place] [address] [address] [place] [phone] 10/08/2025 1:30 PM PST Infusion [facility] Infusion [address], [address] [place] [address] Maxim Schreiber MD [address] [place] [phone] documented as of this encounter Visit Diagnoses Not on filedocumented in this encounter Care Teams Combination Welder Relationship Specialty Start Date End Date Nya Sagastume NP [address], [address] [place] [address] PCP - General Nurse Practitioner Family 04/14/25 documented as of this encounter
--- OUTSIDE RECORDS SUMMARY | 2025-08-23 05:55 | EXTERNAL MEDICAL SUMMARY RPT | Encounter Summary ---
Author Organization 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 If you send me the revised script, I can sign. Thanks! * Telephone Encounter - JASON Shelton - 12/26/2024 8:29 AM PDT Emanuel Underwood, I'm not sure why he is on this med twice daily instead of once daily? documented in this encounter Plan of Treatment Upcoming Encounters Date Type Department Care Team (Late st Contact Info) Description 08/27/2025 10:45 AM PST Office Visit [facility] Urology [place] [address] [place] [phone] 09/08/2025 11:00 AM PST Office Visit [facility] Oncology [address] [phone] Maxim Schreiber MD [address] [place] [phone] 10/08/2025 12:20 PM PST [facility] [address] [place] [phone] 10/08/2025 1:00 PM PST Office Visit [facility] [address] [phone] Maxim Schreiber MD [address] [place] [phone] 10/08/2025 1:30 PM PST Infusion [facility] Infusion [address] [address] Maxim Schreiber MD [address] [place] [phone] documented as of this encounter Visit Diagnoses Diagnosis Prostate cancer metastatic to multiple sites (CMS/HCC) documented in this encounter Care Teams Pipe Fitter Maintenance Relationship Specialty Start Date End Date Nya Sagastume NP [address], [address] [place] [address] PCP - General Nurse Practitioner Family 04/14/25 documented as of this encounter
--- OUTSIDE RECORDS SUMMARY | 2025-08-23 05:55 | EXTERNAL MEDICAL SUMMARY RPT | Encounter Summary ---
Author Organization [facility] Address [address] [place] [address] Care Team Providers Care Procedures Nurse Name Role Phone Nya Sagastume NP Primary Care Provider Encounter Details Date Type Department Care Team (Late st Contact Info) Description 12/04/2023 Case/Admission [facility] [place] [address] [facility] [address] [place] [phone] Bety Johnston MD [address] [place] [address] Social History Tobacco Use Types Packs/Day [...] 08/27/2025 10:45 AM PST Office Visit [facility] [place] [address] [place] [phone] 09/08/2025 11:00 AM PST Office Visit [facility] Oncology [place] [address], [address] [place] [address] Maxim Schreiber MD [address] [place] [address] [address] [place] [phone] 10/08/2025 12:20 PM PST Lab [facility] [address] [place] [address], [address] [place] [phone] 10/08/2025 1:00 PM PST Office Visit [facility] Oncology [address], [address] [place] [phone] Maxim Schreiber MD [address] [place] [address] [address] [place] [phone] 10/08/2025 1:[address] [facility] Infusion [address], [address] [place] [address] Maxim Schreiber MD [address] [place] [address] [address] [place] [phone] documented as of this encounter Visit Diagnoses Not on filedocumented in this encounter Care Teams Procedures Nurse Relationship Specialty Start Date End Date Nya Sagastume NP [address], [address] [place] [address] PCP - General Nurse Practitioner Family 04/14/25 documented as of this encounter
--- OUTSIDE RECORDS SUMMARY | 2025-08-23 05:55 | EXTERNAL MEDICAL SUMMARY RPT | Encounter Summary ---
Author Organization [facility] Address [address] [place] [address] Care Team Providers Care Clinical Audiologist Name Role Phone Nya Sagastume NP Primary Care Provider Encounter Details Date Type Department Care Team (Late Contact Info) Description 11/17/2023 Abstract [facility] Oncology [address], [address] [phone] Maxim Schreiber MD [address] [place] [phone] Social History Tobacco Use Types Packs/Day Years Used Date Smoking Tobacco: Unknown Alcohol Use Standard Drinks/Week Comments Yes 0 [...] Description 08/27/2025 10:45 AM PST Office Visit [facility] Urology [address] [phone] 09/08/2025 11:00 AM PST Office Visit [facility] Oncology [address], [address] [place] [phone] Maxim Schreiber MD [address] [place] [address] [address] [place] [phone] 10/08/2025 12:20 PM PST Lab [facility] [address] [place] [address], [facility] [address] [place] [phone] 10/08/2025 1:00 PM PST Office Visit [facility] Oncology [address], [facility] [address] [place] [phone] Maxim Schreiber MD [address] [place] [phone] 10/08/2025 1:30 PM PST Infusion [facility] On[facility] Infusion [address], [address] [place] [address] Maxim Schreiber MD [address] [place] [phone] documented as of this encounter Visit Diagnoses Not on filedocumented in this encounter Care Teams Clinical Audiologist Relationship Specialty Start Date End Date Nya Sagastume NP [address], [address] [place] [address] PCP - General Nurse Practitioner Family 04/14/25 documented as of this encounter
== END 2025-08-14 16:17 | disposition home or self-care (01) ==
LOC: MS2 18:44 → ED 18:44 → MS2 21:24
PROVIDERS: ADMIT Physician Assistant Medical; ATTEND Physician Assistant Medical
PROC: [UNRECOGNIZED PROCEDURE] (2025-08-14 09:00)